=== PATIENT | female | born 1975 | race Caucasian/White ===

== ENCOUNTER 2016-04-26 20:54 | Inpatient (IN) | payer MEDICAID, OTHER ==
[~2016-04-26] VITALS: Ht 172.7 cm; Wt 211.1 kg
[~2016-04-26 20:54] MED LIST: BUPR150XL; FERR324T4 PO; LORTA5 PO; OMEP20CA5 PO; XANA2TAB2 PO; Z.0.NO CURRENT MEDS
[2016-04-26 20:56] VITALS: BP 137/68; PULSE 88; RESP 18; TEMP 98.1; O2SAT 89
[2016-04-26] MEDS ORDERED: GABA600T PO (21:05)
[2016-04-26] MEDS ORDERED: GABA300C3 PO ×2 (21:05)
[2016-04-26 21:22] LABS: MEAN CORPUSCULAR HGB CONC 26.7 % (32.0-36.0)
[2016-04-26 22:04] LABS: BICARBONATE 29.3 MEQ/L (21.0-32.0); POTASSIUM 4.1 MEQ/L (3.5-5.1)
[2016-04-26 22:54] LABS: AUTOMATED NEUTROPHIL # 8.5 TH/MM3 (1.8-7.7); BASOPHIL # 0.2 TH/MM3 (0-0.2); BASOPHIL % 1.5 % (0.0-2.0); EOSINOPHIL # 0.2 TH/MM3 (0-0.4); EOSINOPHIL % 1.3 % (0.0-4.0); HEMATOCRIT 25.6 % (35.0-46.0); LYMPH % 16.7 % (9.0-44.0); LYMPHOCYTE # 1.9 TH/MM3 (1.0-4.8); MEAN CELL VOLUME 62.8 FL (80.0-100.0); MEAN CORPUSCULAR HEMOGLOBIN 16.8 PG (27.0-34.0); MONO % 5.2 % (0.0-8.0); NEUT % 75.3 % (16.0-70.0); PLATELET COUNT 458 TH/MM3 (150-450); RED BLOOD COUNT 4.07 MIL/MM3 (4.00-5.30); RED CELL DISTRIBUTION WIDTH 25.5 % (11.6-17.2); WHITE BLOOD COUNT 11.3 TH/MM3 (4.0-11.0)
[2016-04-26 23:13] LABS: HEMO FLAGS AUTO DIFF
[2016-04-26] MEDS ORDERED: cefTRIAXone INJ 1,000 MG in SODIUM CHLORIDE 0.9% INJ 100 ML IV ONE (23:30)
[2016-04-26] MEDS ORDERED: VANCOMYCIN INJ 1,000 MG in SODIUM CHLOR 0.9% 250 ML INJ 250 ML IV ONE (23:30)
[2016-04-26] MEDS ORDERED: BISACODYL 10 MG SUPP PR PRN (23:45)
[2016-04-26] MEDS ORDERED: MAGNESIUM HYDROXIDE SUSP 30 ML CUP PO PRN (23:45)
[2016-04-26] MEDS ORDERED: SODIUM CHLORIDE 0.9% FLUSH 5 ML FLUSH FLUSH PRN (23:45)
[2016-04-26] MEDS ORDERED: PROCHLORPERAZINE 25 MG SUPP PR PRN (23:45)
[2016-04-26] MEDS ORDERED: TEMAZEPAM 15 MG CAP PO PRN (23:45)
[2016-04-26] MEDS ORDERED: ONDANSETRON HCL 4 MG/2 ML VIAL IVP PRN (23:45)
[2016-04-26] MEDS ORDERED: SENNOSIDES 8.6 MG TAB PO PRN (23:45)
[2016-04-26] MEDS ORDERED: ACETAMINOPHEN 325 MG TAB PO PRN (23:45)
[2016-04-27] VITALS (13 sets, daily range): BP systolic 110–121; BP diastolic 52–59; PULSE 80–109; RESP 17–18; TEMP 96.9–100; O2SAT 95–96
[2016-04-27] MEDS ORDERED: SODIUM CHLOR 0.9% 250 ML INJ 250 ML IV ONE
--- NOTE | 2016-04-27 00:24 | PD ---
HPI Chief Complaint: Laceration/Skin Injury Time Seen by Provider: 21:01 Travel History International Travel<30 days: No Contact w/Intl Traveler<30days: No Traveled to known affect area: No History of Present Illness HPI Patient was seen and examined the presence of staff at all times This is a 40-year-old female who presents via [facility] for evaluation. The patient states that she has basically been bed bound, mostly on her left side for about 4 years due to her weight. She has developed pressure ulcers. She states that they have worsened over the last month but she was too embarrassed to tell her doctor about it. She denies fever, chills, vomiting, diarrhea. She states that sometimes the sores oozes blood. Symptoms are moderate in severity. Onset gradual. Chronic in duration. Aggravated by morbid obesity. Prior treatment includes occasional application of "powder" and "cream." PFSH Past Medical History Arthritis: No Asthma: No Autoimmune Disease: No Blood Disorders: No Anxiety: No Depression: Yes Heart Rhythm Problems: No Cancer: No Cardiovascular Problems: Yes High Cholesterol: No Chemotherapy: No Chest Pain: No Congestive Heart Failure: No COPD: No Cerebrovascular Accident: No Diabetes: No Diminished Hearing: No Endocrine: No GERD: No Glaucoma: No Genitourinary: No Headaches: No Hepatitis: No Hiatal Hernia: No Hypertension: Yes Immune Disorder: No Kidney Stones: No Musculoskeletal: Yes Neurologic: No Psychiatric: Yes Reproductive: No Integumentary: Yes Myocardial Infarction: No Radiation Therapy: No Renal Failure: No Seizures: No Sickle Cell Disease: No Sleep Apnea: No Thyroid Disease: No Ulcer: No : 0 Para: 0 Miscarriage: 0 : 0 Past Surgical History Abdominal Surgery: No AICD: No Arteriovenous Shunt: No Cardiac Surgery: No Ear Surgery: No Endocrine Surgery: No Eye Surgery: No Genitourinary Surgery: No Gynecologic Surgery: No Insulin Pump: No Joint Replacement: No Oral Surgery: No Pacemaker: No Thoracic Surgery: No Social History Alcohol Use: No Tobacco Use: No Substance Use: No Allergies-Medications (Allergen,Severity, Reaction): Coded Allergies: Diflucan (Verified Allergy, Mild, Rash, 04/26/16) Reported Meds & Prescriptions Reported Meds & Active Scripts Active Reported Gabapentin 600 Mg Tab 600 Mg PO TAKE AT 0530 Gabapentin 300 Mg Cap 300 Mg PO TAKE 2130 Gabapentin 300 Mg Cap 300 Mg PO TAKE AT 1330 Prilosec 20 mg (Omeprazole) 20 Mg Capcr 20 Mg PO DAILY Hydrocodone/Acetaminophen 5 mg/325 mg 1 Tab Tab 1 Tab PO Q6HPRN Review of Systems ROS negative x 10: except as stated in HPI Physical Exam Narrative GENERAL: Alert, morbidly obese female resting on the bed in no acute distress. Vital signs reviewed SKIN: Warm and dry. HEAD: Atraumatic. Normocephalic. EYES: Pupils equal and round. No scleral icterus. No injection or drainage. ENT: No nasal bleeding or discharge. Mucous membranes pink and moist. NECK: Trachea midline. No JVD. Supple neck with spontaneous, painless full range of motion. No meningismus CARDIOVASCULAR: Regular rate and rhythm. No murmur appreciated. RESPIRATORY: No accessory muscle use. Clear to auscultation. Breath sounds equal bilaterally. Exam limited by body habitus GASTROINTESTINAL: Abdomen soft, on the left under aspect of the pannus, there are chronic skin changes. There is about a 12 x 5 area of skin breakdown with a central less than half centimeter opening. Exam is limited by body habitus. Patient does not tolerate much movement. MUSCULOSKELETAL: No obvious deformities. No clubbing. No cyanosis. No edema. NEUROLOGICAL: Awake and alert. No obvious cranial nerve deficits. Motor grossly within normal limits. Normal speech. Sensation intact. Data Data Last Documented VS Vital Signs Date Time Temp Pulse Resp B/P Pulse Ox O2 Delivery O2 Flow Rate FiO2 04/26/16 20:56 98.1 88 18 137/68 89 Orders Basic Metabolic Panel (Bmp) (04/26/16 21:21) Complete Blood Count With Diff (04/26/16 21:21) Wound Culture And Gram Stain (04/26/16 21:21) Ceftriaxone Inj (Rocephin Inj) (04/26/16 23:30) Vancomycin Inj (Vancomycin Inj) (04/26/16 23:30) Blood Culture (04/26/16 23:28) Admit Order (Ed Use Only) (04/26/16 23:29) Admit To Inpatient (04/26/16 ) Vital Signs (Adult) Q4H (04/26/16 23:37) Activity Oob With Assistance (04/26/16 23:37) ^ Stores Assistant / Telemetry .CONTINUOUS (04/26/16 23:37) Diet Heart Healthy (04/27/16 Breakfast) Sodium Chlor 0.9% 1000 Ml Inj (Ns 1000 M (04/26/16 23:37) Sodium Chloride 0.9% Flush (Ns Flush) (04/26/16 23:45) Sodium Chloride 0.9% Flush (Ns Flush) (04/27/16 09:00) Acetaminophen (Tylenol) (04/26/16 23:45) Ondansetron Inj (Zofran Inj) (04/26/16 23:45) Prochlorperazine Supp (Compazine Supp) (04/26/16 23:45) Bisacodyl Supp (Dulcolax Supp) (04/26/16 23:45) Magnesium Hydroxide Liq (Milk Of Magnesi (04/26/16 23:45) Sennosides (Senokot) (04/26/16 23:45) Temazepam (Restoril) (04/26/16 23:45) Basic Metabolic Panel (Bmp) (04/27/16 06:00) Complete Blood Count With Diff (04/27/16 06:00) Resp Oxygen Kody C Titrat 1-4 L (04/26/16 ) Pt Request For Service (04/26/16 23:37) Case Management Consult (04/26/16 23:37) Enoxaparin Inj (Lovenox Inj) (04/26/16 23:45) Scd Bilateral/Knee High STANTON.QSHIFT (04/26/16 23:37) Celso Bilateral/Knee High STANTON.QSHIFT (04/26/16 23:37) Inpatient Certification (04/26/16 ) Vancomycin Inj (Vancomycin Inj) (04/26/16 23:45) Ceftriaxone Inj (Rocephin Inj) (04/26/16 23:45) Gabapentin (Neurontin) (04/27/16 09:00) (Nf) Gabapentin (04/26/16 23:45) (Nf) Omeprazole 20 Mg (Prilosec 20 Mg) (04/27/16 09:00) Gabapentin (Neurontin) (04/27/16 09:00) Labs Laboratory Tests Test 04/26/16 04/26/16 21:30 22:30 Sodium Level 140 MEQ/L Potassium Level 4.1 MEQ/L Chloride Level 101 MEQ/L Carbon Dioxide Level 29.3 MEQ/L Anion Gap 10 MEQ/L Blood Urea Nitrogen 9 MG/DL Creatinine 0.81 MG/DL Estimat Glomerular Filtration 78 ML/MIN Rate Random Glucose 103 MG/DL Calcium Level 8.3 MG/DL White Blood Count 11.3 TH/MM3 Red Blood Count 4.07 MIL/MM3 Hemoglobin 6.8 GM/DL Hematocrit 25.6 % Mean Corpuscular Volume 62.8 FL Mean Corpuscular Hemoglobin 16.8 PG Mean Corpuscular Hemoglobin 26.7 % Concent Red Cell Distribution Width 25.5 % Platelet Count 458 TH/MM3 Mean Platelet Volume 8.4 FL Neutrophils (%) (Auto) 75.3 % Lymphocytes (%) (Auto) 16.7 % Monocytes (%) (Auto) 5.2 % Eosinophils (%) (Auto) 1.3 % Basophils (%) (Auto) 1.5 % Neutrophils # (Auto) 8.5 TH/MM3 Lymphocytes # (Auto) 1.9 TH/MM3 Monocytes # (Auto) 0.6 TH/MM3 Eosinophils # (Auto) 0.2 TH/MM3 Basophils # (Auto) 0.2 TH/MM3 CBC Comment AUTO DIFF MDM Medical Decision Making Medical Screen Exam Complete: Yes Emergency Medical Condition: Yes Medical Record Reviewed: Yes Interpretation(s) CBC reviewed. Hemoglobin 6.8 BMP reviewed Differential Diagnosis Decubitus ulcer, chronic wound infection, cellulitis, morbid obesity Narrative Course IV access was established. Labs were performed. Wound culture was performed on abdominal wound. Patient has critical anemia. She denies melena or hematochezia. She states that she does not have menstrual cycles. I spoke with her regarding blood transfusion. She will be admitted for further evaluation and care. Diagnosis Primary Impression: Anemia Qualified Code: D64.9 - Anemia, unspecified type Additional Impression: Cellulitis Qualified Code: L03.311 - Cellulitis of abdominal wall Evelin Banks MD Apr 27, 2016 00:24
[2016-04-27] MEDS: SODIUM CHLOR 0.9% 1000 ML INJ 1,000 ML IV SCH ×3 (00:32→13:32)
[2016-04-27] MEDS: ENOXAPARIN SODIUM 40 MG/0.4 ML SYRINGE SQ SCH ×2 (00:33→23:30)
[2016-04-27 01:36] LABS: KERATOCYTES 1+ (NORMAL); OVALOCYTES 2+ (NORMAL); STOMATOCYTES 2+ (NORMAL); TEARDROP RBCS 1+ (NORMAL)
[2016-04-27 01:37] LABS: SCAN/DIFF AUTO DIFF CONFIRMED
--- NOTE | 2016-04-27 02:12 | HHI.HP ---
HPI Service [facility] Primary Care Physician Non-Staff Admission Diagnosis Abdominal Wall Decubitus Ulcer with Cellulitis, Critical Anemia Diagnoses: Travel History International Travel<30 Days: No Contact w/Intl Traveler <30 Da: No Traveled to Known Affected Are: No History of Present Illness This is a 40-year-old female morbidly obese with BMI of 93.9 who presents via [facility] for evaluation. The patient states that she has basically been bed bound, mostly on her left side for about 4 years due to her weight. She has developed pressure ulcers. She states that they have worsened over the last month but she was too embarrassed to tell her doctor about it. She denies fever, chills, vomiting, diarrhea. She states that sometimes the sores oozes blood. Symptoms are moderate in severity. Onset gradual. Chronic in duration. Aggravated by morbid obesity. Prior treatment includes occasional application of "powder" and "cream." She also complaints of sob. CBC with low HGB, received 1U PRBC. Otherwise no complaints. Review of Systems Constitutional: DENIES: Fever, Chills, Change in appetite Endocrine: DENIES: Heat/cold intolerance Eyes: DENIES: Blurred vision, Eye pain Ears, nose, mouth, throat: DENIES: Tinnitus, Hearing loss, Vertigo, Nasal discharge, Oral lesions, Throat pain, Hoarseness, Ear Pain, Running Nose, Epistaxis, Sinus Pain, Toothache, Odynophagia Respiratory: DENIES: Apneas, Cough, Snoring, Wheezing, Hemoptysis, Sputum production, Shortness of breath Cardiovascular: DENIES: Chest pain, Palpitations, Syncope, Dyspnea on Exertion , PND, Lower Extremity Edema, Orthopnea, Claudication Gastrointestinal: DENIES: Abdominal pain, Black stools, Bloody stools, Constipation, Diarrhea, Nausea, Vomiting, Difficulty Swallowing, Anorexia Genitourinary: DENIES: Urinary frequency, Urinary incontinence Musculoskeletal: COMPLAINS OF: Back pain Integumentary: COMPLAINS OF: Rash (extensive ulcers, rash on her neck as well) Neurologic: COMPLAINS OF: Abnormal gait Psychiatric: COMPLAINS OF: Anxiety, Depression Past Family Social History Past Medical History Morbid obesity BMI of 93.9. HTN Pressure ulcers Past Surgical History None Allergies: Coded Allergies: Diflucan (Verified Allergy, Mild, Rash, 04/26/16) Family History Morbid obesity problems runs in family Social History Denies etoh, tobacco or illicit drug use. Physical Exam Vital Signs Vital Signs Date Time Temp Pulse Resp B/P Pulse Ox O2 Delivery O2 Flow Rate FiO2 04/27/16 02:06 82 18 118/57 95 04/27/16 01:45 88 18 121/57 95 04/27/16 01:33 100.0 85 18 119/57 95 Room Air 04/27/16 01:32 100.0 85 18 119/57 95 Room Air 04/26/16 20:56 98.1 88 18 137/68 89 Physical Exam GENERAL: This is a pleasant female, morbidly obese BMI of 93.9, well-nourished, well-developed patient, in no apparent distress. SKIN: Rash on the neck consistent with funga l rash Extensive cellulitis, pressure ulcers, not able to visualize much because of the patient inability to move, she is bedbound. HEAD: Atraumatic. Normocephalic. No temporal or scalp tenderness. EYES: Pupils equal round and reactive. Extraocular motions intact. No scleral icterus. No injection or drainage. ENT: Nose without bleeding, purulent drainage or septal hematoma. Throat without erythema, tonsillar hypertrophy or exudate. Uvula midline. Airway patent. NECK: Trachea midline. No JVD or lymphadenopathy. Supple, nontender, no meningeal signs. CARDIOVASCULAR: Regular rate and rhythm without murmurs, gallops, or rubs. RESPIRATORY: Clear to auscultation. Breath sounds equal bilaterally. No wheezes , rales, or rhonchi. GASTROINTESTINAL: Abdomen soft morbidly obese, non-tender, nondistended. No hepato-splenomegaly, or palpable masses. No guarding. MUSCULOSKELETAL: Extremities without clubbing, cyanosis, or edema. No joint tenderness, effusion, or edema noted. No calf tenderness. Negative Homans sign bilaterally. NEUROLOGICAL: Awake and alert. Cranial nerves II through XII intact. Motor and sensory grossly within normal limits. Five out of 5 muscle strength in all muscle groups. Normal speech. Laboratory Laboratory Tests Test 04/26/16 04/26/16 04/27/16 21:30 22:30 00:08 Sodium Level 140 Potassium Level 4.1 Chloride Level 101 Carbon Dioxide Level 29.3 Anion Gap 10 Blood Urea Nitrogen 9 Creatinine 0.81 Estimat Glomerular Filtration 78 Rate Random Glucose 103 Calcium Level 8.3 White Blood Count 11.3 Red Blood Count 4.07 Hemoglobin 6.8 Hematocrit 25.6 Mean Corpuscular Volume 62.8 Mean Corpuscular Hemoglobin 16.8 Mean Corpuscular Hemoglobin 26.7 Concent Red Cell Distribution Width 25.5 Platelet Count 458 Mean Platelet Volume 8.4 Neutrophils (%) (Auto) 75.3 Lymphocytes (%) (Auto) 16.7 Monocytes (%) (Auto) 5.2 Eosinophils (%) (Auto) 1.3 Basophils (%) (Auto) 1.5 Neutrophils # (Auto) 8.5 Lymphocytes # (Auto) 1.9 Monocytes # (Auto) 0.6 Eosinophils # (Auto) 0.2 Basophils # (Auto) 0.2 CBC Comment AUTO DIFF Differential Comment AUTO DIFF CONFIRMED Tear Drop Cells 1+ Ovalocytes 2+ Stomatocytes 2+ Keratocytes 1+ Blood Type O POSITIVE Antibody Screen NEGATIVE Crossmatch Leukocyte-Reduced Red Blood Cells Blood Bank Comment Date/Time Procedure Status Source Growth 04/27/16 00:08 Aerobic Blood Culture Received Blood Peripheral Pending 04/27/16 00:08 Anaerobic Blood Culture Received Blood Peripheral Pending 04/26/16 21:30 Gram Stain Received Wound Abdomen Pending 04/26/16 21:30 Wound Culture Received Wound Abdomen Pending Result Diagram: 04/26/16 2230 04/26/16 2130 Assessment and Plan Assessment and Plan Pleasant 40 yo F, morbidly obese BMI 93.9 with Cellulitis Decubitus ulcers Morbid obesity BMI 93.9. counselled. Evaluated for bariatric surgery, says she is not a candidate. Symptomatic anemia. Hemoglobin 6.8. Receiving 1U PRBC. Monitor H/H Wound culture was performed on abdominal wound in the ED. Started on vancomycin and rocephin IV antibiotics Start IVF Restart home meds. DVt px with SCD/Teds Code Status full Discussed Condition With pt, nurse, ED physician Physician Certification 2 Midnight Certification Type: Admission for Inpatient Services Order for Inpatient Services The services are ordered in accordance with Medicare regulations or non- Medicare payer requirements, as applicable. In the case of services not specified as inpatient-only, they are appropriately provided as inpatient services in accordance with the 2-midnight benchmark. Estimated LOS (days): 3 days is the estimated time the patient will need to remain in the hospital, assuming treatment plan goals are met and no additional complications. Post-Hospital Plan: Not yet determined Bettina Bowling MD Apr 27, 2016 02:12
[2016-04-27] MEDS ORDERED: ACETAMINOPHEN/HYDROcodone 325 MG/5 MG TAB PO PRN (02:15)
[2016-04-27] MEDS: GABAPENTIN 300 MG CAP PO SCH ×3 (03:39→22:00)
[2016-04-27 07:16] LABS: AUTOMATED NEUTROPHIL # 8.5 TH/MM3 (1.8-7.7); BASOPHIL # 0.2 TH/MM3 (0-0.2); BASOPHIL % 1.4 % (0.0-2.0); EOSINOPHIL # 0.2 TH/MM3 (0-0.4); EOSINOPHIL % 1.7 % (0.0-4.0); HEMATOCRIT 29.9 % (35.0-46.0); MEAN CELL VOLUME 64.9 FL (80.0-100.0); MEAN CORPUSCULAR HEMOGLOBIN 17.5 PG (27.0-34.0); MONO % 6.1 % (0.0-8.0); NEUT % 73.8 % (16.0-70.0); PLATELET COUNT 482 TH/MM3 (150-450); RED CELL DISTRIBUTION WIDTH 25.4 % (11.6-17.2); WHITE BLOOD COUNT 11.5 TH/MM3 (4.0-11.0)
[2016-04-27 07:29] LABS: HEMO FLAGS AUTO DIFF
[2016-04-27 07:38] LABS: BICARBONATE 31.6 MEQ/L (21.0-32.0); POTASSIUM 3.8 MEQ/L (3.5-5.1)
[2016-04-27] MEDS ORDERED: GABAPENTIN 300 MG CAP PO SCH (09:00)
[2016-04-27] MEDS: PANTOPRAZOLE SOD 20 MG DELAYED RELEASE TAB PO SCH (09:10)
[2016-04-27] MEDS: SODIUM CHLORIDE 0.9% FLUSH 5 ML FLUSH FLUSH SCH ×2 (09:11→21:00)
[2016-04-27 09:24] LABS: CORRECTED NUCLEATED RBC 3 /100 WBC (0-0); NEUTROPHIL # MANUAL DIFF 9.3 TH/MM3 (1.8-7.7); PLATELET ESTIMATE SMEAR HIGH (NORMAL); PLATELET MORPHOLOGY NORMAL (NORMAL); POLYS (SEG NEUTROPHILS) 81 % (16-70); SCAN/DIFF FINAL DIFF MANUAL; WBC DIFF SAMPLE 100
[2016-04-27 09:25] LABS: OVALOCYTES 1+ (NORMAL)
[2016-04-27 09:27] LABS: STOMATOCYTES 1+ (NORMAL)
[2016-04-27] MEDS: VANCOMYCIN INJ 1,000 MG in SODIUM CHLOR 0.9% 250 ML INJ 250 ML IV SCH ×2 (12:06→23:29)
[2016-04-27] MEDS: ACETAMINOPHEN/HYDROcodone 325 MG/5 MG TAB PO PRN ×2 (13:50→22:01)
[2016-04-27] MEDS: cefTRIAXone INJ 1,000 MG in SODIUM CHLORIDE 0.9% INJ 100 ML IV SCH (23:30)
[2016-04-28 01:51] VITALS: BP 112/51; PULSE 96; RESP 18; TEMP 97.8; O2SAT 94
[2016-04-28 04:00] VITALS: BP 118/63; PULSE 118; RESP 18; TEMP 97.5; O2SAT 93
[2016-04-28] MEDS: GABAPENTIN 300 MG CAP PO SCH ×3 (05:12→21:18)
[2016-04-28] MEDS: ACETAMINOPHEN/HYDROcodone 325 MG/5 MG TAB PO PRN ×3 (05:13→18:05)
[2016-04-28] MEDS: SODIUM CHLOR 0.9% 1000 ML INJ 1,000 ML IV SCH ×2 (05:13→12:00)
[2016-04-28] MEDS: SODIUM CHLORIDE 0.9% FLUSH 5 ML FLUSH FLUSH SCH ×2 (08:19→21:00)
[2016-04-28] MEDS: PANTOPRAZOLE SOD 20 MG DELAYED RELEASE TAB PO SCH (08:19)
[2016-04-28 08:20] VITALS: BP 128/60; PULSE 117; RESP 18; TEMP 97.2; O2SAT 97
[2016-04-28 08:47] LABS: MEAN CORPUSCULAR HGB CONC 27.6 % (32.0-36.0)
[2016-04-28] MEDS ORDERED: PNEUMOCOCCAL POLYVALENT INJ 25 MCG/0.5 ML SYR IM ONE (09:00)
[2016-04-28] MEDS ORDERED: INFLUENZA VIRUS VACCINE (QUADRIVALENT) 0.5 ML SYR IM ONE (09:00)
--- NOTE | 2016-04-28 09:20 | HHI.PR ---
Subjective Remarks 40 years old female very pleasant morbidly obese, bedbound for 4 years total care- her boyfriend is her child care group leader yesterday while bathing her - he put his hand under her body to wash her and noted blood and was sent here for further evaluation now with apparently a chronic wound on the abdomen - left side - BF clean it with patient denies any pain BM regular voiding spontaneously- - she would put a towel in between her legs when she needs to urinate occasional constipation take Omeprazole, hydrocodone prn - "fibromyalgia" denies alcohol use, no smoking Objective Vitals Vital Signs Date Time Temp Pulse Resp B/P Pulse Ox O2 Delivery O2 Flow Rate FiO2 04/28/16 08:20 97.2 117 18 128/60 97 04/28/16 04:00 97.5 118 18 118/63 93 04/28/16 01:51 97.8 96 18 112/51 94 04/27/16 22:10 21 04/27/16 20:17 103 04/27/16 20:00 98.1 100 18 115/55 95 04/27/16 16:23 97.1 99 17 121/56 95 04/27/16 14:50 20 04/27/16 13:24 96.9 109 17 114/52 95 I/O 04/27/16 04/27/16 04/27/16 04/28/16 04/28/16 04/28/16 07:00 15:00 23:00 07:00 15:00 23:00 Intake Total 700 ml 497 ml 970 ml 688 ml 120 ml Balance 700 ml 497 ml 970 ml 688 ml 120 ml Intake Oral 240 ml 240 ml 120 ml IV Total 257 ml 730 ml 688 ml Packed Cells 700 ml # Voids 1 Result Diagram: 04/27/16 0643 04/27/1643 Objective Remarks awake and alert, oriented x 3, not in distress morbidly obese anicteric lungs clear radial pulses ++, regular abdomen- flabby, anterior-umbilicus stretched vertically about 3 cm- dry, no erythema left side of the abdomen- superficial area of erythema, excoriations from pressure unable to turn her to inspect the wound back- no open wounds, no sacral erythema motor- moves all extremities spontaenousl - LE limited by weight A/P Assessment and Plan Decubitus wounds - abdomen- growing gram negative continue on Ceftriaxone and Vancomycin Wound care team/nurse consult- Morbid obesity BMI 93.9. counselled. Evaluated for bariatric surgery, says she is not a candidate. Microcytic anemia - likely chronic Hemoglobin 6.8. S/P 1U PRBC. Monitor H/H . check Iron studies denies any hematochezia, LMP stop 2-3 months ago check Iron stores- IV Iron if low start Iron supplements Continue on Gabapentin, PPI, Lortab DVt - Lovenox Darrell Cruz MD Apr 28, 2016 09:20
[2016-04-28 11:10] LABS: ALKALINE PHOSPHATASE 114 U/L (45-117); ALT (GPT) 6 U/L (10-53); AST (GOT) 16 U/L (15-37); FERRITIN 7 NG/ML (8-252); INDIRECT BILIRUBIN 0.5 MG/DL (0.0-0.8); TOTAL BILIRUBIN ADULT 0.7 MG/DL (0.2-1.0); TRANSFERRIN IRON PROFILE 203 MG/DL (200-360)
[2016-04-28 11:24] LABS: AUTOMATED NEUTROPHIL # 6.8 TH/MM3 (1.8-7.7); BASOPHIL % 0.5 % (0.0-2.0); EOSINOPHIL # 0.5 TH/MM3 (0-0.4); EOSINOPHIL % 4.7 % (0.0-4.0); HEMO FLAGS AUTO DIFF; LYMPH % 18.2 % (9.0-44.0); LYMPHOCYTE # 1.7 TH/MM3 (1.0-4.8); MEAN CORPUSCULAR HEMOGLOBIN 18.2 PG (27.0-34.0); MONO % 4.8 % (0.0-8.0); NEUT % 71.8 % (16.0-70.0); PLATELET COUNT 448 TH/MM3 (150-450); RED CELL DISTRIBUTION WIDTH 24.9 % (11.6-17.2); WHITE BLOOD COUNT 9.5 TH/MM3 (4.0-11.0)
[2016-04-28 11:52] VITALS: BP 122/55; PULSE 102; RESP 17; TEMP 96.9; O2SAT 96
[2016-04-28] MEDS: VANCOMYCIN INJ 1,000 MG in SODIUM CHLOR 0.9% 250 ML INJ 250 ML IV SCH (11:59)
[2016-04-28] MEDS: FERROUS SULFATE 325 MG (65 MG ELEMENTAL IRON) TAB PO SCH ×2 (12:00→18:04)
[2016-04-28 12:21] LABS: BANDS 1 % (0-6); BASOPHILS 1 % (0-2); CORRECTED NUCLEATED RBC 1 /100 WBC (0-0); EOSINOPHILS 5 % (0-4); NEUTROPHIL # MANUAL DIFF 7.5 TH/MM3 (1.8-7.7); POLYS (SEG NEUTROPHILS) 78 % (16-70); WBC DIFF SAMPLE 100
[2016-04-28 12:22] LABS: PLATELET ESTIMATE SMEAR NORMAL (NORMAL); PLATELET MORPHOLOGY NORMAL (NORMAL); POLYCHROMASIA 2.6 % (0.0-1.9); SCAN/DIFF FINAL DIFF MANUAL
[2016-04-28 17:23] VITALS: BP 121/58; PULSE 107; RESP 18; TEMP 97; O2SAT 95
[2016-04-28 20:00] VITALS: BP 138/56; PULSE 101; RESP 20; TEMP 98.2; O2SAT 94
[2016-04-29] VITALS (8 sets, daily range): BP systolic 103–128; BP diastolic 44–76; PULSE 93–110; RESP 19–20; TEMP 97.1–98; O2SAT 91–97
[2016-04-29] MEDS: cefTRIAXone INJ 1,000 MG in SODIUM CHLORIDE 0.9% INJ 100 ML IV SCH (00:38)
[2016-04-29] MEDS: VANCOMYCIN INJ 1,000 MG in SODIUM CHLOR 0.9% 250 ML INJ 250 ML IV SCH ×2 (00:38→11:54)
[2016-04-29] MEDS: ENOXAPARIN SODIUM 40 MG/0.4 ML SYRINGE SQ SCH (00:39)
[2016-04-29] MEDS: SODIUM CHLOR 0.9% 1000 ML INJ 1,000 ML IV SCH ×2 (00:39→17:36)
[2016-04-29] MEDS: ACETAMINOPHEN/HYDROcodone 325 MG/5 MG TAB PO PRN ×4 (00:39→17:39)
[2016-04-29] MEDS: GABAPENTIN 300 MG CAP PO SCH ×3 (06:10→20:18)
--- NOTE | 2016-04-29 08:38 | HHI.PR ---
Subjective Remarks very pleasant now having some itchiness neck area Objective Vitals Vital Signs Date Time Temp Pulse Resp B/P Pulse Ox O2 Delivery O2 Flow Rate FiO2 04/29/16 08:00 97.5 110 20 125/70 97 04/29/16 04:00 97.1 105 20 112/44 93 04/29/16 00:00 98.0 96 20 103/54 96 04/28/16 20:00 98.2 101 20 138/56 94 04/28/16 17:23 97.0 107 18 121/58 95 04/28/16 13:26 Nasal Cannula 1.00 04/28/16 11:52 96.9 102 17 122/55 96 I/O 04/28/16 04/28/16 04/28/16 04/29/16 04/29/16 04/29/16 07:00 15:00 23:00 07:00 15:00 23:00 Intake Total 928 ml 880 ml 1036 ml 884 ml Output Total 200 ml Balance 928 ml 680 ml 1036 ml 884 ml Intake Oral 240 ml 880 ml 720 ml 0 ml IV Total 688 ml 316 ml 884 ml Output Urine Total 200 ml # Voids 1 2 1 # Bowel Movements 0 1 Result Diagram: 04/28/16 1016 04/27/16 0643 Objective Remarks awake and alert, oriented x 3, not in distress morbidly obese anictericneck- right neck with some erythematous excoriations, scaling lungs clear radial pulses ++, regular abdomen- flabby, anterior-umbilicus stretched vertically about 3 cm- dry, no erythema left side of the abdomen- superficial area of erythema, excoriations from pressure unable to turn her to inspect the wound back- no open wounds, no sacral erythema motor- moves all extremities spontaenous - LE limited by weight A/P Assessment and Plan Decubitus wounds - abdomen- growing gram negative continue on Ceftriaxone and Vancomycin Wound care team/nurse consult- Morbid obesity BMI 93.9. counselled. Evaluated for bariatric surgery, says she is not a candidate. Microcytic anemia -- severe Iron deficiency ?r/o GIB versus- nutritional B12, folic acid deficiency LMP stop 2-3 months ago ? hematochezia- as per patient when BF cleans her- blood underneath get a GI consult give IV iron x 3start Iron supplements B12, folate daily Continue on Gabapentin, PPI, Lortab No Lovenox with severe anemia Darrell Cruz MD Apr 29, 2016 08:38
[2016-04-29] MEDS: SODIUM CHLORIDE 0.9% FLUSH 5 ML FLUSH FLUSH SCH ×2 (09:00→20:16)
[2016-04-29] MEDS: PANTOPRAZOLE SOD 20 MG DELAYED RELEASE TAB PO SCH (10:14)
[2016-04-29] MEDS: FOLIC ACID 1 MG TAB PO SCH (10:14)
[2016-04-29] MEDS: IRON SUCROSE INJ 100 MG in SODIUM CHLORIDE 0.9% INJ 100 ML IV SCH (10:15)
[2016-04-29] MEDS: FERROUS SULFATE 325 MG (65 MG ELEMENTAL IRON) TAB PO SCH ×2 (11:52→17:35)
--- NOTE | 2016-04-29 16:10 | PD.CONS ---
HPI History of Present Illness This is a 40-year-old female morbidly obese with BMI of 93.9 who presents via [facility] for evaluation of an ulcer. The patient has been basically been bed bound, on her left side for about 4 years due to inability to move due to weight. She has developed pressure ulcers. She reports abd pain that got worse, but normally, due to embarrassment, she holds off on telling any one and waits for a long time before seeking medical attention. She denies fever, chills, vomiting, hematemesis, hematochezia, or diarrhea. She has a care rep that helps her, and he notices sometimes blood on the wipe from the sores. Labs revealed CBC with low HGB 6.8 , received 1U PRBC, and hgb went up to 8.5. Wound nurse consulted, wound cx showed klebsiella pneumoniae PFSH Past Medical History Morbid obesity BMI of 93.9. HTN Pressure ulcers chronic anemia Past Surgical History None Coded Allergies: Diflucan (Verified Allergy, Mild, Rash, 04/26/16) *MDRO Multi-Drug Resistant Organism (Verified Adverse Reaction, Unknown, 04/29/16) ESBL+Klebsiella Pneumoniae (abdomen-04/26/16) Medications Current Medications Medications (Trade) Dose Ordered Sig/Gerda Route Start Time Stop Time Status Last Admin (NS 1000 ml Inj) 1,000 ml @ 42 mls/hr [id number] IV 04/26/16 23:37 04/29/16 00:39 (NS Flush) 2 ml UNSCH PRN FLUSH 04/26/16 23:45 (NS Flush) 2 ml BID FLUSH 04/27/16 09:00 04/28/16 08:19 (Tylenol) 650 mg Q4H PRN PO 04/26/16 23:45 (Zofran Inj) 4 mg Q6H PRN IVP 04/26/16 23:45 (Compazine Supp) 25 mg Q12H PRN [place] 04/26/16 23:45 (Dulcolax Supp) 10 mg DAILY PRN IL 04/26/16 23:45 (Milk Of Magnesia Liq) 30 ml Q12H PRN PO 04/26/16 23:45 04/27/16 03:40 (Senokot) 17.2 mg Q12H PRN PO 04/26/16 23:45 Temazepam 15 mg 15 mg HS PRN PO 04/26/16 23:45 Vancomycin HCl 1000 mg/Sodium Chloride 250 ml @ 250 mls/hr Q12H IV 04/27/16 12:00 04/29/16 11:54 (Rocephin Inj/NS Inj) 100 ml @ 200 mls/hr Q24H IV 04/28/16 00:00 04/29/16 00:38 (Neurontin) 600 mg DAILY@0530 PO 04/27/16 05:30 04/29/16 06:10 (Protonix) 20 mg DAILY PO 04/27/16 09:00 04/29/16 10:14 (Neurontin) 300 mg BID PO 04/27/16 09:00 04/29/16 10:14 ([place] 5-325 Mg) 2 tab Q6H PRN PO 04/27/16 02:15 04/29/16 12:07 Ferrous Sulfate 325 mg 325 mg BID@12,17 PO 04/28/16 12:00 04/29/16 11:52 (Venofer Inj/NS Inj) 105 ml @ 105 mls/hr DAILY IV 04/29/16 10:00 05/01/16 09:59 04/29/16 10:15 (Folate) 1 mg DAILY PO 04/29/16 09:00 04/29/16 10:14 Family History Morbid obesity problems runs in family Cancer runs in family Denies family hx of colon or gastric cancer Social History Denies etoh, tobacco or illicit drug use. Review of Systems Constitutional: COMPLAINS OF: Fatigue, DENIES: Chills Endocrine: DENIES: Polyuria Eyes: DENIES: Double Vision Ears, nose, mouth, throat: DENIES: Hoarseness Respiratory: COMPLAINS OF: Shortness of breath Cardiovascular: DENIES: Syncope Gastrointestinal: COMPLAINS OF: Abdominal pain, DENIES: Black stools, Bloody stools, Constipation, Diarrhea, Nausea, Vomiting, Difficulty Swallowing, Anorexia, Odynophagia, Swelling of Abdomen, Heartburn, Hematemesis Genitourinary: DENIES: Hematuria Musculoskeletal: DENIES: Neck pain Integumentary: DENIES: Jaundice Hematologic/lymphatic: DENIES: Bruising Immunologic/allergic: DENIES: Eczema Neurologic: COMPLAINS OF: Abnormal gait Psychiatric: DENIES: Anxiety GI Exam Vitals I&O Vital Signs Date Time Temp Pulse Resp B/P Pulse Ox O2 Delivery O2 Flow Rate FiO2 04/29/16 12:00 97.7 102 19 128/56 95 04/29/16 09:03 91 Nasal Cannula 2.00 04/29/16 08:00 97.5 110 20 125/70 97 04/29/16 04:00 97.1 105 20 112/44 93 04/29/16 00:00 98.0 96 20 103/54 96 04/28/16 20:00 98.2 101 20 138/56 94 04/28/16 17:23 97.0 107 18 121/58 95 I/O 04/28/16 04/28/16 04/28/16 04/29/16 04/29/16 04/29/16 07:02 15:02 23:02 07:02 15:02 23:02 Intake Total 928 ml 880 ml 1036 ml 884 ml 909 ml Output Total 200 ml Balance 928 ml 680 ml 1036 ml 884 ml 909 ml Intake Oral 240 ml 880 ml 720 ml 0 ml 240 ml IV Total 688 ml 316 ml 884 ml 669 ml Output Urine Total 200 ml # Voids 1 2 1 2 # Bowel Movements 0 1 1 Laboratory Date/Time Procedure Status Source Growth 04/27/16 00:08 Aerobic Blood Culture - Preliminary Resulted Blood Peripheral NO GROWTH IN 2 DAYS 04/27/16 00:08 Anaerobic Blood Culture - Preliminary Resulted Blood Peripheral NO GROWTH IN 2 DAYS 04/26/16 21:30 Gram Stain - Final Complete Wound Abdomen 04/26/16 21:30 Wound Culture - Final Complete Klebsiella Pneumoniae Esbl Pos Physical Examination HEENT: Pupils round and reactive to light; normocephalic; atraumatic; no jaundice. CHEST: Chest is clear to auscultation and percussion. CARDIAC: Regular rate and rhythm with no murmur gallop or rubs. ABDOMEN: Morbid obese, not able to assess due to patient inability to move EXTREMITIES: No clubbing, cyanosis, or edema. SKIN: Normal; no rash; no jaundice. FIELD TECHNICAL SUPPORT CONSULTANT: No focal deficits; alert and oriented times three. Assessment and Plan Plan - Severe microcytic anemia- this is chronic, she was seen by our services back in 2010 for the anemia, no scopes were done, patient not having any rectal bleeding that she is aware off, she has a care rep that helps her with cleaning, he reports the sores are oozing blood sometimes hgb was 6.8, s/p 1 unit of blood, this went up to 8.5 - ? hematochezia vs sores bleed, care rep noted some blood on the wipe,but she ulcers - Decubitus wounds - abdomen- growing gram negative, on Ceftriaxone and Vancomycin. Wound care team/nurse consulted - Morbid obesity- BMI 93.9, has been on left side for over 4 years now Plan: - DUANE - It would be very difficult to have EGD/colonoscopy due to anatomy, and weight , she is very high risk. - Hemoccult stools - monitor hh - Transfuse as needed - cont. Protonix - Supportive care - patient seen and examined by Dr. Escamilla and myself and this note is written on his behalf. Marta Doshi Apr 29, 2016 16:10
[2016-04-29] MEDS: LEVOFLOXACIN 500 MG PREMIX INJ 100 ML IV SCH (18:18)
[2016-04-30] VITALS (8 sets, daily range): BP systolic 106–133; BP diastolic 54–86; PULSE 95–110; RESP 18–20; TEMP 96.1–98.4; O2SAT 93–98
[2016-04-30] MEDS: VANCOMYCIN INJ 1,000 MG in SODIUM CHLOR 0.9% 250 ML INJ 250 ML IV SCH ×3 (00:24→23:09)
[2016-04-30] MEDS: ACETAMINOPHEN/HYDROcodone 325 MG/5 MG TAB PO PRN ×4 (00:24→18:26)
[2016-04-30] MEDS: GABAPENTIN 300 MG CAP PO SCH ×3 (06:05→21:31)
[2016-04-30] MEDS: SODIUM CHLORIDE 0.9% FLUSH 5 ML FLUSH FLUSH SCH ×2 (10:18→21:00)
[2016-04-30] MEDS: FOLIC ACID 1 MG TAB PO SCH (10:18)
[2016-04-30] MEDS: IRON SUCROSE INJ 100 MG in SODIUM CHLORIDE 0.9% INJ 100 ML IV SCH (10:18)
[2016-04-30] MEDS: PANTOPRAZOLE SOD 20 MG DELAYED RELEASE TAB PO SCH (10:19)
[2016-04-30] MEDS: FERROUS SULFATE 325 MG (65 MG ELEMENTAL IRON) TAB PO SCH ×2 (12:07→17:03)
[2016-04-30] MEDS: SODIUM CHLOR 0.9% 1000 ML INJ 1,000 ML IV SCH (12:08)
--- NOTE | 2016-04-30 13:27 | HHI.GIFU ---
Subjective Remarks patient is resting in same position, on the left side, denies nausea, vomiting, hematemesis, or reported hematochezia. She had a bm today, this is loose, it was negative for Hemoccult, hgb stable, according to nurse, there was no ulcers on the abd, it is just irritation of the skin. (Marta Doshi) Objective Vitals I&O Vital Signs Date Time Temp Pulse Resp B/P Pulse Ox O2 Delivery O2 Flow Rate FiO2 04/30/16 12:00 97.9 110 19 128/86 97 04/30/16 10:52 98 Nasal Cannula 2.00 04/30/16 08:00 98.4 96 18 123/78 98 04/30/16 04:00 97.0 106 20 133/58 93 04/30/16 00:00 98.0 98 20 111/69 95 04/29/16 20:02 96 Nasal Cannula 2.00 04/29/16 20:00 97.1 93 20 118/55 96 04/29/16 20:00 93 04/29/16 16:00 97.4 96 20 122/76 96 I/O 04/29/16 04/29/16 04/29/16 04/30/16 04/30/16 04/30/16 07:00 15:00 23:00 07:00 15:00 23:00 Intake Total 884 ml 909 ml 1300 ml 580 ml Balance 884 ml 909 ml 1300 ml 580 ml Intake Oral 0 ml 240 ml 960 ml 240 ml IV Total 884 ml 669 ml 340 ml 340 ml # Voids 1 2 2 1 # Bowel Movements 1 Laboratory Date/Time Procedure Status Source Growth 04/29/16 23:59 Stool Occult Blood (ELAN) - Final Complete Stool Stool HEMOCCULT NEGATIVE 04/27/16 00:08 Aerobic Blood Culture - Preliminary Resulted Blood Peripheral NO GROWTH IN 3 DAYS 04/27/16 00:08 Anaerobic Blood Culture - Preliminary Resulted Blood Peripheral NO GROWTH IN 3 DAYS 04/26/16 21:30 Gram Stain - Final Complete Wound Abdomen 04/26/16 21:30 Wound Culture - Final Complete Klebsiella Pneumoniae Esbl Pos Physical Exam HEENT: Pupils round and reactive to light; normocephalic; atraumatic; no jaundice. Throat is clear. NECK: Neck is supple, no JVD, no lymphadenopathy. CHEST: Chest is clear to auscultation and percussion. CARDIAC: Regular rate and rhythm with no murmur gallop or rubs. ABDOMEN: Morbid obese, not able to assess EXTREMITIES: No clubbing, cyanosis, or edema. SKIN: Normal; no rash; no jaundice. CHIEF JUVENILE PROBATION OFFICER: No focal deficits; alert and oriented times three. (Marta Doshi) Assessment and Plan Plan - Severe microcytic anemia- this is chronic, she was seen by our services back in 2010 for the anemia, no scopes were done, patient not having any rectal bleeding that she is aware off, she has a pharmacist critical care that helps her with cleaning, he reports the sores are oozing blood sometimes hgb was 6.8, s/p 1 unit of blood, this went up to 8.5 - ? hematochezia vs sores bleed, pharmacist critical care noted some blood on the wipe,but she ulcers - Decubitus wounds - abdomen- growing gram negative, on Ceftriaxone and Vancomycin. Wound care team/nurse consulted - Morbid obesity- BMI 93.9, has been on left side for over 4 years now 04/30/16 patient is resting in same position, on the left side, denies nausea, vomiting, hematemesis, or reported hematochezia. She had a bm today, this is loose, it was negative for Hemoccult, hgb stable, according to nurse, there was no ulcers on the abd, it is just irritation of the skin, no indication of GI bleed at this time, Plan: - DUANE - It would be very difficult to have EGD/colonoscopy due to anatomy, and weight , she is very high risk. - Hemoccult negative - monitor hh - Transfuse as needed - cont. Protonix - Supportive care - patient seen and examined by Dr. Escamilla and myself and this note is written on his behalf. (Marta Doshi) Physician Comments Pt was seen and examined and I agree with above. Anemia is likely due to chronic vaginal bleeding that was happening daily for years. No signs of Gi bleed. Pt has clinial signs of kota disease. will check low dose dexamethasone stress test. if positive will consult endocrinology (Kristin Escamilla MD) Marta Doshi Apr 30, 2016 13:27 Kristin Escamilla MD Apr 30, 2016 20:43
--- NOTE | 2016-04-30 15:10 | HHI.PR ---
Subjective Remarks patient feeling much better , no pain complains states recently feeling depressed Objective Vitals Vital Signs Date Time Temp Pulse Resp B/P Pulse Ox O2 Delivery O2 Flow Rate FiO2 04/30/16 12:00 97.9 110 19 128/86 97 04/30/16 10:52 98 Nasal Cannula 2.00 04/30/16 08:00 98.4 96 18 123/78 98 04/30/16 04:00 97.0 106 20 133/58 93 04/30/16 00:00 98.0 98 20 111/69 95 04/29/16 20:02 96 Nasal Cannula 2.00 04/29/16 20:00 97.1 93 20 118/55 96 04/29/16 20:00 93 04/29/16 16:00 97.4 96 20 122/76 96 I/O 04/29/16 04/29/16 04/29/16 04/30/16 04/30/16 04/30/16 07:00 15:00 23:00 07:00 15:00 23:00 Intake Total 884 ml 909 ml 1300 ml 580 ml 673 ml Balance 884 ml 909 ml 1300 ml 580 ml 673 ml Intake Oral 0 ml 240 ml 960 ml 240 ml 240 ml IV Total 884 ml 669 ml 340 ml 340 ml 433 ml # Voids 1 2 2 1 2 # Bowel Movements 1 2 Result Diagram: 04/28/16 1016 04/27/16 0643 Objective Remarks awake and alert, oriented x 3, not in distress morbidly obese anicteric neck- right neck with some erythematous excoriations,, dry lungs clear radial pulses ++, regular abdomen- flabby, anterior-umbilicus stretched vertically about 3 cm- dry, no erythema back- no open wounds, no sacral erythema motor- moves all extremities spontaeneous - LE limited by weight A/P Assessment and Plan Decubitus wound - abdomen- growing Klebsiella continue on Levaquin and Vancomycin for now sensitivity pending Wound care team/nurse ff Morbid obesity BMI 93.9. counselled. Evaluated for bariatric surgery, says she is not a candidate. Severe Iron deficiency R/O GIB , nutrtional componenet seen by GI- difficult to scope?r/o GIB versus- nutritional S/P 2 units RBC transfusion H and H stable. check periodically q 2-3 days on PPI IV Iron x 3 days till 05/01. Iron sulfate 325 mg po bid check repeat CBC, and check INR in am B12, folic acid deficiency LMP stop 2-3 months ago Folic acid 1 mg daily Vit B12 IM x 1 now then q monthly Depression- start Paxil 20 mg po daily Continue on Gabapentin, PPI, Lortab No Lovenox with severe anemia Darrell Cruz MD Apr 30, 2016 15:10
[2016-04-30] MEDS: CYANOCOBALAMIN 1000 MCG/ML VIAL IM SCH (17:03)
[2016-04-30] MEDS: LEVOFLOXACIN 500 MG PREMIX INJ 100 ML IV SCH (17:04)
[2016-04-30 21:15] LABS: MEAN CORPUSCULAR HGB CONC 27.8 % (32.0-36.0)
[2016-04-30] MEDS ORDERED: DEXAMETHASONE SOD PHOS 4 MG/ML VIAL IV ONE (23:00)
[2016-05-01] VITALS (7 sets, daily range): BP systolic 111–130; BP diastolic 56–60; PULSE 96–106; RESP 18–20; TEMP 95.6–98; O2SAT 92–95
[2016-05-01] MEDS: ACETAMINOPHEN/HYDROcodone 325 MG/5 MG TAB PO PRN ×3 (01:50→21:00)
[2016-05-01] MEDS: GABAPENTIN 300 MG CAP PO SCH ×3 (05:26→21:00)
[2016-05-01 05:58] LABS: HEMATOCRIT 30.3 % (35.0-46.0); MEAN CORPUSCULAR HEMOGLOBIN 18.9 PG (27.0-34.0); PLATELET COUNT 399 TH/MM3 (150-450); RED BLOOD COUNT 4.46 MIL/MM3 (4.00-5.30); RED CELL DISTRIBUTION WIDTH 27.1 % (11.6-17.2); WHITE BLOOD COUNT 9.2 TH/MM3 (4.0-11.0)
[2016-05-01 06:05] LABS: REVIEW FLAG FINAL
[2016-05-01 06:08] LABS: PROTHROMBIN TIME - PATIENT 10.6 SEC (9.8-11.4)
[2016-05-01] MEDS: PARoxetine HCL 12.5 MG EXTENDED RELEASE TAB PO SCH (08:54)
[2016-05-01] MEDS: IRON SUCROSE INJ 100 MG in SODIUM CHLORIDE 0.9% INJ 100 ML IV SCH (08:54)
[2016-05-01] MEDS: PANTOPRAZOLE SOD 20 MG DELAYED RELEASE TAB PO SCH (08:54)
[2016-05-01] MEDS: SODIUM CHLORIDE 0.9% FLUSH 5 ML FLUSH FLUSH SCH ×2 (08:54→21:00)
[2016-05-01] MEDS: FOLIC ACID 1 MG TAB PO SCH (08:54)
[2016-05-01] MEDS: VANCOMYCIN INJ 1,000 MG in SODIUM CHLOR 0.9% 250 ML INJ 250 ML IV SCH (11:41)
[2016-05-01] MEDS: FERROUS SULFATE 325 MG (65 MG ELEMENTAL IRON) TAB PO SCH ×2 (11:41→16:59)
[2016-05-01] MEDS: SODIUM CHLOR 0.9% 1000 ML INJ 1,000 ML IV SCH (11:51)
--- NOTE | 2016-05-01 16:47 | HHI.PR ---
Subjective Remarks Patient still tachycardic, no fevers denies cp/sob denies fevers/chills Objective Vitals Vital Signs Date Time Temp Pulse Resp B/P Pulse Ox O2 Delivery O2 Flow Rate FiO2 05/01/16 16:00 95.6 106 19 111/58 95 05/01/16 11:40 95.7 102 18 125/58 95 05/01/16 10:50 94 21 05/01/16 08:00 98.0 104 19 113/56 92 05/01/16 03:51 97.6 98 18 130/60 93 04/30/16 23:51 97.6 96 18 106/54 95 04/30/16 20:36 Nasal Cannula 2.00 04/30/16 19:51 96.1 95 20 112/55 93 I/O 04/30/16 04/30/16 04/30/16 05/01/16 05/01/16 05/01/16 07:00 15:00 23:00 07:00 15:00 23:00 Intake Total 580 ml 673 ml 704 ml 954 ml 503 ml Balance 580 ml 673 ml 704 ml 954 ml 503 ml Intake Oral 240 ml 240 ml 320 ml 480 ml IV Total 340 ml 433 ml 384 ml 474 ml 503 ml # Voids 1 2 1 2 # Bowel Movements 2 0 2 Result Diagram: 05/01/16 0429 04/27/16 0643 Objective Remarks awake and alert, oriented x 3, not in distress morbidly obese anicteric neck- right neck with some erythematous excoriations,, dry lungs clear radial pulses ++, regular abdomen- flabby, anterior-umbilicus stretched vertically about 3 cm- dry, no erythema back- no open wounds, no sacral erythema motor- moves all extremities spontaeneous - LE limited by weight Medications and IVs Current Medications Medications (Trade) Dose Ordered Sig/Gerda Route Start Time Stop Time Status Last Admin (NS 1000 ml Inj) 1,000 ml @ 42 mls/hr [id number] IV 04/26/16 23:37 05/01/16 11:51 (NS Flush) 2 ml UNSCH PRN FLUSH 04/26/16 23:45 (NS Flush) 2 ml BID FLUSH 04/27/16 09:00 05/01/16 08:54 (Tylenol) 650 mg Q4H PRN PO 04/26/16 23:45 (Zofran Inj) 4 mg Q6H PRN IVP 04/26/16 23:45 (Compazine Supp) 25 mg Q12H PRN [place] 04/26/16 23:45 (Dulcolax Supp) 10 mg DAILY PRN HI 04/26/16 23:45 (Milk Of [place] Liq) 30 ml Q12H PRN PO 04/26/16 23:45 04/27/16 03:40 (Senokot) 17.2 mg Q12H PRN PO 04/26/16 23:45 Temazepam 15 mg 15 mg HS PRN PO 04/26/16 23:45 (Vancomycin Inj/ NS 250 ml Inj) 250 ml @ 250 mls/hr Q12H IV 04/27/16 12:00 05/01/16 11:41 (Neurontin) 600 mg DAILY@0530 PO 04/27/16 05:30 05/01/16 05:26 (Protonix) 20 mg DAILY PO 04/27/16 09:00 05/01/16 08:54 (Neurontin) 300 mg BID PO 04/27/16 09:00 05/01/16 08:54 ([place] 5-325 Mg) 2 tab Q6H PRN PO 04/27/16 02:15 05/01/16 11:51 (Ferrous Sulfate) 325 mg BID@12,17 PO 04/28/16 12:00 05/01/16 11:41 Folic Acid 1 mg 1 mg DAILY PO 04/29/16 09:00 05/01/16 08:54 (Levaquin 500 Mg Premix Inj) 100 ml @ 100 mls/hr Q24H IV 04/29/16 18:00 04/30/16 17:04 (Vitamin B12 Inj) 1,000 mcg Q30D IM 04/30/16 16:00 04/30/16 17:03 (Paxil Cr) 12.5 mg DAILY PO 05/01/16 09:00 05/01/16 08:54 Urinary Catheter: No Vascular Central Line Catheter: No A/P Problem List: (1) Infection due to ESBL-producing Klebsiella pneumoniae ICD Code: A49.8 Status: Acute (2) Cellulitis ICD Code: L03.90 Status: Acute (3) Depression ICD Code: F32.9 Status: Acute (4) Folic acid deficiency ICD Code: E53.8 Status: Acute (5) Iron deficiency anemia ICD Code: D50.9 Status: Acute (6) B12 deficiency ICD Code: E53.8 Status: Acute (7) Morbid obesity with BMI of 70 and over, adult ICD Code: E66.01 Status: Acute Assessment and Plan Decubitus wound - abdomen- growing Klebsiella Treated with Levaquin and vancomycin. Sensitivities show bacteria sensitive to Levaquin. Discontinue vancomycin Wound care team/nurse ff Morbid obesity BMI 93.9. counselled. Evaluated for bariatric surgery, says she is not a candidate. Severe Iron deficiency R/O GIB , nutrtional componenet seen by GI- difficult to scope?r/o GIB versus- nutritional S/P 2 units RBC transfusion H and H stable. check periodically q 2-3 days on PPI IV Iron x 3 days till 05/01. Iron sulfate 325 mg po bid B12, folic acid deficiency LMP stop 2-3 months ago Folic acid 1 mg daily Vit B12 IM x 1 now then q monthly Depression- Continue Paxil Paxil 20 mg po daily which was started by Dr. Cruz Continue on Gabapentin, PPI, Lortab No Lovenox with severe anemia Problem Qualifiers (1) Cellulitis: Qualified Code: L03.311 - Cellulitis of abdominal wall Aldair Paulino MD May 01, 2016 16:47
[2016-05-01] MEDS: LEVOFLOXACIN 500 MG PREMIX INJ 100 ML IV SCH (16:59)
[2016-05-01 21:16] LABS: MEAN CORPUSCULAR HGB CONC 27.3 % (32.0-36.0)
[2016-05-02] MEDS: VANCOMYCIN INJ 1,000 MG in SODIUM CHLOR 0.9% 250 ML INJ 250 ML IV SCH ×2 (00:31→10:42)
[2016-05-02 03:51] VITALS: BP 104/50; PULSE 100; RESP 20; TEMP 97.6; O2SAT 93
[2016-05-02] MEDS: ACETAMINOPHEN/HYDROcodone 325 MG/5 MG TAB PO PRN ×3 (04:44→16:36)
[2016-05-02] MEDS: GABAPENTIN 300 MG CAP PO SCH ×3 (04:44→21:37)
[2016-05-02 06:13] LABS: AUTOMATED NEUTROPHIL # 4.9 TH/MM3 (1.8-7.7); BASOPHIL # 0.1 TH/MM3 (0-0.2); BASOPHIL % 1.3 % (0.0-2.0); EOSINOPHIL # 0.4 TH/MM3 (0-0.4); EOSINOPHIL % 5.1 % (0.0-4.0); HEMATOCRIT 31.4 % (35.0-46.0); LYMPH % 22.3 % (9.0-44.0); LYMPHOCYTE # 1.7 TH/MM3 (1.0-4.8); MEAN CELL VOLUME 69.3 FL (80.0-100.0); MEAN CORPUSCULAR HEMOGLOBIN 18.9 PG (27.0-34.0); MONO % 7.7 % (0.0-8.0); NEUT % 63.6 % (16.0-70.0); PLATELET COUNT 371 TH/MM3 (150-450); RED BLOOD COUNT 4.53 MIL/MM3 (4.00-5.30); RED CELL DISTRIBUTION WIDTH 27.2 % (11.6-17.2); WHITE BLOOD COUNT 7.8 TH/MM3 (4.0-11.0)
[2016-05-02 06:19] LABS: HEMO FLAGS AUTO DIFF
[2016-05-02 06:42] LABS: ALKALINE PHOSPHATASE 96 U/L (45-117); ALT (GPT) 6 U/L (10-53); ANION GAP 6 MEQ/L (5-15); AST (GOT) 10 U/L (15-37); BICARBONATE 31.4 MEQ/L (21.0-32.0); BLOOD UREA NITROGEN 7 MG/DL (7-18); CHLORIDE 104 MEQ/L (98-107); GLOMERULAR FILTRATION RATE 79 ML/MIN (>89); POTASSIUM 3.9 MEQ/L (3.5-5.1); SODIUM (NA) 141 MEQ/L (136-145); TOTAL BILIRUBIN ADULT 0.4 MG/DL (0.2-1.0)
[2016-05-02] MEDS: PARoxetine HCL 12.5 MG EXTENDED RELEASE TAB PO SCH (07:57)
[2016-05-02] MEDS: FOLIC ACID 1 MG TAB PO SCH (07:57)
[2016-05-02] MEDS: SODIUM CHLORIDE 0.9% FLUSH 5 ML FLUSH FLUSH SCH ×2 (07:58→21:38)
[2016-05-02] MEDS: PANTOPRAZOLE SOD 20 MG DELAYED RELEASE TAB PO SCH (07:58)
[2016-05-02 08:00] VITALS: BP 112/56; PULSE 104; RESP 18; TEMP 96.6; O2SAT 93
[2016-05-02 08:21] LABS: PLATELET ESTIMATE SMEAR NORMAL (NORMAL); PLATELET MORPHOLOGY NORMAL (NORMAL); SCAN/DIFF AUTO DIFF CONFIRMED; TEARDROP RBCS 1+ (NORMAL)
--- NOTE | 2016-05-02 09:14 | HHI.GIFU ---
Subjective Remarks Resting in bed. No n/v. No obvious GI bleeding. Reports she has been having loose stools since being on diarrhea. No blood noted. Objective Vitals I&O Vital Signs Date Time Temp Pulse Resp B/P Pulse Ox O2 Delivery O2 Flow Rate FiO2 05/02/16 08:00 96.6 104 18 112/56 93 05/02/16 03:51 97.6 100 20 104/50 93 05/01/16 23:51 97.2 100 20 113/58 93 05/01/16 22:12 16 05/01/16 19:51 97.5 96 20 128/56 95 05/01/16 16:00 95.6 106 19 111/58 95 05/01/16 11:40 95.7 102 18 125/58 95 05/01/16 10:50 94 21 I/O 05/01/16 05/01/16 05/01/16 05/02/16 05/02/16 05/02/16 07:00 15:00 23:00 07:00 15:00 23:00 Intake Total 954 ml 503 ml 839 ml 949 ml Balance 954 ml 503 ml 839 ml 949 ml Intake Oral 480 ml 480 ml 480 ml IV Total 474 ml 503 ml 359 ml 469 ml # Voids 2 2 3 # Bowel Movements 2 0 1 Laboratory Laboratory Tests Test 05/02/16 04:34 White Blood Count 7.8 Red Blood Count 4.53 Hemoglobin 8.6 Hematocrit 31.4 Mean Corpuscular Volume 69.3 Mean Corpuscular Hemoglobin 18.9 Mean Corpuscular Hemoglobin 27.3 Concent Red Cell Distribution Width 27.2 Platelet Count 371 Mean Platelet Volume 8.4 Neutrophils (%) (Auto) 63.6 Lymphocytes (%) (Auto) 22.3 Monocytes (%) (Auto) 7.7 Eosinophils (%) (Auto) 5.1 Basophils (%) (Auto) 1.3 Neutrophils # (Auto) 4.9 Lymphocytes # (Auto) 1.7 Monocytes # (Auto) 0.6 Eosinophils # (Auto) 0.4 Basophils # (Auto) 0.1 CBC Comment AUTO DIFF Differential Comment AUTO DIFF CONFIRMED Platelet Estimate NORMAL Platelet Morphology Comment NORMAL Tear Drop Cells 1+ Sodium Level 141 Potassium Level 3.9 Chloride Level 104 Carbon Dioxide Level 31.4 Anion Gap 6 Blood Urea Nitrogen 7 Creatinine 0.80 Estimat Glomerular Filtration 79 Rate Random Glucose 85 Calcium Level 8.6 Phosphorus Level 3.7 Magnesium Level 2.0 Total Bilirubin 0.4 Aspartate Amino Transf 10 (AST/SGOT) Alanine Aminotransferase 6 (ALT/SGPT) Alkaline Phosphatase 96 Total Protein 6.0 Albumin 2.3 Date/Time Procedure Status Source Growth 04/29/16 23:59 Stool Occult Blood (ELAN) - Final Complete Stool Stool HEMOCCULT NEGATIVE Physical Exam HEENT: Normocephalic; atraumatic; no jaundice. CHEST: Resp. even/unlabored, diminished CARDIAC: Regular mildly tachy ABDOMEN: Morbid obese, Nontender. EXTREMITIES: No clubbing, cyanosis, or edema. MARITIME PILOT: No focal deficits; alert and oriented times three. Assessment and Plan Plan ASSESSMENT - Severe microcytic anemia, chronic. Pt has hx of significant vaginal bleeding up until 3-4 months ago. No obvious active bleeding. No GI symptoms. Hemoccult negatie. HH 8.6/31.4 - Diarrhea, since being on abx. Alejandro check for CDiff given abx use. - Decubitus wounds of abdomen- Klebsiella Pneumoniae ESBL, Abx per ID. Wound care team/nurse following - Morbid obesity- BMI 93.9, has been on left side for over 4 years now Plan: - DUANE - PPI - Monitor HH - Monitor for active bleeding - Send stool for CDiff - Supportive care - Endoscopic evaluation only if active bleeding secondary to body habitus/high risk for procedure/anesthesia - Patient seen and examined by Dr. Escamilla and myself and this note is written on his behalf. Barbara Doherty May 02, 2016 09:14
[2016-05-02] MEDS: FERROUS SULFATE 325 MG (65 MG ELEMENTAL IRON) TAB PO SCH ×2 (10:42→15:58)
[2016-05-02 12:00] VITALS: BP 132/59; PULSE 102; RESP 17; TEMP 96; O2SAT 92
[2016-05-02] MEDS ORDERED: ASP: Path resistant to other antimicrobials, culture proven XX PRN (12:00)
[2016-05-02] MEDS ORDERED: MISCELLANEOUS PHARMACY INFORMATION XX PRN (12:00)
[2016-05-02] MEDS ORDERED: MISCELLANEOUS NURSING INFORMATION OTHER ONE (12:00)
--- NOTE | 2016-05-02 12:13 | PD.ID.CON ---
History of Present Illness Service Infectious Disease Consult Requested By Reason for Consult Evaluation and Mment of Panniculitis and abdominal sacral decubitus ulcer infected, ESBL positive culture. Primary Care Physician Non-Staff Diagnoses: History of Present Illness Ms. Alonso is a 40-year-old female with a BMI of 93.9 who presents to the emergency room via E back for evaluation of her cellulitis as well as abdominal wall decubitus in her skin folds. Patient reports that she has been morbidly obese for many years now and mostly lies on her left side of her abdomen. She has a boyfriend/suction drum drier operator who helps clean her mostly on the right side as patient lays on her left side. He uses towels to clean under her on the left side and does use nystatin as well as ointments. Patient reports that she used to see Dr. Bello in the past but has not seen him in 2 years. She recently got assigned with another physician who visits her at home. This is a first time she saw this physician and she was uncomfortable to let them know about her abdominal wall sacral decubitus which appeared infected foul- smelling. She also reports that there was some serosanguineous-appearing discharge from this site. She denies any fever or chills, nausea vomiting or diarrhea. She denies any other abdominal symptoms. She reports that when she started on her right side she gets extremely short of breath. She also reports shortness of breath and had low hemoglobin and GI is evaluating her for this and she received 1 unit of PRBC for the same. Infectious disease is consulted for evaluation and management of panniculitis and abdominal sacral decubitus ulcer which is infected with ESBL. Review of Systems ROS Limitations: Poor Historian Constitutional: DENIES: Diaphoretic episodes, Fatigue, Fever, Weight gain, Weight loss, Chills, Dizziness, Change in appetite, Night Sweats Endocrine: DENIES: Abnorml menstrual pattern, Heat/cold intolerance, Polydipsia , Polyuria, Polyphagia Eyes: DENIES: Blurred vision, Diplopia, Eye inflammation, Eye pain, Vision loss , Photosensitivity, Double Vision Ears, nose, mouth, throat: DENIES: Tinnitus, Hearing loss, Vertigo, Nasal discharge, Oral lesions, Throat pain, Hoarseness, Ear Pain, Running Nose, Epistaxis, Sinus Pain, Toothache, Odynophagia Respiratory: COMPLAINS OF: Snoring, Shortness of breath, DENIES: Apneas, Cough , Wheezing, Hemoptysis, Sputum production Cardiovascular: DENIES: Chest pain, Palpitations, Syncope, Dyspnea on Exertion , PND, Lower Extremity Edema, Orthopnea, Claudication Gastrointestinal: DENIES: Abdominal pain, Black stools, Bloody stools, Constipation, Diarrhea, Nausea, Vomiting, Difficulty Swallowing, Anorexia Genitourinary: DENIES: Abnormal vaginal bleeding, Dysmenorrhea, Dyspareunia, Sexual dysfunction, Urinary frequency, Urinary incontinence, Urgency, Hematuria , Dysuria, Nocturia, Vaginal discharge Musculoskeletal: DENIES: Joint pain, Muscle aches, Stiffness, Joint Swelling, Back pain, Neck pain Integumentary: COMPLAINS OF: Abnormal pigmentation, Rash, DENIES: Pruritus, Nail changes, Breast masses, Breast skin changes, Nipple discharge Hematologic/lymphatic: DENIES: Bruising, Lymphadenopathy Immunologic/allergic: DENIES: Eczema, Urticaria Neurologic: DENIES: Abnormal gait, Headache, Localized weakness, Paresthesias, Seizures, Speech Problems, Tremor, Poor Balance Psychiatric: DENIES: Anxiety, Confusion, Mood changes, Depression, Hallucinations, Agitation, Suicidal Ideation, Homicidal Ideation, Delusions Past Family Social History Allergies: Coded Allergies: Diflucan (Verified Allergy, Mild, Rash, 04/26/16) *MDRO Multi-Drug Resistant Organism (Verified Adverse Reaction, Unknown, 04/29/16) ESBL+Klebsiella Pneumoniae (abdomen-04/26/16) Past Medical History Morbid obesity BMI of 93.9. ? HTN Pressure ulcers Sleep apnea Past Surgical History None. Reported Medications Reported Meds & Active Scripts Active Reported Gabapentin 600 Mg Tab 600 Mg PO TAKE AT 0530 Gabapentin 300 Mg Cap 300 Mg PO TAKE 2130 Gabapentin 300 Mg Cap 300 Mg PO TAKE AT 1330 Prilosec 20 mg (Omeprazole) 20 Mg Capcr 20 Mg PO DAILY Hydrocodone/Acetaminophen 5 mg/325 mg 1 Tab Tab 1 Tab PO Q6HPRN Active Ordered Medications Current Medications Medications (Trade) Dose Ordered Sig/Gerda Route Start Time Stop Time Status Last Admin (NS 1000 ml Inj) 1,000 ml @ 42 mls/hr [id number] IV 04/26/16 23:37 05/01/16 11:51 (NS Flush) 2 ml UNSCH PRN FLUSH 04/26/16 23:45 (NS Flush) 2 ml BID FLUSH 04/27/16 09:00 05/01/16 08:54 (Tylenol) 650 mg Q4H PRN PO 04/26/16 23:45 (Zofran Inj) 4 mg Q6H PRN IVP 04/26/16 23:45 (Compazine Supp) 25 mg Q12H PRN [place] 04/26/16 23:45 (Dulcolax Supp) 10 mg DAILY PRN [place] 04/26/16 23:45 (Milk Of Perlita Liq) 30 ml Q12H PRN PO 04/26/16 23:45 04/27/16 03:40 (Senokot) 17.2 mg Q12H PRN PO 04/26/16 23:45 Temazepam 15 mg 15 mg HS PRN PO 04/26/16 23:45 (Vancomycin Inj/ NS 250 ml Inj) 250 ml @ 250 mls/hr Q12H IV 04/27/16 12:00 05/02/16 10:42 (Neurontin) 600 mg DAILY@0530 PO 04/27/16 05:30 05/02/16 04:44 (Protonix) 20 mg DAILY PO 04/27/16 09:00 05/02/16 07:58 (Neurontin) 300 mg BID PO 04/27/16 09:00 05/02/16 07:58 ([place] 5-325 Mg) 2 tab Q6H PRN PO 04/27/16 02:15 05/02/16 10:43 (Ferrous Sulfate) 325 mg BID@12,17 PO 04/28/16 12:00 05/02/16 10:42 Folic Acid 1 mg 1 mg DAILY PO 04/29/16 09:00 05/02/16 07:57 (Levaquin 500 Mg Premix Inj) 100 ml @ 100 mls/hr Q24H IV 04/29/16 18:00 05/01/16 16:59 (Vitamin B12 Inj) 1,000 mcg Q30D IM 04/30/16 16:00 04/30/16 17:03 (Paxil Cr) 12.5 mg DAILY PO 05/01/16 09:00 05/02/16 07:57 Family History Morbid obesity problems runs in family. Social History Denies etoh, tobacco or illicit drug use. Physical Exam Vital Signs Vital Signs Date Time Temp Pulse Resp B/P Pulse Ox O2 Delivery O2 Flow Rate FiO2 05/02/16 08:00 96.6 104 18 112/56 93 05/02/16 03:51 97.6 100 20 104/50 93 05/01/16 23:51 97.2 100 20 113/58 93 05/01/16 22:12 16 05/01/16 19:51 97.5 96 20 128/56 95 05/01/16 16:00 95.6 106 19 111/58 95 Physical Exam GENERAL: Morbidly obese female with a large neck. Patient, in no apparent distress. SKIN: No generalized rashes. HEAD: Atraumatic. Normocephalic. No temporal or scalp tenderness. EYES: Pupils equal round and reactive. Extraocular motions intact. No scleral icterus. No injection or drainage. ENT: Nose without bleeding, purulent drainage or septal hematoma. Throat without erythema, tonsillar hypertrophy or exudate. Uvula midline. Airway patent. NECK: Trachea midline. Supple, nontender, no meningeal signs. Large neck. CARDIOVASCULAR: Heart sounds distant. No obvious murmur appreciated. RESPIRATORY: Clear to auscultation. Breath sounds equal bilaterally. GASTROINTESTINAL: Abdomen soft, pendulous distended. I had to get the assistance of nurse to help pick her skin fold up so I could examine the under aspect of the panniculitis area. There was an opening patient reports this is her umbilicus. The opening of this was some discharge with surrounding erythema. The abdominal wall skin folds had pitting edema. There was foul smelling emanating from this opening. MUSCULOSKELETAL: Extremities without clubbing, cyanosis, or edema. No joint tenderness, effusion, or edema noted. No calf tenderness. Negative Homans sign bilaterally. NEUROLOGICAL: Awake and alert. Grossly nonfocal Psych: cooperative IV lines sites with no e/o infection. Laboratory Laboratory Tests Test 05/02/16 04:34 White Blood Count 7.8 Red Blood Count 4.53 Hemoglobin 8.6 Hematocrit 31.4 Mean Corpuscular Volume 69.3 Mean Corpuscular Hemoglobin 18.9 Mean Corpuscular Hemoglobin 27.3 Concent Red Cell Distribution Width 27.2 Platelet Count 371 Mean Platelet Volume 8.4 Neutrophils (%) (Auto) 63.6 Lymphocytes (%) (Auto) 22.3 Monocytes (%) (Auto) 7.7 Eosinophils (%) (Auto) 5.1 Basophils (%) (Auto) 1.3 Neutrophils # (Auto) 4.9 Lymphocytes # (Auto) 1.7 Monocytes # (Auto) 0.6 Eosinophils # (Auto) 0.4 Basophils # (Auto) 0.1 CBC Comment AUTO DIFF Differential Comment AUTO DIFF CONFIRMED Platelet Estimate NORMAL Platelet Morphology Comment NORMAL Tear Drop Cells 1+ Sodium Level 141 Potassium Level 3.9 Chloride Level 104 Carbon Dioxide Level 31.4 Anion Gap 6 Blood Urea Nitrogen 7 Creatinine 0.80 Estimat Glomerular Filtration 79 Rate Random Glucose 85 Calcium Level 8.6 Phosphorus Level 3.7 Magnesium Level 2.0 Total Bilirubin 0.4 Aspartate Amino Transf 10 (AST/SGOT) Alanine Aminotransferase 6 (ALT/SGPT) Alkaline Phosphatase 96 Total Protein 6.0 Albumin 2.3 Date/Time Procedure Status Source Growth 04/29/16 23:59 Stool Occult Blood (ELAN) - Final Complete Stool Stool HEMOCCULT NEGATIVE Result Diagram: 05/02/16 0434 05/02/16 0434 Assessment and Plan Assessment and Plan Panniculitis. Infected Abd wall decub ulcer Cellulitis of abdominal wall. Morbid Obesity with BMI 79.1 kg/m2 Possible Sleep apnea. Recs: DC Levaquin DC Vanco IV Start Ertapenem for ESBL E.coli from abdominal wound infection site. Start Diflucan (aware of rash in prior admits) Wypall in between skin folds. Nystatin ointment LA. Follow clinically. Follow cultures Wound care consult appreciate assistance. d/w RN and D.w Patient. Caren Sheridan MD May 02, 2016 12:13
[2016-05-02] MEDS: FLUCONAZOLE 100 MG TAB PO SCH (12:34)
[2016-05-02] MEDS: NYSTATIN 100,000 U/GM OINT 15 GM TUBE TOPICAL SCH ×3 (12:51→21:38)
[2016-05-02] MEDS: ERTAPENEM INJ 1,000 MG in SODIUM CHLORIDE 0.9% INJ 100 ML IV SCH (12:51)
[2016-05-02] MEDS: SODIUM CHLOR 0.9% 1000 ML INJ 1,000 ML IV SCH (15:58)
[2016-05-02 16:00] VITALS: BP 108/56; PULSE 95; RESP 17; TEMP 96.3; O2SAT 92
[2016-05-02 20:00] VITALS: BP 129/59; PULSE 97; RESP 17; TEMP 98.2; O2SAT 96
[2016-05-02 22:23] VITALS: O2SAT 95
[2016-05-02 22:32] LABS: C. DIFF EPI 027 PRESUMPTIVE NEGATIVE (NEGATIVE); C. DIFF TOXIN PCR NEGATIVE (NEGATIVE)
--- NOTE | 2016-05-02 23:41 | HHI.PR ---
Subjective Remarks patient still tachycardic denies cp/sob denies fevers/chills Objective Vitals Vital Signs Date Time Temp Pulse Resp B/P Pulse Ox O2 Delivery O2 Flow Rate FiO2 05/02/16 22:23 95 Nasal Cannula 2.00 05/02/16 20:00 98.2 97 17 129/59 96 05/02/16 17:36 20 05/02/16 17:04 Nasal Cannula 2.00 05/02/16 16:00 96.3 95 17 108/56 92 05/02/16 12:00 96.0 102 17 132/59 92 05/02/16 08:00 96.6 104 18 112/56 93 05/02/16 03:51 97.6 100 20 104/50 93 05/01/16 23:51 97.2 100 20 113/58 93 I/O 05/01/16 05/01/16 05/01/16 05/02/16 05/02/16 05/02/16 07:00 15:00 23:00 07:00 15:00 23:00 Intake Total 954 ml 503 ml 839 ml 949 ml 1494 ml 366 ml Balance 954 ml 503 ml 839 ml 949 ml 1494 ml 366 ml Intake Oral 480 ml 480 ml 480 ml 900 ml IV Total 474 ml 503 ml 359 ml 469 ml 594 ml 366 ml # Voids 2 2 3 1 # Bowel Movements 2 0 1 3 Result Diagram: 05/02/1643305/02/16433 Objective Remarks awake and alert, oriented x 3, not in distress morbidly obese anicteric neck- right neck with some erythematous excoriations,, dry lungs clear radial pulses ++, regular abdomen- flabby, anterior-umbilicus stretched vertically about 3 cm- dry, no erythema back- no open wounds, no sacral erythema motor- moves all extremities spontaeneous - LE limited by weight Medications and IVs Current Medications Medications (Trade) Dose Ordered Sig/Gerda Route Start Time Stop Time Status Last Admin (NS 1000 ml Inj) 1,000 ml @ 42 mls/hr [id number] IV 04/26/16 23:37 05/02/16 15:58 (NS Flush) 2 ml UNSCH PRN FLUSH 04/26/16 23:45 (NS Flush) 2 ml BID FLUSH 04/27/16 09:00 05/02/16 21:38 (Tylenol) 650 mg Q4H PRN PO 04/26/16 23:45 (Zofran Inj) 4 mg Q6H PRN IVP 04/26/16 23:45 (Compazine Supp) 25 mg Q12H PRN [place] 04/26/16 23:45 (Dulcolax Supp) 10 mg DAILY PRN [place] 04/26/16 23:45 (Milk Of Perlita Liq) 30 ml Q12H PRN PO 04/26/16 23:45 04/27/16 03:40 (Senokot) 17.2 mg Q12H PRN PO 04/26/16 23:45 (Restoril) 15 mg HS PRN PO 04/26/16 23:45 (Neurontin) 600 mg DAILY@0530 PO 04/27/16 05:30 05/02/16 04:44 (Protonix) 20 mg DAILY PO 04/27/16 09:00 05/02/16 07:58 (Neurontin) 300 mg BID PO 04/27/16 09:00 05/02/16 21:37 (Davis 5-325 Mg) 2 tab Q6H PRN PO 04/27/16 02:15 05/02/16 16:36 (Ferrous Sulfate) 325 mg BID@12,17 PO 04/28/16 12:00 05/02/16 15:58 (Folate) 1 mg DAILY PO 04/29/16 09:00 05/02/16 07:57 (Vitamin B12 Inj) 1,000 mcg Q30D IM 04/30/16 16:00 04/30/16 17:03 Paroxetine HCl 12.5 mg 12.5 mg DAILY PO 05/01/16 09:00 05/02/16 07:57 (INVanz INJ/NS Inj) 100 ml @ 200 mls/hr Q24H IV 05/02/16 14:00 05/02/16 12:51 (Diflucan) 100 mg DAILY PO 05/02/16 13:00 05/02/16 12:34 (Mycostatin Oint) 1 applic Q12HR TOPICAL 05/02/16 13:00 05/02/16 21:38 A/P Problem List: (1) Infection due to ESBL-producing Klebsiella pneumoniae ICD Code: A49.8 Status: Acute (2) Cellulitis ICD Code: L03.90 Status: Acute (3) Depression ICD Code: F32.9 Status: Acute (4) Folic acid deficiency ICD Code: E53.8 Status: Acute (5) Iron deficiency anemia ICD Code: D50.9 Status: Acute (6) B12 deficiency ICD Code: E53.8 Status: Acute (7) Morbid obesity with BMI of 70 and over, adult ICD Code: E66.01 Status: Acute Assessment and Plan Decubitus wound - abdomen- growing Klebsiella Treated with Levaquin and vancomycin. ESBL KLEbsiella. DC levaquin and started on Ertapenem by ID. Wound care team/nurse ff Morbid obesity BMI 93.9. counselled. Evaluated for bariatric surgery, says she is not a candidate. Severe Iron deficiency R/O GIB , nutrtional componenet seen by GI- difficult to scope?r/o GIB versus- nutritional S/P 2 units RBC transfusion H and H stable. check periodically q 2-3 days on PPI IV Iron x 3 days till 05/01. Iron sulfate 325 mg po bid B12, folic acid deficiency LMP stop 2-3 months ago Folic acid 1 mg daily Vit B12 IM x 1 now then q monthly Depression- Continue Paxil Paxil 20 mg po daily which was started by Dr. Cruz Continue on Gabapentin, PPI, Lortab No Lovenox with severe anemia Problem Qualifiers (1) Cellulitis: Qualified Code: L03.311 - Cellulitis of abdominal wall Aldair Paulino MD May 02, 2016 23:41
[2016-05-03] VITALS (7 sets, daily range): BP systolic 104–124; BP diastolic 52–62; PULSE 69–102; RESP 17–22; TEMP 97–97.8; O2SAT 91–96
[2016-05-03] MEDS: GABAPENTIN 300 MG CAP PO SCH ×3 (05:28→21:38)
[2016-05-03] MEDS: ACETAMINOPHEN/HYDROcodone 325 MG/5 MG TAB PO PRN ×3 (05:28→17:01)
[2016-05-03] MEDS: SODIUM CHLORIDE 0.9% FLUSH 5 ML FLUSH FLUSH SCH ×2 (09:00→21:00)
[2016-05-03] MEDS: PANTOPRAZOLE SOD 20 MG DELAYED RELEASE TAB PO SCH (09:00)
[2016-05-03] MEDS: PARoxetine HCL 12.5 MG EXTENDED RELEASE TAB PO SCH (09:05)
[2016-05-03] MEDS: FOLIC ACID 1 MG TAB PO SCH (09:05)
[2016-05-03] MEDS: FLUCONAZOLE 100 MG TAB PO SCH (09:05)
[2016-05-03] MEDS: NYSTATIN 100,000 U/GM OINT 15 GM TUBE TOPICAL SCH ×2 (09:06→21:38)
--- NOTE | 2016-05-03 10:54 | HHI.GIFU ---
Subjective Remarks Resting in bed. Decreased appetite today, but no n/v. Still with multiple bowel movements. No bleeding. (Barbara Doherty) Objective Vitals I&O Vital Signs Date Time Temp Pulse Resp B/P Pulse Ox O2 Delivery O2 Flow Rate FiO2 05/03/16 09:25 94 Nasal Cannula 2.00 05/03/16 08:00 97.1 102 22 104/52 91 05/03/16 04:00 97.8 89 17 124/62 96 05/02/16 22:23 95 Nasal Cannula 2.00 05/02/16 20:00 98.2 97 17 129/59 96 05/02/16 17:36 20 05/02/16 17:04 Nasal Cannula 2.00 05/02/16 16:00 96.3 95 17 108/56 92 05/02/16 12:00 96.0 102 17 132/59 92 I/O 05/02/16 05/02/16 05/02/16 05/03/16 05/03/16 05/03/16 07:00 15:00 23:00 07:00 15:00 23:00 Intake Total 949 ml 1494 ml 846 ml 960 ml Balance 949 ml 1494 ml 846 ml 960 ml Intake Oral 480 ml 900 ml 480 ml 480 ml IV Total 469 ml 594 ml 366 ml 480 ml # Voids 3 1 3 3 # Bowel Movements 1 3 3 2 Laboratory Laboratory Tests Test 05/02/16 20:00 Stool C. difficile Toxin (PCR) NEGATIVE Stl C. difficile Toxin PRESUMPTIVE Epiderm 027 NEGATIVE Date/Time Procedure Status Source Growth 04/29/16 23:59 Stool Occult Blood (ELAN) - Final Complete Stool Stool HEMOCCULT NEGATIVE Physical Exam HEENT: Normocephalic; atraumatic; no jaundice. CHEST: Resp. even/unlabored, diminished CARDIAC: Regular mildly tachy ABDOMEN: Morbid obese, Nontender. EXTREMITIES: No clubbing, cyanosis, or edema. 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 (Barbara Doherty) Assessment and Plan Plan ASSESSMENT - Severe microcytic anemia, chronic. Pt has hx of significant vaginal bleeding up until 3-4 months ago. No obvious active bleeding. No GI symptoms. Hemoccult negatie. HH 8.6/31.4 yesterday , no active bleeding. - Diarrhea, since being on abx. Cdiff negative. Trial of dicyclomine. 8 bms over last 24 hours. - Decubitus wounds of abdomen- Klebsiella Pneumoniae ESBL, Abx per ID. Wound care team/nurse following - Morbid obesity- BMI 93.9, has been on left side for over 4 years now Plan: - DUANE - PPI - Trial of dicyclomine - Monitor HH - Monitor for active bleeding - Supportive care - Endoscopic evaluation only if active bleeding secondary to body habitus/high risk for procedure/anesthesia - Patient seen and examined by Dr. Escamilla and myself and this note is written on his behalf. (Barbara Doherty) Discharge Planning I saw and examined the patient and I agree with above. r/o [place] disease, defer to primary (Kristin Escamilla MD) Barbara Doherty May 03, 2016 10:54 Kristin Escamilla MD May 03, 2016 20:15
[2016-05-03] MEDS: FERROUS SULFATE 325 MG (65 MG ELEMENTAL IRON) TAB PO SCH ×2 (11:09→15:05)
[2016-05-03] MEDS: ERTAPENEM INJ 1,000 MG in SODIUM CHLORIDE 0.9% INJ 100 ML IV SCH (12:24)
--- NOTE | 2016-05-03 13:14 | HHI.IDPN ---
Subjective Subjective Remarks Ms. Alonso is a 40-year-old female with a BMI of 93.9 who presents to the emergency room via E back for evaluation of her cellulitis as well as abdominal wall decubitus in her skin folds. ID following for ESBL positive panniculitis. Overnight events reviewed. No fever No rash No diarrhea Appears sad and was tearful when we discussed about goals of care. Antibiotics Ertapenem IV Lines Line sites with no e/o infection. Past Medical History Morbid Obesity. Allergies: Coded Allergies: Diflucan (Verified Allergy, Mild, Rash, 04/26/16) *MDRO Multi-Drug Resistant Organism (Verified Adverse Reaction, Unknown, 04/29/16) ESBL+Klebsiella Pneumoniae (abdomen-04/26/16) Objective . Vital Signs Date Time Temp Pulse Resp B/P Pulse Ox O2 Delivery O2 Flow Rate FiO2 05/03/16 09:25 94 Nasal Cannula 2.00 05/03/16 08:00 97.1 102 22 104/52 91 05/03/16 04:00 97.8 89 17 124/62 96 05/02/16 22:23 95 Nasal Cannula 2.00 05/02/16 20:00 98.2 97 17 129/59 96 05/02/16 17:36 20 05/02/16 17:04 Nasal Cannula 2.00 05/02/16 16:00 96.3 95 17 108/56 92 05/02/16 05/02/16 05/03/16 15:00 23:00 07:00 Intake Total 1494 ml 846 ml 960 ml Balance 1494 ml 846 ml 960 ml Intake Oral 900 ml 480 ml 480 ml IV Total 594 ml 366 ml 480 ml # Voids 1 3 3 # Bowel Movements 3 3 2 . Laboratory Tests Test 05/02/16 04:34 White Blood Count 7.8 TH/MM3 Red Blood Count 4.53 MIL/MM3 Hemoglobin 8.6 GM/DL Hematocrit 31.4 % Mean Corpuscular Volume 69.3 FL Mean Corpuscular Hemoglobin 18.9 PG Mean Corpuscular Hemoglobin 27.3 % Concent Red Cell Distribution Width 27.2 % Platelet Count 371 TH/MM3 Mean Platelet Volume 8.4 FL Neutrophils (%) (Auto) 63.6 % Lymphocytes (%) (Auto) 22.3 % Monocytes (%) (Auto) 7.7 % Eosinophils (%) (Auto) 5.1 % Basophils (%) (Auto) 1.3 % Neutrophils # (Auto) 4.9 TH/MM3 Lymphocytes # (Auto) 1.7 TH/MM3 Monocytes # (Auto) 0.6 TH/MM3 Eosinophils # (Auto) 0.4 TH/MM3 Basophils # (Auto) 0.1 TH/MM3 CBC Comment AUTO DIFF Differential Comment AUTO DIFF CONFIRMED Platelet Estimate NORMAL Platelet Morphology Comment NORMAL Tear Drop Cells 1+ Laboratory Tests Test 05/02/16 04:34 Sodium Level 141 MEQ/L Potassium Level 3.9 MEQ/L Chloride Level 104 MEQ/L Carbon Dioxide Level 31.4 MEQ/L Anion Gap 6 MEQ/L Blood Urea Nitrogen 7 MG/DL Creatinine 0.80 MG/DL Estimat Glomerular Filtration 79 ML/MIN Rate Random Glucose 85 MG/DL Calcium Level 8.6 MG/DL Phosphorus Level 3.7 MG/DL Magnesium Level 2.0 MG/DL Total Bilirubin 0.4 MG/DL Aspartate Amino Transf 10 U/L (AST/SGOT) Alanine Aminotransferase 6 U/L (ALT/SGPT) Alkaline Phosphatase 96 U/L Total Protein 6.0 GM/DL Albumin 2.3 GM/DL Physical Exam GENERAL: Morbidly obese female with a large neck. Patient, in no apparent distress. SKIN: No generalized rashes. HEAD: Atraumatic. Normocephalic. No temporal or scalp tenderness. EYES: Pupils equal round and reactive. Extraocular motions intact. No scleral icterus. No injection or drainage. ENT: Nose without bleeding, purulent drainage or septal hematoma. Throat without erythema, tonsillar hypertrophy or exudate. Uvula midline. Airway patent. NECK: Trachea midline. Supple, nontender, no meningeal signs. Large neck. CARDIOVASCULAR: Heart sounds distant. No obvious murmur appreciated. RESPIRATORY: Clear to auscultation. Breath sounds equal bilaterally. GASTROINTESTINAL: Abdomen soft, pendulous distended. I had to get the assistance of nurse to help pick her skin fold up so I could examine the under aspect of the panniculitis area. There was an opening patient reports this is her umbilicus. The opening of this was some discharge with surrounding erythema. The abdominal wall skin folds had pitting edema. There was foul smelling emanating from this opening. MUSCULOSKELETAL: Extremities without clubbing, cyanosis, or edema. No joint tenderness, effusion, or edema noted. No calf tenderness. Negative Homans sign bilaterally. NEUROLOGICAL: Awake and alert. Grossly nonfocal Psych: cooperative IV lines sites with no e/o infection. Assessment & Plan Remarks Panniculitis. Infected Abd wall decub ulcer Cellulitis of abdominal wall. Morbid Obesity with BMI 79.1 kg/m2 Possible Sleep apnea. Recs: Continue IV Ertapenem for ESBL E.coli from abdominal wound infection site. Continue oral Diflucan (aware of rash in prior admits) Wypall in between skin folds. Nystatin ointment LA. Follow clinically. Follow cultures Patient was tearful and sad: she expressed feelings of hopelessness and self neglect. She described how her PCP has not been paid by insurance so no care provided, Her career law clerk and partner is paid to take care of her and she thinks he tries his best. She cannot turn on right side and so he cleans by putting his hands underneath her skin. She expressed desire to be DNR but appears depressed. Consult psych: assess adequacy of depression Mment and decision making capacity. Consult palliative care to address goals of therapy. Will get Pulm consult on Friday to assess for sleep apnea and if elective trach needed. This is if patient wants to be aggressive. At this point I would recommend treating her depression adequately prior to determining code status etc. d/w RN and D.w Patient. Time spent at bedside direct patient care in excess of 20 mins. Additional time discussing case with psych, Palliative care and reviewing chart, critical thinking in excess of additional 40 mins. Total time for patient care in excess of 60 mins most of which was bedside. Caren Sheridan MD May 03, 2016 13:14
[2016-05-03] MEDS: DICYCLOMINE HCL 20 MG TAB PO SCH ×2 (15:05→17:01)
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
[2016-05-03] MEDS: SODIUM CHLOR 0.9% 1000 ML INJ 1,000 ML IV SCH (15:12)
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
--- NOTE | 2016-05-03 16:03 | HHI.PR ---
Subjective Remarks Fells not to good depressed denies fevers/chills' has low appetite Objective Vitals Vital Signs Date Time Temp Pulse Resp B/P Pulse Ox O2 Delivery O2 Flow Rate FiO2 05/03/16 12:09 20 05/03/16 12:00 97.3 93 20 110/55 92 05/03/16 09:25 94 Nasal Cannula 2.00 05/03/16 08:00 97.1 102 22 104/52 91 05/03/16 04:00 97.8 89 17 124/62 96 05/02/16 22:23 95 Nasal Cannula 2.00 05/02/16 20:00 98.2 97 17 129/59 96 05/02/16 17:04 Nasal Cannula 2.00 I/O 05/02/16 05/02/16 05/02/16 05/03/16 05/03/16 05/03/16 07:00 15:00 23:00 07:00 15:00 23:00 Intake Total 949 ml 1494 ml 846 ml 960 ml 423 ml Balance 949 ml 1494 ml 846 ml 960 ml 423 ml Intake Oral 480 ml 900 ml 480 ml 480 ml IV Total 469 ml 594 ml 366 ml 480 ml 423 ml # Voids 3 1 3 3 # Bowel Movements 1 3 3 2 Result Diagram: 05/02/1643305/02/16433 Objective Remarks awake and alert, oriented x 3, not in distress morbidly obese anicteric neck- right neck with some erythematous excoriations,, dry lungs clear radial pulses ++, regular abdomen- flabby, anterior-umbilicus stretched vertically about 3 cm- dry, no erythema back- no open wounds, no sacral erythema motor- moves all extremities spontaeneous - LE limited by weight Medications and IVs Current Medications Medications (Trade) Dose Ordered Sig/Gerda Route Start Time Stop Time Status Last Admin (NS 1000 ml Inj) 1,000 ml @ 42 mls/hr [id number] IV 04/26/16 23:37 05/02/16 15:58 (NS Flush) 2 ml UNSCH PRN FLUSH 04/26/16 23:45 (NS Flush) 2 ml BID FLUSH 04/27/16 09:00 05/02/16 21:38 (Tylenol) 650 mg Q4H PRN PO 04/26/16 23:45 (Zofran Inj) 4 mg Q6H PRN IVP 04/26/16 23:45 (Compazine Supp) 25 mg Q12H PRN [place] 04/26/16 23:45 (Dulcolax Supp) 10 mg DAILY PRN [place] 04/26/16 23:45 (Milk Of Magnjakub Liq) 30 ml Q12H PRN PO 04/26/16 23:45 04/27/16 03:40 (Senokot) 17.2 mg Q12H PRN PO 04/26/16 23:45 (Restoril) 15 mg HS PRN PO 04/26/16 23:45 (Neurontin) 600 mg DAILY@0530 PO 04/27/16 05:30 05/03/16 05:28 (Protonix) 20 mg DAILY PO 04/27/16 09:00 05/03/16 09:00 (Neurontin) 300 mg BID PO 04/27/16 09:00 05/03/16 21:38 ([place] 5-325 Mg) 2 tab Q6H PRN PO 04/27/16 02:15 05/03/16 17:01 (Ferrous Sulfate) 325 mg BID@12,17 PO 04/28/16 12:00 05/03/16 15:05 (Folate) 1 mg DAILY PO 04/29/16 09:00 05/03/16 09:05 (Vitamin B12 Inj) 1,000 mcg Q30D IM 04/30/16 16:00 04/30/16 17:03 Paroxetine HCl 12.5 mg 12.5 mg DAILY PO 05/01/16 09:00 05/03/16 09:05 (INVanz INJ/NS Inj) 100 ml @ 200 mls/hr Q24H IV 05/02/16 14:00 05/03/16 12:24 (Diflucan) 100 mg DAILY PO 05/02/16 13:00 05/03/16 09:05 (Mycostatin Oint) 1 applic Q12HR TOPICAL 05/02/16 13:00 05/03/16 21:38 (Bentyl) 20 mg TID PO 05/03/16 13:00 05/03/16 17:01 A/P Problem List: (1) Infection due to ESBL-producing Klebsiella pneumoniae ICD Code: A49.8 Status: Acute (2) Cellulitis ICD Code: L03.90 Status: Acute (3) Depression ICD Code: F32.9 Status: Acute (4) Folic acid deficiency ICD Code: E53.8 Status: Acute (5) Iron deficiency anemia ICD Code: D50.9 Status: Acute (6) B12 deficiency ICD Code: E53.8 Status: Acute (7) Morbid obesity with BMI of 70 and over, adult ICD Code: E66.01 Status: Acute Assessment and Plan Decubitus wound - abdomen- growing Klebsiella Treated with Levaquin and vancomycin. ESBL KLEbsiella. DC levaquin and started on Ertapenem by ID. Wound care team/nurse ff Morbid obesity BMI 93.9. counselled. Evaluated for bariatric surgery, says she is not a candidate. Severe Iron deficiency R/O GIB , nutrtional componenet seen by GI- difficult to scope?r/o GIB versus- nutritional S/P 2 units RBC transfusion H and H stable. check periodically q 2-3 days on PPI IV Iron x 3 days till 05/01. Iron sulfate 325 mg po bid B12, folic acid deficiency LMP stop 2-3 months ago Folic acid 1 mg daily Vit B12 IM x 1 now then q monthly Depression- Continue Paxil Paxil 20 mg po daily which was started by Dr. Cruz Palliative care consulted - goals remain agressive Continue on Gabapentin, PPI, Lortab No Lovenox with severe anemia Problem Qualifiers (1) Cellulitis: Qualified Code: L03.311 - Cellulitis of abdominal wall Aldair Paulino MD May 03, 2016 16:03
[2016-05-04] VITALS (7 sets, daily range): BP systolic 104–144; BP diastolic 51–63; PULSE 76–104; RESP 16–20; TEMP 96.4–97.8; O2SAT 92–94
[2016-05-04] MEDS: ACETAMINOPHEN/HYDROcodone 325 MG/5 MG TAB PO PRN ×4 (01:05→22:54)
[2016-05-04] MEDS: GABAPENTIN 300 MG CAP PO SCH ×3 (04:59→21:15)
[2016-05-04] MEDS: FOLIC ACID 1 MG TAB PO SCH (08:13)
[2016-05-04] MEDS: PARoxetine HCL 12.5 MG EXTENDED RELEASE TAB PO SCH (08:13)
[2016-05-04] MEDS: DICYCLOMINE HCL 20 MG TAB PO SCH ×3 (08:13→16:52)
[2016-05-04] MEDS: FLUCONAZOLE 100 MG TAB PO SCH (08:13)
[2016-05-04] MEDS: NYSTATIN 100,000 U/GM OINT 15 GM TUBE TOPICAL SCH ×2 (08:14→21:15)
[2016-05-04] MEDS: PANTOPRAZOLE SOD 20 MG DELAYED RELEASE TAB PO SCH (08:16)
[2016-05-04] MEDS: SODIUM CHLORIDE 0.9% FLUSH 5 ML FLUSH FLUSH SCH ×2 (08:17→19:09)
[2016-05-04] MEDS: FERROUS SULFATE 325 MG (65 MG ELEMENTAL IRON) TAB PO SCH ×2 (12:26→16:52)
[2016-05-04] MEDS: ERTAPENEM INJ 1,000 MG in SODIUM CHLORIDE 0.9% INJ 100 ML IV SCH (12:26)
[2016-05-04] MEDS: SODIUM CHLOR 0.9% 1000 ML INJ 1,000 ML IV SCH (12:28)
--- NOTE | 2016-05-04 18:52 | HHI.PR ---
Subjective Remarks fu morbid obesity, uti, depression Patient c/o diarrhea denies cough/sob denies abdominal pain Objective Vitals Vital Signs Date Time Temp Pulse Resp B/P Pulse Ox O2 Delivery O2 Flow Rate FiO2 05/04/16 18:25 21 05/04/16 16:00 97.0 94 18 133/60 93 05/04/16 12:00 96.4 95 17 130/56 94 05/04/16 09:02 92 21 05/04/16 07:56 97.5 104 16 104/51 94 05/04/16 04:00 97.0 76 18 121/60 93 05/04/16 00:00 97.8 82 18 131/62 93 05/03/16 20:00 69 05/03/16 20:00 97.7 97 19 123/56 92 I/O 05/03/16 05/03/16 05/03/16 05/04/16 05/04/16 05/04/16 07:00 15:00 23:00 07:00 15:00 23:00 Intake Total 960 ml 903 ml 819 ml 887 ml 1274 ml Output Total 2 ml Balance 960 ml 901 ml 819 ml 887 ml 1274 ml Intake Oral 480 ml 480 ml 480 ml 480 ml 960 ml IV Total 480 ml 423 ml 339 ml 407 ml 314 ml Output Urine Total 2 ml # Voids 3 1 4 1 # Bowel Movements 2 0 2 0 Result Diagram: 05/02/1643305/02/16433 Objective Remarks awake and alert, oriented x 3, not in distress morbidly obese anicteric neck- right neck with some erythematous excoriations,, dry lungs clear radial pulses ++, regular abdomen- flabby, anterior-umbilicus stretched vertically about 3 cm- dry, no erythema back- no open wounds, no sacral erythema motor- moves all extremities spontaeneous - LE limited by weight Medications and IVs Current Medications Medications (Trade) Dose Ordered Sig/Gerda Route Start Time Stop Time Status Last Admin (NS 1000 ml Inj) 1,000 ml @ 42 mls/hr [id number] IV 04/26/16 23:37 05/04/16 12:28 (NS Flush) 2 ml UNSCH PRN FLUSH 04/26/16 23:45 (NS Flush) 2 ml BID FLUSH 04/27/16 09:00 05/04/16 08:17 (Tylenol) 650 mg Q4H PRN PO 04/26/16 23:45 (Zofran Inj) 4 mg Q6H PRN IVP 04/26/16 23:45 (Compazine Supp) 25 mg Q12H PRN [place] 04/26/16 23:45 (Dulcolax Supp) 10 mg DAILY PRN [place] 04/26/16 23:45 (Milk Of Magnesia Liq) 30 ml Q12H PRN PO 04/26/16 23:45 04/27/16 03:40 (Senokot) 17.2 mg Q12H PRN PO 04/26/16 23:45 (Restoril) 15 mg HS PRN PO 04/26/16 23:45 (Neurontin) 600 mg DAILY@0530 PO 04/27/16 05:30 05/04/16 04:59 (Protonix) 20 mg DAILY PO 04/27/16 09:00 05/04/16 08:16 (Neurontin) 300 mg BID PO 04/27/16 09:00 05/04/16 21:15 ([place] 5-325 Mg) 2 tab Q6H PRN PO 04/27/16 02:15 05/04/16 16:52 (Ferrous Sulfate) 325 mg BID@12,17 PO 04/28/16 12:00 05/04/16 16:52 (Folate) 1 mg DAILY PO 04/29/16 09:00 05/04/16 08:13 (Vitamin B12 Inj) 1,000 mcg Q30D IM 04/30/16 16:00 04/30/16 17:03 Paroxetine HCl 12.5 mg 12.5 mg DAILY PO 05/01/16 09:00 05/04/16 08:13 (INVanz INJ/NS Inj) 100 ml @ 200 mls/hr Q24H IV 05/02/16 14:00 05/04/16 12:26 (Diflucan) 100 mg DAILY PO 05/02/16 13:00 05/04/16 08:13 (Mycostatin Oint) 1 applic Q12HR TOPICAL 05/02/16 13:00 05/04/16 21:15 (Bentyl) 20 mg TID PO 05/03/16 13:00 05/04/16 16:52 A/P Problem List: (1) Infection due to ESBL-producing Klebsiella pneumoniae ICD Code: A49.8 Status: Acute (2) Cellulitis ICD Code: L03.90 Status: Acute (3) Depression ICD Code: F32.9 Status: Acute (4) Folic acid deficiency ICD Code: E53.8 Status: Acute (5) Iron deficiency anemia ICD Code: D50.9 Status: Acute (6) B12 deficiency ICD Code: E53.8 Status: Acute (7) Morbid obesity with BMI of 70 and over, adult ICD Code: E66.01 Status: Chronic Assessment and Plan Decubitus wound - abdomen- growing Klebsiella Treated with Levaquin and vancomycin. ESBL KLEbsiella. DC levaquin and started on Ertapenem by ID. Wound care team/nurse ff Morbid obesity BMI 93.9. counselled. Evaluated for bariatric surgery, says she is not a candidate. Severe Iron deficiency R/O GIB , nutrtional componenet seen by GI- difficult to scope?r/o GIB versus- nutritional S/P 2 units RBC transfusion H and H stable. check periodically q 2-3 days on PPI IV Iron x 3 days till 05/01. Iron sulfate 325 mg po bid B12, folic acid deficiency LMP stop 2-3 months ago Folic acid 1 mg daily Vit B12 IM x 1 now then q monthly Depression- Continue Paxil Paxil 20 mg po daily which was started by Dr. Cruz Palliative care consulted - goals remain agressive Continue on Gabapentin, PPI, Lortab Diarrhea: C diff negative No Lovenox with severe anemia Problem Qualifiers (1) Cellulitis: Qualified Code: L03.311 - Cellulitis of abdominal wall Aldair Paulino MD May 04, 2016 18:52
[2016-05-04 21:20] LABS: MEAN CORPUSCULAR HGB CONC 27.4 % (32.0-36.0)
[2016-05-05] VITALS: BP 142/55; PULSE 86; RESP 20; TEMP 97.5; O2SAT 94
[2016-05-05 04:00] VITALS: BP 148/60; PULSE 106; RESP 20; TEMP 97.4; O2SAT 91
[2016-05-05] MEDS: ACETAMINOPHEN/HYDROcodone 325 MG/5 MG TAB PO PRN ×3 (04:38→21:35)
[2016-05-05] MEDS: GABAPENTIN 300 MG CAP PO SCH ×3 (04:38→21:34)
[2016-05-05 05:49] LABS: AUTOMATED NEUTROPHIL # 3.7 TH/MM3 (1.8-7.7); BASOPHIL # 0.2 TH/MM3 (0-0.2); BASOPHIL % 2.7 % (0.0-2.0); EOSINOPHIL # 0.2 TH/MM3 (0-0.4); EOSINOPHIL % 2.9 % (0.0-4.0); HEMATOCRIT 31.8 % (35.0-46.0); LYMPH % 29.5 % (9.0-44.0); LYMPHOCYTE # 1.8 TH/MM3 (1.0-4.8); MEAN CELL VOLUME 69.1 FL (80.0-100.0); MEAN CORPUSCULAR HEMOGLOBIN 18.9 PG (27.0-34.0); MONO % 6.1 % (0.0-8.0); NEUT % 58.8 % (16.0-70.0); PLATELET COUNT 325 TH/MM3 (150-450); RED BLOOD COUNT 4.61 MIL/MM3 (4.00-5.30); RED CELL DISTRIBUTION WIDTH 29.7 % (11.6-17.2); WHITE BLOOD COUNT 6.2 TH/MM3 (4.0-11.0)
[2016-05-05 05:54] LABS: HEMO FLAGS AUTO DIFF
[2016-05-05 06:25] LABS: ALT (GPT) 18 U/L (10-53); ANION GAP 6 MEQ/L (5-15); AST (GOT) 28 U/L (15-37); BICARBONATE 30.7 MEQ/L (21.0-32.0); BLOOD UREA NITROGEN 8 MG/DL (7-18); CHLORIDE 104 MEQ/L (98-107); GLOMERULAR FILTRATION RATE 84 ML/MIN (>89); MAGNESIUM 1.9 MG/DL (1.5-2.5); POTASSIUM 3.9 MEQ/L (3.5-5.1); SODIUM (NA) 141 MEQ/L (136-145)
[2016-05-05 06:27] LABS: ALKALINE PHOSPHATASE 123 U/L (45-117); TOTAL BILIRUBIN ADULT 0.5 MG/DL (0.2-1.0)
--- NOTE | 2016-05-05 07:00 | HHI.PR ---
Subjective Remarks Patient denies fevers/chills slept well still c/o diarrhea denies cp/sob Objective Vitals Vital Signs Date Time Temp Pulse Resp B/P Pulse Ox O2 Delivery O2 Flow Rate FiO2 05/05/16 04:00 97.4 106 20 148/60 91 05/05/16 00:00 97.5 86 20 142/55 94 05/04/16 20:00 84 05/04/16 20:00 97.0 87 20 144/63 94 05/04/16 18:25 21 05/04/16 16:00 97.0 94 18 133/60 93 05/04/16 12:00 96.4 95 17 130/56 94 05/04/16 09:02 92 21 05/04/16 07:56 97.5 104 16 104/51 94 I/O 05/04/16 05/04/16 05/04/16 05/05/16 05/05/16 05/05/16 07:00 15:00 23:00 07:00 15:00 23:00 Intake Total 887 ml 1274 ml 680 ml 300 ml Balance 887 ml 1274 ml 680 ml 300 ml Intake Oral 480 ml 960 ml 240 ml 0 ml IV Total 407 ml 314 ml 440 ml 300 ml # Voids 4 1 1 1 # Bowel Movements 2 0 1 Result Diagram: 05/05/1651705/05/16517 Objective Remarks awake and alert, oriented x 3, not in distress morbidly obese anicteric neck- right neck with some erythematous excoriations,, dry lungs clear radial pulses ++, regular abdomen- flabby, anterior-umbilicus stretched vertically about 3 cm- dry, no erythema back- no open wounds, no sacral erythema motor- moves all extremities spontaeneous - LE limited by weight Medications and IVs Current Medications Medications (Trade) Dose Ordered Sig/Gerda Route Start Time Stop Time Status Last Admin (NS 1000 ml Inj) 1,000 ml @ 42 mls/hr [id number] IV 04/26/16 23:37 05/04/16 12:28 (NS Flush) 2 ml UNSCH PRN FLUSH 04/26/16 23:45 (NS Flush) 2 ml BID FLUSH 04/27/16 09:00 05/05/16 07:30 (Tylenol) 650 mg Q4H PRN PO 04/26/16 23:45 (Zofran Inj) 4 mg Q6H PRN IVP 04/26/16 23:45 (Compazine Supp) 25 mg Q12H PRN [place] 04/26/16 23:45 (Dulcolax Supp) 10 mg DAILY PRN [place] 04/26/16 23:45 (Milk Of Magnesia Liq) 30 ml Q12H PRN PO 04/26/16 23:45 04/27/16 03:40 (Senokot) 17.2 mg Q12H PRN PO 04/26/16 23:45 (Restoril) 15 mg HS PRN PO 04/26/16 23:45 (Neurontin) 600 mg DAILY@0530 PO 04/27/16 05:30 05/05/16 04:38 (Protonix) 20 mg DAILY PO 04/27/16 09:00 05/05/16 07:23 (Neurontin) 300 mg BID PO 04/27/16 09:00 05/05/16 07:23 ([place] 5-325 Mg) 2 tab Q6H PRN PO 04/27/16 02:15 05/05/16 04:38 (Ferrous Sulfate) 325 mg BID@12,17 PO 04/28/16 12:00 05/04/16 16:52 (Folate) 1 mg DAILY PO 04/29/16 09:00 05/05/16 07:23 (Vitamin B12 Inj) 1,000 mcg Q30D IM 04/30/16 16:00 04/30/16 17:03 Paroxetine HCl 12.5 mg 12.5 mg DAILY PO 05/01/16 09:00 05/05/16 07:22 (INVanz INJ/NS Inj) 100 ml @ 200 mls/hr Q24H IV 05/02/16 14:00 05/04/16 12:26 (Diflucan) 100 mg DAILY PO 05/02/16 13:00 05/05/16 07:23 (Mycostatin Oint) 1 applic Q12HR TOPICAL 05/02/16 13:00 05/05/16 07:26 (Bentyl) 20 mg TID PO 05/03/16 13:00 05/05/16 07:23 A/P Problem List: (1) Infection due to ESBL-producing Klebsiella pneumoniae ICD Code: A49.8 Status: Acute (2) Cellulitis ICD Code: L03.90 Status: Acute (3) Depression ICD Code: F32.9 Status: Acute (4) Folic acid deficiency ICD Code: E53.8 Status: Acute (5) Iron deficiency anemia ICD Code: D50.9 Status: Acute (6) B12 deficiency ICD Code: E53.8 Status: Acute (7) Morbid obesity with BMI of 70 and over, adult ICD Code: E66.01 Status: Chronic Assessment and Plan Decubitus wound - abdomen- growing Klebsiella Treated with Levaquin and vancomycin. ESBL KLEbsiella. DC levaquin and started on Ertapenem by ID. Wound care team/nurse ff Morbid obesity BMI 93.9. counselled. Evaluated for bariatric surgery, says she is not a candidate. 05/05 Pulmonary consult in am to evaluate for ALLIE. As per ID possible bennefit of trach for more mobility. Severe Iron deficiency R/O GIB , nutrtional componenet seen by GI- difficult to scope?r/o GIB versus- nutritional S/P 2 units RBC transfusion H and H stable. check periodically q 2-3 days on PPI IV Iron x 3 days till 05/01. Iron sulfate 325 mg po bid B12, folic acid deficiency LMP stop 2-3 months ago Folic acid 1 mg daily Vit B12 IM x 1 now then q monthly Depression- Continue Paxil Paxil 20 mg po daily which was started by Dr. Cruz Palliative care consulted - goals remain agressive Continue on Gabapentin, PPI, Lortab Diarrhea: C diff negative No Lovenox with severe anemia Problem Qualifiers (1) Cellulitis: Qualified Code: L03.311 - Cellulitis of abdominal wall Aldair Paulino MD May 05, 2016 07:00
[2016-05-05] MEDS: PARoxetine HCL 12.5 MG EXTENDED RELEASE TAB PO SCH (07:22)
[2016-05-05] MEDS: DICYCLOMINE HCL 20 MG TAB PO SCH ×3 (07:23→16:47)
[2016-05-05] MEDS: FLUCONAZOLE 100 MG TAB PO SCH (07:23)
[2016-05-05] MEDS: PANTOPRAZOLE SOD 20 MG DELAYED RELEASE TAB PO SCH (07:23)
[2016-05-05] MEDS: FOLIC ACID 1 MG TAB PO SCH (07:23)
[2016-05-05] MEDS: NYSTATIN 100,000 U/GM OINT 15 GM TUBE TOPICAL SCH ×2 (07:26→21:35)
[2016-05-05] MEDS: SODIUM CHLORIDE 0.9% FLUSH 5 ML FLUSH FLUSH SCH ×2 (07:30→21:00)
[2016-05-05 08:00] VITALS: BP 128/61; PULSE 105; RESP 18; TEMP 97.5; O2SAT 95
[2016-05-05 08:07] LABS: OVALOCYTES 1+ (NORMAL); TEARDROP RBCS 1+ (NORMAL)
[2016-05-05 08:08] LABS: SCAN/DIFF AUTO DIFF CONFIRMED
[2016-05-05 12:00] VITALS: BP 131/58; PULSE 104; RESP 17; TEMP 97.5; O2SAT 93
[2016-05-05] MEDS: FERROUS SULFATE 325 MG (65 MG ELEMENTAL IRON) TAB PO SCH ×2 (12:20→16:47)
[2016-05-05] MEDS: SODIUM CHLOR 0.9% 1000 ML INJ 1,000 ML IV SCH (12:21)
[2016-05-05] MEDS: ERTAPENEM INJ 1,000 MG in SODIUM CHLORIDE 0.9% INJ 100 ML IV SCH (12:21)
[2016-05-05 16:00] VITALS: BP_SYST 105; BP_SYST 126; BP_DIAS 60; BP_DIAS 61; PULSE 105; PULSE 68; RESP 16; RESP 17; TEMP 96.2; TEMP 98; O2SAT 92; O2SAT 96
[2016-05-05 20:00] VITALS: BP 114/54; PULSE 97; RESP 18; TEMP 97.4; O2SAT 94
[2016-05-06] VITALS: BP 146/55; PULSE 98; RESP 18; TEMP 96.7; O2SAT 93
[2016-05-06] MEDS: ACETAMINOPHEN/HYDROcodone 325 MG/5 MG TAB PO PRN ×4 (05:36→23:30)
[2016-05-06] MEDS: GABAPENTIN 300 MG CAP PO SCH ×3 (05:36→20:44)
[2016-05-06] MEDS: PANTOPRAZOLE SOD 20 MG DELAYED RELEASE TAB PO SCH (07:53)
[2016-05-06] MEDS: DICYCLOMINE HCL 20 MG TAB PO SCH ×3 (07:53→17:08)
[2016-05-06] MEDS: FLUCONAZOLE 100 MG TAB PO SCH (07:53)
[2016-05-06] MEDS: FOLIC ACID 1 MG TAB PO SCH (07:53)
[2016-05-06] MEDS: SODIUM CHLORIDE 0.9% FLUSH 5 ML FLUSH FLUSH SCH ×2 (07:53→20:44)
[2016-05-06] MEDS: PARoxetine HCL 12.5 MG EXTENDED RELEASE TAB PO SCH (07:53)
[2016-05-06] MEDS: NYSTATIN 100,000 U/GM OINT 15 GM TUBE TOPICAL SCH ×2 (07:54→20:45)
[2016-05-06 08:00] VITALS: BP 127/60; PULSE 104; RESP 17; TEMP 96.2; O2SAT 93
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
[2016-05-06] MEDS: FERROUS SULFATE 325 MG (65 MG ELEMENTAL IRON) TAB PO SCH ×2 (11:39→17:08)
--- NOTE | 2016-05-06 11:51 | HHI.GIFU ---
Subjective Remarks Resting in bed. States diarrhea is resolving. No n/v. No abdominal pain. States when she wiped herself after urinating, she passed a few small gravel like stones. Objective Vitals I&O Vital Signs Date Time Temp Pulse Resp B/P Pulse Ox O2 Delivery O2 Flow Rate FiO2 05/06/16 08:00 96.2 104 17 127/60 93 05/06/16 00:00 96.7 98 18 146/55 93 05/05/16 22:12 21 05/05/16 20:00 97.4 97 18 114/54 94 05/05/16 16:00 98.0 105 17 126/60 92 05/05/16 12:00 97.5 104 17 131/58 93 I/O 05/05/16 05/05/16 05/05/16 05/06/16 05/06/16 05/06/16 06:59 14:59 22:59 06:59 14:59 22:59 Intake Total 300 ml 1911 ml 671 ml 337 ml Balance 300 ml 1911 ml 671 ml 337 ml Intake Oral 0 ml 960 ml 240 ml 0 ml IV Total 300 ml 951 ml 431 ml 337 ml # Voids 1 2 2 1 # Bowel Movements 1 2 Physical Exam HEENT: Normocephalic; atraumatic; no jaundice. CHEST: Resp. even/unlabored, diminished CARDIAC: Regular mildly tachy ABDOMEN: Morbid obese, Nontender. EXTREMITIES: No clubbing, cyanosis, or edema. ENAMEL SPRAYER: No focal deficits; alert and oriented times three. Assessment and Plan Plan ASSESSMENT - Severe microcytic anemia, chronic. Pt has hx of significant vaginal bleeding up until 3-4 months ago. No obvious active bleeding. No GI symptoms. Hemoccult negative. HH remains stable 8.7 /31.8. No active bleeding. - Diarrhea, since being on abx. Cdiff negative. Trial of dicyclomine. IMPROVING. States resolving. - ? Kidney stones. States she passed several small gravel like stones after urinating. - Decubitus wounds of abdomen- Klebsiella Pneumoniae ESBL, Abx per ID. Wound care team/nurse following - Morbid obesity- BMI 93.9, has been on left side for over 4 years now. R/O Cushings disease, defer to primary Plan: - DUANE - PPI - Dicyclomine - Monitor HH - Monitor for active bleeding - Endoscopic evaluation only if active bleeding secondary to body habitus/high risk for procedure/anesthesia - GI will sign off, please reconsult as needed - Patient seen and examined by Dr. Quesada and myself and this note is written on his behalf. Barbara Doherty May 06, 2016 11:51
[2016-05-06 12:00] VITALS: BP 122/58; PULSE 101; RESP 18; TEMP 96.2; O2SAT 93
[2016-05-06 12:01] VITALS: BP 112/61; PULSE 67; RESP 17; TEMP 97.4; O2SAT 93; O2SAT 97
[2016-05-06] MEDS: ERTAPENEM INJ 1,000 MG in SODIUM CHLORIDE 0.9% INJ 100 ML IV SCH (13:49)
[2016-05-06] MEDS: SODIUM CHLOR 0.9% 1000 ML INJ 1,000 ML IV SCH (13:49)
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
[2016-05-06 15:52] VITALS: BP 130/60; PULSE 98; RESP 17; TEMP 96.6; O2SAT 93
--- NOTE | 2016-05-06 18:05 | HHI.PR ---
Subjective Remarks diarrhea is better thisnk she passed some kidney stones as per rn did not eat much denies cp/sob no fevers/chills Objective Vitals Vital Signs Date Time Temp Pulse Resp B/P Pulse Ox O2 Delivery O2 Flow Rate FiO2 05/06/16 15:52 96.6 98 17 130/60 93 05/06/16 12:45 20 05/06/16 12:01 93 05/06/16 12:00 96.2 101 18 122/58 93 05/06/16 08:00 96.2 104 17 127/60 93 05/06/16 00:00 96.7 98 18 146/55 93 05/05/16 22:12 21 05/05/16 20:00 97.4 97 18 114/54 94 I/O 05/05/16 05/05/16 05/05/16 05/06/16 05/06/16 05/06/16 07:00 15:00 23:00 07:00 15:00 23:00 Intake Total 300 ml 1911 ml 671 ml 337 ml 1513 ml Balance 300 ml 1911 ml 671 ml 337 ml 1513 ml Intake Oral 0 ml 960 ml 240 ml 0 ml 1200 ml IV Total 300 ml 951 ml 431 ml 337 ml 313 ml # Voids 1 2 2 1 2 # Bowel Movements 1 2 0 Result Diagram: 05/05/1651705/05/16517 Objective Remarks awake and alert, oriented x 3, not in distress morbidly obese anicteric neck- right neck with some erythematous excoriations,, dry lungs clear radial pulses ++, regular abdomen- flabby, anterior-umbilicus stretched vertically about 3 cm- dry, no erythema back- no open wounds, no sacral erythema motor- moves all extremities spontaeneous - LE limited by weight Medications and IVs Current Medications Medications (Trade) Dose Ordered Sig/Gerda Route Start Time Stop Time Status Last Admin (NS 1000 ml Inj) 1,000 ml @ 42 mls/hr [id number] IV 04/26/16 23:37 05/07/16 14:06 (NS Flush) 2 ml UNSCH PRN FLUSH 04/26/16 23:45 (NS Flush) 2 ml BID FLUSH 04/27/16 09:00 05/07/16 07:31 (Tylenol) 650 mg Q4H PRN PO 04/26/16 23:45 (Zofran Inj) 4 mg Q6H PRN IVP 04/26/16 23:45 (Compazine Supp) 25 mg Q12H PRN [place] 04/26/16 23:45 (Dulcolax Supp) 10 mg DAILY PRN [place] 04/26/16 23:45 (Milk Of Magnesia Liq) 30 ml Q12H PRN PO 04/26/16 23:45 04/27/16 03:40 (Senokot) 17.2 mg Q12H PRN PO 04/26/16 23:45 (Restoril) 15 mg HS PRN PO 04/26/16 23:45 (Neurontin) 600 mg DAILY@0530 PO 04/27/16 05:30 05/07/16 05:40 (Protonix) 20 mg DAILY PO 04/27/16 09:00 05/07/16 07:31 (Neurontin) 300 mg BID PO 04/27/16 09:00 05/07/16 07:30 (Burdette 5-325 Mg) 2 tab Q6H PRN PO 04/27/16 02:15 05/07/16 11:37 (Ferrous Sulfate) 325 mg BID@12,17 PO 04/28/16 12:00 05/07/16 16:44 (Folate) 1 mg DAILY PO 04/29/16 09:00 05/07/16 07:31 (Vitamin B12 Inj) 1,000 mcg Q30D IM 04/30/16 16:00 04/30/16 17:03 (Paxil Cr) 12.5 mg DAILY PO 05/01/16 09:00 05/07/16 07:31 (Diflucan) 100 mg DAILY PO 05/02/16 13:00 05/06/16 07:53 (Mycostatin Oint) 1 applic Q12HR TOPICAL 05/02/16 13:00 05/07/16 07:33 Dicyclomine HCl 20 mg 20 mg TID PO 05/03/16 13:00 05/07/16 16:44 (INVanz INJ/NS Inj) 100 ml @ 200 mls/hr Q24H IV 05/07/16 14:00 05/07/16 14:06 A/P Problem List: (1) Infection due to ESBL-producing Klebsiella pneumoniae ICD Code: A49.8 Status: Acute (2) Cellulitis ICD Code: L03.90 Status: Acute (3) Depression ICD Code: F32.9 Status: Acute (4) Folic acid deficiency ICD Code: E53.8 Status: Acute (5) Iron deficiency anemia ICD Code: D50.9 Status: Acute (6) B12 deficiency ICD Code: E53.8 Status: Acute (7) Morbid obesity with BMI of 70 and over, adult ICD Code: E66.01 Status: Chronic Assessment and Plan Decubitus wound - abdomen- growing Klebsiella Treated with Levaquin and vancomycin. ESBL KLEbsiella. DC levaquin and started on Ertapenem by ID. Wound care team/nurse ff Morbid obesity BMI 93.9. counselled. Evaluated for bariatric surgery, says she is not a candidate. 05/05 Pulmonary consult in am to evaluate for ALLIE. As per ID possible bennefit of trach for more mobility. Severe Iron deficiency R/O GIB , nutrtional componenet seen by GI- difficult to scope?r/o GIB versus- nutritional S/P 2 units RBC transfusion H and H stable. check periodically q 2-3 days on PPI IV Iron x 3 days till 05/01. Iron sulfate 325 mg po bid B12, folic acid deficiency LMP stop 2-3 months ago Folic acid 1 mg daily Vit B12 IM x 1 now then q monthly Depression- Continue Paxil Paxil 20 mg po daily which was started by Dr. Cruz Palliative care consulted - goals remain agressive Continue on Gabapentin, PPI, Lortab change to regular diet. Diarrhea: C diff negative GI following - slightly better on dicyclomine No Lovenox with severe anemia Problem Qualifiers (1) Cellulitis: Qualified Code: L03.311 - Cellulitis of abdominal wall Aldair Paulino MD May 06, 2016 18:05
[2016-05-06 20:00] VITALS: BP 119/56; PULSE 94; RESP 20; TEMP 96.6; O2SAT 93
[2016-05-07] VITALS: BP 147/58; PULSE 101; RESP 20; TEMP 97.4; O2SAT 93
[2016-05-07] MEDS: ACETAMINOPHEN/HYDROcodone 325 MG/5 MG TAB PO PRN ×3 (05:40→18:01)
[2016-05-07] MEDS: GABAPENTIN 300 MG CAP PO SCH ×3 (05:40→21:19)
[2016-05-07] MEDS: PARoxetine HCL 12.5 MG EXTENDED RELEASE TAB PO SCH (07:31)
[2016-05-07] MEDS: DICYCLOMINE HCL 20 MG TAB PO SCH ×3 (07:31→16:44)
[2016-05-07] MEDS: PANTOPRAZOLE SOD 20 MG DELAYED RELEASE TAB PO SCH (07:31)
[2016-05-07] MEDS: FOLIC ACID 1 MG TAB PO SCH (07:31)
[2016-05-07] MEDS: SODIUM CHLORIDE 0.9% FLUSH 5 ML FLUSH FLUSH SCH ×2 (07:31→21:00)
[2016-05-07] MEDS: FLUCONAZOLE 100 MG TAB PO SCH (07:32)
[2016-05-07] MEDS: NYSTATIN 100,000 U/GM OINT 15 GM TUBE TOPICAL SCH ×2 (07:33→21:19)
[2016-05-07 08:00] VITALS: BP 131/75; PULSE 101; RESP 23; TEMP 97.2; O2SAT 91
[2016-05-07] MEDS: FERROUS SULFATE 325 MG (65 MG ELEMENTAL IRON) TAB PO SCH ×2 (11:37→16:44)
[2016-05-07 12:00] VITALS: BP 130/76; PULSE 99; RESP 24; TEMP 97.6; O2SAT 92
[2016-05-07] MEDS ORDERED: ERTAPENEM INJ 1,000 MG in SODIUM CHLORIDE 0.9% INJ 100 ML IV SCH (14:00)
[2016-05-07] MEDS: SODIUM CHLOR 0.9% 1000 ML INJ 1,000 ML IV SCH (14:06)
--- NOTE | 2016-05-07 14:09 | HHI.HCSW ---
Desktop Support Manager Visit Cognitive Functioning Met with Ms. Alonso. She is awake, alert, able to make needs known and pleasant throughout conversation. She presents with a somewhat flat affect, engages in conversation appropriately, and verbalizes some situational depression. Continues to verbalize frustration with housing situation and being stuck alone in the hospital room. Reviewed code status again. She states she talked about it a little with her boyfriend/HCS last night and she still feels she does not want those things. She fears she will be treated differently if she changes. Viewed DNR is not a do not treat and explained different scenarios. She agains states she feels she wants to be a DNR but wishes to discuss more with her boyfriend. Ms. Alonso is very thankful of diet change and being able to more freely order. Lunch delivered during my visit. . Significant Family/Friend No family/friends at bedside. No contact today. . Medical Components Self-reports some sleep apnea-- states when she is sleeping she will stop breathing and has been told she will destat into the 80s. . Advance Directive Health care surrogate completed previously with palliative care team. Copy in chart. Living will completed 05-06-16. Living will is a typical one stating she would not want to be kept alive artificially if she had a terminal condition, end- stage condition, and/or was in a persistent vegetative state and elects artificially food and hydration be withheld or withdrawn. Health care surrogate is her caregiver/significant other. Primary HCS: Ashish Cano, significant other: [phone] Important contact: Nishi Alonso, sister: [phone] . [place] Service Issues Ms. Alonso reports she has been trying to contact her property field adjuster for updates on her rental home. Apparently waiting for insurance to assess damage. Ms. Alonso verbalizes she feels the dentist/owner is going to ask them to leave property to fix damages, possibly homeless if this happens until other housing can be found. Encouraged her to speak with property field adjuster to address concerns. . Proposed Soc Wrk Intervention Would benefit from outpatient counseling/therapy sessions however has reported she previously had them and "everyone they sent someone out it was someone different so I finally stopped it" due to inconsistency with continuity of care with same therapist/counselor. SW will continue to visit while here in the hospital. . Follow Up Visit Palliative care will continue to follow throughout hospitalization. SW will follow as needed for emotional and social support. Palliative care LOCOMOTIVE CRANE ENGINEER/MD to follow-up regarding CODE STATUS after Ms. Alonso has time to think about it. Claudia Amin STORE OPERATIONS ASSOCIATE, SHAKE TABLE OPERATOR May 07, 2016 14:09
[2016-05-07 16:00] VITALS: BP 131/58; PULSE 100; RESP 22; TEMP 97.6; O2SAT 92
--- NOTE | 2016-05-07 18:09 | HHI.PR ---
Subjective Remarks Patient still has diarrhea states has less number of bowel movements denies fevers/chills ate better has a better mood Objective Vitals Vital Signs Date Time Temp Pulse Resp B/P Pulse Ox O2 Delivery O2 Flow Rate FiO2 05/07/16 16:00 97.6 100 22 131/58 92 05/07/16 12:37 20 05/07/16 12:00 97.6 99 24 130/76 92 05/07/16 08:00 97.2 101 23 131/75 91 05/07/16 00:00 97.4 101 20 147/58 93 05/06/16 20:00 96.6 94 20 119/56 93 I/O 05/06/16 05/06/16 05/06/16 05/07/16 05/07/16 05/07/16 07:00 15:00 23:00 07:00 15:00 23:00 Intake Total 337 ml 1513 ml 846 ml 608 ml 912 ml Balance 337 ml 1513 ml 846 ml 608 ml 912 ml Intake Oral 0 ml 1200 ml 480 ml 240 ml 600 ml IV Total 337 ml 313 ml 366 ml 368 ml 312 ml # Voids 1 2 1 1 3 # Bowel Movements 0 1 2 Result Diagram: 05/05/1651705/05/16517 Objective Remarks awake and alert, oriented x 3, not in distress morbidly obese anicteric neck- right neck with some erythematous excoriations,, dry lungs clear radial pulses ++, regular abdomen- flabby, anterior-umbilicus stretched vertically about 3 cm- dry, no erythema back- no open wounds, no sacral erythema motor- moves all extremities spontaeneous - LE limited by weight Medications and IVs Current Medications Medications (Trade) Dose Ordered Sig/Gerda Route Start Time Stop Time Status Last Admin (NS 1000 ml Inj) 1,000 ml @ 42 mls/hr [id number] IV 04/26/16 23:37 05/07/16 14:06 (NS Flush) 2 ml UNSCH PRN FLUSH 04/26/16 23:45 (NS Flush) 2 ml BID FLUSH 04/27/16 09:00 05/07/16 07:31 (Tylenol) 650 mg Q4H PRN PO 04/26/16 23:45 (Zofran Inj) 4 mg Q6H PRN IVP 04/26/16 23:45 (Compazine Supp) 25 mg Q12H PRN IN 04/26/16 23:45 (Dulcolax Supp) 10 mg DAILY PRN IN 04/26/16 23:45 (Milk Of Magnesia Liq) 30 ml Q12H PRN PO 04/26/16 23:45 04/27/16 03:40 (Senokot) 17.2 mg Q12H PRN PO 04/26/16 23:45 (Restoril) 15 mg HS PRN PO 04/26/16 23:45 (Neurontin) 600 mg DAILY@0530 PO 04/27/16 05:30 05/07/16 05:40 (Protonix) 20 mg DAILY PO 04/27/16 09:00 05/07/16 07:31 (Neurontin) 300 mg BID PO 04/27/16 09:00 05/07/16 07:30 ([place]ambers 5-325 Mg) 2 tab Q6H PRN PO 04/27/16 02:15 05/07/16 18:01 (Ferrous Sulfate) 325 mg BID@12,17 PO 04/28/16 12:00 05/07/16 16:44 (Folate) 1 mg DAILY PO 04/29/16 09:00 05/07/16 07:31 (Vitamin B12 Inj) 1,000 mcg Q30D IM 04/30/16 16:00 04/30/16 17:03 (Paxil Cr) 12.5 mg DAILY PO 05/01/16 09:00 05/07/16 07:31 (Diflucan) 100 mg DAILY PO 05/02/16 13:00 05/06/16 07:53 (Mycostatin Oint) 1 applic Q12HR TOPICAL 05/02/16 13:00 05/07/16 07:33 Dicyclomine HCl 20 mg 20 mg TID PO 05/03/16 13:00 05/07/16 16:44 (INVanz INJ/NS Inj) 100 ml @ 200 mls/hr Q24H IV 05/07/16 14:00 05/07/16 14:06 Urinary Catheter: Yes Assessment to: Continue Hughes insert reason: Prolonged Immobilization A/P Problem List: (1) Infection due to ESBL-producing Klebsiella pneumoniae ICD Code: A49.8 Status: Acute (2) Cellulitis ICD Code: L03.90 Status: Acute (3) Depression ICD Code: F32.9 Status: Acute (4) Folic acid deficiency ICD Code: E53.8 Status: Acute (5) Iron deficiency anemia ICD Code: D50.9 Status: Acute (6) B12 deficiency ICD Code: E53.8 Status: Acute (7) Morbid obesity with BMI of 70 and over, adult ICD Code: E66.01 Status: Chronic Assessment and Plan Decubitus wound - abdomen- growing Klebsiella Treated with Levaquin and vancomycin. ESBL KLEbsiella. DC levaquin and started on Ertapenem by ID. Wound care team/nurse ff Morbid obesity BMI 93.9. counselled. Evaluated for bariatric surgery, says she is not a candidate. 05/05 Pulmonary consult in am to evaluate for ALLIE. As per ID possible bennefit of trach for more mobility. 05/07 Continue antibiotics per ID - On Ertapenem (tentatively 7 more days) and oral Diflucan. Severe Iron deficiency R/O GIB , nutrtional componenet seen by GI- difficult to scope?r/o GIB versus- nutritional S/P 2 units RBC transfusion H and H stable. check periodically q 2-3 days on PPI IV Iron x 3 days till 05/01. Iron sulfate 325 mg po bid B12, folic acid deficiency LMP stop 2-3 months ago Folic acid 1 mg daily Vit B12 IM x 1 now then q monthly Depression- Continue Paxil Paxil 20 mg po daily which was started by Dr. Cruz Palliative care consulted - goals remain agressive Continue on Gabapentin, PPI, Lortab change to regular diet. Diarrhea: C diff negative GI following - slightly better on dicyclomine on regular diet - better acceptance I will add probiotics No Lovenox with severe anemia Discharge Planning Dc pending ID clearance Problem Qualifiers (1) Cellulitis: Qualified Code: L03.311 - Cellulitis of abdominal wall Aldair Paulino MD May 07, 2016 18:09
[2016-05-07 20:00] VITALS: BP 154/58; PULSE 96; RESP 19; TEMP 97.6; O2SAT 95
[2016-05-07 21:15] LABS: MEAN CORPUSCULAR HGB CONC 27.8 % (32.0-36.0)
[2016-05-07 21:35] VITALS: O2SAT 98
[2016-05-08] VITALS: BP 120/58; PULSE 93; RESP 19; TEMP 97.9; O2SAT 95
[2016-05-08 04:37] LABS: MEAN CELL VOLUME 70.2 FL (80.0-100.0); MEAN CORPUSCULAR HEMOGLOBIN 19.6 PG (27.0-34.0); PLATELET COUNT 344 TH/MM3 (150-450); RED BLOOD COUNT 4.83 MIL/MM3 (4.00-5.30); WHITE BLOOD COUNT 6.9 TH/MM3 (4.0-11.0)
[2016-05-08 04:45] LABS: REVIEW FLAG FINAL
[2016-05-08 05:02] LABS: BICARBONATE 34.1 MEQ/L (21.0-32.0); POTASSIUM 3.8 MEQ/L (3.5-5.1)
[2016-05-08] MEDS: GABAPENTIN 300 MG CAP PO SCH ×3 (05:42→20:53)
[2016-05-08] MEDS: ACETAMINOPHEN/HYDROcodone 325 MG/5 MG TAB PO PRN ×2 (05:45→16:52)
[2016-05-08] MEDS: DICYCLOMINE HCL 20 MG TAB PO SCH ×3 (07:51→16:46)
[2016-05-08] MEDS: PARoxetine HCL 12.5 MG EXTENDED RELEASE TAB PO SCH (07:52)
[2016-05-08] MEDS: FOLIC ACID 1 MG TAB PO SCH (07:52)
[2016-05-08] MEDS: PANTOPRAZOLE SOD 20 MG DELAYED RELEASE TAB PO SCH (07:52)
[2016-05-08] MEDS: FLUCONAZOLE 100 MG TAB PO SCH (07:52)
[2016-05-08] MEDS: LACTOBACILLUS ACIDOPHILUS 1 GM PACKET PO SCH ×3 (07:53→18:00)
[2016-05-08 08:00] VITALS: BP 128/73; PULSE 84; RESP 19; TEMP 98.3; O2SAT 95
[2016-05-08] MEDS: NYSTATIN 100,000 U/GM OINT 15 GM TUBE TOPICAL SCH ×2 (08:52→20:52)
[2016-05-08] MEDS: SODIUM CHLORIDE 0.9% FLUSH 5 ML FLUSH FLUSH SCH ×2 (09:00→20:53)
--- NOTE | 2016-05-08 09:03 | HHI.PR ---
Subjective Remarks states diarrhea improved no pain complaints very interactive and smiling but states that she feels alone watching movies in her computer Objective Vitals Vital Signs Date Time Temp Pulse Resp B/P Pulse Ox O2 Delivery O2 Flow Rate FiO2 05/08/16 08:00 98.3 84 19 128/73 95 05/08/16 00:00 97.9 93 19 120/58 95 05/07/16 21:35 98 21 05/07/16 20:00 97.6 96 19 154/58 95 05/07/16 16:00 97.6 100 22 131/58 92 05/07/16 12:37 20 05/07/16 12:00 97.6 99 24 130/76 92 I/O 05/07/16 05/07/16 05/07/16 05/08/16 05/08/16 05/08/16 07:00 15:00 23:00 07:00 15:00 23:00 Intake Total 608 ml 912 ml 696 ml 696 ml Output Total 2 ml Balance 608 ml 912 ml 694 ml 696 ml Intake Oral 240 ml 600 ml 360 ml 360 ml IV Total 368 ml 312 ml 336 ml 336 ml Output Urine Total 2 ml # Voids 1 3 4 # Bowel Movements 1 2 0 0 Result Diagram: 05/08/1633905/08/16339 Objective Remarks awake and alert, oriented x 3, not in distress morbidly obese anicteric neck- right neck with some erythematous excoriations,, dry lungs clear regular rhythm abdomen- flabby, anterior-umbilicus stretched vertically about 3 cm- dry, no erythema back- no open wounds, no sacral erythema perianal area- mild erythema motor- moves all extremities spontaneous - LE limited by weight A/P Problem List: (1) Infection due to ESBL-producing Klebsiella pneumoniae ICD Code: A49.8 Status: Acute (2) Cellulitis ICD Code: L03.90 Status: Acute (3) Depression ICD Code: F32.9 Status: Acute (4) Folic acid deficiency ICD Code: E53.8 Status: Acute (5) Iron deficiency anemia ICD Code: D50.9 Status: Acute (6) B12 deficiency ICD Code: E53.8 Status: Acute (7) Morbid obesity with BMI of 70 and over, adult ICD Code: E66.01 Status: Chronic Assessment and Plan Panniculitis - ESBL + Infected abdominal decubitus ulcer Cellulitis ID ff.-on Ertapenem- oral Diflucan Morbid obesity BMI 93.9. counselled. Evaluated for bariatric surgery, says she is not a candidate. Severe Iron deficiency R/O GIB , nutritional component seen by GI- difficult to scope?r/o GIB versus- nutritional S/P 2 units RBC transfusion H and H stable. check periodically on PPI/Bentyl S/P IV Iron x 3 days 05/01. Iron sulfate 325 mg po bid Nutrition service consulted B12, folic acid deficiency LMP stop 2-3 months ago Folic acid 1 mg daily Vit B12 IMq monthly Diarrhea- improved on Lactinex Depression- on Paxil 12.5 mg daily Psychiatry recommendation appreciated Palliative care ff along with us Continue on Gabapentin, PPI, Lortab No Lovenox with severe anemia Problem Qualifiers (1) Cellulitis: Qualified Code: L03.311 - Cellulitis of abdominal wall Darrell Cruz MD May 08, 2016 09:03
--- NOTE | 2016-05-08 10:27 | HHI.PR ---
Addendum to Inpatient Note Addendum Reason: Additional Documentation Additional Information Stop date for ertapenem entered. DC pending social issues being addressed. Will sign off please call back if any change in clinical condition or questions. Caren Sheridan MD May 08, 2016 10:27
[2016-05-08] MEDS: FERROUS SULFATE 325 MG (65 MG ELEMENTAL IRON) TAB PO SCH ×2 (11:51→16:46)
[2016-05-08 12:00] VITALS: BP 121/56; PULSE 104; RESP 18; TEMP 98.6; O2SAT 95
[2016-05-08 12:55] VITALS: O2SAT 95
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
[2016-05-08] MEDS: SODIUM CHLOR 0.9% 1000 ML INJ 1,000 ML IV SCH (14:17)
[2016-05-08 16:00] VITALS: BP 119/68; PULSE 93; RESP 19; TEMP 97.7; O2SAT 95
[2016-05-08 20:00] VITALS: BP 120/60; PULSE 87; RESP 18; TEMP 98.6; O2SAT 95
[2016-05-09] VITALS: BP 117/56; PULSE 98; RESP 18; TEMP 98.6; O2SAT 96
[2016-05-09] MEDS: ACETAMINOPHEN/HYDROcodone 325 MG/5 MG TAB PO PRN ×3 (05:37→20:24)
[2016-05-09] MEDS: GABAPENTIN 300 MG CAP PO SCH ×3 (05:37→20:24)
[2016-05-09 07:53] VITALS: O2SAT 95
[2016-05-09 08:00] VITALS: BP 123/68; PULSE 94; RESP 18; TEMP 98.4; O2SAT 96
[2016-05-09 08:30] VITALS: BP_SYST 115; BP_DIAS 62; BP_DIAS 63; PULSE 102; RESP 18; TEMP 98.3
[2016-05-09] MEDS: DICYCLOMINE HCL 20 MG TAB PO SCH ×3 (08:55→16:26)
[2016-05-09] MEDS: FLUCONAZOLE 100 MG TAB PO SCH (08:59)
[2016-05-09] MEDS: FOLIC ACID 1 MG TAB PO SCH (09:00)
[2016-05-09] MEDS: PARoxetine HCL 12.5 MG EXTENDED RELEASE TAB PO SCH (09:00)
[2016-05-09] MEDS: LACTOBACILLUS ACIDOPHILUS 1 GM PACKET PO SCH ×3 (09:00→16:27)
[2016-05-09] MEDS: PANTOPRAZOLE SOD 20 MG DELAYED RELEASE TAB PO SCH (09:00)
[2016-05-09] MEDS: SODIUM CHLORIDE 0.9% FLUSH 5 ML FLUSH FLUSH SCH ×2 (09:00→20:24)
[2016-05-09] MEDS: NYSTATIN 100,000 U/GM OINT 15 GM TUBE TOPICAL SCH ×2 (09:12→20:25)
--- NOTE | 2016-05-09 10:40 | HHI.PR ---
Subjective Remarks no complaints denies any pain Objective Vitals Vital Signs Date Time Temp Pulse Resp B/P Pulse Ox O2 Delivery O2 Flow Rate FiO2 05/09/16 08:30 98.3 102 18 115/62 05/09/16 08:00 98.4 94 18 123/68 96 05/09/16 07:53 95 21 05/09/16 00:00 98.6 98 18 117/56 96 05/08/16 20:00 98.6 87 18 120/60 95 05/08/16 18:14 21 05/08/16 16:00 97.7 93 19 119/68 95 05/08/16 12:55 95 05/08/16 12:00 98.6 104 18 121/56 95 I/O 05/08/16 05/08/16 05/08/16 05/09/16 05/09/16 05/09/16 07:00 15:00 23:00 07:00 15:00 23:00 Intake Total 696 ml 852 ml 696 ml 696 ml Balance 696 ml 852 ml 696 ml 696 ml Intake Oral 360 ml 180 ml 360 ml 360 ml IV Total 336 ml 672 ml 336 ml 336 ml # Voids 4 2 2 2 # Bowel Movements 0 0 0 1 Result Diagram: 05/08/1633905/08/16 034 Objective Remarks awake and alert, oriented x 3, not in distress morbidly obese anicteric neck- right neck with some erythematous excoriations- healing- improved lungs clear regular rhythm abdomen- flabby, anterior-umbilicus stretched vertically about 3 cm- dry, no erythema back- no open wounds, no sacral erythema motor- moves all extremities spontaneous - LE limited by weight A/P Problem List: (1) Infection due to ESBL-producing Klebsiella pneumoniae ICD Code: A49.8 Status: Acute (2) Cellulitis ICD Code: L03.90 Status: Acute (3) Depression ICD Code: F32.9 Status: Acute (4) Folic acid deficiency ICD Code: E53.8 Status: Acute (5) Iron deficiency anemia ICD Code: D50.9 Status: Acute (6) B12 deficiency ICD Code: E53.8 Status: Acute (7) Morbid obesity with BMI of 70 and over, adult ICD Code: E66.01 Status: Chronic Assessment and Plan Panniculitis - ESBL + Infected abdominal decubitus ulcer Cellulitis ID [email or web address] Ertapenem- completed course 05/08 po Diflucan Morbid obesity BMI 93.9. counselled. Evaluated for bariatric surgery, says she is not a candidate. Severe Iron deficiency R/O GIB , nutritional component seen by GI- difficult to scope?r/o GIB versus- nutritional S/P 2 units RBC transfusion H and H stable. check periodically on PPI/Bentyl S/P IV Iron x 3 days 05/01. Iron sulfate 325 mg po bid B12, folic acid deficiency LMP stop 2-3 months ago Folic acid 1 mg daily Vit B12 IMq monthly Diarrhea- improved on Lactinex Depression- on Paxil 12.5 mg daily- increase to 25 mg po daily 05/09 Psychiatry recommendation appreciated Palliative care ff along with us Continue on Gabapentin, PPI, Lortab No Lovenox with severe anemia awaiting rehab- CM working along with us Problem Qualifiers (1) Cellulitis: Qualified Code: L03.311 - Cellulitis of abdominal wall Darrell Cruz MD May 09, 2016 10:40
[2016-05-09] MEDS: FERROUS SULFATE 325 MG (65 MG ELEMENTAL IRON) TAB PO SCH ×2 (11:37→16:27)
[2016-05-09 13:00] VITALS: BP 115/65; PULSE 98; RESP 20; TEMP 98.6
[2016-05-09] MEDS: SODIUM CHLOR 0.9% 1000 ML INJ 1,000 ML IV SCH (16:27)
[2016-05-09 20:00] VITALS: BP 116/55; PULSE 96; RESP 20; TEMP 96.6; O2SAT 93
[2016-05-10] VITALS: BP 108/51; PULSE 89; RESP 20; TEMP 96.9; O2SAT 96
[2016-05-10] MEDS: ACETAMINOPHEN/HYDROcodone 325 MG/5 MG TAB PO PRN ×3 (04:41→18:11)
[2016-05-10] MEDS: GABAPENTIN 300 MG CAP PO SCH ×3 (04:41→20:51)
[2016-05-10 08:00] VITALS: BP 115/53; PULSE 104; RESP 18; TEMP 97.6
[2016-05-10] MEDS: LACTOBACILLUS ACIDOPHILUS 1 GM PACKET PO SCH ×3 (08:10→18:00)
[2016-05-10] MEDS: SODIUM CHLORIDE 0.9% FLUSH 5 ML FLUSH FLUSH SCH ×2 (08:10→20:50)
[2016-05-10] MEDS: PARoxetine 25 MG CONTROLLED RELEASE TAB PO SCH (08:28)
[2016-05-10] MEDS: PANTOPRAZOLE SOD 20 MG DELAYED RELEASE TAB PO SCH (08:28)
[2016-05-10] MEDS: FLUCONAZOLE 100 MG TAB PO SCH (08:29)
[2016-05-10] MEDS: DICYCLOMINE HCL 20 MG TAB PO SCH ×3 (08:30→18:11)
[2016-05-10] MEDS: FOLIC ACID 1 MG TAB PO SCH (08:30)
[2016-05-10] MEDS: NYSTATIN 100,000 U/GM OINT 15 GM TUBE TOPICAL SCH ×2 (08:36→20:50)
[2016-05-10 08:40] VITALS: O2SAT 93
--- NOTE | 2016-05-10 09:13 | HHI.PR ---
Subjective Remarks no complains good po BM formed very interactive, smiling Objective Vitals Vital Signs Date Time Temp Pulse Resp B/P Pulse Ox O2 Delivery O2 Flow Rate FiO2 05/10/16 08:40 93 05/10/16 08:00 97.6 104 18 115/53 05/10/16 00:00 96.9 89 20 108/51 96 05/09/16 20:00 96.6 96 20 116/55 93 05/09/16 14:22 20 05/09/16 13:00 98.6 98 20 115/65 I/O 05/09/16 05/09/16 05/09/16 05/10/16 05/10/16 05/10/16 07:00 15:00 23:00 07:00 15:00 23:00 Intake Total 696 ml 1451 ml 673 ml 830 ml 120 ml Balance 696 ml 1451 ml 673 ml 830 ml 120 ml Intake Oral 360 ml 120 ml 360 ml 480 ml 120 ml IV Total 336 ml 1331 ml 313 ml 350 ml # Voids 2 2 5 5 # Bowel Movements 1 1 1 0 Result Diagram: 05/08/1633905/08/16339 Objective Remarks awake and alert, oriented x 3, not in distress morbidly obese anicteric neck- right neck with some erythematous excoriations- healing- improved lungs clear regular rhythm abdomen- flabby, anterior-umbilicus stretched vertically about 3 cm- dry, no erythema back- no open wounds, no sacral erythema motor- moves all extremities spontaneous - LE limited by weight A/P Problem List: (1) Infection due to ESBL-producing Klebsiella pneumoniae ICD Code: A49.8 Status: Acute (2) Cellulitis ICD Code: L03.90 Status: Acute (3) Depression ICD Code: F32.9 Status: Acute (4) Folic acid deficiency ICD Code: E53.8 Status: Acute (5) Iron deficiency anemia ICD Code: D50.9 Status: Acute (6) B12 deficiency ICD Code: E53.8 Status: Acute (7) Morbid obesity with BMI of 70 and over, adult ICD Code: E66.01 Status: Chronic Assessment and Plan Panniculitis - ESBL + Infected abdominal decubitus ulcer Cellulitis ID [id number] Ertapenem- completed course 05/08 po Diflucan Morbid obesity BMI 93.9. counselled. Evaluated for bariatric surgery, says she is not a candidate. Severe Iron deficiency R/O GIB , nutritional component seen by GI- difficult to scope?r/o GIB versus- nutritional S/P 2 units RBC transfusion H and H stable. check periodically on PPI/Bentyl S/P IV Iron x 3 days 05/01. Iron sulfate 325 mg po bid B12, folic acid deficiency LMP stop 2-3 months ago Folic acid 1 mg daily Vit B12 IMq monthly Diarrhea- improved on Lactinex Depression- on Paxil 12.5 mg daily- increase to 25 mg po daily 05/09 Psychiatry recommendation appreciated Palliative care ff along with us Continue on Gabapentin, PPI, Lortab No Lovenox with severe anemia Problem Qualifiers (1) Cellulitis: Qualified Code: L03.311 - Cellulitis of abdominal wall Darrell Cruz MD May 10, 2016 09:13
[2016-05-10] MEDS: FERROUS SULFATE 325 MG (65 MG ELEMENTAL IRON) TAB PO SCH ×2 (12:12→18:11)
[2016-05-10 13:24] VITALS: BP 117/55; PULSE 100; RESP 20; TEMP 97.6
[2016-05-10 16:17] VITALS: BP 117/55; PULSE 96; RESP 17; TEMP 98; O2SAT 95
[2016-05-10 20:00] VITALS: BP 116/55; PULSE 93; RESP 20; TEMP 97.6; O2SAT 92
[2016-05-11] VITALS: BP 113/53; PULSE 96; RESP 18; TEMP 97.2; O2SAT 93
[2016-05-11] MEDS: ACETAMINOPHEN/HYDROcodone 325 MG/5 MG TAB PO PRN ×3 (02:57→15:46)
[2016-05-11] MEDS: GABAPENTIN 300 MG CAP PO SCH ×3 (05:57→20:27)
[2016-05-11 07:46] VITALS: BP 115/53; PULSE 104; RESP 19; TEMP 97.8; O2SAT 95
[2016-05-11] MEDS: SODIUM CHLORIDE 0.9% FLUSH 5 ML FLUSH FLUSH SCH ×2 (07:53→20:28)
[2016-05-11] MEDS: FLUCONAZOLE 100 MG TAB PO SCH (07:54)
[2016-05-11] MEDS: PANTOPRAZOLE SOD 20 MG DELAYED RELEASE TAB PO SCH (07:54)
[2016-05-11] MEDS: FOLIC ACID 1 MG TAB PO SCH (07:54)
[2016-05-11] MEDS: LACTOBACILLUS ACIDOPHILUS 1 GM PACKET PO SCH ×3 (07:54→17:25)
[2016-05-11] MEDS: PARoxetine 25 MG CONTROLLED RELEASE TAB PO SCH (07:54)
[2016-05-11] MEDS: DICYCLOMINE HCL 20 MG TAB PO SCH ×3 (07:55→17:25)
[2016-05-11] MEDS: NYSTATIN 100,000 U/GM OINT 15 GM TUBE TOPICAL SCH ×2 (07:55→20:28)
--- NOTE | 2016-05-11 11:15 | HHI.PR ---
Subjective Remarks no pain or urinary complains patient spontaenously passed couple of stones yesterday- specimen at bedside she states she has history of passing stone- never analyzed- "just popped out" Objective Vitals Vital Signs Date Time Temp Pulse Resp B/P Pulse Ox O2 Delivery O2 Flow Rate FiO2 05/11/16 09:54 17 05/11/16 07:46 97.8 104 19 115/53 95 05/11/16 00:00 97.2 96 18 113/53 93 05/10/16 20:00 97.6 93 20 116/55 92 05/10/16 16:17 98.0 96 17 117/55 95 05/10/16 13:24 97.6 100 20 117/55 I/O 05/10/16 05/10/16 05/10/16 05/11/16 05/11/16 05/11/16 07:00 15:00 23:00 07:00 15:00 23:00 Intake Total 830 ml 2655 ml 480 ml 460 ml 120 ml Output Total 1000 ml Balance 830 ml 1655 ml 480 ml 460 ml 120 ml Intake Oral 480 ml 2040 ml 480 ml 460 ml 120 ml IV Total 350 ml 615 ml 0 ml 0 ml Output Urine Total 1000 ml # Voids 5 2 3 4 # Bowel Movements 0 0 0 0 Result Diagram: 05/08/1633905/08/16339 Objective Remarks awake and alert, oriented x 3, not in distress morbidly obese anicteric lungs clear regular rhythm abdomen- flabby, back- no open wounds, no sacral erythema motor- moves all extremities spontaneous - LE limited by weight A/P Problem List: (1) Infection due to ESBL-producing Klebsiella pneumoniae ICD Code: A49.8 Status: Acute (2) Cellulitis ICD Code: L03.90 Status: Acute (3) Depression ICD Code: F32.9 Status: Acute (4) Folic acid deficiency ICD Code: E53.8 Status: Acute (5) Iron deficiency anemia ICD Code: D50.9 Status: Acute (6) B12 deficiency ICD Code: E53.8 Status: Acute (7) Morbid obesity with BMI of 70 and over, adult ICD Code: E66.01 Status: Chronic Assessment and Plan Panniculitis - ESBL + Infected abdominal decubitus ulcer Cellulitis S/P Ertapenem- course 05/08 po Diflucan Morbid obesity BMI 93.9. counselled. Evaluated for bariatric surgery, says she is not a candidate. Severe Iron deficiency R/O GIB , nutritional component seen by GI- difficult to scope?r/o GIB versus- nutritional S/P 2 units RBC transfusion H and H stable. check periodically on PPI/Bentyl S/P IV Iron x 3 days 05/01. Iron sulfate 325 mg po bid B12, folic acid deficiency LMP stop 2-3 months ago Folic acid 1 mg daily Vit B12 IMq monthly Diarrhea- improved on Lactinex Depression- on Paxil 12.5 mg daily- increase to 25 mg po daily 05/09 Psychiatry recommendation appreciated Urolithiasis- stone sent for analysis 05/11 Palliative care ff along with us Continue on Gabapentin, PPI, Lortab No Lovenox with severe anemia awaiting rehab- CM working along with us Problem Qualifiers (1) Cellulitis: Qualified Code: L03.311 - Cellulitis of abdominal wall Darrell Cruz MD May 11, 2016 11:15 Darrell Cruz MD May 11, 2016 11:15
[2016-05-11 11:50] VITALS: BP 111/55; PULSE 104; RESP 19; TEMP 98.1; O2SAT 94
[2016-05-11] MEDS: FERROUS SULFATE 325 MG (65 MG ELEMENTAL IRON) TAB PO SCH ×2 (11:58→15:45)
[2016-05-11 17:06] VITALS: BP 112/53; PULSE 100; RESP 19; TEMP 97.2; O2SAT 90
[2016-05-11 20:00] VITALS: BP 111/49; PULSE 90; RESP 18; TEMP 96; O2SAT 97
[2016-05-12] VITALS: BP 123/58; PULSE 105; RESP 19; TEMP 95.8; O2SAT 93
[2016-05-12] MEDS: ACETAMINOPHEN/HYDROcodone 325 MG/5 MG TAB PO PRN ×4 (00:14→18:30)
[2016-05-12] MEDS: GABAPENTIN 300 MG CAP PO SCH ×3 (05:13→19:21)
--- NOTE | 2016-05-12 07:53 | HHI.PR ---
Subjective Remarks no pain or urinary complaints Objective Vitals Vital Signs Date Time Temp Pulse Resp B/P Pulse Ox O2 Delivery O2 Flow Rate FiO2 05/12/16 00:00 95.8 105 19 123/58 93 05/11/16 20:00 96.0 90 18 111/49 97 05/11/16 17:06 97.2 100 19 112/53 90 05/11/16 16:46 17 05/11/16 11:50 98.1 104 19 111/55 94 I/O 05/11/16 05/11/16 05/11/16 05/12/16 05/12/16 05/12/16 07:00 15:00 23:00 07:00 15:00 23:00 Intake Total 460 ml 1080 ml 600 ml 240 ml Output Total 500 ml Balance 460 ml 580 ml 600 ml 240 ml Intake Oral 460 ml 1080 ml 600 ml 240 ml IV Total 0 ml 0 ml 0 ml 0 ml Output Urine Total 500 ml # Voids 4 2 4 # Bowel Movements 0 0 1 Result Diagram: 05/08/1633905/08/16339 Objective Remarks awake and alert, not in distress anicteric neck folds area dry, no erythema lungs clear regular rhythm abdomen-abdominal folds area mild erythema, flabby, + pitting edema dependent portion of the abdomen umbilicus examined- edges no erythema, some serous foul odor emanating back- no open wounds, no sacral erythema motor- moves all extremities spontaneous - LE limited by weight A/P Problem List: (1) Infection due to ESBL-producing Klebsiella pneumoniae ICD Code: A49.8 Status: Acute (2) Cellulitis ICD Code: L03.90 Status: Acute (3) Depression ICD Code: F32.9 Status: Acute (4) Folic acid deficiency ICD Code: E53.8 Status: Acute (5) Iron deficiency anemia ICD Code: D50.9 Status: Acute (6) B12 deficiency ICD Code: E53.8 Status: Acute (7) Morbid obesity with BMI of 70 and over, adult ICD Code: E66.01 Status: Chronic Assessment and Plan Panniculitis - ESBL + Infected abdominal decubitus ulcer Cellulitis Umbilicus with foul discharge S/P Ertapenem- course 05/08 po Diflucan reconsult wound care team in am and ask for recommendation Morbid obesity BMI 93.9. counselled. Evaluated for bariatric surgery, says she is not a candidate. Severe Iron deficiency R/O GIB , nutritional component seen by GI- difficult to scope?r/o GIB versus- nutritional S/P 2 units RBC transfusion H and H stable. check periodically on PPI/Bentyl S/P IV Iron x 3 days 05/01. Iron sulfate 325 mg po bid B12, folic acid deficiency LMP stop 2-3 months ago Folic acid 1 mg daily Vit B12 IMq monthly Diarrhea- improved on Lactinex Depression- on Paxil 12.5 mg daily- increase to 25 mg po daily 05/09 Psychiatry recommendation appreciated Urolithiasis- stone sent for analysis 05/11 per staff nurse sent -will confirm on Friday Palliative care ff along with us Continue on Gabapentin, PPI, Lortab No Lovenox with severe anemia awaiting rehab- CM working along with us Problem Qualifiers (1) Cellulitis: Qualified Code: L03.311 - Cellulitis of abdominal wall Darrell Cruz MD May 12, 2016 07:53
[2016-05-12] MEDS: FOLIC ACID 1 MG TAB PO SCH (07:55)
[2016-05-12] MEDS: PANTOPRAZOLE SOD 20 MG DELAYED RELEASE TAB PO SCH (07:55)
[2016-05-12] MEDS: DICYCLOMINE HCL 20 MG TAB PO SCH ×3 (07:55→17:14)
[2016-05-12] MEDS: FLUCONAZOLE 100 MG TAB PO SCH (07:55)
[2016-05-12] MEDS: SODIUM CHLORIDE 0.9% FLUSH 5 ML FLUSH FLUSH SCH ×2 (07:56→19:24)
[2016-05-12] MEDS: PARoxetine 25 MG CONTROLLED RELEASE TAB PO SCH (07:56)
[2016-05-12] MEDS: LACTOBACILLUS ACIDOPHILUS 1 GM PACKET PO SCH ×3 (07:56→17:14)
[2016-05-12] MEDS: NYSTATIN 100,000 U/GM OINT 15 GM TUBE TOPICAL SCH ×2 (07:57→19:21)
[2016-05-12 08:00] VITALS: BP 115/55; PULSE 82; RESP 18; TEMP 97.6; O2SAT 94
[2016-05-12 12:00] VITALS: BP 117/55; PULSE 91; RESP 17; TEMP 97; O2SAT 95
[2016-05-12] MEDS: FERROUS SULFATE 325 MG (65 MG ELEMENTAL IRON) TAB PO SCH ×2 (12:08→17:14)
[2016-05-12 16:00] VITALS: BP 107/52; PULSE 94; RESP 18; TEMP 97.2; O2SAT 93
[2016-05-12 20:00] VITALS: BP 112/52; PULSE 89; RESP 18; TEMP 96.1; O2SAT 93
[2016-05-13] VITALS: BP 110/55; PULSE 82; RESP 18; TEMP 95.8; O2SAT 93
[2016-05-13] MEDS: ACETAMINOPHEN/HYDROcodone 325 MG/5 MG TAB PO PRN ×3 (05:12→18:11)
[2016-05-13] MEDS: GABAPENTIN 300 MG CAP PO SCH ×3 (05:12→20:49)
[2016-05-13 07:46] VITALS: BP 109/50; PULSE 96; RESP 18; TEMP 97.2; O2SAT 91
[2016-05-13] MEDS: LACTOBACILLUS ACIDOPHILUS 1 GM PACKET PO SCH ×3 (09:00→18:00)
[2016-05-13] MEDS: FLUCONAZOLE 100 MG TAB PO SCH (09:25)
[2016-05-13] MEDS: PANTOPRAZOLE SOD 20 MG DELAYED RELEASE TAB PO SCH (09:25)
[2016-05-13] MEDS: FOLIC ACID 1 MG TAB PO SCH (09:25)
[2016-05-13] MEDS: PARoxetine 25 MG CONTROLLED RELEASE TAB PO SCH (09:25)
[2016-05-13] MEDS: DICYCLOMINE HCL 20 MG TAB PO SCH ×3 (09:25→18:10)
[2016-05-13] MEDS: SODIUM CHLORIDE 0.9% FLUSH 5 ML FLUSH FLUSH SCH ×2 (09:26→20:50)
[2016-05-13] MEDS: NYSTATIN 100,000 U/GM OINT 15 GM TUBE TOPICAL SCH ×2 (09:26→20:52)
[2016-05-13 11:45] VITALS: BP 108/53; PULSE 102; RESP 19; TEMP 97.9; O2SAT 91
[2016-05-13] MEDS: FERROUS SULFATE 325 MG (65 MG ELEMENTAL IRON) TAB PO SCH ×2 (12:19→18:10)
--- NOTE | 2016-05-13 14:07 | HHI.PR ---
Subjective Remarks discuss with her about turning to other side to air out left side and decreased dependent edema patient pleasantly refused , state she rocks herself on the bed to relieve some pressure frequently I told her that we can at least try to air out the dependent portion at least every 6 hours Idon't want to flip to other side" Objective Vitals Vital Signs Date Time Temp Pulse Resp B/P Pulse Ox O2 Delivery O2 Flow Rate FiO2 05/13/16 11:45 97.9 102 19 108/53 91 05/13/16 07:46 97.2 96 18 109/50 91 05/13/16 00:00 95.8 82 18 110/55 93 05/12/16 20:00 96.1 89 18 112/52 93 05/12/16 16:00 97.2 94 18 107/52 93 I/O 05/12/16 05/12/16 05/12/16 05/13/16 05/13/16 05/13/16 07:00 15:00 23:00 07:00 15:00 23:00 Intake Total 240 ml 720 ml 480 ml 240 ml 770 ml Output Total 450 ml Balance 240 ml 720 ml 480 ml 240 ml 320 ml Intake Oral 240 ml 720 ml 480 ml 240 ml 770 ml IV Total 0 ml 0 ml 0 ml 0 ml Output Urine Total 450 ml # Voids 4 3 1 3 # Bowel Movements 1 1 1 2 0 Objective Remarks awake and alert, not in distress anicteric neck folds area dry, no erythema lungs clear regular rhythm abdomen-abdominal folds area mild erythema, flabby, + pitting edema dependent portion of the abdomen back- no open wounds, no sacral erythema motor- moves all extremities spontaneous - LE limited by weight A/P Problem List: (1) Infection due to ESBL-producing Klebsiella pneumoniae ICD Code: A49.8 Status: Acute (2) Cellulitis ICD Code: L03.90 Status: Acute (3) Depression ICD Code: F32.9 Status: Acute (4) Folic acid deficiency ICD Code: E53.8 Status: Acute (5) Iron deficiency anemia ICD Code: D50.9 Status: Acute (6) B12 deficiency ICD Code: E53.8 Status: Acute (7) Morbid obesity with BMI of 70 and over, adult ICD Code: E66.01 Status: Chronic Assessment and Plan Panniculitis - ESBL + Infected abdominal decubitus ulcer Cellulitis Umbilicus with foul discharge S/P Ertapenem- course 05/08 po Diflucan reconsult wound care team in am and ask for recommendation Morbid obesity BMI 93.9. counselled. Evaluated for bariatric surgery, says she is not a candidate. Severe Iron deficiency R/O GIB , nutritional component seen by GI- difficult to scope?r/o GIB versus- nutritional S/P 2 units RBC transfusion H and H stable. check periodically on PPI/Bentyl S/P IV Iron x 3 days 05/01. Iron sulfate 325 mg po bid B12, folic acid deficiency LMP stop 2-3 months ago Folic acid 1 mg daily Vit B12 IMq monthly Diarrhea- improved on Lactinex Depression- on Paxil 12.5 mg daily- increase to 25 mg po daily 05/09 Psychiatry recommendation appreciated Urolithiasis- stone sent for analysis 05/11 per staff nurse sent -will confirm on Friday Palliative care ff along with us Continue on Gabapentin, PPI, Lortab No Lovenox with severe anemia awaiting rehab- CM working along with us- for rehab placement Problem Qualifiers (1) Cellulitis: Qualified Code: L03.311 - Cellulitis of abdominal wall Darrell Cruz MD May 13, 2016 14:07
[2016-05-13 17:07] VITALS: BP 92/46; PULSE 101; RESP 19; TEMP 96.9; O2SAT 91
[2016-05-13 20:00] VITALS: BP 105/51; PULSE 84; RESP 19; TEMP 97.5; O2SAT 93
[2016-05-14] VITALS: BP 114/56; PULSE 95; RESP 20; TEMP 96.8; O2SAT 93
[2016-05-14] MEDS: ACETAMINOPHEN/HYDROcodone 325 MG/5 MG TAB PO PRN ×4 (00:47→19:04)
[2016-05-14] MEDS: GABAPENTIN 300 MG CAP PO SCH ×3 (05:48→20:35)
[2016-05-14 07:30] VITALS: BP 113/54; PULSE 95; RESP 19; TEMP 96.9; O2SAT 92
--- NOTE | 2016-05-14 07:45 | HHI.PR ---
Subjective Remarks discussed with her again turning to other side- we will get navin lift, staff to help us patient refused states her boyfriend put his arms under there and checks has not passed any stones again, no urinary complains told her to call me when BF comes Objective Vitals Vital Signs Date Time Temp Pulse Resp B/P Pulse Ox O2 Delivery O2 Flow Rate FiO2 05/14/16 07:30 96.9 95 19 113/54 92 05/14/16 01:50 16 05/14/16 00:00 96.8 95 20 114/56 93 05/13/16 20:00 97.5 84 19 105/51 93 05/13/16 17:07 96.9 101 19 92/46 91 05/13/16 11:45 97.9 102 19 108/53 91 05/13/16 07:46 97.2 96 18 109/50 91 I/O 05/13/16 05/13/16 05/13/16 05/14/16 05/14/16 05/14/16 07:00 15:00 23:00 07:00 15:00 23:00 Intake Total 240 ml 770 ml 120 ml 0 ml 600 ml Output Total 450 ml Balance 240 ml 320 ml 120 ml 0 ml 600 ml Intake Oral 240 ml 770 ml 120 ml 600 ml IV Total 0 ml 0 ml 0 ml Output Urine Total 450 ml # Voids 3 1 3 # Bowel Movements 2 0 0 0 Objective Remarks awake and alert, not in distress anicteric neck folds area dry, no erythema lungs clear regular rhythm abdomen-abdominal folds area mild erythema, flabby, + pitting edema dependent portion of the abdomen umbilicus with foul drainage motor- moves all extremities spontaneous - LE limited by weight A/P Problem List: (1) Infection due to ESBL-producing Klebsiella pneumoniae ICD Code: A49.8 Status: Acute (2) Cellulitis ICD Code: L03.90 Status: Acute (3) Depression ICD Code: F32.9 Status: Acute (4) Folic acid deficiency ICD Code: E53.8 Status: Acute (5) Iron deficiency anemia ICD Code: D50.9 Status: Acute (6) B12 deficiency ICD Code: E53.8 Status: Acute (7) Morbid obesity with BMI of 70 and over, adult ICD Code: E66.01 Status: Chronic Assessment and Plan Panniculitis - ESBL + Infected abdominal decubitus ulcer Cellulitis Umbilicus with foul discharge S/P Ertapenem- course 05/08 po Diflucan reconsult wound care team in am and ask for recommendation Morbid obesity BMI 93.9. counselled. Evaluated for bariatric surgery, says she is not a candidate. Severe Iron deficiency R/O GIB , nutritional component seen by GI- difficult to scope?r/o GIB versus- nutritional S/P 2 units RBC transfusion H and H stable. check periodically on PPI/Bentyl S/P IV Iron x 3 days 05/01. Iron sulfate 325 mg po bid B12, folic acid deficiency LMP stop 2-3 months ago Folic acid 1 mg daily Vit B12 IMq monthly Diarrhea- improved on Lactinex Depression- in better spirits on Paxil 12.5 mg daily- increase to 25 mg po daily 05/09 Psychiatry recommendation appreciated Urolithiasis- stone sent for analysis 05/11 per staff nurse sent -results pending Palliative care ff along with us Continue on Gabapentin, PPI, Lortab No Lovenox with severe anemia awaiting rehab- CM working along with us- for rehab placement Problem Qualifiers (1) Cellulitis: Qualified Code: L03.311 - Cellulitis of abdominal wall Darrell Cruz MD May 14, 2016 07:45
[2016-05-14] MEDS: PANTOPRAZOLE SOD 20 MG DELAYED RELEASE TAB PO SCH (08:09)
[2016-05-14] MEDS: DICYCLOMINE HCL 20 MG TAB PO SCH ×3 (08:09→17:10)
[2016-05-14] MEDS: FOLIC ACID 1 MG TAB PO SCH (08:09)
[2016-05-14] MEDS: FLUCONAZOLE 100 MG TAB PO SCH (08:09)
[2016-05-14] MEDS: PARoxetine 25 MG CONTROLLED RELEASE TAB PO SCH (08:09)
[2016-05-14] MEDS: SODIUM CHLORIDE 0.9% FLUSH 5 ML FLUSH FLUSH SCH ×2 (08:09→20:36)
[2016-05-14] MEDS: NYSTATIN 100,000 U/GM OINT 15 GM TUBE TOPICAL SCH ×2 (08:10→20:37)
[2016-05-14] MEDS: LACTOBACILLUS ACIDOPHILUS 1 GM PACKET PO SCH ×3 (08:10→17:10)
[2016-05-14 11:06] VITALS: BP 136/59; PULSE 101; RESP 19; TEMP 97.6; O2SAT 92
[2016-05-14] MEDS: FERROUS SULFATE 325 MG (65 MG ELEMENTAL IRON) TAB PO SCH ×2 (11:40→17:10)
[2016-05-14 16:04] VITALS: BP 113/64; PULSE 94; RESP 18; TEMP 96.9; O2SAT 91
[2016-05-14 20:00] VITALS: BP 116/56; PULSE 101; RESP 20; TEMP 96.6; O2SAT 93
[2016-05-15] VITALS: BP 124/54; PULSE 98; RESP 18; TEMP 96.5; O2SAT 93
[2016-05-15] MEDS: ACETAMINOPHEN/HYDROcodone 325 MG/5 MG TAB PO PRN ×3 (04:06→18:12)
[2016-05-15] MEDS: GABAPENTIN 300 MG CAP PO SCH ×3 (06:35→20:54)
[2016-05-15 07:56] VITALS: BP 99/50; PULSE 90; RESP 18; TEMP 97.3; O2SAT 95
[2016-05-15] MEDS: LACTOBACILLUS ACIDOPHILUS 1 GM PACKET PO SCH ×3 (09:00→18:00)
[2016-05-15] MEDS: PANTOPRAZOLE SOD 20 MG DELAYED RELEASE TAB PO SCH (09:07)
[2016-05-15] MEDS: DICYCLOMINE HCL 20 MG TAB PO SCH ×3 (09:07→18:12)
[2016-05-15] MEDS: PARoxetine 25 MG CONTROLLED RELEASE TAB PO SCH (09:07)
[2016-05-15] MEDS: FLUCONAZOLE 100 MG TAB PO SCH (09:07)
[2016-05-15] MEDS: FOLIC ACID 1 MG TAB PO SCH (09:07)
[2016-05-15] MEDS: SODIUM CHLORIDE 0.9% FLUSH 5 ML FLUSH FLUSH SCH ×2 (09:08→20:54)
[2016-05-15] MEDS: NYSTATIN 100,000 U/GM OINT 15 GM TUBE TOPICAL SCH ×2 (09:09→20:54)
--- NOTE | 2016-05-15 11:09 | HHI.PR ---
Subjective Remarks no complains good BM - formed Objective Vitals Vital Signs Date Time Temp Pulse Resp B/P Pulse Ox O2 Delivery O2 Flow Rate FiO2 05/15/16 07:56 97.3 90 18 99/50 95 05/15/16 00:00 96.5 98 18 124/54 93 05/14/16 20:33 18 05/14/16 20:00 96.6 101 20 116/56 93 05/14/16 16:04 96.9 94 18 113/64 91 I/O 05/14/16 05/14/16 05/14/16 05/15/16 05/15/16 05/15/16 06:59 14:59 22:59 06:59 14:59 22:59 Intake Total 0 ml 1560 ml 0 ml 980 ml 120 ml Output Total 500 ml Balance 0 ml 1060 ml 0 ml 980 ml 120 ml Intake Oral 1560 ml 980 ml 120 ml IV Total 0 ml 0 ml 0 ml Output Urine Total 500 ml # Voids 3 7 # Bowel Movements 0 1 Objective Remarks awake and alert, not in distress anicteric neck folds area dry, no erythema lungs clear regular rhythm abdomen-abdominal folds area mild erythema, flabby, + pitting edema dependent portion of the abdomen umbilicus stretched with some fould discharge motor- moves all extremities spontaneous - LE limited by weight A/P Problem List: (1) Infection due to ESBL-producing Klebsiella pneumoniae ICD Code: A49.8 Status: Acute (2) Cellulitis ICD Code: L03.90 Status: Acute (3) Depression ICD Code: F32.9 Status: Acute (4) Folic acid deficiency ICD Code: E53.8 Status: Acute (5) Iron deficiency anemia ICD Code: D50.9 Status: Acute (6) B12 deficiency ICD Code: E53.8 Status: Acute (7) Morbid obesity with BMI of 70 and over, adult ICD Code: E66.01 Status: Chronic Assessment and Plan Panniculitis - ESBL + Infected abdominal decubitus ulcer Cellulitis Umbilicus with foul discharge S/P Ertapenem- course 05/08 po Diflucan wound care team consult Morbid obesity BMI 93.9. counselled. Evaluated for bariatric surgery, says she is not a candidate. Severe Iron deficiency R/O GIB , nutritional component seen by GI- difficult to scope?r/o GIB versus- nutritional S/P 2 units RBC transfusion H and H stable. check periodically on PPI/Bentyl S/P IV Iron x 3 days 05/01. Iron sulfate 325 mg po bid B12, folic acid deficiency LMP stop 2-3 months ago Folic acid 1 mg daily Vit B12 IMq monthly Diarrhea- improved on Lactinex Depression- in better spirits on Paxil 12.5 mg daily- increase to 25 mg po daily 05/09 Psychiatry recommendation appreciated Urolithiasis- stone sent for analysis 05/11 per staff nurse sent -results pending Umbilical wound wound care team consult Palliative care ff along with us Continue on Gabapentin, PPI, Lortab No Lovenox with severe anemia awaiting rehab- CM working along with us- for rehab placement Problem Qualifiers (1) Cellulitis: Qualified Code: L03.311 - Cellulitis of abdominal wall Darrell Cruz MD May 15, 2016 11:09
[2016-05-15 11:23] VITALS: BP 104/51; PULSE 96; RESP 19; TEMP 98.1; O2SAT 95
[2016-05-15] MEDS: FERROUS SULFATE 325 MG (65 MG ELEMENTAL IRON) TAB PO SCH ×2 (11:24→18:12)
--- NOTE | 2016-05-15 14:12 | HHI.HCPN ---
Met with Ms. Alonso for palliative care follow-up support. She is awake, pleasant, and able to make her needs known. Lunch tray at bedside, about 50% gone. She reports her appetite is a little less today relating to mood. Self- reports some depression. Verbalizes understanding she was recently placed on a new medication for depressive symptoms and it could take around 2 weeks to take effect. She expressed she would like to try something else if she doesn't start to see improvement with her moods. Ms. Alonso tells me she was previously on Trazadone 300mg every 12hrs but it made her sleep all day and all night. States it does help with her mood but she does not like sleeping all the time. Depression appears to be somewhat situational as she is worried about being transferred to [facility] in [place] or somewhere in [place]. Desires to get home but understands it is not safe yet. No updates on home being fixed at this time. Offered active listening and normalized feelings. Discussed [facility] DNR order (yellow form) to discharge with her when she is medically able and a safe discharge plan is in place. She confirms desire to complete form. Yellow original placed on chart to DC with her. Copy placed in chart and copy faxed to HIM to be scanned into EMR. Palliative care will continue to follow throughout hospitalization. SW will follow as needed for emotional and social support. Claudia Amin, COLLECTIONS AND ARCHIVES DIRECTOR May 15, 2016 14:12
[2016-05-15 16:50] VITALS: BP 116/55; PULSE 80; RESP 20; TEMP 96.9; O2SAT 95
[2016-05-15 20:00] VITALS: BP 117/55; PULSE 103; RESP 18; TEMP 97.3; O2SAT 92
[2016-05-16] VITALS: BP 124/59; PULSE 111; RESP 20; TEMP 97.3; O2SAT 94
[2016-05-16] MEDS: GABAPENTIN 300 MG CAP PO SCH ×3 (05:17→21:41)
[2016-05-16 08:00] VITALS: BP 104/50; PULSE 104; RESP 17; TEMP 97.6; O2SAT 93
--- NOTE | 2016-05-16 08:12 | HHI.PR ---
Subjective Remarks appreciate wound care team seeing patient Objective Vitals Vital Signs Date Time Temp Pulse Resp B/P Pulse Ox O2 Delivery O2 Flow Rate FiO2 05/16/16 00:00 97.3 111 20 124/59 94 05/15/16 20:00 97.3 103 18 117/55 92 05/15/16 16:50 96.9 80 20 116/55 95 05/15/16 12:25 16 05/15/16 11:23 98.1 96 19 104/51 95 I/O 05/15/16 05/15/16 05/15/16 05/16/16 05/16/16 05/16/16 06:59 14:59 22:59 06:59 14:59 22:59 Intake Total 980 ml 1200 ml 720 ml 480 ml Output Total 500 ml Balance 980 ml 700 ml 720 ml 480 ml Intake Oral 980 ml 1200 ml 720 ml 480 ml IV Total 0 ml 0 ml 0 ml Output Urine Total 500 ml # Voids 7 4 4 # Bowel Movements 1 2 1 0 Objective Remarks awake and alert, not in distress anicteric neck folds area dry, no erythema lungs clear regular rhythm abdomen-abdominal folds area mild erythema, flabby, + pitting edema dependent portion of the abdomen umbilicus with foul drainage motor- moves all extremities spontaneous - LE limited by weight A/P Problem List: (1) Infection due to ESBL-producing Klebsiella pneumoniae ICD Code: A49.8 Status: Acute (2) Cellulitis ICD Code: L03.90 Status: Acute (3) Depression ICD Code: F32.9 Status: Acute (4) Folic acid deficiency ICD Code: E53.8 Status: Acute (5) Iron deficiency anemia ICD Code: D50.9 Status: Acute (6) B12 deficiency ICD Code: E53.8 Status: Acute (7) Morbid obesity with BMI of 70 and over, adult ICD Code: E66.01 Status: Chronic Assessment and Plan Panniculitis - ESBL + Infected abdominal decubitus ulcer Cellulitis Umbilicus with foul discharge S/P Ertapenem- course 05/08 po Diflucan wound care team appreciated. Morbid obesity BMI 93.9. counselled. Evaluated for bariatric surgery, says she is not a candidate. Severe Iron deficiency R/O GIB , nutritional component seen by GI- difficult to scope?r/o GIB versus- nutritional S/P 2 units RBC transfusion H and H stable. check periodically on PPI/Bentyl S/P IV Iron x 3 days 05/01. 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
[2016-05-16] MEDS: FLUCONAZOLE 100 MG TAB PO SCH (08:39)
[2016-05-16] MEDS: FOLIC ACID 1 MG TAB PO SCH (08:39)
[2016-05-16] MEDS: PANTOPRAZOLE SOD 20 MG DELAYED RELEASE TAB PO SCH (08:39)
[2016-05-16] MEDS: PARoxetine 25 MG CONTROLLED RELEASE TAB PO SCH (08:39)
[2016-05-16] MEDS: DICYCLOMINE HCL 20 MG TAB PO SCH ×3 (08:40→17:09)
[2016-05-16] MEDS: LACTOBACILLUS ACIDOPHILUS 1 GM PACKET PO SCH ×3 (08:41→17:09)
[2016-05-16] MEDS: SODIUM CHLORIDE 0.9% FLUSH 5 ML FLUSH FLUSH SCH ×2 (08:42→21:42)
[2016-05-16] MEDS: NYSTATIN 100,000 U/GM OINT 15 GM TUBE TOPICAL SCH ×2 (08:42→21:42)
[2016-05-16] MEDS: ACETAMINOPHEN/HYDROcodone 325 MG/5 MG TAB PO PRN ×3 (08:46→21:42)
[2016-05-16 12:00] VITALS: BP 117/58; PULSE 94; RESP 17; TEMP 98.3; O2SAT 95
[2016-05-16] MEDS: FERROUS SULFATE 325 MG (65 MG ELEMENTAL IRON) TAB PO SCH ×2 (12:04→17:09)
[2016-05-16 16:00] VITALS: BP 100/49; PULSE 92; RESP 18; TEMP 97.7; O2SAT 93
[2016-05-16 20:00] VITALS: BP 110/49; PULSE 100; RESP 19; TEMP 96.4; O2SAT 92
[2016-05-16 23:55] VITALS: BP 104/50; PULSE 92; RESP 18; TEMP 95.8; O2SAT 93
[2016-05-17] MEDS: ACETAMINOPHEN/HYDROcodone 325 MG/5 MG TAB PO PRN ×3 (05:19→18:37)
[2016-05-17] MEDS: GABAPENTIN 300 MG CAP PO SCH ×3 (05:37→21:11)
[2016-05-17 08:00] VITALS: BP 122/55; PULSE 99; RESP 17; TEMP 97.5; O2SAT 92
[2016-05-17] MEDS: LACTOBACILLUS ACIDOPHILUS 1 GM PACKET PO SCH ×3 (08:01→16:55)
[2016-05-17] MEDS: FOLIC ACID 1 MG TAB PO SCH (08:02)
[2016-05-17] MEDS: PANTOPRAZOLE SOD 20 MG DELAYED RELEASE TAB PO SCH (08:02)
[2016-05-17] MEDS: NYSTATIN 100,000 U/GM OINT 15 GM TUBE TOPICAL SCH ×2 (08:02→21:11)
[2016-05-17] MEDS: FLUCONAZOLE 100 MG TAB PO SCH (08:02)
[2016-05-17] MEDS: PARoxetine 25 MG CONTROLLED RELEASE TAB PO SCH (08:02)
[2016-05-17] MEDS: SODIUM CHLORIDE 0.9% FLUSH 5 ML FLUSH FLUSH SCH ×2 (08:02→21:10)
[2016-05-17] MEDS: DICYCLOMINE HCL 20 MG TAB PO SCH ×3 (08:02→16:55)
[2016-05-17] MEDS: FERROUS SULFATE 325 MG (65 MG ELEMENTAL IRON) TAB PO SCH ×2 (11:49→16:55)
[2016-05-17 12:00] VITALS: BP 115/57; PULSE 103; RESP 18; TEMP 97.3; O2SAT 93
--- NOTE | 2016-05-17 12:39 | HHI.PR ---
Subjective Remarks comfortable, no complains Objective Vitals Vital Signs Date Time Temp Pulse Resp B/P Pulse Ox O2 Delivery O2 Flow Rate FiO2 05/17/16 12:00 97.3 103 18 115/57 93 05/17/16 08:00 97.5 99 17 122/55 92 05/16/16 23:55 95.8 92 18 104/50 93 05/16/16 20:00 96.4 100 19 110/49 92 05/16/16 16:19 20 05/16/16 16:00 97.7 92 18 100/49 93 I/O 05/16/16 05/16/16 05/16/16 05/17/16 05/17/16 05/17/16 06:59 14:59 22:59 06:59 14:59 22:59 Intake Total 480 ml 1200 ml 240 ml 240 ml Balance 480 ml 1200 ml 240 ml 240 ml Intake Oral 480 ml 1200 ml 240 ml 240 ml IV Total 0 ml 0 ml 0 ml 0 ml # Voids 4 3 1 1 # Bowel Movements 0 1 1 Objective Remarks awake and alert, not in distress anicteric neck folds area dry, no erythema lungs clear regular rhythm abdomen-abdominal folds area mild erythema, flabby, + pitting edema dependent portion of the abdomen umbilicus with foul drainage motor- moves all extremities spontaneous - LE limited by weight A/P Problem List: (1) Infection due to ESBL-producing Klebsiella pneumoniae ICD Code: A49.8 Status: Acute (2) Cellulitis ICD Code: L03.90 Status: Acute (3) Depression ICD Code: F32.9 Status: Acute (4) Folic acid deficiency ICD Code: E53.8 Status: Acute (5) Iron deficiency anemia ICD Code: D50.9 Status: Acute (6) B12 deficiency ICD Code: E53.8 Status: Acute (7) Morbid obesity with BMI of 70 and over, adult ICD Code: E66.01 Status: Chronic Assessment and Plan Panniculitis - ESBL + Infected abdominal decubitus ulcer Cellulitis Umbilicus with foul discharge- improving gradually S/P Ertapenem- course 05/08 po Diflucan wound care team appreciated. Morbid obesity BMI 93.9. counselled. Evaluated for bariatric surgery, says she is not a candidate. Severe Iron deficiency R/O GIB , nutritional component seen by GI- difficult to scope?r/o GIB versus- nutritional S/P 2 units RBC transfusion H and H stable. check periodically on PPI/Bentyl S/P IV Iron x 3 days 05/01. 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
[2016-05-17 16:00] VITALS: BP 107/53; PULSE 105; RESP 16; TEMP 97.8; O2SAT 91
[2016-05-17 20:00] VITALS: BP 125/56; PULSE 106; RESP 21; TEMP 98; O2SAT 92
[2016-05-17 23:54] VITALS: BP 124/57; PULSE 107; RESP 20; TEMP 96.7; O2SAT 92
[2016-05-18] MEDS: ACETAMINOPHEN/HYDROcodone 325 MG/5 MG TAB PO PRN ×4 (01:32→22:41)
[2016-05-18] MEDS: GABAPENTIN 300 MG CAP PO SCH ×3 (06:24→20:44)
[2016-05-18 08:00] VITALS: BP 129/60; PULSE 94; RESP 17; TEMP 97.9; O2SAT 93
[2016-05-18] MEDS: LACTOBACILLUS ACIDOPHILUS 1 GM PACKET PO SCH ×3 (09:00→16:48)
[2016-05-18] MEDS: SODIUM CHLORIDE 0.9% FLUSH 5 ML FLUSH FLUSH SCH ×2 (09:37→20:45)
[2016-05-18] MEDS: PANTOPRAZOLE SOD 20 MG DELAYED RELEASE TAB PO SCH (09:37)
[2016-05-18] MEDS: PARoxetine 25 MG CONTROLLED RELEASE TAB PO SCH (09:38)
[2016-05-18] MEDS: FOLIC ACID 1 MG TAB PO SCH (09:38)
[2016-05-18] MEDS: FLUCONAZOLE 100 MG TAB PO SCH (09:38)
[2016-05-18] MEDS: DICYCLOMINE HCL 20 MG TAB PO SCH ×3 (09:39→16:47)
[2016-05-18] MEDS: NYSTATIN 100,000 U/GM OINT 15 GM TUBE TOPICAL SCH ×2 (09:41→20:46)
[2016-05-18 12:00] VITALS: BP 110/52; PULSE 93; RESP 17; TEMP 98.4; O2SAT 95
[2016-05-18] MEDS: FERROUS SULFATE 325 MG (65 MG ELEMENTAL IRON) TAB PO SCH ×2 (12:23→16:47)
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
[2016-05-18 15:41] VITALS: BP 115/56; PULSE 100; RESP 18; TEMP 97.7; O2SAT 93
[2016-05-18 20:00] VITALS: BP 139/62; PULSE 95; RESP 20; TEMP 98.1; O2SAT 93
[2016-05-19] VITALS: BP 138/62; PULSE 107; RESP 20; TEMP 96.5; O2SAT 93
[2016-05-19] MEDS: ACETAMINOPHEN/HYDROcodone 325 MG/5 MG TAB PO PRN ×4 (04:42→22:48)
[2016-05-19] MEDS: GABAPENTIN 300 MG CAP PO SCH ×3 (04:42→20:28)
[2016-05-19] MEDS: SODIUM CHLORIDE 0.9% FLUSH 5 ML FLUSH FLUSH SCH ×2 (07:58→20:29)
[2016-05-19] MEDS: DICYCLOMINE HCL 20 MG TAB PO SCH ×3 (07:58→16:50)
[2016-05-19] MEDS: FOLIC ACID 1 MG TAB PO SCH (07:58)
[2016-05-19] MEDS: PARoxetine 25 MG CONTROLLED RELEASE TAB PO SCH (07:58)
[2016-05-19] MEDS: PANTOPRAZOLE SOD 20 MG DELAYED RELEASE TAB PO SCH (07:58)
[2016-05-19] MEDS: FLUCONAZOLE 100 MG TAB PO SCH (07:58)
[2016-05-19] MEDS: LACTOBACILLUS ACIDOPHILUS 1 GM PACKET PO SCH ×3 (07:59→16:50)
[2016-05-19] MEDS: POTASSIUM BICARBONATE 25 MEQ EFFERVESCENT TAB PO SCH (07:59)
[2016-05-19 08:00] VITALS: BP 108/49; PULSE 103; RESP 18; TEMP 97.6; O2SAT 91
[2016-05-19] MEDS: NYSTATIN 100,000 U/GM OINT 15 GM TUBE TOPICAL SCH ×2 (08:01→20:28)
[2016-05-19] MEDS ORDERED: PRIL20CA9 PO (08:20)
[2016-05-19] MEDS ORDERED: HYDR-3533 PO (08:20)
[2016-05-19] MEDS ORDERED: GABA300C5 PO ×2 (08:20)
[2016-05-19] MEDS ORDERED: GABA600T PO (08:20)
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
[2016-05-19] MEDS: FERROUS SULFATE 325 MG (65 MG ELEMENTAL IRON) TAB PO SCH ×2 (10:49→16:50)
[2016-05-19 12:00] VITALS: BP 133/53; PULSE 93; RESP 18; TEMP 96; O2SAT 93
[2016-05-19 16:00] VITALS: BP 112/51; PULSE 98; RESP 17; TEMP 97.9; O2SAT 94
[2016-05-19 20:00] VITALS: BP 133/61; PULSE 97; RESP 20; TEMP 96.6; O2SAT 93
[2016-05-19 21:01] LABS: MEAN CORPUSCULAR HGB CONC 28.6 % (32.0-36.0)
[2016-05-20] VITALS: BP 125/59; PULSE 95; RESP 20; TEMP 96.9; O2SAT 93
[2016-05-20] MEDS: GABAPENTIN 300 MG CAP PO SCH ×3 (04:33→20:26)
[2016-05-20] MEDS: ACETAMINOPHEN/HYDROcodone 325 MG/5 MG TAB PO PRN ×3 (04:34→18:42)
[2016-05-20 06:50] LABS: BICARBONATE 32.8 MEQ/L (21.0-32.0); POTASSIUM 4.1 MEQ/L (3.5-5.1)
[2016-05-20 08:00] VITALS: BP 111/53; PULSE 79; RESP 19; TEMP 96.1; O2SAT 98
[2016-05-20] MEDS: POTASSIUM BICARBONATE 25 MEQ EFFERVESCENT TAB PO SCH (10:48)
[2016-05-20] MEDS: PANTOPRAZOLE SOD 20 MG DELAYED RELEASE TAB PO SCH (10:52)
[2016-05-20] MEDS: PARoxetine 25 MG CONTROLLED RELEASE TAB PO SCH (10:52)
[2016-05-20] MEDS: FOLIC ACID 1 MG TAB PO SCH (10:53)
[2016-05-20] MEDS: LACTOBACILLUS ACIDOPHILUS 1 GM PACKET PO SCH ×3 (10:53→18:41)
[2016-05-20] MEDS: DICYCLOMINE HCL 20 MG TAB PO SCH ×3 (10:53→18:41)
[2016-05-20] MEDS: FERROUS SULFATE 325 MG (65 MG ELEMENTAL IRON) TAB PO SCH ×2 (10:53→18:42)
[2016-05-20] MEDS: FLUCONAZOLE 100 MG TAB PO SCH (10:53)
[2016-05-20] MEDS: SODIUM CHLORIDE 0.9% FLUSH 5 ML FLUSH FLUSH SCH ×2 (10:57→20:27)
[2016-05-20 11:59] VITALS: BP 112/58; PULSE 76; RESP 18; TEMP 96.8; O2SAT 98
[2016-05-20 12:39] LABS: HEMATOCRIT 38.4 % (35.0-46.0); PLATELET COUNT 378 TH/MM3 (150-450); RED BLOOD COUNT 4.98 MIL/MM3 (4.00-5.30); RED CELL DISTRIBUTION WIDTH 29.5 % (11.6-17.2); WHITE BLOOD COUNT 6.6 TH/MM3 (4.0-11.0)
[2016-05-20 12:45] LABS: REVIEW FLAG FINAL
[2016-05-20 13:38] VITALS: O2SAT 98
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
[2016-05-20 16:00] VITALS: BP 114/56; PULSE 78; RESP 18; TEMP 97.6; O2SAT 97
[2016-05-20 20:00] VITALS: BP 123/64; PULSE 90; RESP 20; TEMP 96.1; O2SAT 93
[2016-05-20] MEDS: NYSTATIN 100,000 U/GM OINT 15 GM TUBE TOPICAL SCH ×2 (20:29→20:30)
[2016-05-21] VITALS: BP 124/56; PULSE 97; RESP 20; TEMP 97.5; O2SAT 92
[2016-05-21] MEDS: GABAPENTIN 300 MG CAP PO SCH ×3 (05:57→20:36)
[2016-05-21 08:00] VITALS: BP 123/71; PULSE 106; RESP 17; TEMP 97.2; O2SAT 95
[2016-05-21] MEDS: LACTOBACILLUS ACIDOPHILUS 1 GM PACKET PO SCH ×3 (09:00→17:14)
[2016-05-21] MEDS: FLUCONAZOLE 100 MG TAB PO SCH (09:44)
[2016-05-21] MEDS: SODIUM CHLORIDE 0.9% FLUSH 5 ML FLUSH FLUSH SCH ×2 (09:45→20:36)
[2016-05-21] MEDS: DICYCLOMINE HCL 20 MG TAB PO SCH ×3 (09:45→17:13)
[2016-05-21] MEDS: PANTOPRAZOLE SOD 20 MG DELAYED RELEASE TAB PO SCH (09:45)
[2016-05-21] MEDS: FOLIC ACID 1 MG TAB PO SCH (09:45)
[2016-05-21] MEDS: POTASSIUM BICARBONATE 25 MEQ EFFERVESCENT TAB PO SCH (09:46)
[2016-05-21] MEDS: ACETAMINOPHEN/HYDROcodone 325 MG/5 MG TAB PO PRN ×2 (09:46→17:14)
[2016-05-21] MEDS: NYSTATIN 100,000 U/GM OINT 15 GM TUBE TOPICAL SCH ×2 (09:46→20:36)
[2016-05-21] MEDS: PARoxetine 25 MG CONTROLLED RELEASE TAB PO SCH (09:51)
[2016-05-21] MEDS: FERROUS SULFATE 325 MG (65 MG ELEMENTAL IRON) TAB PO SCH ×2 (11:53→17:13)
[2016-05-21 12:00] VITALS: BP 118/42; PULSE 96; RESP 18; TEMP 97.2; O2SAT 95
[2016-05-21 16:00] VITALS: BP 92/47; PULSE 99; RESP 18; TEMP 97; O2SAT 94
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
[2016-05-21 20:00] VITALS: BP 101/55; PULSE 104; RESP 21; TEMP 96.3; O2SAT 92
[2016-05-22] VITALS: BP 120/55; PULSE 101; RESP 20; TEMP 96; O2SAT 92
[2016-05-22] MEDS: GABAPENTIN 300 MG CAP PO SCH ×3 (03:57→19:55)
[2016-05-22] MEDS: ACETAMINOPHEN/HYDROcodone 325 MG/5 MG TAB PO PRN ×3 (03:58→17:42)
[2016-05-22] MEDS: SODIUM CHLORIDE 0.9% FLUSH 5 ML FLUSH FLUSH SCH ×2 (07:42→19:56)
[2016-05-22] MEDS: FOLIC ACID 1 MG TAB PO SCH (07:42)
[2016-05-22] MEDS: PARoxetine 25 MG CONTROLLED RELEASE TAB PO SCH (07:42)
[2016-05-22] MEDS: DICYCLOMINE HCL 20 MG TAB PO SCH ×3 (07:42→17:42)
[2016-05-22] MEDS: LACTOBACILLUS ACIDOPHILUS 1 GM PACKET PO SCH ×3 (07:43→17:42)
[2016-05-22] MEDS: FLUCONAZOLE 100 MG TAB PO SCH (07:43)
[2016-05-22] MEDS: POTASSIUM BICARBONATE 25 MEQ EFFERVESCENT TAB PO SCH (07:43)
[2016-05-22] MEDS: PANTOPRAZOLE SOD 20 MG DELAYED RELEASE TAB PO SCH (07:43)
[2016-05-22] MEDS: NYSTATIN 100,000 U/GM OINT 15 GM TUBE TOPICAL SCH ×2 (07:46→19:57)
[2016-05-22 08:00] VITALS: BP 112/58; PULSE 101; RESP 16; TEMP 96.4; O2SAT 93
[2016-05-22] MEDS: FERROUS SULFATE 325 MG (65 MG ELEMENTAL IRON) TAB PO SCH ×2 (10:15→17:42)
[2016-05-22 12:00] VITALS: BP 126/58; PULSE 97; RESP 16; TEMP 96.5; O2SAT 93
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
[2016-05-22 16:00] VITALS: BP 117/57; PULSE 99; RESP 16; TEMP 96.4; O2SAT 93
[2016-05-22 20:00] VITALS: BP 113/54; PULSE 84; RESP 20; TEMP 96.1; O2SAT 92
[2016-05-23] VITALS: BP 134/64; PULSE 106; RESP 21; TEMP 96.3; O2SAT 92
[2016-05-23] MEDS: GABAPENTIN 300 MG CAP PO SCH ×3 (05:37→19:46)
[2016-05-23] MEDS: ACETAMINOPHEN/HYDROcodone 325 MG/5 MG TAB PO PRN ×3 (05:38→18:06)
[2016-05-23 08:00] VITALS: BP 117/54; PULSE 96; RESP 18; TEMP 96.3; O2SAT 91
[2016-05-23] MEDS: POTASSIUM BICARBONATE 25 MEQ EFFERVESCENT TAB PO SCH (08:19)
[2016-05-23] MEDS: PANTOPRAZOLE SOD 20 MG DELAYED RELEASE TAB PO SCH (08:19)
[2016-05-23] MEDS: FOLIC ACID 1 MG TAB PO SCH (08:20)
[2016-05-23] MEDS: PARoxetine 25 MG CONTROLLED RELEASE TAB PO SCH (08:20)
[2016-05-23] MEDS: DICYCLOMINE HCL 20 MG TAB PO SCH ×3 (08:20→16:55)
[2016-05-23] MEDS: FLUCONAZOLE 100 MG TAB PO SCH (08:20)
[2016-05-23] MEDS: LACTOBACILLUS ACIDOPHILUS 1 GM PACKET PO SCH ×3 (08:21→16:55)
[2016-05-23] MEDS: SODIUM CHLORIDE 0.9% FLUSH 5 ML FLUSH FLUSH SCH ×2 (08:21→19:48)
[2016-05-23] MEDS: NYSTATIN 100,000 U/GM OINT 15 GM TUBE TOPICAL SCH ×2 (08:21→19:45)
[2016-05-23 11:22] VITALS: BP 117/59; PULSE 95; RESP 18; TEMP 99.1; O2SAT 95
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
[2016-05-23] MEDS: FERROUS SULFATE 325 MG (65 MG ELEMENTAL IRON) TAB PO SCH ×2 (11:56→16:55)
[2016-05-23 16:00] VITALS: BP 134/56; PULSE 97; RESP 17; TEMP 97.9; O2SAT 94
[2016-05-23 19:51] VITALS: BP 123/60; PULSE 90; RESP 20; TEMP 97.5; O2SAT 93
[2016-05-23 23:51] VITALS: BP 114/57; PULSE 97; RESP 20; TEMP 97.7; O2SAT 93
[2016-05-24] MEDS: ACETAMINOPHEN/HYDROcodone 325 MG/5 MG TAB PO PRN ×3 (04:54→18:28)
[2016-05-24] MEDS: GABAPENTIN 300 MG CAP PO SCH ×3 (04:54→19:53)
[2016-05-24 08:00] VITALS: BP 125/59; PULSE 98; RESP 16; TEMP 95.1; O2SAT 97
[2016-05-24] MEDS: SODIUM CHLORIDE 0.9% FLUSH 5 ML FLUSH FLUSH SCH ×2 (09:00→19:53)
[2016-05-24] MEDS: PANTOPRAZOLE SOD 20 MG DELAYED RELEASE TAB PO SCH (10:03)
[2016-05-24] MEDS: LACTOBACILLUS ACIDOPHILUS 1 GM PACKET PO SCH ×3 (10:03→18:27)
[2016-05-24] MEDS: FLUCONAZOLE 100 MG TAB PO SCH (10:03)
[2016-05-24] MEDS: FOLIC ACID 1 MG TAB PO SCH (10:03)
[2016-05-24] MEDS: POTASSIUM BICARBONATE 25 MEQ EFFERVESCENT TAB PO SCH (10:03)
[2016-05-24] MEDS: PARoxetine 25 MG CONTROLLED RELEASE TAB PO SCH (10:04)
[2016-05-24] MEDS: DICYCLOMINE HCL 20 MG TAB PO SCH ×3 (10:04→18:27)
[2016-05-24 12:00] VITALS: BP 116/58; PULSE 98; RESP 17; TEMP 96.5; O2SAT 93
[2016-05-24] MEDS: FERROUS SULFATE 325 MG (65 MG ELEMENTAL IRON) TAB PO SCH ×2 (12:11→18:27)
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
[2016-05-24 15:52] VITALS: BP 121/57; PULSE 99; RESP 17; TEMP 96.3; O2SAT 93
[2016-05-24 19:51] VITALS: BP 102/49; PULSE 91; RESP 20; TEMP 97.8; O2SAT 93
[2016-05-24] MEDS: NYSTATIN 100,000 U/GM OINT 15 GM TUBE TOPICAL SCH (19:52)
[2016-05-24 23:51] VITALS: BP 131/60; PULSE 99; RESP 20; TEMP 97.8; O2SAT 94
[2016-05-25] MEDS: GABAPENTIN 300 MG CAP PO SCH ×3 (05:04→19:52)
[2016-05-25] MEDS: ACETAMINOPHEN/HYDROcodone 325 MG/5 MG TAB PO PRN ×3 (05:04→17:56)
[2016-05-25 07:48] VITALS: BP 106/52; PULSE 108; RESP 17; TEMP 97.4; O2SAT 91
[2016-05-25] MEDS: LACTOBACILLUS ACIDOPHILUS 1 GM PACKET PO SCH ×3 (08:54→16:52)
[2016-05-25] MEDS: PARoxetine 25 MG CONTROLLED RELEASE TAB PO SCH (08:54)
[2016-05-25] MEDS: POTASSIUM BICARBONATE 25 MEQ EFFERVESCENT TAB PO SCH (08:54)
[2016-05-25] MEDS: NYSTATIN 100,000 U/GM OINT 15 GM TUBE TOPICAL SCH ×2 (08:54→19:52)
[2016-05-25] MEDS: PANTOPRAZOLE SOD 20 MG DELAYED RELEASE TAB PO SCH (08:54)
[2016-05-25] MEDS: FLUCONAZOLE 100 MG TAB PO SCH (08:54)
[2016-05-25] MEDS: SODIUM CHLORIDE 0.9% FLUSH 5 ML FLUSH FLUSH SCH ×2 (08:55→19:52)
[2016-05-25] MEDS: FOLIC ACID 1 MG TAB PO SCH (08:55)
[2016-05-25] MEDS: DICYCLOMINE HCL 20 MG TAB PO SCH ×3 (08:55→16:52)
[2016-05-25 11:24] VITALS: BP 108/55; PULSE 105; RESP 19; TEMP 97.2; O2SAT 95
[2016-05-25] MEDS: FERROUS SULFATE 325 MG (65 MG ELEMENTAL IRON) TAB PO SCH ×2 (11:47→16:52)
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
[2016-05-25 15:45] VITALS: BP 125/58; PULSE 95; RESP 19; TEMP 97.8; O2SAT 92
[2016-05-25 20:00] VITALS: BP 102/56; PULSE 95; RESP 18; TEMP 98.6; O2SAT 94
[2016-05-25 23:30] VITALS: BP 112/54; PULSE 99; RESP 18; TEMP 97.6; O2SAT 95
[2016-05-26] MEDS: ACETAMINOPHEN/HYDROcodone 325 MG/5 MG TAB PO PRN ×3 (05:18→17:29)
[2016-05-26] MEDS: GABAPENTIN 300 MG CAP PO SCH ×3 (05:18→19:17)
[2016-05-26] MEDS: POTASSIUM BICARBONATE 25 MEQ EFFERVESCENT TAB PO SCH (07:52)
[2016-05-26] MEDS: LACTOBACILLUS ACIDOPHILUS 1 GM PACKET PO SCH ×3 (07:57→17:29)
[2016-05-26] MEDS: PARoxetine 25 MG CONTROLLED RELEASE TAB PO SCH (07:57)
[2016-05-26] MEDS: FLUCONAZOLE 100 MG TAB PO SCH (07:57)
[2016-05-26] MEDS: FOLIC ACID 1 MG TAB PO SCH (07:57)
[2016-05-26] MEDS: PANTOPRAZOLE SOD 20 MG DELAYED RELEASE TAB PO SCH (07:57)
[2016-05-26] MEDS: DICYCLOMINE HCL 20 MG TAB PO SCH ×3 (07:57→17:29)
[2016-05-26] MEDS: NYSTATIN 100,000 U/GM OINT 15 GM TUBE TOPICAL SCH ×2 (07:58→19:18)
[2016-05-26] MEDS: SODIUM CHLORIDE 0.9% FLUSH 5 ML FLUSH FLUSH SCH ×2 (07:59→19:17)
[2016-05-26 08:05] VITALS: BP 112/56; PULSE 109; RESP 19; TEMP 97.8; O2SAT 91
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
[2016-05-26 11:26] VITALS: BP 118/59; PULSE 103; RESP 17; TEMP 98.1; O2SAT 91
[2016-05-26] MEDS: FERROUS SULFATE 325 MG (65 MG ELEMENTAL IRON) TAB PO SCH ×2 (11:34→17:29)
[2016-05-26 15:44] VITALS: BP 111/55; PULSE 95; RESP 18; TEMP 97.4; O2SAT 92
[2016-05-26 20:00] VITALS: BP 126/58; PULSE 93; RESP 18; TEMP 98.6; O2SAT 95
[2016-05-26 23:50] VITALS: BP 119/57; PULSE 102; RESP 18; TEMP 98.6; O2SAT 95
[2016-05-27] MEDS: ACETAMINOPHEN/HYDROcodone 325 MG/5 MG TAB PO PRN ×3 (05:02→17:24)
[2016-05-27] MEDS: GABAPENTIN 300 MG CAP PO SCH ×3 (05:02→21:07)
[2016-05-27 07:41] LABS: TRANSFERRIN IRON PROFILE 145 MG/DL (200-360)
[2016-05-27 07:51] VITALS: BP 124/60; PULSE 97; RESP 20; TEMP 98; O2SAT 93
[2016-05-27] MEDS: FLUCONAZOLE 100 MG TAB PO SCH (08:34)
[2016-05-27] MEDS: DICYCLOMINE HCL 20 MG TAB PO SCH ×3 (08:34→17:23)
[2016-05-27] MEDS: FOLIC ACID 1 MG TAB PO SCH (08:34)
[2016-05-27] MEDS: PARoxetine 25 MG CONTROLLED RELEASE TAB PO SCH (08:34)
[2016-05-27] MEDS: PANTOPRAZOLE SOD 20 MG DELAYED RELEASE TAB PO SCH (08:34)
[2016-05-27] MEDS: LACTOBACILLUS ACIDOPHILUS 1 GM PACKET PO SCH ×3 (08:35→17:24)
[2016-05-27] MEDS: SODIUM CHLORIDE 0.9% FLUSH 5 ML FLUSH FLUSH SCH ×2 (08:40→21:07)
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
[2016-05-27 11:47] VITALS: BP 127/62; PULSE 106; RESP 19; TEMP 96.9; O2SAT 93
[2016-05-27] MEDS: FERROUS SULFATE 325 MG (65 MG ELEMENTAL IRON) TAB PO SCH ×2 (12:00→17:23)
[2016-05-27 15:53] VITALS: BP 134/63; PULSE 96; RESP 19; TEMP 96.9; O2SAT 93
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
[2016-05-27] MEDS: NAPROXEN 250 MG TAB PO PRN (17:23)
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
[2016-05-27 19:51] VITALS: BP 130/66; PULSE 94; RESP 20; TEMP 97; O2SAT 93
[2016-05-27] MEDS: NYSTATIN 100,000 U/GM OINT 15 GM TUBE TOPICAL SCH ×2 (21:00→21:07)
[2016-05-27 23:51] VITALS: BP 139/63; PULSE 106; RESP 20; TEMP 96.9; O2SAT 93
[2016-05-28] MEDS: GABAPENTIN 300 MG CAP PO SCH ×3 (05:42→20:44)
[2016-05-28] MEDS: NAPROXEN 250 MG TAB PO PRN ×3 (05:42→17:31)
[2016-05-28] MEDS: ACETAMINOPHEN/HYDROcodone 325 MG/5 MG TAB PO PRN ×3 (05:42→17:31)
[2016-05-28 08:00] VITALS: BP 122/78; PULSE 106; RESP 18; TEMP 96.4; O2SAT 93
[2016-05-28] MEDS: PANTOPRAZOLE SOD 20 MG DELAYED RELEASE TAB PO SCH (08:26)
[2016-05-28] MEDS: DICYCLOMINE HCL 20 MG TAB PO SCH ×3 (08:26→17:31)
[2016-05-28] MEDS: PARoxetine 25 MG CONTROLLED RELEASE TAB PO SCH (08:27)
[2016-05-28] MEDS: FOLIC ACID 1 MG TAB PO SCH (08:27)
[2016-05-28] MEDS: FLUCONAZOLE 100 MG TAB PO SCH (08:27)
[2016-05-28] MEDS: NYSTATIN 100,000 U/GM OINT 15 GM TUBE TOPICAL SCH ×2 (08:28→20:44)
[2016-05-28] MEDS: LACTOBACILLUS ACIDOPHILUS 1 GM PACKET PO SCH ×3 (08:28→17:32)
[2016-05-28] MEDS: SODIUM CHLORIDE 0.9% FLUSH 5 ML FLUSH FLUSH SCH ×2 (08:29→20:43)
[2016-05-28] MEDS: FERROUS SULFATE 325 MG (65 MG ELEMENTAL IRON) TAB PO SCH ×2 (11:36→17:31)
[2016-05-28 12:00] VITALS: BP 114/62; PULSE 95; RESP 18; TEMP 96; O2SAT 92
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
[2016-05-28 16:00] VITALS: BP 105/53; PULSE 96; RESP 18; TEMP 96.7; O2SAT 94
[2016-05-28 20:00] VITALS: BP 125/64; PULSE 91; RESP 20; TEMP 96.7; O2SAT 95
[2016-05-29] VITALS: BP 128/74; PULSE 88; RESP 20; TEMP 97.2; O2SAT 97
[2016-05-29] MEDS: NAPROXEN 250 MG TAB PO PRN ×3 (05:18→17:22)
[2016-05-29] MEDS: ACETAMINOPHEN/HYDROcodone 325 MG/5 MG TAB PO PRN ×3 (05:18→17:23)
[2016-05-29] MEDS: GABAPENTIN 300 MG CAP PO SCH ×3 (05:18→20:13)
[2016-05-29] MEDS: PANTOPRAZOLE SOD 20 MG DELAYED RELEASE TAB PO SCH (07:44)
[2016-05-29] MEDS: DICYCLOMINE HCL 20 MG TAB PO SCH ×3 (07:44→17:22)
[2016-05-29] MEDS: FLUCONAZOLE 100 MG TAB PO SCH (07:44)
[2016-05-29] MEDS: FOLIC ACID 1 MG TAB PO SCH (07:44)
[2016-05-29] MEDS: PARoxetine 25 MG CONTROLLED RELEASE TAB PO SCH (07:45)
[2016-05-29] MEDS: SODIUM CHLORIDE 0.9% FLUSH 5 ML FLUSH FLUSH SCH ×2 (07:45→20:13)
[2016-05-29] MEDS: NYSTATIN 100,000 U/GM OINT 15 GM TUBE TOPICAL SCH ×2 (07:46→17:23)
[2016-05-29] MEDS: LACTOBACILLUS ACIDOPHILUS 1 GM PACKET PO SCH ×3 (07:47→17:23)
[2016-05-29 08:00] VITALS: BP 125/57; PULSE 96; RESP 20; TEMP 96.9; O2SAT 93
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
[2016-05-29] MEDS: FERROUS SULFATE 325 MG (65 MG ELEMENTAL IRON) TAB PO SCH ×2 (11:32→17:22)
[2016-05-29 12:00] VITALS: BP 120/58; PULSE 90; RESP 18; TEMP 97; O2SAT 93
[2016-05-29 16:00] VITALS: BP 122/60; PULSE 89; RESP 20; TEMP 97.2; O2SAT 93
[2016-05-29 20:00] VITALS: BP 120/56; PULSE 89; RESP 18; TEMP 97.6; O2SAT 94
[2016-05-29 23:35] VITALS: BP 128/86; PULSE 89; RESP 18; TEMP 97.6; O2SAT 96
[2016-05-30] MEDS: ACETAMINOPHEN/HYDROcodone 325 MG/5 MG TAB PO PRN ×4 (04:53→20:26)
[2016-05-30] MEDS: GABAPENTIN 300 MG CAP PO SCH ×3 (04:53→20:19)
[2016-05-30 05:49] LABS: HEMATOCRIT 44.1 % (35.0-46.0); MEAN CELL VOLUME 80.8 FL (80.0-100.0); MEAN CORPUSCULAR HEMOGLOBIN 24.6 PG (27.0-34.0); MEAN CORPUSCULAR HGB CONC 30.4 % (32.0-36.0); PLATELET COUNT 341 TH/MM3 (150-450); RED BLOOD COUNT 5.46 MIL/MM3 (4.00-5.30); RED CELL DISTRIBUTION WIDTH 27.3 % (11.6-17.2); WHITE BLOOD COUNT 6.1 TH/MM3 (4.0-11.0)
[2016-05-30 06:00] LABS: REVIEW FLAG FINAL
[2016-05-30 06:21] LABS: BICARBONATE 30.1 MEQ/L (21.0-32.0); POTASSIUM 4.2 MEQ/L (3.5-5.1)
[2016-05-30 08:00] VITALS: BP 131/62; PULSE 100; RESP 18; TEMP 97.4; O2SAT 93
[2016-05-30] MEDS: PARoxetine 25 MG CONTROLLED RELEASE TAB PO SCH (09:08)
[2016-05-30] MEDS: FOLIC ACID 1 MG TAB PO SCH (09:08)
[2016-05-30] MEDS: PANTOPRAZOLE SOD 20 MG DELAYED RELEASE TAB PO SCH (09:08)
[2016-05-30] MEDS: FLUCONAZOLE 100 MG TAB PO SCH (09:08)
[2016-05-30] MEDS: DICYCLOMINE HCL 20 MG TAB PO SCH ×3 (09:08→16:33)
[2016-05-30] MEDS: LACTOBACILLUS ACIDOPHILUS 1 GM PACKET PO SCH ×3 (09:08→16:33)
[2016-05-30] MEDS: SODIUM CHLORIDE 0.9% FLUSH 5 ML FLUSH FLUSH SCH ×2 (09:09→20:20)
[2016-05-30] MEDS: NYSTATIN 100,000 U/GM OINT 15 GM TUBE TOPICAL SCH ×2 (09:10→20:27)
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
[2016-05-30] MEDS: FERROUS SULFATE 325 MG (65 MG ELEMENTAL IRON) TAB PO SCH ×2 (11:37→16:33)
[2016-05-30 12:00] VITALS: BP 126/60; PULSE 92; RESP 17; TEMP 97.6; O2SAT 93
[2016-05-30] MEDS: ENOXAPARIN SODIUM 40 MG/0.4 ML SYRINGE SQ SCH (13:59)
[2016-05-30 16:00] VITALS: BP 130/68; PULSE 96; RESP 17; TEMP 97.4; O2SAT 92
[2016-05-30] MEDS: CYANOCOBALAMIN 1000 MCG/ML VIAL IM SCH (16:33)
[2016-05-30 20:00] VITALS: BP 131/62; PULSE 89; RESP 18; TEMP 95.7; O2SAT 94
[2016-05-31] VITALS: BP 127/62; PULSE 81; RESP 18; TEMP 96.8; O2SAT 94
[2016-05-31] MEDS: GABAPENTIN 300 MG CAP PO SCH ×3 (06:01→20:13)
[2016-05-31] MEDS: ACETAMINOPHEN/HYDROcodone 325 MG/5 MG TAB PO PRN ×4 (06:03→21:35)
[2016-05-31] MEDS: PARoxetine 25 MG CONTROLLED RELEASE TAB PO SCH (07:58)
[2016-05-31] MEDS: DICYCLOMINE HCL 20 MG TAB PO SCH ×3 (07:58→16:59)
[2016-05-31] MEDS: SODIUM CHLORIDE 0.9% FLUSH 5 ML FLUSH FLUSH SCH ×2 (07:58→20:13)
[2016-05-31] MEDS: FLUCONAZOLE 100 MG TAB PO SCH (07:58)
[2016-05-31] MEDS: FOLIC ACID 1 MG TAB PO SCH (07:58)
[2016-05-31] MEDS: NYSTATIN 100,000 U/GM OINT 15 GM TUBE TOPICAL SCH ×2 (07:59→20:14)
[2016-05-31 08:00] VITALS: BP 121/53; PULSE 105; RESP 18; TEMP 96.9; O2SAT 94
[2016-05-31] MEDS: LACTOBACILLUS ACIDOPHILUS 1 GM PACKET PO SCH ×3 (08:00→16:59)
[2016-05-31] MEDS: PANTOPRAZOLE SOD 20 MG DELAYED RELEASE TAB PO SCH (08:01)
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
[2016-05-31] MEDS: ENOXAPARIN SODIUM 40 MG/0.4 ML SYRINGE SQ SCH (11:40)
[2016-05-31] MEDS: FERROUS SULFATE 325 MG (65 MG ELEMENTAL IRON) TAB PO SCH ×2 (11:41→16:59)
[2016-05-31 12:00] VITALS: BP 139/62; PULSE 100; RESP 18; TEMP 96.3; O2SAT 94
[2016-05-31 16:00] VITALS: BP 130/61; PULSE 94; RESP 20; TEMP 95.7; O2SAT 94
[2016-05-31 20:00] VITALS: BP 114/62; PULSE 91; RESP 18; TEMP 97.4; O2SAT 93
[2016-06-01] VITALS: BP 130/60; PULSE 94; RESP 18; TEMP 97.1; O2SAT 93
[2016-06-01 04:50] LABS: HEMATOCRIT 44.4 % (35.0-46.0)
[2016-06-01] MEDS: GABAPENTIN 300 MG CAP PO SCH ×3 (05:51→21:10)
[2016-06-01] MEDS: ACETAMINOPHEN/HYDROcodone 325 MG/5 MG TAB PO PRN ×4 (05:51→21:12)
[2016-06-01 07:00] VITALS: BP 123/63; PULSE 92; RESP 18; TEMP 97.2; O2SAT 92
[2016-06-01] MEDS: FOLIC ACID 1 MG TAB PO SCH (08:19)
[2016-06-01] MEDS: PANTOPRAZOLE SOD 20 MG DELAYED RELEASE TAB PO SCH (08:19)
[2016-06-01] MEDS: DICYCLOMINE HCL 20 MG TAB PO SCH ×3 (08:20→16:34)
[2016-06-01] MEDS: PARoxetine 25 MG CONTROLLED RELEASE TAB PO SCH (08:20)
[2016-06-01] MEDS: FLUCONAZOLE 100 MG TAB PO SCH (08:20)
[2016-06-01] MEDS: LACTOBACILLUS ACIDOPHILUS 1 GM PACKET PO SCH ×3 (08:20→16:35)
[2016-06-01] MEDS: NYSTATIN 100,000 U/GM OINT 15 GM TUBE TOPICAL SCH ×2 (08:20→21:10)
[2016-06-01] MEDS: SODIUM CHLORIDE 0.9% FLUSH 5 ML FLUSH FLUSH SCH ×2 (08:21→21:09)
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
[2016-06-01] MEDS: FERROUS SULFATE 325 MG (65 MG ELEMENTAL IRON) TAB PO SCH ×2 (10:45→16:34)
[2016-06-01 12:00] VITALS: BP 114/58; PULSE 85; RESP 17; TEMP 96.2; O2SAT 92
[2016-06-01] MEDS: ENOXAPARIN SODIUM 40 MG/0.4 ML SYRINGE SQ SCH (12:47)
[2016-06-01 16:00] VITALS: BP 116/55; PULSE 96; RESP 18; TEMP 97; O2SAT 92
[2016-06-01 20:16] VITALS: BP 125/57; PULSE 69; RESP 18; TEMP 96.1; O2SAT 96
[2016-06-01 23:47] VITALS: BP 121/61; PULSE 92; RESP 20; TEMP 97.3; O2SAT 94
[2016-06-02] MEDS: GABAPENTIN 300 MG CAP PO SCH ×3 (05:02→19:30)
[2016-06-02] MEDS: FOLIC ACID 1 MG TAB PO SCH (07:47)
[2016-06-02] MEDS: SODIUM CHLORIDE 0.9% FLUSH 5 ML FLUSH FLUSH SCH ×2 (07:47→19:29)
[2016-06-02] MEDS: FLUCONAZOLE 100 MG TAB PO SCH (07:47)
[2016-06-02] MEDS: PANTOPRAZOLE SOD 20 MG DELAYED RELEASE TAB PO SCH (07:47)
[2016-06-02] MEDS: PARoxetine 25 MG CONTROLLED RELEASE TAB PO SCH (07:47)
[2016-06-02] MEDS: LACTOBACILLUS ACIDOPHILUS 1 GM PACKET PO SCH ×3 (07:48→16:08)
[2016-06-02] MEDS: DICYCLOMINE HCL 20 MG TAB PO SCH ×3 (07:48→16:07)
[2016-06-02] MEDS: ACETAMINOPHEN/HYDROcodone 325 MG/5 MG TAB PO PRN ×4 (07:48→21:01)
[2016-06-02 08:00] VITALS: BP 110/55; PULSE 102; RESP 17; TEMP 96.7; O2SAT 90
[2016-06-02] MEDS: NYSTATIN 100,000 U/GM OINT 15 GM TUBE TOPICAL SCH ×2 (08:55→19:31)
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
[2016-06-02] MEDS: ENOXAPARIN SODIUM 40 MG/0.4 ML SYRINGE SQ SCH (11:38)
[2016-06-02] MEDS: FERROUS SULFATE 325 MG (65 MG ELEMENTAL IRON) TAB PO SCH ×2 (11:38→16:07)
[2016-06-02 12:00] VITALS: BP 126/59; PULSE 94; RESP 17; TEMP 96.1; O2SAT 91
[2016-06-02 16:00] VITALS: BP 119/60; PULSE 93; RESP 17; TEMP 98.3; O2SAT 93
[2016-06-02 20:21] VITALS: BP 127/60; PULSE 72; RESP 20; TEMP 96.2; O2SAT 94
[2016-06-03 00:07] VITALS: BP 126/59; PULSE 94; RESP 18; TEMP 96; O2SAT 92
[2016-06-03] MEDS: ACETAMINOPHEN/HYDROcodone 325 MG/5 MG TAB PO PRN ×4 (05:08→22:04)
[2016-06-03] MEDS: GABAPENTIN 300 MG CAP PO SCH ×3 (05:08→19:34)
[2016-06-03 07:30] VITALS: BP 117/55; PULSE 98; RESP 17; TEMP 97.4; O2SAT 91
[2016-06-03] MEDS: SODIUM CHLORIDE 0.9% FLUSH 5 ML FLUSH FLUSH SCH ×2 (07:46→19:34)
[2016-06-03] MEDS: FLUCONAZOLE 100 MG TAB PO SCH (07:46)
[2016-06-03] MEDS: FOLIC ACID 1 MG TAB PO SCH (07:46)
[2016-06-03] MEDS: DICYCLOMINE HCL 20 MG TAB PO SCH ×3 (07:46→17:09)
[2016-06-03] MEDS: PARoxetine 25 MG CONTROLLED RELEASE TAB PO SCH (07:46)
[2016-06-03] MEDS: PANTOPRAZOLE SOD 20 MG DELAYED RELEASE TAB PO SCH (07:46)
[2016-06-03] MEDS: LACTOBACILLUS ACIDOPHILUS 1 GM PACKET PO SCH ×3 (07:46→17:09)
[2016-06-03] MEDS: NYSTATIN 100,000 U/GM OINT 15 GM TUBE TOPICAL SCH ×2 (07:47→19:34)
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
[2016-06-03 11:29] VITALS: BP 133/58; PULSE 95; RESP 17; TEMP 97.5; O2SAT 91
[2016-06-03] MEDS: FERROUS SULFATE 325 MG (65 MG ELEMENTAL IRON) TAB PO SCH ×2 (11:35→17:09)
[2016-06-03] MEDS: ENOXAPARIN SODIUM 40 MG/0.4 ML SYRINGE SQ SCH (11:35)
--- NOTE | 2016-06-03 15:04 | HHI.HCPN ---
Met with Ms. Alonso for follow-up supportive visit. Ms. Alonso is currently lying in bed, awake, alert, and able to make needs known. She presents with more brightened affect than previous visits. She states she remains hopeful things are going to work out with a new home in the coming weeks, stating the current renter is going to be leaving by [place]. Reports realtor continues to look for other options for her as well. Ms. Alonso verbalizes her mood has been better and she feels well controlled on her current medications. She does report some slight depression last week but feels she overcame it well. Allowed time for some life review, offered emotional support and active listening. She denies any pain or discomfort at this time. She tells me she has continued to work with PT and feels things are going well. Plan to continue working with PT to expand her abilities. Provided palliative care and SW contact information again per her request. Palliative care will continue to follow throughout hospitalization. SW will follow as needed for emotional and social support. No family/friend contact today. Claudia Amin, [employer] Jun 03, 2016 15:04
[2016-06-03 16:40] VITALS: BP 111/53; PULSE 89; RESP 19; TEMP 97.4; O2SAT 92
[2016-06-03 20:00] VITALS: BP 136/61; PULSE 88; RESP 16; TEMP 97.6; O2SAT 94
[2016-06-04] VITALS: BP 117/57; PULSE 90; RESP 18; TEMP 97.6; O2SAT 94
[2016-06-04] MEDS: GABAPENTIN 300 MG CAP PO SCH ×3 (06:01→20:00)
[2016-06-04] MEDS: ACETAMINOPHEN/HYDROcodone 325 MG/5 MG TAB PO PRN ×3 (06:01→20:00)
[2016-06-04 08:16] VITALS: BP 111/61; PULSE 96; RESP 19; TEMP 97; O2SAT 92
[2016-06-04] MEDS: LACTOBACILLUS ACIDOPHILUS 1 GM PACKET PO SCH ×3 (09:03→16:16)
[2016-06-04] MEDS: DICYCLOMINE HCL 20 MG TAB PO SCH ×3 (09:03→16:15)
[2016-06-04] MEDS: PANTOPRAZOLE SOD 20 MG DELAYED RELEASE TAB PO SCH (09:03)
[2016-06-04] MEDS: FOLIC ACID 1 MG TAB PO SCH (09:03)
[2016-06-04] MEDS: SODIUM CHLORIDE 0.9% FLUSH 5 ML FLUSH FLUSH SCH ×2 (09:03→20:00)
[2016-06-04] MEDS: FLUCONAZOLE 100 MG TAB PO SCH (09:03)
[2016-06-04] MEDS: PARoxetine 25 MG CONTROLLED RELEASE TAB PO SCH (09:03)
[2016-06-04] MEDS: NYSTATIN 100,000 U/GM OINT 15 GM TUBE TOPICAL SCH ×2 (09:04→20:00)
[2016-06-04] MEDS: ENOXAPARIN SODIUM 40 MG/0.4 ML SYRINGE SQ SCH (11:48)
[2016-06-04] MEDS: FERROUS SULFATE 325 MG (65 MG ELEMENTAL IRON) TAB PO SCH ×2 (11:49→16:15)
[2016-06-04 12:50] VITALS: BP 130/58; PULSE 70; RESP 19; TEMP 97.2; O2SAT 92
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
[2016-06-04 15:48] VITALS: BP 125/58; PULSE 94; RESP 19; TEMP 96.9; O2SAT 92
[2016-06-04 20:00] VITALS: BP 125/62; PULSE 87; RESP 18; TEMP 97; O2SAT 94
[2016-06-05] VITALS: BP 129/58; PULSE 88; RESP 20; TEMP 97.4; O2SAT 95
[2016-06-05] MEDS: GABAPENTIN 300 MG CAP PO SCH ×3 (06:02→21:52)
[2016-06-05] MEDS: ACETAMINOPHEN/HYDROcodone 325 MG/5 MG TAB PO PRN ×4 (06:03→21:53)
[2016-06-05 08:00] VITALS: BP 126/58; PULSE 100; RESP 18; TEMP 96.4; O2SAT 93
[2016-06-05] MEDS: LACTOBACILLUS ACIDOPHILUS 1 GM PACKET PO SCH ×3 (09:00→17:51)
[2016-06-05] MEDS: FOLIC ACID 1 MG TAB PO SCH (10:11)
[2016-06-05] MEDS: PANTOPRAZOLE SOD 20 MG DELAYED RELEASE TAB PO SCH (10:11)
[2016-06-05] MEDS: DICYCLOMINE HCL 20 MG TAB PO SCH ×3 (10:11→17:50)
[2016-06-05] MEDS: FLUCONAZOLE 100 MG TAB PO SCH (10:12)
[2016-06-05] MEDS: PARoxetine 25 MG CONTROLLED RELEASE TAB PO SCH (10:12)
[2016-06-05] MEDS: SODIUM CHLORIDE 0.9% FLUSH 5 ML FLUSH FLUSH SCH ×2 (10:13→21:53)
[2016-06-05] MEDS: NYSTATIN 100,000 U/GM OINT 15 GM TUBE TOPICAL SCH ×2 (10:13→21:53)
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
[2016-06-05 11:00] VITALS: BP 121/68; PULSE 91; RESP 17; TEMP 97; O2SAT 92
[2016-06-05] MEDS: FERROUS SULFATE 325 MG (65 MG ELEMENTAL IRON) TAB PO SCH ×2 (12:28→17:50)
[2016-06-05] MEDS: ENOXAPARIN SODIUM 40 MG/0.4 ML SYRINGE SQ SCH (12:28)
[2016-06-05 16:00] VITALS: BP 134/63; PULSE 98; RESP 18; TEMP 97.1; O2SAT 91
[2016-06-05 20:00] VITALS: BP 148/72; PULSE 86; RESP 20; TEMP 96.5; O2SAT 93
[2016-06-06] VITALS: BP 146/66; PULSE 87; RESP 20; TEMP 98.2; O2SAT 93
[2016-06-06] MEDS: ACETAMINOPHEN/HYDROcodone 325 MG/5 MG TAB PO PRN ×4 (05:38→21:30)
[2016-06-06] MEDS: GABAPENTIN 300 MG CAP PO SCH ×3 (05:38→21:29)
[2016-06-06 07:29] VITALS: BP 119/57; PULSE 97; RESP 18; TEMP 96.9; O2SAT 91
[2016-06-06] MEDS: PANTOPRAZOLE SOD 20 MG DELAYED RELEASE TAB PO SCH (08:47)
[2016-06-06] MEDS: PARoxetine 25 MG CONTROLLED RELEASE TAB PO SCH (08:47)
[2016-06-06] MEDS: LACTOBACILLUS ACIDOPHILUS 1 GM PACKET PO SCH ×3 (08:47→17:13)
[2016-06-06] MEDS: SODIUM CHLORIDE 0.9% FLUSH 5 ML FLUSH FLUSH SCH ×2 (08:47→21:29)
[2016-06-06] MEDS: FOLIC ACID 1 MG TAB PO SCH (08:47)
[2016-06-06] MEDS: FLUCONAZOLE 100 MG TAB PO SCH (08:47)
[2016-06-06] MEDS: DICYCLOMINE HCL 20 MG TAB PO SCH ×3 (08:47→17:11)
[2016-06-06] MEDS: NYSTATIN 100,000 U/GM OINT 15 GM TUBE TOPICAL SCH ×2 (08:48→21:00)
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
[2016-06-06 11:19] VITALS: BP 134/67; PULSE 91; RESP 18; TEMP 96.9; O2SAT 95
[2016-06-06] MEDS: FERROUS SULFATE 325 MG (65 MG ELEMENTAL IRON) TAB PO SCH ×2 (12:24→17:11)
[2016-06-06] MEDS: ENOXAPARIN SODIUM 40 MG/0.4 ML SYRINGE SQ SCH (12:25)
[2016-06-06 15:12] VITALS: BP 127/58; PULSE 98; RESP 17; TEMP 96.9; O2SAT 91
[2016-06-06 20:00] VITALS: BP 133/61; PULSE 89; RESP 18; TEMP 96.3; O2SAT 92
[2016-06-06 23:35] VITALS: BP 135/64; PULSE 94; RESP 18; TEMP 97.5; O2SAT 92
[2016-06-07] MEDS: ACETAMINOPHEN/HYDROcodone 325 MG/5 MG TAB PO PRN ×6 (02:05→21:54)
[2016-06-07 03:55] LABS: AUTOMATED NEUTROPHIL # 3.5 TH/MM3 (1.8-7.7); BASOPHIL # 0.2 TH/MM3 (0-0.2); BASOPHIL % 2.6 % (0.0-2.0); EOSINOPHIL # 0.2 TH/MM3 (0-0.4); HEMATOCRIT 43.9 % (35.0-46.0); HEMO FLAGS DIFF FINAL; LYMPH % 26.7 % (9.0-44.0); LYMPHOCYTE # 1.7 TH/MM3 (1.0-4.8); MEAN CELL VOLUME 82.2 FL (80.0-100.0); MEAN CORPUSCULAR HEMOGLOBIN 25.6 PG (27.0-34.0); MEAN CORPUSCULAR HGB CONC 31.2 % (32.0-36.0); MONO % 10.9 % (0.0-8.0); NEUT % 55.8 % (16.0-70.0); PLATELET COUNT 332 TH/MM3 (150-450); RED BLOOD COUNT 5.34 MIL/MM3 (4.00-5.30); RED CELL DISTRIBUTION WIDTH 24.8 % (11.6-17.2); WHITE BLOOD COUNT 6.3 TH/MM3 (4.0-11.0)
[2016-06-07 04:13] LABS: BICARBONATE 31.5 MEQ/L (21.0-32.0); MAGNESIUM 1.8 MG/DL (1.5-2.5)
[2016-06-07] MEDS: GABAPENTIN 300 MG CAP PO SCH ×3 (05:30→19:41)
[2016-06-07 08:00] VITALS: BP 120/56; PULSE 92; RESP 16; TEMP 97.6; O2SAT 97
[2016-06-07] MEDS: LACTOBACILLUS ACIDOPHILUS 1 GM PACKET PO SCH ×3 (09:00→17:51)
[2016-06-07] MEDS: PARoxetine 25 MG CONTROLLED RELEASE TAB PO SCH (09:49)
[2016-06-07] MEDS: FOLIC ACID 1 MG TAB PO SCH (09:49)
[2016-06-07] MEDS: DICYCLOMINE HCL 20 MG TAB PO SCH ×3 (09:49→17:55)
[2016-06-07] MEDS: PANTOPRAZOLE SOD 20 MG DELAYED RELEASE TAB PO SCH (09:49)
[2016-06-07] MEDS: FLUCONAZOLE 100 MG TAB PO SCH (09:49)
[2016-06-07] MEDS: SODIUM CHLORIDE 0.9% FLUSH 5 ML FLUSH FLUSH SCH ×2 (09:50→19:40)
[2016-06-07] MEDS: NYSTATIN 100,000 U/GM OINT 15 GM TUBE TOPICAL SCH ×2 (09:52→19:41)
[2016-06-07 12:00] VITALS: BP_SYST 117; BP_SYST 120; BP_DIAS 56; BP_DIAS 66; PULSE 92; PULSE 94; RESP 16; RESP 17; TEMP 96; TEMP 97.6; O2SAT 92; O2SAT 97
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
[2016-06-07 14:02] LABS: FREE T3 2.8 PG/ML (2.18-3.98); FREE T4 1.3 NG/DL (0.76-1.46)
[2016-06-07] MEDS: FERROUS SULFATE 325 MG (65 MG ELEMENTAL IRON) TAB PO SCH ×2 (14:03→17:56)
[2016-06-07] MEDS: ENOXAPARIN SODIUM 40 MG/0.4 ML SYRINGE SQ SCH (14:06)
[2016-06-07 16:00] VITALS: BP 126/78; PULSE 80; RESP 18; TEMP 97.2; O2SAT 92
[2016-06-07 20:00] VITALS: BP 135/63; PULSE 84; RESP 20; TEMP 97.6; O2SAT 93
[2016-06-08] VITALS: BP 128/66; PULSE 82; RESP 20; TEMP 97; O2SAT 94
[2016-06-08] MEDS: GABAPENTIN 300 MG CAP PO SCH ×3 (04:49→21:01)
[2016-06-08] MEDS: ACETAMINOPHEN/HYDROcodone 325 MG/5 MG TAB PO PRN ×5 (04:49→21:01)
[2016-06-08 07:52] VITALS: BP 137/71; PULSE 100; RESP 18; TEMP 96.9; O2SAT 93
[2016-06-08] MEDS: PANTOPRAZOLE SOD 20 MG DELAYED RELEASE TAB PO SCH (08:13)
[2016-06-08] MEDS: DICYCLOMINE HCL 20 MG TAB PO SCH ×3 (08:13→16:44)
[2016-06-08] MEDS: FOLIC ACID 1 MG TAB PO SCH (08:13)
[2016-06-08] MEDS: LACTOBACILLUS ACIDOPHILUS 1 GM PACKET PO SCH ×3 (08:13→16:44)
[2016-06-08] MEDS: PARoxetine 25 MG CONTROLLED RELEASE TAB PO SCH (08:13)
[2016-06-08] MEDS: SODIUM CHLORIDE 0.9% FLUSH 5 ML FLUSH FLUSH SCH ×2 (08:13→21:00)
[2016-06-08] MEDS: FLUCONAZOLE 100 MG TAB PO SCH (08:13)
[2016-06-08] MEDS: NYSTATIN 100,000 U/GM OINT 15 GM TUBE TOPICAL SCH ×2 (08:14→21:02)
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
[2016-06-08] MEDS: FERROUS SULFATE 325 MG (65 MG ELEMENTAL IRON) TAB PO SCH ×2 (11:48→16:44)
[2016-06-08] MEDS: ENOXAPARIN SODIUM 40 MG/0.4 ML SYRINGE SQ SCH (11:48)
[2016-06-08 11:59] VITALS: BP 130/70; PULSE 98; RESP 17; TEMP 96.8; O2SAT 93
[2016-06-08 15:44] VITALS: BP 132/60; PULSE 90; RESP 18; TEMP 97; O2SAT 92
[2016-06-08 20:00] VITALS: BP 124/59; PULSE 97; RESP 19; TEMP 96.4; O2SAT 93
[2016-06-08 23:54] VITALS: BP 123/59; PULSE 90; RESP 18; TEMP 95.9; O2SAT 93
[2016-06-09] MEDS: GABAPENTIN 300 MG CAP PO SCH ×3 (04:44→21:45)
[2016-06-09] MEDS: ACETAMINOPHEN/HYDROcodone 325 MG/5 MG TAB PO PRN ×4 (04:45→21:47)
[2016-06-09] MEDS: LACTOBACILLUS ACIDOPHILUS 1 GM PACKET PO SCH ×3 (07:45→16:33)
[2016-06-09] MEDS: FLUCONAZOLE 100 MG TAB PO SCH (07:46)
[2016-06-09] MEDS: FOLIC ACID 1 MG TAB PO SCH (07:46)
[2016-06-09] MEDS: PANTOPRAZOLE SOD 20 MG DELAYED RELEASE TAB PO SCH (07:46)
[2016-06-09] MEDS: DICYCLOMINE HCL 20 MG TAB PO SCH ×3 (07:46→16:33)
[2016-06-09] MEDS: PARoxetine 25 MG CONTROLLED RELEASE TAB PO SCH (07:46)
[2016-06-09] MEDS: SODIUM CHLORIDE 0.9% FLUSH 5 ML FLUSH FLUSH SCH ×2 (07:47→21:00)
[2016-06-09] MEDS: NYSTATIN 100,000 U/GM OINT 15 GM TUBE TOPICAL SCH ×2 (07:47→21:00)
[2016-06-09 07:55] VITALS: BP 147/67; PULSE 97; RESP 16; TEMP 97.2; O2SAT 93
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
[2016-06-09] MEDS: FERROUS SULFATE 325 MG (65 MG ELEMENTAL IRON) TAB PO SCH ×2 (11:17→16:33)
[2016-06-09] MEDS: ENOXAPARIN SODIUM 40 MG/0.4 ML SYRINGE SQ SCH (11:17)
[2016-06-09 12:00] VITALS: BP 132/61; PULSE 92; RESP 16; TEMP 98.1; O2SAT 93
[2016-06-09 16:00] VITALS: BP 143/64; PULSE 92; RESP 16; TEMP 98.1; O2SAT 98
[2016-06-09 20:00] VITALS: BP 131/56; PULSE 97; RESP 17; TEMP 95.8; O2SAT 93
[2016-06-09 23:56] VITALS: BP 135/68; PULSE 88; RESP 18; TEMP 97.1; O2SAT 93
[2016-06-10] MEDS: GABAPENTIN 300 MG CAP PO SCH ×3 (05:57→21:11)
[2016-06-10] MEDS: ACETAMINOPHEN/HYDROcodone 325 MG/5 MG TAB PO PRN ×3 (05:57→17:53)
[2016-06-10 08:00] VITALS: BP 130/65; PULSE 105; RESP 20; TEMP 97.1; O2SAT 92
[2016-06-10] MEDS: LACTOBACILLUS ACIDOPHILUS 1 GM PACKET PO SCH ×4 (08:15→17:51)
[2016-06-10] MEDS: SODIUM CHLORIDE 0.9% FLUSH 5 ML FLUSH FLUSH SCH ×2 (08:17→21:00)
[2016-06-10] MEDS: PARoxetine 25 MG CONTROLLED RELEASE TAB PO SCH (08:18)
[2016-06-10] MEDS: FLUCONAZOLE 100 MG TAB PO SCH (08:18)
[2016-06-10] MEDS: PANTOPRAZOLE SOD 20 MG DELAYED RELEASE TAB PO SCH (08:19)
[2016-06-10] MEDS: FOLIC ACID 1 MG TAB PO SCH (08:19)
[2016-06-10] MEDS: DICYCLOMINE HCL 20 MG TAB PO SCH ×3 (08:19→17:51)
[2016-06-10] MEDS: NYSTATIN 100,000 U/GM OINT 15 GM TUBE TOPICAL SCH ×2 (08:20→21:11)
[2016-06-10 12:00] VITALS: BP 124/71; PULSE 100; RESP 20; TEMP 97; O2SAT 93
[2016-06-10] MEDS: FERROUS SULFATE 325 MG (65 MG ELEMENTAL IRON) TAB PO SCH ×2 (12:15→17:51)
[2016-06-10] MEDS: ENOXAPARIN SODIUM 40 MG/0.4 ML SYRINGE SQ SCH (12:16)
[2016-06-10 16:00] VITALS: BP 121/66; PULSE 102; RESP 22; TEMP 97.4; O2SAT 94
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
[2016-06-10 20:00] VITALS: BP 117/56; PULSE 86; RESP 18; TEMP 96.8; O2SAT 94
[2016-06-11] VITALS: BP 127/58; PULSE 99; RESP 20; TEMP 97.9; O2SAT 95
[2016-06-11] MEDS: ACETAMINOPHEN/HYDROcodone 325 MG/5 MG TAB PO PRN ×4 (03:18→18:38)
[2016-06-11] MEDS: GABAPENTIN 300 MG CAP PO SCH ×3 (04:58→20:44)
[2016-06-11 07:45] VITALS: BP 114/53; PULSE 86; RESP 19; TEMP 96.9; O2SAT 91
[2016-06-11] MEDS: PANTOPRAZOLE SOD 20 MG DELAYED RELEASE TAB PO SCH (08:16)
[2016-06-11] MEDS: SODIUM CHLORIDE 0.9% FLUSH 5 ML FLUSH FLUSH SCH ×2 (08:16→20:45)
[2016-06-11] MEDS: PARoxetine 25 MG CONTROLLED RELEASE TAB PO SCH (08:16)
[2016-06-11] MEDS: FLUCONAZOLE 100 MG TAB PO SCH (08:16)
[2016-06-11] MEDS: DICYCLOMINE HCL 20 MG TAB PO SCH ×3 (08:16→18:38)
[2016-06-11] MEDS: FOLIC ACID 1 MG TAB PO SCH (08:16)
[2016-06-11] MEDS: LACTOBACILLUS ACIDOPHILUS 1 GM PACKET PO SCH ×3 (08:17→18:00)
[2016-06-11] MEDS: NYSTATIN 100,000 U/GM OINT 15 GM TUBE TOPICAL SCH ×2 (08:18→20:44)
[2016-06-11 11:52] VITALS: BP 138/62; PULSE 99; RESP 19; TEMP 97; O2SAT 91
[2016-06-11] MEDS: FERROUS SULFATE 325 MG (65 MG ELEMENTAL IRON) TAB PO SCH ×2 (12:45→18:38)
[2016-06-11] MEDS: ENOXAPARIN SODIUM 40 MG/0.4 ML SYRINGE SQ SCH (12:45)
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
[2016-06-11 16:08] VITALS: BP 115/56; PULSE 96; RESP 17; TEMP 96.9; O2SAT 91
[2016-06-11 20:00] VITALS: BP 113/58; PULSE 88; RESP 18; TEMP 96.3; O2SAT 93
[2016-06-12] VITALS: BP 120/62; PULSE 96; RESP 20; TEMP 97.5; O2SAT 92
[2016-06-12] MEDS: ACETAMINOPHEN/HYDROcodone 325 MG/5 MG TAB PO PRN ×5 (00:29→20:47)
[2016-06-12] MEDS: GABAPENTIN 300 MG CAP PO SCH ×3 (06:21→20:46)
[2016-06-12 07:17] VITALS: BP 133/58; PULSE 96; RESP 18; TEMP 96.9; O2SAT 92
[2016-06-12] MEDS: LACTOBACILLUS ACIDOPHILUS 1 GM PACKET PO SCH ×3 (09:00→17:11)
[2016-06-12] MEDS: SODIUM CHLORIDE 0.9% FLUSH 5 ML FLUSH FLUSH SCH ×2 (09:00→20:47)
[2016-06-12] MEDS: PARoxetine 25 MG CONTROLLED RELEASE TAB PO SCH (09:20)
[2016-06-12] MEDS: PANTOPRAZOLE SOD 20 MG DELAYED RELEASE TAB PO SCH (09:20)
[2016-06-12] MEDS: FOLIC ACID 1 MG TAB PO SCH (09:20)
[2016-06-12] MEDS: FLUCONAZOLE 100 MG TAB PO SCH (09:20)
[2016-06-12] MEDS: NYSTATIN 100,000 U/GM OINT 15 GM TUBE TOPICAL SCH ×2 (09:20→20:47)
[2016-06-12] MEDS: DICYCLOMINE HCL 20 MG TAB PO SCH ×3 (09:20→17:10)
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
[2016-06-12 11:15] VITALS: BP 135/60; PULSE 96; RESP 18; TEMP 97.4; O2SAT 92
[2016-06-12] MEDS: FERROUS SULFATE 325 MG (65 MG ELEMENTAL IRON) TAB PO SCH ×2 (12:31→17:10)
[2016-06-12] MEDS: ENOXAPARIN SODIUM 40 MG/0.4 ML SYRINGE SQ SCH (12:31)
[2016-06-12 15:41] VITALS: BP 131/67; PULSE 92; RESP 17; TEMP 97.5; O2SAT 92
[2016-06-12 20:00] VITALS: BP 129/61; PULSE 85; RESP 17; TEMP 96.1; O2SAT 92
[2016-06-13] MEDS: ACETAMINOPHEN/HYDROcodone 325 MG/5 MG TAB PO PRN ×5 (02:42→20:19)
[2016-06-13] MEDS: GABAPENTIN 300 MG CAP PO SCH ×3 (04:41→20:18)
[2016-06-13] MEDS: PARoxetine 25 MG CONTROLLED RELEASE TAB PO SCH (07:55)
[2016-06-13] MEDS: PANTOPRAZOLE SOD 20 MG DELAYED RELEASE TAB PO SCH (07:55)
[2016-06-13] MEDS: FLUCONAZOLE 100 MG TAB PO SCH (07:55)
[2016-06-13] MEDS: NYSTATIN 100,000 U/GM OINT 15 GM TUBE TOPICAL SCH ×2 (07:56→20:19)
[2016-06-13] MEDS: LACTOBACILLUS ACIDOPHILUS 1 GM PACKET PO SCH ×3 (07:56→16:02)
[2016-06-13] MEDS: FOLIC ACID 1 MG TAB PO SCH (07:56)
[2016-06-13] MEDS: SODIUM CHLORIDE 0.9% FLUSH 5 ML FLUSH FLUSH SCH ×2 (07:56→20:19)
[2016-06-13] MEDS: DICYCLOMINE HCL 20 MG TAB PO SCH ×3 (07:56→16:02)
[2016-06-13 08:00] VITALS: BP 118/57; PULSE 94; RESP 17; TEMP 97; O2SAT 94
[2016-06-13] MEDS: ENOXAPARIN SODIUM 40 MG/0.4 ML SYRINGE SQ SCH (11:34)
[2016-06-13] MEDS: FERROUS SULFATE 325 MG (65 MG ELEMENTAL IRON) TAB PO SCH ×2 (11:34→16:02)
[2016-06-13 12:00] VITALS: BP 131/60; PULSE 94; RESP 17; TEMP 97.3; O2SAT 93
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
[2016-06-13 16:00] VITALS: BP 136/63; PULSE 81; RESP 17; TEMP 97.4; O2SAT 91
[2016-06-13 20:00] VITALS: BP 132/69; PULSE 79; RESP 17; TEMP 97.9; O2SAT 94
[2016-06-14] VITALS: BP 128/68; PULSE 76; RESP 17; TEMP 97.4; O2SAT 95
[2016-06-14] MEDS: ACETAMINOPHEN/HYDROcodone 325 MG/5 MG TAB PO PRN ×6 (00:08→20:48)
[2016-06-14] MEDS: GABAPENTIN 300 MG CAP PO SCH ×3 (05:17→20:48)
[2016-06-14 08:00] VITALS: BP 125/61; PULSE 96; RESP 18; TEMP 97.2; O2SAT 92
[2016-06-14] MEDS: LACTOBACILLUS ACIDOPHILUS 1 GM PACKET PO SCH ×3 (09:00→16:05)
[2016-06-14] MEDS: NYSTATIN 100,000 U/GM OINT 15 GM TUBE TOPICAL SCH ×2 (09:00→20:49)
[2016-06-14] MEDS: SODIUM CHLORIDE 0.9% FLUSH 5 ML FLUSH FLUSH SCH ×2 (09:00→20:48)
[2016-06-14] MEDS: FOLIC ACID 1 MG TAB PO SCH (09:05)
[2016-06-14] MEDS: DICYCLOMINE HCL 20 MG TAB PO SCH ×3 (09:05→16:05)
[2016-06-14] MEDS: FLUCONAZOLE 100 MG TAB PO SCH (09:05)
[2016-06-14] MEDS: PARoxetine 25 MG CONTROLLED RELEASE TAB PO SCH (09:05)
[2016-06-14] MEDS: PANTOPRAZOLE SOD 20 MG DELAYED RELEASE TAB PO SCH (09:05)
[2016-06-14] MEDS: FERROUS SULFATE 325 MG (65 MG ELEMENTAL IRON) TAB PO SCH ×2 (11:16→16:05)
[2016-06-14] MEDS: ENOXAPARIN SODIUM 40 MG/0.4 ML SYRINGE SQ SCH (11:16)
[2016-06-14 12:00] VITALS: BP 127/62; PULSE 91; RESP 18; TEMP 96.7; O2SAT 93
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
[2016-06-14 16:00] VITALS: BP 124/57; PULSE 88; RESP 17; TEMP 96.1; O2SAT 93
[2016-06-14 20:00] VITALS: BP 99/59; PULSE 83; RESP 18; TEMP 96; O2SAT 93
[2016-06-15] VITALS: BP 159/70; PULSE 85; RESP 18; TEMP 95.3; O2SAT 93
[2016-06-15] MEDS: ACETAMINOPHEN/HYDROcodone 325 MG/5 MG TAB PO PRN ×4 (05:18→21:46)
[2016-06-15] MEDS: GABAPENTIN 300 MG CAP PO SCH ×3 (05:18→21:45)
[2016-06-15 07:51] VITALS: BP 124/66; PULSE 93; RESP 18; TEMP 96.4; O2SAT 90
[2016-06-15] MEDS: NYSTATIN 100,000 U/GM OINT 15 GM TUBE TOPICAL SCH ×2 (09:00→21:45)
[2016-06-15] MEDS: LACTOBACILLUS ACIDOPHILUS 1 GM PACKET PO SCH ×3 (09:00→17:48)
[2016-06-15] MEDS: PANTOPRAZOLE SOD 20 MG DELAYED RELEASE TAB PO SCH (09:36)
[2016-06-15] MEDS: FOLIC ACID 1 MG TAB PO SCH (09:36)
[2016-06-15] MEDS: DICYCLOMINE HCL 20 MG TAB PO SCH ×3 (09:36→17:48)
[2016-06-15] MEDS: PARoxetine 25 MG CONTROLLED RELEASE TAB PO SCH (09:36)
[2016-06-15] MEDS: FLUCONAZOLE 100 MG TAB PO SCH (09:36)
[2016-06-15] MEDS: SODIUM CHLORIDE 0.9% FLUSH 5 ML FLUSH FLUSH SCH ×2 (09:37→21:00)
[2016-06-15 12:00] VITALS: BP 119/59; PULSE 93; RESP 18; TEMP 97.5; O2SAT 90
[2016-06-15] MEDS: FERROUS SULFATE 325 MG (65 MG ELEMENTAL IRON) TAB PO SCH ×2 (13:09→17:48)
[2016-06-15] MEDS: ENOXAPARIN SODIUM 40 MG/0.4 ML SYRINGE SQ SCH (13:09)
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
[2016-06-15 16:00] VITALS: BP 119/59; PULSE 87; RESP 18; TEMP 96.6; O2SAT 89
[2016-06-15 20:00] VITALS: BP 132/60; PULSE 88; RESP 20; TEMP 96.2; O2SAT 93
[2016-06-16] VITALS: BP 126/68; PULSE 78; RESP 18; TEMP 97.6; O2SAT 95
[2016-06-16] MEDS: GABAPENTIN 300 MG CAP PO SCH ×3 (05:18→22:09)
[2016-06-16 08:00] VITALS: BP 156/58; PULSE 110; RESP 20; TEMP 96.6; O2SAT 94
[2016-06-16] MEDS: NYSTATIN 100,000 U/GM OINT 15 GM TUBE TOPICAL SCH ×2 (09:00→21:00)
[2016-06-16] MEDS: LACTOBACILLUS ACIDOPHILUS 1 GM PACKET PO SCH ×3 (09:00→18:00)
[2016-06-16] MEDS: SODIUM CHLORIDE 0.9% FLUSH 5 ML FLUSH FLUSH SCH ×2 (09:00→21:00)
[2016-06-16] MEDS: FOLIC ACID 1 MG TAB PO SCH (09:12)
[2016-06-16] MEDS: PARoxetine 25 MG CONTROLLED RELEASE TAB PO SCH (09:12)
[2016-06-16] MEDS: PANTOPRAZOLE SOD 20 MG DELAYED RELEASE TAB PO SCH (09:12)
[2016-06-16] MEDS: DICYCLOMINE HCL 20 MG TAB PO SCH ×3 (09:12→18:20)
[2016-06-16] MEDS: FLUCONAZOLE 100 MG TAB PO SCH (09:12)
[2016-06-16] MEDS: ACETAMINOPHEN/HYDROcodone 325 MG/5 MG TAB PO PRN ×4 (09:13→22:16)
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
[2016-06-16 12:00] VITALS: BP 136/62; PULSE 100; RESP 19; TEMP 97; O2SAT 94
[2016-06-16] MEDS: FERROUS SULFATE 325 MG (65 MG ELEMENTAL IRON) TAB PO SCH ×2 (13:43→18:20)
[2016-06-16] MEDS: ENOXAPARIN SODIUM 40 MG/0.4 ML SYRINGE SQ SCH (13:43)
[2016-06-16 16:00] VITALS: BP 120/55; PULSE 82; RESP 19; TEMP 98.3; O2SAT 91
[2016-06-16 20:00] VITALS: BP 118/60; PULSE 82; RESP 20; TEMP 98; O2SAT 96
[2016-06-17] VITALS: BP 121/62; PULSE 80; RESP 20; TEMP 97.6; O2SAT 95
[2016-06-17] MEDS: ACETAMINOPHEN/HYDROcodone 325 MG/5 MG TAB PO PRN ×5 (03:34→21:15)
[2016-06-17] MEDS: GABAPENTIN 300 MG CAP PO SCH ×3 (04:53→20:34)
[2016-06-17 08:00] VITALS: BP 133/63; PULSE 86; RESP 18; TEMP 96.5; O2SAT 93
[2016-06-17] MEDS: DICYCLOMINE HCL 20 MG TAB PO SCH ×3 (08:47→16:53)
[2016-06-17] MEDS: FLUCONAZOLE 100 MG TAB PO SCH (08:47)
[2016-06-17] MEDS: FOLIC ACID 1 MG TAB PO SCH (08:47)
[2016-06-17] MEDS: LACTOBACILLUS ACIDOPHILUS 1 GM PACKET PO SCH ×3 (08:47→16:52)
[2016-06-17] MEDS: PANTOPRAZOLE SOD 20 MG DELAYED RELEASE TAB PO SCH (08:47)
[2016-06-17] MEDS: PARoxetine 25 MG CONTROLLED RELEASE TAB PO SCH (08:47)
[2016-06-17] MEDS: NYSTATIN 100,000 U/GM OINT 15 GM TUBE TOPICAL SCH ×2 (08:48→20:35)
[2016-06-17] MEDS: SODIUM CHLORIDE 0.9% FLUSH 5 ML FLUSH FLUSH SCH ×2 (08:50→20:35)
[2016-06-17] MEDS: FERROUS SULFATE 325 MG (65 MG ELEMENTAL IRON) TAB PO SCH ×2 (11:54→16:53)
[2016-06-17] MEDS: ENOXAPARIN SODIUM 40 MG/0.4 ML SYRINGE SQ SCH (11:55)
[2016-06-17 12:01] VITALS: BP 130/68; PULSE 88; RESP 19; TEMP 97; O2SAT 93
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
[2016-06-17 16:00] VITALS: BP 128/66; PULSE 86; RESP 18; TEMP 97.2; O2SAT 94
[2016-06-17 20:00] VITALS: BP 123/58; PULSE 82; RESP 19; TEMP 96.2; O2SAT 95
[2016-06-18] VITALS: BP 126/61; PULSE 89; RESP 18; TEMP 95.9; O2SAT 95
[2016-06-18] MEDS: GABAPENTIN 300 MG CAP PO SCH ×3 (04:56→20:13)
[2016-06-18] MEDS: ACETAMINOPHEN/HYDROcodone 325 MG/5 MG TAB PO PRN ×4 (04:57→20:13)
[2016-06-18 08:00] VITALS: BP 130/74; PULSE 76; RESP 19; TEMP 96.8; O2SAT 94
[2016-06-18] MEDS: FLUCONAZOLE 100 MG TAB PO SCH (08:15)
[2016-06-18] MEDS: DICYCLOMINE HCL 20 MG TAB PO SCH ×3 (08:15→16:26)
[2016-06-18] MEDS: LACTOBACILLUS ACIDOPHILUS 1 GM PACKET PO SCH ×3 (08:15→16:29)
[2016-06-18] MEDS: NYSTATIN 100,000 U/GM OINT 15 GM TUBE TOPICAL SCH ×2 (08:16→20:14)
[2016-06-18] MEDS: FOLIC ACID 1 MG TAB PO SCH (08:16)
[2016-06-18] MEDS: PANTOPRAZOLE SOD 20 MG DELAYED RELEASE TAB PO SCH (08:16)
[2016-06-18] MEDS: PARoxetine 25 MG CONTROLLED RELEASE TAB PO SCH (08:16)
[2016-06-18] MEDS: SODIUM CHLORIDE 0.9% FLUSH 5 ML FLUSH FLUSH SCH ×2 (08:16→20:07)
[2016-06-18 12:00] VITALS: BP 131/72; PULSE 74; RESP 19; TEMP 97; O2SAT 95
[2016-06-18] MEDS: FERROUS SULFATE 325 MG (65 MG ELEMENTAL IRON) TAB PO SCH ×2 (12:00→16:26)
[2016-06-18] MEDS: ENOXAPARIN SODIUM 40 MG/0.4 ML SYRINGE SQ SCH (12:11)
[2016-06-18 16:00] VITALS: BP 128/74; PULSE 76; RESP 18; TEMP 97.2; O2SAT 94
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
[2016-06-18 20:00] VITALS: BP 132/62; PULSE 85; RESP 17; TEMP 96.2; O2SAT 94
[2016-06-19] VITALS: BP 126/65; PULSE 80; RESP 17; TEMP 97.8; O2SAT 94
[2016-06-19] MEDS: GABAPENTIN 300 MG CAP PO SCH ×3 (06:20→19:57)
[2016-06-19] MEDS: ACETAMINOPHEN/HYDROcodone 325 MG/5 MG TAB PO PRN ×4 (06:21→19:57)
[2016-06-19 08:00] VITALS: BP 133/74; PULSE 103; RESP 18; TEMP 96.2; O2SAT 92
[2016-06-19] MEDS: SODIUM CHLORIDE 0.9% FLUSH 5 ML FLUSH FLUSH SCH ×2 (08:11→19:58)
[2016-06-19] MEDS: PANTOPRAZOLE SOD 20 MG DELAYED RELEASE TAB PO SCH (08:12)
[2016-06-19] MEDS: FLUCONAZOLE 100 MG TAB PO SCH (08:12)
[2016-06-19] MEDS: FOLIC ACID 1 MG TAB PO SCH (08:12)
[2016-06-19] MEDS: DICYCLOMINE HCL 20 MG TAB PO SCH ×3 (08:12→16:11)
[2016-06-19] MEDS: PARoxetine 25 MG CONTROLLED RELEASE TAB PO SCH (08:12)
[2016-06-19] MEDS: NYSTATIN 100,000 U/GM OINT 15 GM TUBE TOPICAL SCH ×2 (08:13→19:59)
[2016-06-19] MEDS: LACTOBACILLUS ACIDOPHILUS 1 GM PACKET PO SCH ×3 (08:13→16:11)
[2016-06-19] MEDS: FERROUS SULFATE 325 MG (65 MG ELEMENTAL IRON) TAB PO SCH ×2 (11:11→16:11)
[2016-06-19] MEDS: ENOXAPARIN SODIUM 40 MG/0.4 ML SYRINGE SQ SCH (11:12)
[2016-06-19 12:00] VITALS: BP 132/62; PULSE 94; RESP 17; TEMP 96.6; O2SAT 92
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
--- NOTE | 2016-06-19 15:44 | HHI.HCSW ---
Educational Speech Language Clinician Visit Cognitive Functioning Met with Ms. Alonso for supportive palliative care follow-up. She is resting in bed, alert, and appropriate in conversation. Able to make her needs known. Primarily focused on dietary issues, meal trays, etc. Inquired about obtaining patient advocate for ongoing concerns. 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 Made nurse and community liaison officer aware of patient advocate request. No other concerns or questions. . Significant Family/Friend No family/friends at bedside. No contact today. . Medical Components Previously self-reports some sleep apnea-- states when she is sleeping she will stop breathing and has been told she will destat into the 80s. . Advance Directive Community DNR completed 05-15-16 and in EMR. Yellow copy on chart to discharge with her. Health care surrogate completed previously with palliative care team. Copy in chart. Living will completed 05-06-16. Living will is a typical one stating she would not want to be kept alive artificially if she had a terminal condition, end- stage condition, and/or was in a persistent vegetative state and elects artificially food and hydration be withheld or withdrawn. Health care surrogate is her caregiver/significant other. Primary HCS: Ashish Cano, significant other: [phone] Important contact: Nishi Alonso, sister: [phone] . [place] Service Issues Ms. Alonso reports they have obtained alternate housing but will not be able to move in until July 08. . Follow Up Visit Palliative care will continue to follow throughout hospitalization. SW will follow as needed for emotional and social support. Claudia Amin EXTRA HAND, COMPOUNDER HELPER Jun 19, 2016 15:08
[2016-06-19 16:00] VITALS: BP 119/57; PULSE 87; RESP 18; TEMP 97.2; O2SAT 93
[2016-06-19 20:37] VITALS: BP 116/58; PULSE 85; RESP 20; TEMP 98.5; O2SAT 98
[2016-06-20 00:13] VITALS: BP 118/55; PULSE 98; RESP 20; TEMP 96.7; O2SAT 92
[2016-06-20] MEDS: ACETAMINOPHEN/HYDROcodone 325 MG/5 MG TAB PO PRN ×5 (03:57→20:14)
[2016-06-20] MEDS: GABAPENTIN 300 MG CAP PO SCH ×3 (05:06→20:11)
[2016-06-20] MEDS: PARoxetine 25 MG CONTROLLED RELEASE TAB PO SCH (07:44)
[2016-06-20] MEDS: FLUCONAZOLE 100 MG TAB PO SCH (07:44)
[2016-06-20] MEDS: LACTOBACILLUS ACIDOPHILUS 1 GM PACKET PO SCH ×3 (07:44→16:17)
[2016-06-20] MEDS: PANTOPRAZOLE SOD 20 MG DELAYED RELEASE TAB PO SCH (07:44)
[2016-06-20] MEDS: DICYCLOMINE HCL 20 MG TAB PO SCH ×3 (07:44→16:17)
[2016-06-20] MEDS: SODIUM CHLORIDE 0.9% FLUSH 5 ML FLUSH FLUSH SCH ×2 (07:45→20:17)
[2016-06-20] MEDS: FOLIC ACID 1 MG TAB PO SCH (07:45)
[2016-06-20] MEDS: NYSTATIN 100,000 U/GM OINT 15 GM TUBE TOPICAL SCH ×2 (07:46→20:13)
[2016-06-20 08:00] VITALS: BP 127/60; PULSE 86; RESP 17; TEMP 97.6; O2SAT 93
[2016-06-20 12:00] VITALS: BP 116/57; PULSE 85; RESP 16; TEMP 97.5; O2SAT 94
[2016-06-20] MEDS: FERROUS SULFATE 325 MG (65 MG ELEMENTAL IRON) TAB PO SCH ×2 (12:00→16:17)
[2016-06-20] MEDS: ENOXAPARIN SODIUM 40 MG/0.4 ML SYRINGE SQ SCH (12:07)
[2016-06-20 16:00] VITALS: BP 136/63; PULSE 96; RESP 17; TEMP 97.4; O2SAT 92
[2016-06-20 20:32] VITALS: BP 126/57; PULSE 85; RESP 20; TEMP 97.2; O2SAT 92
[2016-06-21 00:13] VITALS: BP 125/56; PULSE 83; RESP 20; TEMP 97; O2SAT 92
[2016-06-21] MEDS: ACETAMINOPHEN/HYDROcodone 325 MG/5 MG TAB PO PRN ×5 (02:26→18:51)
[2016-06-21] MEDS: GABAPENTIN 300 MG CAP PO SCH ×3 (05:46→19:58)
[2016-06-21 08:00] VITALS: BP 108/55; PULSE 88; RESP 17; TEMP 96.6; O2SAT 93
[2016-06-21] MEDS: DICYCLOMINE HCL 20 MG TAB PO SCH ×3 (09:59→18:52)
[2016-06-21] MEDS: FOLIC ACID 1 MG TAB PO SCH (09:59)
[2016-06-21] MEDS: LACTOBACILLUS ACIDOPHILUS 1 GM PACKET PO SCH ×3 (09:59→18:51)
[2016-06-21] MEDS: PANTOPRAZOLE SOD 20 MG DELAYED RELEASE TAB PO SCH (09:59)
[2016-06-21] MEDS: FLUCONAZOLE 100 MG TAB PO SCH (09:59)
[2016-06-21] MEDS: PARoxetine 25 MG CONTROLLED RELEASE TAB PO SCH (09:59)
[2016-06-21] MEDS: SODIUM CHLORIDE 0.9% FLUSH 5 ML FLUSH FLUSH SCH ×2 (10:00→19:58)
[2016-06-21] MEDS: NYSTATIN 100,000 U/GM OINT 15 GM TUBE TOPICAL SCH ×2 (10:00→19:58)
[2016-06-21 12:00] VITALS: BP 119/58; PULSE 85; RESP 17; TEMP 97.2; O2SAT 92
[2016-06-21] MEDS: FERROUS SULFATE 325 MG (65 MG ELEMENTAL IRON) TAB PO SCH ×2 (12:00→17:00)
[2016-06-21] MEDS: ENOXAPARIN SODIUM 40 MG/0.4 ML SYRINGE SQ SCH (14:01)
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
[2016-06-21 16:00] VITALS: BP 116/56; PULSE 90; RESP 18; TEMP 97; O2SAT 92
[2016-06-21 20:00] VITALS: BP 129/56; PULSE 80; RESP 20; TEMP 95.6; O2SAT 94
[2016-06-22] VITALS: BP 150/71; PULSE 92; RESP 20; TEMP 97.7; O2SAT 93
[2016-06-22] MEDS: ACETAMINOPHEN/HYDROcodone 325 MG/5 MG TAB PO PRN ×4 (00:05→17:02)
[2016-06-22 05:12] LABS: AUTOMATED NEUTROPHIL # 3.6 TH/MM3 (1.8-7.7); BASOPHIL # 0.1 TH/MM3 (0-0.2); BASOPHIL % 1.3 % (0.0-2.0); EOSINOPHIL # 0.4 TH/MM3 (0-0.4); EOSINOPHIL % 5.7 % (0.0-4.0); HEMATOCRIT 49.6 % (35.0-46.0); HEMO FLAGS DIFF FINAL; LYMPH % 24.7 % (9.0-44.0); LYMPHOCYTE # 1.5 TH/MM3 (1.0-4.8); MEAN CELL VOLUME 86.9 FL (80.0-100.0); MEAN CORPUSCULAR HEMOGLOBIN 27.1 PG (27.0-34.0); MEAN CORPUSCULAR HGB CONC 31.2 % (32.0-36.0); NEUT % 58.3 % (16.0-70.0); PLATELET COUNT 284 TH/MM3 (150-450); RED BLOOD COUNT 5.71 MIL/MM3 (4.00-5.30); WHITE BLOOD COUNT 6.2 TH/MM3 (4.0-11.0)
[2016-06-22 05:15] LABS: BICARBONATE 31.3 MEQ/L (21.0-32.0); POTASSIUM 4.2 MEQ/L (3.5-5.1)
[2016-06-22 05:16] LABS: INDIRECT BILIRUBIN 0.2 MG/DL (0.0-0.8); TOTAL BILIRUBIN ADULT 0.3 MG/DL (0.2-1.0)
[2016-06-22] MEDS: GABAPENTIN 300 MG CAP PO SCH ×3 (05:18→19:21)
[2016-06-22 07:52] VITALS: BP 122/56; PULSE 98; RESP 17; TEMP 97.1; O2SAT 91
[2016-06-22] MEDS: FOLIC ACID 1 MG TAB PO SCH (08:58)
[2016-06-22] MEDS: NYSTATIN 100,000 U/GM OINT 15 GM TUBE TOPICAL SCH ×2 (08:58→19:21)
[2016-06-22] MEDS: PARoxetine 25 MG CONTROLLED RELEASE TAB PO SCH (08:58)
[2016-06-22] MEDS: PANTOPRAZOLE SOD 20 MG DELAYED RELEASE TAB PO SCH (08:58)
[2016-06-22] MEDS: DICYCLOMINE HCL 20 MG TAB PO SCH ×3 (08:58→17:03)
[2016-06-22] MEDS: SODIUM CHLORIDE 0.9% FLUSH 5 ML FLUSH FLUSH SCH ×2 (08:59→19:21)
[2016-06-22] MEDS: LACTOBACILLUS ACIDOPHILUS 1 GM PACKET PO SCH ×3 (09:00→17:03)
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
[2016-06-22 11:40] VITALS: BP 118/56; PULSE 84; RESP 19; TEMP 97.6; O2SAT 91
[2016-06-22] MEDS: ENOXAPARIN SODIUM 40 MG/0.4 ML SYRINGE SQ SCH (12:00)
[2016-06-22] MEDS: FERROUS SULFATE 325 MG (65 MG ELEMENTAL IRON) TAB PO SCH ×2 (12:00→17:03)
[2016-06-22 16:00] VITALS: BP 124/62; PULSE 88; RESP 19; TEMP 96.9; O2SAT 93
[2016-06-22 20:00] VITALS: BP 119/56; PULSE 89; RESP 20; TEMP 97.6; O2SAT 94
[2016-06-22 23:59] VITALS: BP 116/60; PULSE 87; RESP 18; TEMP 98.6; O2SAT 95
[2016-06-23] MEDS: GABAPENTIN 300 MG CAP PO SCH ×3 (05:14→20:24)
[2016-06-23] MEDS: ACETAMINOPHEN/HYDROcodone 325 MG/5 MG TAB PO PRN ×5 (05:16→22:13)
[2016-06-23 08:00] VITALS: BP 132/60; PULSE 104; RESP 18; TEMP 97.8; O2SAT 91
[2016-06-23] MEDS: LACTOBACILLUS ACIDOPHILUS 1 GM PACKET PO SCH ×3 (08:11→17:03)
[2016-06-23] MEDS: PANTOPRAZOLE SOD 20 MG DELAYED RELEASE TAB PO SCH (08:12)
[2016-06-23] MEDS: DICYCLOMINE HCL 20 MG TAB PO SCH ×3 (08:12→17:05)
[2016-06-23] MEDS: FOLIC ACID 1 MG TAB PO SCH (08:12)
[2016-06-23] MEDS: PARoxetine 25 MG CONTROLLED RELEASE TAB PO SCH (08:12)
[2016-06-23] MEDS: SODIUM CHLORIDE 0.9% FLUSH 5 ML FLUSH FLUSH SCH ×2 (08:14→20:26)
[2016-06-23] MEDS: NYSTATIN 100,000 U/GM OINT 15 GM TUBE TOPICAL SCH ×2 (08:15→20:24)
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
[2016-06-23 12:00] VITALS: BP 111/53; PULSE 85; RESP 19; TEMP 96.9; O2SAT 91
[2016-06-23] MEDS: FERROUS SULFATE 325 MG (65 MG ELEMENTAL IRON) TAB PO SCH ×2 (12:09→17:04)
[2016-06-23] MEDS: ENOXAPARIN SODIUM 40 MG/0.4 ML SYRINGE SQ SCH (12:55)
[2016-06-23 16:38] VITALS: BP 108/58; PULSE 106; RESP 18; TEMP 97; O2SAT 91
[2016-06-23 20:00] VITALS: BP 125/57; PULSE 94; RESP 18; TEMP 97; O2SAT 95
[2016-06-23 23:43] VITALS: BP 114/56; PULSE 88; RESP 18; TEMP 98.6; O2SAT 94
[2016-06-24] MEDS: GABAPENTIN 300 MG CAP PO SCH ×3 (05:10→20:21)
[2016-06-24] MEDS: ACETAMINOPHEN/HYDROcodone 325 MG/5 MG TAB PO PRN ×4 (05:10→21:47)
[2016-06-24 08:00] VITALS: BP 107/59; PULSE 99; RESP 17; TEMP 96.2; O2SAT 93
[2016-06-24] MEDS: FOLIC ACID 1 MG TAB PO SCH (08:12)
[2016-06-24] MEDS: PANTOPRAZOLE SOD 20 MG DELAYED RELEASE TAB PO SCH (08:12)
[2016-06-24] MEDS: PARoxetine 25 MG CONTROLLED RELEASE TAB PO SCH (08:12)
[2016-06-24] MEDS: LACTOBACILLUS ACIDOPHILUS 1 GM PACKET PO SCH ×3 (08:12→17:40)
[2016-06-24] MEDS: DICYCLOMINE HCL 20 MG TAB PO SCH ×3 (08:12→17:40)
[2016-06-24] MEDS: SODIUM CHLORIDE 0.9% FLUSH 5 ML FLUSH FLUSH SCH ×2 (08:13→20:22)
[2016-06-24] MEDS: NYSTATIN 100,000 U/GM OINT 15 GM TUBE TOPICAL SCH ×2 (08:13→20:21)
[2016-06-24 11:55] VITALS: BP 118/58; PULSE 99; RESP 16; TEMP 97.3; O2SAT 93
[2016-06-24] MEDS: ENOXAPARIN SODIUM 40 MG/0.4 ML SYRINGE SQ SCH (12:24)
[2016-06-24] MEDS: FERROUS SULFATE 325 MG (65 MG ELEMENTAL IRON) TAB PO SCH ×2 (12:25→17:40)
[2016-06-24 16:00] VITALS: BP 110/53; PULSE 87; RESP 17; TEMP 96.5; O2SAT 93
--- NOTE | 2016-06-24 19:18 | HHI.PR ---
Subjective Remarks Follow up for placement issue 06/24/16-patient seen and examined; no acute event overnight. Afebrile Objective Vitals Vital Signs Date Time Temp Pulse Resp B/P Pulse Ox O2 Delivery O2 Flow Rate FiO2 06/24/16 16:00 96.5 87 17 110/53 93 06/24/16 11:55 97.3 99 16 118/58 93 06/24/16 08:00 96.2 99 17 107/59 93 06/23/16 23:43 98.6 88 18 114/56 94 06/23/16 20:00 97.0 94 18 125/57 95 I/O 06/23/16 06/23/16 06/23/16 06/24/16 06/24/16 06/24/16 07:00 15:00 23:00 07:00 15:00 23:00 Intake Total 360 ml 1080 ml 360 ml 24 ml 720 ml Output Total 700 ml Balance 360 ml 380 ml 360 ml 24 ml 720 ml Intake Oral 360 ml 1080 ml 360 ml 24 ml 720 ml IV Total 0 ml 0 ml 0 ml 0 ml Output Urine Total 700 ml # Voids 2 3 2 2 # Bowel Movements 0 2 2 1 1 Result Diagram: 06/22/1631606/22/16316 Objective Remarks GENERAL: NAD SKIN: Warm and dry. HEAD: Normocephalic. EYES: No scleral icterus. No injection or drainage. NECK: Supple, trachea midline. No JVD or lymphadenopathy. CARDIOVASCULAR: Regular rate and rhythm without murmurs, gallops, or rubs. RESPIRATORY: Breath sounds equal bilaterally. No accessory muscle use. GASTROINTESTINAL: obese; Abdomen soft, non-tender, nondistended. MUSCULOSKELETAL: No cyanosis, or edema. BACK: Nontender without obvious deformity. No CVA tenderness. A/P Problem List: (1) Infection due to ESBL-producing Klebsiella pneumoniae ICD Code: A49.8 Status: Resolved (2) Cellulitis ICD Code: L03.90 Status: Resolved (3) Depression ICD Code: F32.9 Status: Chronic (4) Folic acid deficiency ICD Code: E53.8 Status: Acute (5) Iron deficiency anemia ICD Code: D50.9 Status: Acute (6) B12 deficiency ICD Code: E53.8 Status: Acute (7) Morbid obesity with BMI of 70 and over, adult ICD Code: E66.01 Status: Chronic Assessment and Plan 40yrs old female 06/24/16-Stable and no change Pannicular abscess/Cellulitis-resolved. Abdominal cultures were positive for Klebsiella pneumonia ESBL. Patient was given antibiotics which she has since completed. Continue wound care, Diflucan stopped 06/21/16. Morbid obesity. counselled. Will Follow up outpatient with Bariatric surgeon. PT , however patient is nonambulatory [id number]. Symptomatic anemia- resolved continue prophylactic Lovenox, hgb stable. Patient is bedbound with high risks for DVT. Hemoglobin stable. Chronic pain [place] 10/650mg PO Q4H as needed Lower extremity cramping: BMP stable. CK and thyroid function tests normal. No further cramping, resolved. Problem Qualifiers (1) Cellulitis: Qualified Code: L03.311 - Cellulitis of abdominal wall Arthur Purdy MD Jun 24, 2016 19:18
[2016-06-24 20:00] VITALS: BP 97/61; PULSE 84; RESP 20; TEMP 97.8; O2SAT 93
[2016-06-25] VITALS: BP 104/63; PULSE 86; RESP 20; TEMP 98; O2SAT 94
[2016-06-25] MEDS: ACETAMINOPHEN/HYDROcodone 325 MG/5 MG TAB PO PRN ×4 (05:37→21:46)
[2016-06-25] MEDS: GABAPENTIN 300 MG CAP PO SCH ×3 (05:37→21:46)
[2016-06-25 08:00] VITALS: BP 134/61; PULSE 84; RESP 17; TEMP 97.2; O2SAT 93
[2016-06-25] MEDS: FOLIC ACID 1 MG TAB PO SCH (08:08)
[2016-06-25] MEDS: PARoxetine 25 MG CONTROLLED RELEASE TAB PO SCH (08:08)
[2016-06-25] MEDS: DICYCLOMINE HCL 20 MG TAB PO SCH ×3 (08:08→17:23)
[2016-06-25] MEDS: LACTOBACILLUS ACIDOPHILUS 1 GM PACKET PO SCH ×3 (08:08→17:23)
[2016-06-25] MEDS: PANTOPRAZOLE SOD 20 MG DELAYED RELEASE TAB PO SCH (08:08)
[2016-06-25] MEDS: SODIUM CHLORIDE 0.9% FLUSH 5 ML FLUSH FLUSH SCH ×2 (08:09→21:00)
[2016-06-25] MEDS: NYSTATIN 100,000 U/GM OINT 15 GM TUBE TOPICAL SCH ×2 (08:09→21:00)
--- NOTE | 2016-06-25 11:19 | HHI.PR ---
Subjective Remarks Follow up for placement issue 06/24/16-patient seen and examined; no acute event overnight. Afebrile 06/25/16-patient seen and examined; reports for episode of diarrhea last night however none this morning. There was no emesis associated with Objective Vitals Vital Signs Date Time Temp Pulse Resp B/P Pulse Ox O2 Delivery O2 Flow Rate FiO2 06/25/16 08:00 97.2 84 17 134/61 93 06/25/16 06:37 16 06/25/16 00:00 98.0 86 20 104/63 94 06/24/16 20:00 97.8 84 20 97/61 93 06/24/16 16:00 96.5 87 17 110/53 93 06/24/16 11:55 97.3 99 16 118/58 93 I/O 06/24/16 06/24/16 06/24/16 06/25/16 06/25/16 06/25/16 06:59 14:59 22:59 06:59 14:59 22:59 Intake Total 24 ml 720 ml 640 ml 480 ml Balance 24 ml 720 ml 640 ml 480 ml Intake Oral 24 ml 720 ml 640 ml 480 ml IV Total 0 ml 0 ml # Voids 2 2 3 3 # Bowel Movements 1 1 1 1 Result Diagram: 06/22/1631606/22/16316 Objective Remarks GENERAL: NAD SKIN: Warm and dry. HEAD: Normocephalic. EYES: No scleral icterus. No injection or drainage. NECK: Supple, trachea midline. No JVD or lymphadenopathy. CARDIOVASCULAR: Regular rate and rhythm without murmurs, gallops, or rubs. RESPIRATORY: Breath sounds equal bilaterally. No accessory muscle use. GASTROINTESTINAL: obese; Abdomen soft, non-tender, nondistended. MUSCULOSKELETAL: No cyanosis, or edema. BACK: Nontender without obvious deformity. No CVA tenderness. A/P Problem List: (1) Infection due to ESBL-producing Klebsiella pneumoniae ICD Code: A49.8 Status: Resolved (2) Cellulitis ICD Code: L03.90 Status: Resolved (3) Depression ICD Code: F32.9 Status: Chronic (4) Folic acid deficiency ICD Code: E53.8 Status: Acute (5) Iron deficiency anemia ICD Code: D50.9 Status: Acute (6) B12 deficiency ICD Code: E53.8 Status: Acute (7) Morbid obesity with BMI of 70 and over, adult ICD Code: E66.01 Status: Chronic Assessment and Plan 40yrs old female 06/24/16-Stable and no change Pannicular abscess/Cellulitis-resolved. Abdominal cultures were positive for Klebsiella pneumonia ESBL. Patient was given antibiotics which she has since completed. Continue wound care, Diflucan stopped 06/21/16. Morbid obesity. counselled. Will Follow up outpatient with Bariatric surgeon. PT , however patient is nonambulatory [id number]. Symptomatic anemia- resolved continue prophylactic Lovenox, hgb stable. Patient is bedbound with high risks for DVT. Hemoglobin stable. Chronic pain [place] 10/650mg PO Q4H as needed Lower extremity cramping: BMP stable. CK and thyroid function tests normal. No further cramping, resolved. Diarrhea: Conservative treatment with antidiarrheal motility agents and consider C. difficile PCR Problem Qualifiers (1) Cellulitis: Qualified Code: L03.311 - Cellulitis of abdominal wall Arthur Purdy MD Jun 25, 2016 11:19
[2016-06-25 11:54] VITALS: BP 128/68; PULSE 93; RESP 16; TEMP 97.6; O2SAT 92
[2016-06-25] MEDS: FERROUS SULFATE 325 MG (65 MG ELEMENTAL IRON) TAB PO SCH ×2 (12:21→17:23)
[2016-06-25] MEDS: ENOXAPARIN SODIUM 40 MG/0.4 ML SYRINGE SQ SCH (12:22)
[2016-06-25 16:00] VITALS: BP 129/67; PULSE 101; RESP 16; TEMP 96.4; O2SAT 93
[2016-06-25 20:00] VITALS: BP 127/63; PULSE 84; RESP 20; TEMP 97.1; O2SAT 93
[2016-06-26] VITALS: BP 123/61; PULSE 82; RESP 20; TEMP 97.6; O2SAT 93
[2016-06-26] MEDS: GABAPENTIN 300 MG CAP PO SCH ×3 (05:13→21:10)
[2016-06-26] MEDS: ACETAMINOPHEN/HYDROcodone 325 MG/5 MG TAB PO PRN ×4 (05:15→21:13)
[2016-06-26] MEDS: SODIUM CHLORIDE 0.9% FLUSH 5 ML FLUSH FLUSH SCH ×2 (07:28→21:00)
[2016-06-26 08:00] VITALS: BP 119/59; PULSE 95; RESP 17; TEMP 96.2; O2SAT 92
[2016-06-26] MEDS: DICYCLOMINE HCL 20 MG TAB PO SCH ×3 (08:12→16:37)
[2016-06-26] MEDS: FOLIC ACID 1 MG TAB PO SCH (08:12)
[2016-06-26] MEDS: PANTOPRAZOLE SOD 20 MG DELAYED RELEASE TAB PO SCH (08:12)
[2016-06-26] MEDS: LACTOBACILLUS ACIDOPHILUS 1 GM PACKET PO SCH ×3 (08:12→16:37)
[2016-06-26] MEDS: PARoxetine 25 MG CONTROLLED RELEASE TAB PO SCH (08:12)
[2016-06-26] MEDS: NYSTATIN 100,000 U/GM OINT 15 GM TUBE TOPICAL SCH ×2 (08:13→21:00)
[2016-06-26 12:00] VITALS: BP 105/55; PULSE 93; RESP 18; TEMP 96; O2SAT 92
[2016-06-26] MEDS: FERROUS SULFATE 325 MG (65 MG ELEMENTAL IRON) TAB PO SCH ×2 (12:00→16:37)
[2016-06-26] MEDS: ENOXAPARIN SODIUM 40 MG/0.4 ML SYRINGE SQ SCH (12:11)
--- NOTE | 2016-06-26 12:11 | HHI.PR ---
Subjective Remarks Follow up for placement issue 06/24/16-patient seen and examined; no acute event overnight. Afebrile 06/25/16-patient seen and examined; reports for episode of diarrhea last night however none this morning. There was no emesis associated with 06/26/16-patient seen and examined; now reports resolution of diarrheal episode. Stable no complaints Objective Vitals Vital Signs Date Time Temp Pulse Resp B/P Pulse Ox O2 Delivery O2 Flow Rate FiO2 06/26/16 08:00 96.2 95 17 119/59 92 06/26/16 06:16 16 06/26/16 00:00 97.6 82 20 123/61 93 06/25/16 20:00 97.1 84 20 127/63 93 06/25/16 16:00 96.4 101 16 129/67 93 I/O 06/25/16 06/25/16 06/25/16 06/26/16 06/26/16 06/26/16 06:59 14:59 22:59 06:59 14:59 22:59 Intake Total 480 ml 360 ml 480 ml 480 ml Balance 480 ml 360 ml 480 ml 480 ml Intake Oral 480 ml 360 ml 480 ml 480 ml IV Total 0 ml # Voids 3 2 2 3 # Bowel Movements 1 0 0 0 Result Diagram: 06/22/1631606/22/16316 Objective Remarks GENERAL: NAD SKIN: Warm and dry. HEAD: Normocephalic. EYES: No scleral icterus. No injection or drainage. NECK: Supple, trachea midline. No JVD or lymphadenopathy. CARDIOVASCULAR: Regular rate and rhythm without murmurs, gallops, or rubs. RESPIRATORY: Breath sounds equal bilaterally. No accessory muscle use. GASTROINTESTINAL: obese; Abdomen soft, non-tender, nondistended. MUSCULOSKELETAL: No cyanosis, or edema. BACK: Nontender without obvious deformity. No CVA tenderness. A/P Problem List: (1) Infection due to ESBL-producing Klebsiella pneumoniae ICD Code: A49.8 Status: Resolved (2) Cellulitis ICD Code: L03.90 Status: Resolved (3) Depression ICD Code: F32.9 Status: Chronic (4) Folic acid deficiency ICD Code: E53.8 Status: Acute (5) Iron deficiency anemia ICD Code: D50.9 Status: Acute (6) B12 deficiency ICD Code: E53.8 Status: Acute (7) Morbid obesity with BMI of 70 and over, adult ICD Code: E66.01 Status: Chronic Assessment and Plan 40yrs old female 06/26/16-Stable and no change Pannicular abscess/Cellulitis-resolved. Abdominal cultures were positive for Klebsiella pneumonia ESBL. Patient was given antibiotics which she has since completed. Continue wound care, Diflucan stopped 06/21/16. Morbid obesity. counselled. Will Follow up outpatient with Bariatric surgeon. PT , however patient is nonambulatory [id number]. Symptomatic anemia- resolved continue prophylactic Lovenox, hgb stable. Patient is bedbound with high risks for DVT. Hemoglobin stable. Chronic pain [place] 10/650mg PO Q4H as needed Lower extremity cramping: BMP stable. CK and thyroid function tests normal. No further cramping, resolved. Diarrhea:Resolved with Conservative treatment with antidiarrheal motility agents Problem Qualifiers (1) Cellulitis: Qualified Code: L03.311 - Cellulitis of abdominal wall Arthur Purdy MD Jun 26, 2016 12:11
[2016-06-26 16:00] VITALS: BP 127/91; PULSE 66; RESP 17; TEMP 96.6; O2SAT 93
[2016-06-26 20:00] VITALS: BP 125/58; PULSE 86; RESP 20; TEMP 96.9; O2SAT 93
[2016-06-27] VITALS: BP 127/59; PULSE 83; RESP 20; TEMP 96.6; O2SAT 95
[2016-06-27] MEDS: ACETAMINOPHEN/HYDROcodone 325 MG/5 MG TAB PO PRN ×3 (02:10→18:38)
[2016-06-27] MEDS: GABAPENTIN 300 MG CAP PO SCH ×3 (05:32→20:41)
[2016-06-27 08:00] VITALS: BP 130/58; PULSE 92; RESP 18; TEMP 96.9; O2SAT 92
[2016-06-27] MEDS: SODIUM CHLORIDE 0.9% FLUSH 5 ML FLUSH FLUSH SCH ×2 (08:57→20:40)
[2016-06-27] MEDS: PARoxetine 25 MG CONTROLLED RELEASE TAB PO SCH (08:59)
[2016-06-27] MEDS: FOLIC ACID 1 MG TAB PO SCH (08:59)
[2016-06-27] MEDS: DICYCLOMINE HCL 20 MG TAB PO SCH ×3 (08:59→16:17)
[2016-06-27] MEDS: PANTOPRAZOLE SOD 20 MG DELAYED RELEASE TAB PO SCH (08:59)
[2016-06-27] MEDS: LACTOBACILLUS ACIDOPHILUS 1 GM PACKET PO SCH ×3 (09:00→16:18)
[2016-06-27] MEDS: NYSTATIN 100,000 U/GM OINT 15 GM TUBE TOPICAL SCH ×2 (09:00→20:42)
[2016-06-27] MEDS: FERROUS SULFATE 325 MG (65 MG ELEMENTAL IRON) TAB PO SCH ×2 (11:13→16:17)
[2016-06-27] MEDS: ENOXAPARIN SODIUM 40 MG/0.4 ML SYRINGE SQ SCH (11:15)
[2016-06-27 11:20] VITALS: BP 132/58; PULSE 77; RESP 19; TEMP 96.9; O2SAT 92
--- NOTE | 2016-06-27 13:08 | HHI.PR ---
Subjective Remarks Follow up for placement issue 06/24/16-patient seen and examined; no acute event overnight. Afebrile 06/25/16-patient seen and examined; reports for episode of diarrhea last night however none this morning. There was no emesis associated with 06/26/16-patient seen and examined; now reports resolution of diarrheal episode. Stable no complaints 06/27/16-patient seen and examined; no complaint and stable Objective Vitals Vital Signs Date Time Temp Pulse Resp B/P Pulse Ox O2 Delivery O2 Flow Rate FiO2 06/27/16 11:20 96.9 77 19 132/58 92 06/27/16 08:00 96.9 92 18 130/58 92 06/27/16 03:51 16 06/27/16 00:00 96.6 83 20 127/59 95 06/26/16 20:00 96.9 86 20 125/58 93 06/26/16 16:00 96.6 66 17 127/91 93 I/O 06/26/16 06/26/16 06/26/16 06/27/16 06/27/16 06/27/16 07:00 15:00 23:00 07:00 15:00 23:00 Intake Total 480 ml 360 ml 480 ml 480 ml 120 ml Balance 480 ml 360 ml 480 ml 480 ml 120 ml Intake Oral 480 ml 360 ml 480 ml 480 ml 120 ml IV Total 0 ml 0 ml # Voids 3 2 3 4 # Bowel Movements 0 0 1 1 Objective Remarks GENERAL: NAD SKIN: Warm and dry. HEAD: Normocephalic. EYES: No scleral icterus. No injection or drainage. NECK: Supple, trachea midline. No JVD or lymphadenopathy. CARDIOVASCULAR: Regular rate and rhythm without murmurs, gallops, or rubs. RESPIRATORY: Breath sounds equal bilaterally. No accessory muscle use. GASTROINTESTINAL: obese; Abdomen soft, non-tender, nondistended. MUSCULOSKELETAL: No cyanosis, or edema. BACK: Nontender without obvious deformity. No CVA tenderness. A/P Problem List: (1) Infection due to ESBL-producing Klebsiella pneumoniae ICD Code: A49.8 Status: Resolved (2) Cellulitis ICD Code: L03.90 Status: Resolved (3) Depression ICD Code: F32.9 Status: Chronic (4) Folic acid deficiency ICD Code: E53.8 Status: Acute (5) Iron deficiency anemia ICD Code: D50.9 Status: Acute (6) B12 deficiency ICD Code: E53.8 Status: Acute (7) Morbid obesity with BMI of 70 and over, adult ICD Code: E66.01 Status: Chronic Assessment and Plan 40yrs old female 06/27/16-Stable and no change Pannicular abscess/Cellulitis-resolved. Abdominal cultures were positive for Klebsiella pneumonia ESBL. Patient was given antibiotics which she has since completed. Continue wound care, Diflucan stopped 06/21/16. Morbid obesity. counselled. Will Follow up outpatient with Bariatric surgeon. PT , however patient is nonambulatory [id number]. Symptomatic anemia- resolved continue prophylactic Lovenox, hgb stable. Patient is bedbound with high risks for DVT. Hemoglobin stable. Chronic pain [place] 10/650mg PO Q4H as needed Lower extremity cramping: BMP stable. CK and thyroid function tests normal. No further cramping, resolved. Diarrhea:Resolved with Conservative treatment with antidiarrheal motility agents Problem Qualifiers (1) Cellulitis: Qualified Code: L03.311 - Cellulitis of abdominal wall Arthur Purdy MD Jun 27, 2016 13:08
[2016-06-27 16:00] VITALS: BP 133/60; PULSE 102; RESP 19; TEMP 96.9; O2SAT 92
[2016-06-27 20:00] VITALS: BP 125/59; PULSE 83; RESP 21; TEMP 96.4; O2SAT 93
[2016-06-27 23:22] VITALS: BP 115/56; PULSE 96; RESP 21; TEMP 97.3; O2SAT 96
[2016-06-28] MEDS: GABAPENTIN 300 MG CAP PO SCH ×3 (04:56→20:21)
[2016-06-28] MEDS: ACETAMINOPHEN/HYDROcodone 325 MG/5 MG TAB PO PRN ×4 (04:56→20:22)
[2016-06-28 08:00] VITALS: BP 118/56; PULSE 86; RESP 19; TEMP 96.9; O2SAT 92
[2016-06-28] MEDS: FOLIC ACID 1 MG TAB PO SCH (08:20)
[2016-06-28] MEDS: PANTOPRAZOLE SOD 20 MG DELAYED RELEASE TAB PO SCH (08:20)
[2016-06-28] MEDS: LACTOBACILLUS ACIDOPHILUS 1 GM PACKET PO SCH ×3 (08:21→16:25)
[2016-06-28] MEDS: DICYCLOMINE HCL 20 MG TAB PO SCH ×3 (08:21→16:25)
[2016-06-28] MEDS: PARoxetine 25 MG CONTROLLED RELEASE TAB PO SCH (08:21)
[2016-06-28] MEDS: NYSTATIN 100,000 U/GM OINT 15 GM TUBE TOPICAL SCH ×2 (08:22→20:21)
[2016-06-28] MEDS: SODIUM CHLORIDE 0.9% FLUSH 5 ML FLUSH FLUSH SCH ×2 (08:22→20:21)
--- NOTE | 2016-06-28 11:06 | HHI.PR ---
Subjective Remarks Follow up for placement issue 06/24/16-patient seen and examined; no acute event overnight. Afebrile 06/25/16-patient seen and examined; reports for episode of diarrhea last night however none this morning. There was no emesis associated with 06/26/16-patient seen and examined; now reports resolution of diarrheal episode. Stable no complaints 06/27/16-patient seen and examined; no complaint and stable 06/28/16-patient seen and examined; she was sleeping, denies any acute event overnight. Stable. Objective Vitals Vital Signs Date Time Temp Pulse Resp B/P Pulse Ox O2 Delivery O2 Flow Rate FiO2 06/28/16 08:00 96.9 86 19 118/56 92 06/27/16 23:22 97.3 96 21 115/56 96 06/27/16 20:00 96.4 83 21 125/59 93 06/27/16 16:00 96.9 102 19 133/60 92 06/27/16 11:20 96.9 77 19 132/58 92 I/O 06/27/16 06/27/16 06/27/16 06/28/16 06/28/16 06/28/16 06:59 14:59 22:59 06:59 14:59 22:59 Intake Total 480 ml 600 ml 240 ml 360 ml 120 ml Output Total 600 ml Balance 480 ml 0 ml 240 ml 360 ml 120 ml Intake Oral 480 ml 600 ml 240 ml 360 ml 120 ml IV Total 0 ml 0 ml 0 ml Packed Cells 0 ml Output Urine Total 600 ml # Voids 4 2 2 # Bowel Movements 1 0 0 0 Objective Remarks GENERAL: NAD SKIN: Warm and dry. HEAD: Normocephalic. EYES: No scleral icterus. No injection or drainage. NECK: Supple, trachea midline. No JVD or lymphadenopathy. CARDIOVASCULAR: Regular rate and rhythm without murmurs, gallops, or rubs. RESPIRATORY: Breath sounds equal bilaterally. No accessory muscle use. GASTROINTESTINAL: obese; Abdomen soft, non-tender, nondistended. MUSCULOSKELETAL: No cyanosis, or edema. BACK: Nontender without obvious deformity. No CVA tenderness. A/P Problem List: (1) Infection due to ESBL-producing Klebsiella pneumoniae ICD Code: A49.8 Status: Resolved (2) Cellulitis ICD Code: L03.90 Status: Resolved (3) Depression ICD Code: F32.9 Status: Chronic (4) Folic acid deficiency ICD Code: E53.8 Status: Acute (5) Iron deficiency anemia ICD Code: D50.9 Status: Acute (6) B12 deficiency ICD Code: E53.8 Status: Acute (7) Morbid obesity with BMI of 70 and over, adult ICD Code: E66.01 Status: Chronic Assessment and Plan 40yrs old female 06/28/16-Stable and no change Pannicular abscess/Cellulitis-resolved. Abdominal cultures were positive for Klebsiella pneumonia ESBL. Patient was given antibiotics which she has since completed. Continue wound care, Diflucan stopped 06/21/16. Morbid obesity. counselled. Will Follow up outpatient with Bariatric surgeon. PT , however patient is nonambulatory [id number]. Symptomatic anemia- resolved continue prophylactic Lovenox, hgb stable. Patient is bedbound with high risks for DVT. Hemoglobin stable. Chronic pain [place] 10/650mg PO Q4H as needed Lower extremity cramping: BMP stable. CK and thyroid function tests normal. No further cramping, resolved. Diarrhea:Resolved with Conservative treatment with antidiarrheal motility agents Problem Qualifiers (1) Cellulitis: Qualified Code: L03.311 - Cellulitis of abdominal wall Arthur Purdy MD Jun 28, 2016 11:06
[2016-06-28 11:42] VITALS: BP 115/55; PULSE 91; RESP 18; TEMP 96.9; O2SAT 92
[2016-06-28] MEDS: FERROUS SULFATE 325 MG (65 MG ELEMENTAL IRON) TAB PO SCH ×2 (13:03→16:25)
[2016-06-28] MEDS: ENOXAPARIN SODIUM 40 MG/0.4 ML SYRINGE SQ SCH (13:04)
[2016-06-28 15:50] VITALS: BP 139/63; PULSE 95; RESP 18; TEMP 96.9; O2SAT 92
[2016-06-28 20:00] VITALS: BP 132/71; PULSE 83; RESP 20; TEMP 96.7; O2SAT 93
[2016-06-29] VITALS: BP 130/62; PULSE 85; RESP 20; TEMP 95.8; O2SAT 93
[2016-06-29] MEDS: ACETAMINOPHEN/HYDROcodone 325 MG/5 MG TAB PO PRN ×5 (00:08→21:29)
[2016-06-29] MEDS: GABAPENTIN 300 MG CAP PO SCH ×3 (06:27→21:28)
[2016-06-29] MEDS: SODIUM CHLORIDE 0.9% FLUSH 5 ML FLUSH FLUSH SCH ×2 (06:56→21:00)
[2016-06-29] MEDS: PANTOPRAZOLE SOD 20 MG DELAYED RELEASE TAB PO SCH (07:30)
[2016-06-29] MEDS: FOLIC ACID 1 MG TAB PO SCH (07:31)
[2016-06-29] MEDS: DICYCLOMINE HCL 20 MG TAB PO SCH ×3 (07:31→17:31)
[2016-06-29] MEDS: LACTOBACILLUS ACIDOPHILUS 1 GM PACKET PO SCH ×3 (07:31→17:31)
[2016-06-29] MEDS: PARoxetine 25 MG CONTROLLED RELEASE TAB PO SCH (07:31)
[2016-06-29] MEDS: NYSTATIN 100,000 U/GM OINT 15 GM TUBE TOPICAL SCH ×2 (07:32→21:29)
[2016-06-29 08:00] VITALS: BP 130/60; PULSE 88; RESP 17; TEMP 98.4; O2SAT 95
--- NOTE | 2016-06-29 11:23 | HHI.PR ---
Subjective Remarks Follow up for placement issue 06/24/16-patient seen and examined; no acute event overnight. Afebrile 06/25/16-patient seen and examined; reports for episode of diarrhea last night however none this morning. There was no emesis associated with 06/26/16-patient seen and examined; now reports resolution of diarrheal episode. Stable no complaints 06/27/16-patient seen and examined; no complaint and stable 06/28/16-patient seen and examined; she was sleeping, denies any acute event overnight. Stable. 06/29/16-no change, stable. Objective Vitals Vital Signs Date Time Temp Pulse Resp B/P Pulse Ox O2 Delivery O2 Flow Rate FiO2 06/29/16 08:00 98.4 88 17 130/60 95 06/29/16 00:00 95.8 85 20 130/62 93 06/28/16 21:30 18 06/28/16 20:00 96.7 83 20 132/71 93 06/28/16 15:50 96.9 95 18 139/63 92 06/28/16 11:42 96.9 91 18 115/55 92 I/O 06/28/16 06/28/16 06/28/16 06/29/16 06/29/16 06/29/16 06:59 14:59 22:59 06:59 14:59 22:59 Intake Total 360 ml 1080 ml 480 ml 480 ml Output Total 550 ml Balance 360 ml 530 ml 480 ml 480 ml Intake Oral 360 ml 1080 ml 480 ml 480 ml IV Total 0 ml 0 ml 0 ml Output Urine Total 550 ml # Voids 2 2 2 # Bowel Movements 0 0 1 1 Objective Remarks GENERAL: NAD SKIN: Warm and dry. HEAD: Normocephalic. EYES: No scleral icterus. No injection or drainage. NECK: Supple, trachea midline. No JVD or lymphadenopathy. CARDIOVASCULAR: Regular rate and rhythm without murmurs, gallops, or rubs. RESPIRATORY: Breath sounds equal bilaterally. No accessory muscle use. GASTROINTESTINAL: obese; Abdomen soft, non-tender, nondistended. MUSCULOSKELETAL: No cyanosis, or edema. BACK: Nontender without obvious deformity. No CVA tenderness. A/P Problem List: (1) Infection due to ESBL-producing Klebsiella pneumoniae ICD Code: A49.8 Status: Resolved (2) Cellulitis ICD Code: L03.90 Status: Resolved (3) Depression ICD Code: F32.9 Status: Chronic (4) Folic acid deficiency ICD Code: E53.8 Status: Acute (5) Iron deficiency anemia ICD Code: D50.9 Status: Acute (6) B12 deficiency ICD Code: E53.8 Status: Acute (7) Morbid obesity with BMI of 70 and over, adult ICD Code: E66.01 Status: Chronic Assessment and Plan 40yrs old female 06/29/16-Stable and no change Pannicular abscess/Cellulitis-resolved. Abdominal cultures were positive for Klebsiella pneumonia ESBL. Patient was given antibiotics which she has since completed. Continue wound care, Diflucan stopped 06/21/16. Morbid obesity. counselled. Will Follow up outpatient with Bariatric surgeon. PT , however patient is nonambulatory [id number]. Symptomatic anemia- resolved continue prophylactic Lovenox, hgb stable. Patient is bedbound with high risks for DVT. Hemoglobin stable. Chronic pain [place] 10/650mg PO Q4H as needed Lower extremity cramping: BMP stable. CK and thyroid function tests normal. No further cramping, resolved. Diarrhea:Resolved with Conservative treatment with antidiarrheal motility agents Problem Qualifiers (1) Cellulitis: Qualified Code: L03.311 - Cellulitis of abdominal wall Arthur Purdy MD Jun 29, 2016 11:23
[2016-06-29 12:00] VITALS: BP 128/69; PULSE 83; RESP 17; TEMP 98.1; O2SAT 95
[2016-06-29] MEDS: FERROUS SULFATE 325 MG (65 MG ELEMENTAL IRON) TAB PO SCH ×2 (12:00→17:00)
[2016-06-29] MEDS: ENOXAPARIN SODIUM 40 MG/0.4 ML SYRINGE SQ SCH (12:36)
[2016-06-29] MEDS: CYANOCOBALAMIN 1000 MCG/ML VIAL IM SCH (17:32)
[2016-06-29 20:00] VITALS: BP 125/66; PULSE 85; RESP 20; TEMP 96.4; O2SAT 93
[2016-06-30] VITALS: BP 143/65; PULSE 86; RESP 20; TEMP 97.1; O2SAT 93
[2016-06-30] MEDS: GABAPENTIN 300 MG CAP PO SCH ×3 (05:55→21:26)
[2016-06-30] MEDS: ACETAMINOPHEN/HYDROcodone 325 MG/5 MG TAB PO PRN ×4 (05:55→21:25)
[2016-06-30] MEDS: SODIUM CHLORIDE 0.9% FLUSH 5 ML FLUSH FLUSH SCH ×2 (06:55→21:00)
[2016-06-30] MEDS: PARoxetine 25 MG CONTROLLED RELEASE TAB PO SCH (07:41)
[2016-06-30] MEDS: PANTOPRAZOLE SOD 20 MG DELAYED RELEASE TAB PO SCH (07:41)
[2016-06-30] MEDS: LACTOBACILLUS ACIDOPHILUS 1 GM PACKET PO SCH ×3 (07:42→17:31)
[2016-06-30] MEDS: DICYCLOMINE HCL 20 MG TAB PO SCH ×3 (07:42→17:29)
[2016-06-30] MEDS: FOLIC ACID 1 MG TAB PO SCH (07:42)
[2016-06-30] MEDS: NYSTATIN 100,000 U/GM OINT 15 GM TUBE TOPICAL SCH ×2 (07:43→21:00)
[2016-06-30 08:00] VITALS: BP 129/83; PULSE 86; RESP 19; TEMP 97.4; O2SAT 94
[2016-06-30 09:00] VITALS: O2SAT 95
--- NOTE | 2016-06-30 11:43 | HHI.PR ---
Subjective Remarks Follow up for placement issue 06/24/16-patient seen and examined; no acute event overnight. Afebrile 06/25/16-patient seen and examined; reports for episode of diarrhea last night however none this morning. There was no emesis associated with 06/26/16-patient seen and examined; now reports resolution of diarrheal episode. Stable no complaints 06/27/16-patient seen and examined; no complaint and stable 06/28/16-patient seen and examined; she was sleeping, denies any acute event overnight. Stable. 06/29/16-no change, stable. 06/30/16-patient seen and examined; no complaint. No change Objective Vitals Vital Signs Date Time Temp Pulse Resp B/P Pulse Ox O2 Delivery O2 Flow Rate FiO2 06/30/16 08:00 97.4 86 19 129/83 94 06/30/16 00:00 97.1 86 20 143/65 93 06/29/16 20:00 96.4 85 20 125/66 93 06/29/16 12:00 98.1 83 17 128/69 95 I/O 06/29/16 06/29/16 06/29/16 06/30/16 06/30/16 06/30/16 07:00 15:00 23:00 07:00 15:00 23:00 Intake Total 480 ml 480 ml 720 ml 240 ml Balance 480 ml 480 ml 720 ml 240 ml Intake Oral 480 ml 480 ml 720 ml 240 ml IV Total 0 ml 0 ml 0 ml # Voids 2 2 2 1 # Bowel Movements 1 0 1 Objective Remarks GENERAL: NAD SKIN: Warm and dry. HEAD: Normocephalic. EYES: No scleral icterus. No injection or drainage. NECK: Supple, trachea midline. No JVD or lymphadenopathy. CARDIOVASCULAR: Regular rate and rhythm without murmurs, gallops, or rubs. RESPIRATORY: Breath sounds equal bilaterally. No accessory muscle use. GASTROINTESTINAL: obese; Abdomen soft, non-tender, nondistended. MUSCULOSKELETAL: No cyanosis, or edema. BACK: Nontender without obvious deformity. No CVA tenderness. A/P Problem List: (1) Infection due to ESBL-producing Klebsiella pneumoniae ICD Code: A49.8 Status: Resolved (2) Cellulitis ICD Code: L03.90 Status: Resolved (3) Depression ICD Code: F32.9 Status: Chronic (4) Folic acid deficiency ICD Code: E53.8 Status: Acute (5) Iron deficiency anemia ICD Code: D50.9 Status: Acute (6) B12 deficiency ICD Code: E53.8 Status: Acute (7) Morbid obesity with BMI of 70 and over, adult ICD Code: E66.01 Status: Chronic Assessment and Plan 40yrs old female 06/29/16-Stable and no change Pannicular abscess/Cellulitis-resolved. Abdominal cultures were positive for Klebsiella pneumonia ESBL. Patient was given antibiotics which she has since completed. Continue wound care, Diflucan stopped 06/21/16. Morbid obesity. counselled. Will Follow up outpatient with Bariatric surgeon. PT , however patient is nonambulatory [id number]. Symptomatic anemia- resolved continue prophylactic Lovenox, hgb stable. Patient is bedbound with high risks for DVT. Hemoglobin stable. Chronic pain [place] 10/650mg PO Q4H as needed Lower extremity cramping: BMP stable. CK and thyroid function tests normal. No further cramping, resolved. Diarrhea:Resolved with Conservative treatment with antidiarrheal motility agents Problem Qualifiers (1) Cellulitis: Qualified Code: L03.311 - Cellulitis of abdominal wall Arthur Purdy MD Jun 30, 2016 11:43
[2016-06-30 12:00] VITALS: BP 123/75; PULSE 83; RESP 18; TEMP 98.3; O2SAT 95
[2016-06-30] MEDS: FERROUS SULFATE 325 MG (65 MG ELEMENTAL IRON) TAB PO SCH ×2 (12:49→17:29)
[2016-06-30] MEDS: ENOXAPARIN SODIUM 40 MG/0.4 ML SYRINGE SQ SCH (12:51)
[2016-06-30 20:00] VITALS: BP 144/60; PULSE 84; RESP 20; TEMP 95.9; O2SAT 93
[2016-07-01] VITALS: BP 126/61; PULSE 84; RESP 20; TEMP 97.2; O2SAT 93
[2016-07-01] MEDS: GABAPENTIN 300 MG CAP PO SCH ×3 (05:18→20:46)
[2016-07-01 08:00] VITALS: BP 139/62; PULSE 101; RESP 19; TEMP 98; O2SAT 92
[2016-07-01] MEDS: LACTOBACILLUS ACIDOPHILUS 1 GM PACKET PO SCH ×3 (08:48→16:43)
[2016-07-01] MEDS: PARoxetine 25 MG CONTROLLED RELEASE TAB PO SCH (08:49)
[2016-07-01] MEDS: DICYCLOMINE HCL 20 MG TAB PO SCH ×3 (09:00→16:42)
[2016-07-01] MEDS: PANTOPRAZOLE SOD 20 MG DELAYED RELEASE TAB PO SCH (09:00)
[2016-07-01] MEDS: FOLIC ACID 1 MG TAB PO SCH (09:00)
[2016-07-01] MEDS: NYSTATIN 100,000 U/GM OINT 15 GM TUBE TOPICAL SCH ×2 (09:00→20:47)
[2016-07-01] MEDS: SODIUM CHLORIDE 0.9% FLUSH 5 ML FLUSH FLUSH SCH ×2 (09:00→20:47)
[2016-07-01] MEDS: ACETAMINOPHEN/HYDROcodone 325 MG/5 MG TAB PO PRN ×4 (09:01→20:47)
[2016-07-01] MEDS ORDERED: [UNRECOGNIZED DRUG - SUPPLY] ×2 (10:51→13:26)
--- NOTE | 2016-07-01 10:54 | HHI.PR ---
Subjective Remarks Follow up for placement issue 06/24/16-patient seen and examined; no acute event overnight. Afebrile 06/25/16-patient seen and examined; reports for episode of diarrhea last night however none this morning. There was no emesis associated with 06/26/16-patient seen and examined; now reports resolution of diarrheal episode. Stable no complaints 06/27/16-patient seen and examined; no complaint and stable 06/28/16-patient seen and examined; she was sleeping, denies any acute event overnight. Stable. 06/29/16-no change, stable. 06/30/16-patient seen and examined; no complaint. No change 07/01/16-patient seen and examined. Stable and afebrile. Objective Vitals Vital Signs Date Time Temp Pulse Resp B/P Pulse Ox O2 Delivery O2 Flow Rate FiO2 07/01/16 08:00 98.0 101 19 139/62 92 07/01/16 00:00 97.2 84 20 126/61 93 06/30/16 22:35 18 06/30/16 20:00 95.9 84 20 144/60 93 06/30/16 12:00 98.3 83 18 123/75 95 I/O 06/30/16 06/30/16 06/30/16 07/01/16 07/01/16 07/01/16 07:00 15:00 23:00 07:00 15:00 23:00 Intake Total 240 ml 240 ml 240 ml 240 ml Balance 240 ml 240 ml 240 ml 240 ml Intake Oral 240 ml 240 ml 240 ml 240 ml IV Total 0 ml 0 ml 0 ml # Voids 1 2 1 2 # Bowel Movements 1 1 Objective Remarks GENERAL: NAD SKIN: Warm and dry. HEAD: Normocephalic. EYES: No scleral icterus. No injection or drainage. NECK: Supple, trachea midline. No JVD or lymphadenopathy. CARDIOVASCULAR: Regular rate and rhythm without murmurs, gallops, or rubs. RESPIRATORY: Breath sounds equal bilaterally. No accessory muscle use. GASTROINTESTINAL: obese; Abdomen soft, non-tender, nondistended. MUSCULOSKELETAL: No cyanosis, or edema. BACK: Nontender without obvious deformity. No CVA tenderness. A/P Problem List: (1) Infection due to ESBL-producing Klebsiella pneumoniae ICD Code: A49.8 Status: Resolved (2) Cellulitis ICD Code: L03.90 Status: Resolved (3) Depression ICD Code: F32.9 Status: Chronic (4) Folic acid deficiency ICD Code: E53.8 Status: Acute (5) Iron deficiency anemia ICD Code: D50.9 Status: Acute (6) B12 deficiency ICD Code: E53.8 Status: Acute (7) Morbid obesity with BMI of 70 and over, adult ICD Code: E66.01 Status: Chronic Assessment and Plan 40yrs old female 07/01/16-Stable and no change Pannicular abscess/Cellulitis-resolved. Abdominal cultures were positive for Klebsiella pneumonia ESBL. Patient was given antibiotics which she has since completed. Continue wound care, Diflucan stopped 06/21/16. Morbid obesity. counselled. Will Follow up outpatient with Bariatric surgeon. PT , however patient is nonambulatory [id number]. Symptomatic anemia- resolved continue prophylactic Lovenox, hgb stable. Patient is bedbound with high risks for DVT. Hemoglobin stable. Chronic pain [place] 10/650mg PO Q4H as needed Lower extremity cramping: BMP stable. CK and thyroid function tests normal. No further cramping, resolved. Diarrhea:Resolved with Conservative treatment with antidiarrheal motility agents Change Vital check to Q shift Problem Qualifiers (1) Cellulitis: Qualified Code: L03.311 - Cellulitis of abdominal wall Arthur Purdy MD Jul 01, 2016 10:54
[2016-07-01 12:00] VITALS: BP 139/62; PULSE 101; RESP 19; TEMP 98; O2SAT 92
[2016-07-01] MEDS: FERROUS SULFATE 325 MG (65 MG ELEMENTAL IRON) TAB PO SCH ×2 (13:00→16:42)
[2016-07-01] MEDS: ENOXAPARIN SODIUM 40 MG/0.4 ML SYRINGE SQ SCH (13:02)
[2016-07-01 20:00] VITALS: BP 121/58; PULSE 69; RESP 20; TEMP 98; O2SAT 94
[2016-07-02] MEDS: ACETAMINOPHEN/HYDROcodone 325 MG/5 MG TAB PO PRN ×5 (01:24→20:51)
[2016-07-02] MEDS: GABAPENTIN 300 MG CAP PO SCH ×3 (06:00→20:51)
[2016-07-02] MEDS: PANTOPRAZOLE SOD 20 MG DELAYED RELEASE TAB PO SCH (07:36)
[2016-07-02] MEDS: DICYCLOMINE HCL 20 MG TAB PO SCH ×3 (07:36→16:56)
[2016-07-02] MEDS: LACTOBACILLUS ACIDOPHILUS 1 GM PACKET PO SCH ×3 (07:36→16:57)
[2016-07-02] MEDS: FOLIC ACID 1 MG TAB PO SCH (07:36)
[2016-07-02] MEDS: PARoxetine 25 MG CONTROLLED RELEASE TAB PO SCH (07:36)
[2016-07-02] MEDS: SODIUM CHLORIDE 0.9% FLUSH 5 ML FLUSH FLUSH SCH ×3 (07:38→21:00)
[2016-07-02] MEDS: NYSTATIN 100,000 U/GM OINT 15 GM TUBE TOPICAL SCH ×2 (07:38→21:04)
[2016-07-02 07:50] VITALS: BP 127/64; PULSE 86; RESP 19; TEMP 96.9; O2SAT 94
--- NOTE | 2016-07-02 10:51 | HHI.PR ---
Subjective Remarks Follow up for placement issue 06/24/16-patient seen and examined; no acute event overnight. Afebrile 06/25/16-patient seen and examined; reports for episode of diarrhea last night however none this morning. There was no emesis associated with 06/26/16-patient seen and examined; now reports resolution of diarrheal episode. Stable no complaints 06/27/16-patient seen and examined; no complaint and stable 06/28/16-patient seen and examined; she was sleeping, denies any acute event overnight. Stable. 06/29/16-no change, stable. 06/30/16-patient seen and examined; no complaint. No change 07/01/16-patient seen and examined. Stable and afebrile. 07/02/16-patient seen and examined and states she is going through some blues right now requesting that her antianxiety medication be increased. However he stated to patient at 40+1 week she hasn't shown any sign of depression or complaint of any depressive mood Objective Vitals Vital Signs Date Time Temp Pulse Resp B/P Pulse Ox O2 Delivery O2 Flow Rate FiO2 07/02/16 07:50 96.9 86 19 127/64 94 07/01/16 20:00 98.0 69 20 121/58 94 07/01/16 12:00 98.0 101 19 139/62 92 I/O 07/01/16 07/01/16 07/01/16 07/02/16 07/02/16 07/02/16 06:59 14:59 22:59 06:59 14:59 22:59 Intake Total 240 ml 560 ml 480 ml 320 ml Balance 240 ml 560 ml 480 ml 320 ml Intake Oral 240 ml 560 ml 480 ml 320 ml IV Total 0 ml 0 ml 0 ml # Voids 2 3 3 3 # Bowel Movements 1 0 0 Objective Remarks GENERAL: NAD SKIN: Warm and dry. HEAD: Normocephalic. EYES: No scleral icterus. No injection or drainage. NECK: Supple, trachea midline. No JVD or lymphadenopathy. CARDIOVASCULAR: Regular rate and rhythm without murmurs, gallops, or rubs. RESPIRATORY: Breath sounds equal bilaterally. No accessory muscle use. GASTROINTESTINAL: obese; Abdomen soft, non-tender, nondistended. MUSCULOSKELETAL: No cyanosis, or edema. BACK: Nontender without obvious deformity. No CVA tenderness. A/P Problem List: (1) Infection due to ESBL-producing Klebsiella pneumoniae ICD Code: A49.8 Status: Resolved (2) Cellulitis ICD Code: L03.90 Status: Resolved (3) Depression ICD Code: F32.9 Status: Chronic (4) Folic acid deficiency ICD Code: E53.8 Status: Acute (5) Iron deficiency anemia ICD Code: D50.9 Status: Acute (6) B12 deficiency ICD Code: E53.8 Status: Acute (7) Morbid obesity with BMI of 70 and over, adult ICD Code: E66.01 Status: Chronic Assessment and Plan 40yrs old female 07/02/16-Stable and no change Pannicular abscess/Cellulitis-resolved. Abdominal cultures were positive for Klebsiella pneumonia ESBL. Patient was given antibiotics which she has since completed. Continue wound care, Diflucan stopped 06/21/16. Morbid obesity. counselled. Will Follow up outpatient with Bariatric surgeon. PT , however patient is nonambulatory [id number]. Symptomatic anemia- resolved continue prophylactic Lovenox, hgb stable. Patient is bedbound with high risks for DVT. Hemoglobin stable. Chronic pain [place] 10/650mg PO Q4H as needed Lower extremity cramping: BMP stable. CK and thyroid function tests normal. No further cramping, resolved. Diarrhea:Resolved with Conservative treatment with antidiarrheal motility agents Problem Qualifiers (1) Cellulitis: Qualified Code: L03.311 - Cellulitis of abdominal wall Arthur Purdy MD Jul 02, 2016 10:51
[2016-07-02] MEDS: FERROUS SULFATE 325 MG (65 MG ELEMENTAL IRON) TAB PO SCH ×2 (11:51→16:56)
[2016-07-02] MEDS: ENOXAPARIN SODIUM 40 MG/0.4 ML SYRINGE SQ SCH (13:27)
[2016-07-02 20:00] VITALS: BP 133/60; PULSE 85; RESP 20; TEMP 96; O2SAT 95
[2016-07-02 23:59] VITALS: BP 139/75; PULSE 85; RESP 20; TEMP 98.5; O2SAT 94
[2016-07-03] MEDS: ACETAMINOPHEN/HYDROcodone 325 MG/5 MG TAB PO PRN ×4 (05:01→21:25)
[2016-07-03] MEDS: GABAPENTIN 300 MG CAP PO SCH ×3 (05:01→21:25)
[2016-07-03 08:00] VITALS: BP 135/77; PULSE 90; RESP 16; TEMP 98.8; O2SAT 92
[2016-07-03] MEDS: SODIUM CHLORIDE 0.9% FLUSH 5 ML FLUSH FLUSH SCH ×2 (09:00→21:00)
[2016-07-03] MEDS: LACTOBACILLUS ACIDOPHILUS 1 GM PACKET PO SCH ×3 (09:00→17:11)
[2016-07-03] MEDS: NYSTATIN 100,000 U/GM OINT 15 GM TUBE TOPICAL SCH ×2 (09:00→21:25)
[2016-07-03] MEDS: DICYCLOMINE HCL 20 MG TAB PO SCH ×3 (09:55→18:20)
[2016-07-03] MEDS: PANTOPRAZOLE SOD 20 MG DELAYED RELEASE TAB PO SCH (09:55)
[2016-07-03] MEDS: PARoxetine 25 MG CONTROLLED RELEASE TAB PO SCH (09:55)
[2016-07-03] MEDS: FOLIC ACID 1 MG TAB PO SCH (09:55)
[2016-07-03 12:00] VITALS: BP 126/60; PULSE 82; RESP 16; TEMP 96.6; O2SAT 92
[2016-07-03] MEDS: FERROUS SULFATE 325 MG (65 MG ELEMENTAL IRON) TAB PO SCH ×3 (13:07→18:20)
[2016-07-03] MEDS: ENOXAPARIN SODIUM 40 MG/0.4 ML SYRINGE SQ SCH (13:08)
[2016-07-03 16:00] VITALS: BP 131/62; PULSE 99; RESP 16; TEMP 95.7; O2SAT 91
[2016-07-03 20:00] VITALS: BP 123/58; PULSE 89; RESP 21; TEMP 96.3; O2SAT 94
--- NOTE | 2016-07-03 23:55 | HHI.PR ---
Subjective Remarks patient seen today around noon. Patient lying in bed. Reports that pain is under control. Denies any nausea or vomiting. Objective Vital Signs Date Time Temp Pulse Resp B/P Pulse Ox O2 Delivery O2 Flow Rate FiO2 07/03/16 20:00 96.3 89 21 123/58 94 07/03/16 16:00 95.7 99 16 131/62 91 07/03/16 12:00 96.6 82 16 126/60 92 07/03/16 08:00 98.8 90 16 135/77 92 07/02/16 23:59 98.5 85 20 139/75 94 I/O 07/02/16 07/02/16 07/02/16 07/03/16 07/03/16 07/03/16 06:59 14:59 22:59 06:59 14:59 22:59 Intake Total 320 ml 520 ml 240 ml 240 ml 240 ml Balance 320 ml 520 ml 240 ml 240 ml 240 ml Intake Oral 320 ml 520 ml 240 ml 240 ml 240 ml IV Total 0 ml 0 ml # Voids 3 4 1 2 3 1 # Bowel Movements 0 1 2 1 0 Objective Remarks GENERAL: morbidly obese female. Lying in bed. Alert oriented x3. SKIN: Warm and dry. HEAD: Normocephalic. EYES: No scleral icterus. No injection or drainage. NECK: Supple, trachea midline. No JVD, although difficult assessment owing to body habitus. CARDIOVASCULAR: Regular rate and rhythm without murmurs, gallops, or rubs. RESPIRATORY: Breath sounds equal bilaterally. No accessory muscle use. distant breath sounds owing to body habitus. GASTROINTESTINAL: Abdomen soft, non-tender, nondistended. MUSCULOSKELETAL: No cyanosis, or edema. BACK: Nontender without obvious deformity. No CVA tenderness. A/P Assessment and Plan 07/03/16- patient seen and examined. Stable. No change. Open window blinds during the day. //Pannicular abscess/Cellulitis-resolved. Abdominal cultures were positive for Klebsiella pneumonia ESBL. Patient was given antibiotics which she has since completed. Continue wound care, Diflucan stopped 06/21/16. //Morbid obesity. counselled. Will Follow up outpatient with Bariatric surgeon. PT, however patient is nonambulatory [id number]. //Symptomatic anemia- resolved continue prophylactic Lovenox, hgb stable. Patient is bedbound with high risks for DVT. Hemoglobin stable. //Chronic pain [place] 10/650mg PO Q4H as needed //Lower extremity cramping: BMP stable. CK and thyroid function tests normal. No further cramping, resolved. //Depression. Continue paroxetine. No SI. Open window blinds during the day. //Diarrhea:Resolved with Conservative treatment with antidiarrheal motility agents //Prophylaxis. Continue Lovenox. Demarcus Ramos MD Jul 03, 2016 23:55
[2016-07-04] MEDS: GABAPENTIN 300 MG CAP PO SCH ×3 (04:28→20:07)
[2016-07-04] MEDS: ACETAMINOPHEN/HYDROcodone 325 MG/5 MG TAB PO PRN ×4 (04:28→20:07)
[2016-07-04 08:00] VITALS: BP 121/57; PULSE 86; RESP 16; TEMP 97.9; O2SAT 93
[2016-07-04] MEDS: SODIUM CHLORIDE 0.9% FLUSH 5 ML FLUSH FLUSH SCH ×2 (09:00→20:08)
[2016-07-04] MEDS: PARoxetine 25 MG CONTROLLED RELEASE TAB PO SCH (09:18)
[2016-07-04] MEDS: DICYCLOMINE HCL 20 MG TAB PO SCH ×3 (09:18→18:13)
[2016-07-04] MEDS: FOLIC ACID 1 MG TAB PO SCH (09:18)
[2016-07-04] MEDS: LACTOBACILLUS ACIDOPHILUS 1 GM PACKET PO SCH ×3 (09:18→18:13)
[2016-07-04] MEDS: PANTOPRAZOLE SOD 20 MG DELAYED RELEASE TAB PO SCH (09:19)
[2016-07-04] MEDS: NYSTATIN 100,000 U/GM OINT 15 GM TUBE TOPICAL SCH ×2 (09:19→20:08)
--- NOTE | 2016-07-04 11:51 | HHI.PR ---
Subjective Remarks Patient seen this morning around 11 AM. Says she is feeling all right. Denies any nausea or vomiting. Blinds are open today. She says it feels a little better with window blinds open. Objective Vital Signs Date Time Temp Pulse Resp B/P Pulse Ox O2 Delivery O2 Flow Rate FiO2 07/04/16 10:19 19 07/04/16 08:00 97.9 86 16 121/57 93 07/03/16 20:00 96.3 89 21 123/58 94 07/03/16 16:00 95.7 99 16 131/62 91 07/03/16 12:00 96.6 82 16 126/60 92 I/O 07/03/16 07/03/16 07/03/16 07/04/16 07/04/16 07/04/16 06:59 14:59 22:59 06:59 14:59 22:59 Intake Total 240 ml 240 ml 360 ml Balance 240 ml 240 ml 360 ml Intake Oral 240 ml 240 ml 360 ml IV Total 0 ml 0 ml # Voids 2 3 1 2 # Bowel Movements 2 1 0 0 Objective Remarks GENERAL: morbidly obese female. Lying in bed. Alert oriented x3. Exam unchanged. SKIN: Warm and dry. HEAD: Normocephalic. EYES: No scleral icterus. No injection or drainage. NECK: Supple, trachea midline. No JVD, although difficult assessment owing to body habitus. CARDIOVASCULAR: Regular rate and rhythm without murmurs, gallops, or rubs. RESPIRATORY: Breath sounds equal bilaterally. No accessory muscle use. distant breath sounds owing to body habitus. GASTROINTESTINAL: Abdomen soft, non-tender, nondistended. MUSCULOSKELETAL: No cyanosis, or edema. BACK: Nontender without obvious deformity. No CVA tenderness. A/P Assessment and Plan 07/05/16- patient seen and examined. Stable. No change. Window blinds are open. Mood slightly improved. //Pannicular abscess/Cellulitis-resolved. Abdominal cultures were positive for Klebsiella pneumonia ESBL. Patient was given antibiotics which she has since completed. Continue wound care, Diflucan stopped 06/21/16. //Morbid obesity. counselled. Will Follow up outpatient with Bariatric surgeon. PT, however patient is nonambulatory [id number]. //Symptomatic anemia- resolved continue prophylactic Lovenox, hgb stable. Patient is bedbound with high risks for DVT. Hemoglobin stable. //Chronic pain [place] 10/650mg PO Q4H as needed //Lower extremity cramping: BMP stable. CK and thyroid function tests normal. No further cramping, resolved. //Depression. Continue paroxetine. No SI. Mood slightly improved with keeping window blinds open during the day. Continue to monitor. //Diarrhea:Resolved with Conservative treatment with antidiarrheal motility agents //Prophylaxis. Continue Lovenox. Discharge Planning Continues with physical therapy. Hopefully we will be able to go home when arrangements are made. Appreciate case management assistance. Demarcus Ramos MD Jul 04, 2016 11:51
[2016-07-04 12:00] VITALS: BP 125/60; PULSE 81; RESP 17; TEMP 96.3; O2SAT 94
[2016-07-04] MEDS: ENOXAPARIN SODIUM 40 MG/0.4 ML SYRINGE SQ SCH (12:39)
[2016-07-04 16:00] VITALS: BP 119/55; PULSE 97; RESP 17; TEMP 96.3; O2SAT 92
[2016-07-04] MEDS: FERROUS SULFATE 325 MG (65 MG ELEMENTAL IRON) TAB PO SCH (18:13)
[2016-07-04 20:00] VITALS: BP 133/65; PULSE 92; RESP 20; TEMP 97.8; O2SAT 93
[2016-07-05] VITALS: BP 121/59; PULSE 85; RESP 18; TEMP 97.7; O2SAT 92
[2016-07-05 05:04] LABS: AUTOMATED NEUTROPHIL # 3.5 TH/MM3 (1.8-7.7); BASOPHIL # 0.1 TH/MM3 (0-0.2); BASOPHIL % 1.3 % (0.0-2.0); EOSINOPHIL # 0.4 TH/MM3 (0-0.4); EOSINOPHIL % 5.1 % (0.0-4.0); HEMATOCRIT 52.2 % (35.0-46.0); HEMO FLAGS DIFF FINAL; LYMPH % 32.7 % (9.0-44.0); LYMPHOCYTE # 2.2 TH/MM3 (1.0-4.8); MEAN CELL VOLUME 87.5 FL (80.0-100.0); MEAN CORPUSCULAR HEMOGLOBIN 27.9 PG (27.0-34.0); MEAN CORPUSCULAR HGB CONC 31.9 % (32.0-36.0); MONO % 9.7 % (0.0-8.0); NEUT % 51.2 % (16.0-70.0); PLATELET COUNT 244 TH/MM3 (150-450); RED BLOOD COUNT 5.96 MIL/MM3 (4.00-5.30); RED CELL DISTRIBUTION WIDTH 17.4 % (11.6-17.2); WHITE BLOOD COUNT 6.8 TH/MM3 (4.0-11.0)
[2016-07-05 05:37] LABS: POTASSIUM 4.1 MEQ/L (3.5-5.1)
[2016-07-05] MEDS: GABAPENTIN 300 MG CAP PO SCH ×3 (06:00→19:11)
[2016-07-05] MEDS: ACETAMINOPHEN/HYDROcodone 325 MG/5 MG TAB PO PRN ×5 (06:03→22:12)
[2016-07-05 08:00] VITALS: BP 131/61; PULSE 86; RESP 17; TEMP 96.2; O2SAT 92
[2016-07-05] MEDS: LACTOBACILLUS ACIDOPHILUS 1 GM PACKET PO SCH ×3 (09:00→18:00)
[2016-07-05] MEDS: NYSTATIN 100,000 U/GM OINT 15 GM TUBE TOPICAL SCH ×2 (09:00→19:11)
[2016-07-05] MEDS: SODIUM CHLORIDE 0.9% FLUSH 5 ML FLUSH FLUSH SCH ×2 (09:00→19:11)
[2016-07-05] MEDS: PANTOPRAZOLE SOD 20 MG DELAYED RELEASE TAB PO SCH (10:12)
[2016-07-05] MEDS: DICYCLOMINE HCL 20 MG TAB PO SCH ×3 (10:12→18:18)
[2016-07-05] MEDS: PARoxetine 25 MG CONTROLLED RELEASE TAB PO SCH (10:12)
[2016-07-05] MEDS: FOLIC ACID 1 MG TAB PO SCH (10:12)
[2016-07-05 12:00] VITALS: BP 120/56; PULSE 78; RESP 17; TEMP 97.4; O2SAT 92
[2016-07-05] MEDS: ENOXAPARIN SODIUM 40 MG/0.4 ML SYRINGE SQ SCH (13:16)
[2016-07-05] MEDS: FERROUS SULFATE 325 MG (65 MG ELEMENTAL IRON) TAB PO SCH ×2 (13:16→18:18)
[2016-07-05 16:00] VITALS: BP 113/54; PULSE 78; RESP 16; TEMP 96.9; O2SAT 93
[2016-07-05 20:00] VITALS: BP 120/58; PULSE 80; RESP 20; TEMP 97.6; O2SAT 95
[2016-07-06] VITALS: BP 118/60; PULSE 82; RESP 20; TEMP 97; O2SAT 96
[2016-07-06] MEDS: GABAPENTIN 300 MG CAP PO SCH ×3 (05:30→21:22)
[2016-07-06] MEDS: ACETAMINOPHEN/HYDROcodone 325 MG/5 MG TAB PO PRN ×5 (05:30→23:21)
[2016-07-06] MEDS: FOLIC ACID 1 MG TAB PO SCH (07:57)
[2016-07-06] MEDS: DICYCLOMINE HCL 20 MG TAB PO SCH ×3 (07:57→16:46)
[2016-07-06] MEDS: LACTOBACILLUS ACIDOPHILUS 1 GM PACKET PO SCH ×3 (07:58→16:47)
[2016-07-06] MEDS: PARoxetine 25 MG CONTROLLED RELEASE TAB PO SCH (07:58)
[2016-07-06] MEDS: NYSTATIN 100,000 U/GM OINT 15 GM TUBE TOPICAL SCH ×2 (07:58→21:22)
[2016-07-06] MEDS: PANTOPRAZOLE SOD 20 MG DELAYED RELEASE TAB PO SCH (07:58)
[2016-07-06] MEDS: SODIUM CHLORIDE 0.9% FLUSH 5 ML FLUSH FLUSH SCH ×2 (07:58→21:00)
[2016-07-06 08:00] VITALS: BP 126/63; PULSE 89; RESP 16; TEMP 95.4; O2SAT 93
--- NOTE | 2016-07-06 09:12 | HHI.PR ---
Subjective Remarks date of service 07/05/16.Patient seen in the afternoon around 1 PM. Says she is feeling well. Denies any chest pain or shortness of breath. significant other at bedside, still working on placed ago. Objective Vital Signs Date Time Temp Pulse Resp B/P Pulse Ox O2 Delivery O2 Flow Rate FiO2 07/06/16 08:00 95.4 89 16 126/63 93 07/06/16 00:00 97.0 82 20 118/60 96 07/05/16 20:00 97.6 80 20 120/58 95 07/05/16 16:00 96.9 78 16 113/54 93 07/05/16 12:00 97.4 78 17 120/56 92 I/O 07/05/16 07/05/16 07/05/16 07/06/16 07/06/16 07/06/16 07:00 15:00 23:00 07:00 15:00 23:00 Intake Total 360 ml 500 ml 480 ml 480 ml Balance 360 ml 500 ml 480 ml 480 ml Intake Oral 360 ml 500 ml 480 ml 480 ml # Voids 3 2 3 3 # Bowel Movements 0 0 0 0 Result Diagram: 07/05/1632607/05/16326 Objective Remarks GENERAL: morbidly obese female. Lying in bed. Alert oriented x3. Exam again unchanged. SKIN: Warm and dry. HEAD: Normocephalic. EYES: No scleral icterus. No injection or drainage. NECK: Supple, trachea midline. No JVD, although difficult assessment owing to body habitus. CARDIOVASCULAR: Regular rate and rhythm without murmurs, gallops, or rubs. RESPIRATORY: Breath sounds equal bilaterally. No accessory muscle use. distant breath sounds owing to body habitus. GASTROINTESTINAL: Abdomen soft, non-tender, nondistended. MUSCULOSKELETAL: No cyanosis, or edema. BACK: Nontender without obvious deformity. No CVA tenderness. A/P Assessment and Plan 07/05/16- patient seen and examined. Stable. patient doing well. Waiting on safe discharge. //Pannicular abscess/Cellulitis-resolved. Abdominal cultures were positive for Klebsiella pneumonia ESBL. Patient was given antibiotics which she has since completed. Continue wound care, Diflucan stopped 06/21/16. //Morbid obesity. counselled. Will Follow up outpatient with Bariatric surgeon. PT, however patient is nonambulatory [id number]. //Symptomatic anemia- resolved continue prophylactic Lovenox, hgb stable. Patient is bedbound with high risks for DVT. Hemoglobin stable. //Chronic pain [place] 10/650mg PO Q4H as needed //Lower extremity cramping: BMP stable. CK and thyroid function tests normal. No further cramping, resolved. //Depression. Continue paroxetine. No SI. Mood slightly improved with keeping window blinds open during the day. Continue to monitor. //Diarrhea:Resolved with Conservative treatment with antidiarrheal motility agents //Prophylaxis. Continue Lovenox. Discharge Planning Continues with physical therapy. Hopefully we will be able to go home when arrangements are made. Appreciate case management assistance. Demarcus Ramos MD Jul 06, 2016 09:12
[2016-07-06] MEDS: FERROUS SULFATE 325 MG (65 MG ELEMENTAL IRON) TAB PO SCH ×2 (11:56→16:47)
[2016-07-06] MEDS: ENOXAPARIN SODIUM 40 MG/0.4 ML SYRINGE SQ SCH (11:56)
[2016-07-06 12:00] VITALS: BP 110/54; PULSE 97; RESP 14; TEMP 97.1; O2SAT 91
[2016-07-06 16:00] VITALS: BP 123/58; PULSE 89; RESP 16; TEMP 96.7; O2SAT 95
--- NOTE | 2016-07-06 18:44 | HHI.PR ---
Subjective Remarks patient seen this afternoon around 1 PM. Patient says she is feeling well. Denies any pain. No nausea, vomiting, chest pain, shortness of breath. Objective Vital Signs Date Time Temp Pulse Resp B/P Pulse Ox O2 Delivery O2 Flow Rate FiO2 07/06/16 16:00 96.7 89 16 123/58 95 07/06/16 15:55 17 07/06/16 12:00 97.1 97 14 110/54 91 07/06/16 08:00 95.4 89 16 126/63 93 07/06/16 00:00 97.0 82 20 118/60 96 07/05/16 20:00 97.6 80 20 120/58 95 I/O 07/05/16 07/05/16 07/05/16 07/06/16 07/06/16 07/06/16 07:00 15:00 23:00 07:00 15:00 23:00 Intake Total 360 ml 500 ml 480 ml 480 ml 480 ml Balance 360 ml 500 ml 480 ml 480 ml 480 ml Intake Oral 360 ml 500 ml 480 ml 480 ml 480 ml IV Total 0 ml # Voids 3 2 3 3 3 # Bowel Movements 0 0 0 0 0 Result Diagram: 07/05/1632607/05/16326 Objective Remarks GENERAL: morbidly obese female. Lying in bed. Alert oriented x3. no change on exam from yesterday. SKIN: Warm and dry. HEAD: Normocephalic. EYES: No scleral icterus. No injection or drainage. NECK: Supple, trachea midline. No JVD, although difficult assessment owing to body habitus. CARDIOVASCULAR: Regular rate and rhythm without murmurs, gallops, or rubs. RESPIRATORY: Breath sounds equal bilaterally. No accessory muscle use. distant breath sounds owing to body habitus. GASTROINTESTINAL: Abdomen soft, non-tender, nondistended. MUSCULOSKELETAL: No cyanosis, or edema. BACK: Nontender without obvious deformity. No CVA tenderness. A/P Assessment and Plan 07/06/16- patient seen and examined. Stable. patient doing well. Waiting on safe discharge.appreciate case management assistance //Pannicular abscess/Cellulitis-resolved. Abdominal cultures were positive for Klebsiella pneumonia ESBL. Patient was given antibiotics which she has since completed. Continue wound care, Diflucan stopped 06/21/16. //Morbid obesity. counselled. Will Follow up outpatient with Bariatric surgeon. PT, however patient is nonambulatory [id number]. //Symptomatic anemia- resolved continue prophylactic Lovenox, hgb stable. Patient is bedbound with high risks for DVT. Hemoglobin stable. //Chronic pain [employer] [place] 10/650mg PO Q4H as needed //Lower extremity cramping: BMP stable. CK and thyroid function tests normal. No further cramping, resolved. //Depression. Continue paroxetine. No SI. Mood slightly improved with keeping window blinds open during the day. Continue to monitor. //Diarrhea:Resolved with Conservative treatment with antidiarrheal motility agents //Prophylaxis. Continue Lovenox. Discharge Planning Continues with physical therapy. Hopefully we will be able to go home when arrangements are made. Appreciate case management assistance. Demarcus Ramos MD Jul 06, 2016 18:44
[2016-07-06 20:00] VITALS: BP 123/58; PULSE 81; RESP 20; TEMP 96; O2SAT 94
[2016-07-07] VITALS: BP 128/61; PULSE 84; RESP 20; TEMP 96.3; O2SAT 94
[2016-07-07] MEDS: ACETAMINOPHEN/HYDROcodone 325 MG/5 MG TAB PO PRN ×4 (05:17→21:44)
[2016-07-07] MEDS: GABAPENTIN 300 MG CAP PO SCH ×3 (05:17→21:43)
[2016-07-07 08:00] VITALS: BP 126/61; PULSE 83; RESP 16; TEMP 96.4; O2SAT 95
[2016-07-07] MEDS: SODIUM CHLORIDE 0.9% FLUSH 5 ML FLUSH FLUSH SCH ×2 (08:12→21:00)
[2016-07-07] MEDS: PANTOPRAZOLE SOD 20 MG DELAYED RELEASE TAB PO SCH (08:12)
[2016-07-07] MEDS: FOLIC ACID 1 MG TAB PO SCH (08:12)
[2016-07-07] MEDS: PARoxetine 25 MG CONTROLLED RELEASE TAB PO SCH (08:12)
[2016-07-07] MEDS: DICYCLOMINE HCL 20 MG TAB PO SCH ×3 (08:12→16:22)
[2016-07-07] MEDS: LACTOBACILLUS ACIDOPHILUS 1 GM PACKET PO SCH ×3 (08:13→16:22)
[2016-07-07] MEDS: NYSTATIN 100,000 U/GM OINT 15 GM TUBE TOPICAL SCH ×2 (08:13→21:44)
[2016-07-07 12:00] VITALS: BP 119/58; PULSE 85; RESP 16; TEMP 95.7; O2SAT 96
[2016-07-07] MEDS: FERROUS SULFATE 325 MG (65 MG ELEMENTAL IRON) TAB PO SCH ×2 (12:14→16:22)
[2016-07-07] MEDS: ENOXAPARIN SODIUM 40 MG/0.4 ML SYRINGE SQ SCH (12:14)
[2016-07-07 16:00] VITALS: BP 103/67; PULSE 85; RESP 16; TEMP 95.4; O2SAT 95
[2016-07-07 20:00] VITALS: BP 132/59; PULSE 88; RESP 20; TEMP 96.7; O2SAT 93
--- NOTE | 2016-07-07 23:13 | HHI.PR ---
Subjective Remarks patient seen today around noon. Says she's feeling all right. Denies any chest pain, shortness of breath. Objective Vital Signs Date Time Temp Pulse Resp B/P Pulse Ox O2 Delivery O2 Flow Rate FiO2 07/07/16 20:00 96.7 88 20 132/59 93 07/07/16 17:22 16 07/07/16 16:00 95.4 85 16 103/67 95 07/07/16 12:00 95.7 85 16 119/58 96 07/07/16 08:00 96.4 83 16 126/61 95 07/07/16 00:00 96.3 84 20 128/61 94 I/O 07/06/16 07/06/16 07/06/16 07/07/16 07/07/16 07/07/16 07:00 15:00 23:00 07:00 15:00 23:00 Intake Total 480 ml 480 ml 480 ml 480 ml 500 ml 320 ml Balance 480 ml 480 ml 480 ml 480 ml 500 ml 320 ml Intake Oral 480 ml 480 ml 480 ml 480 ml 500 ml 320 ml IV Total 0 ml 0 ml 0 ml # Voids 3 3 2 3 2 2 # Bowel Movements 0 0 1 0 0 0 Result Diagram: 07/05/1632607/05/16326 Objective Remarks GENERAL: morbidly obese female. Lying in bed. Alert oriented x3. no change on exam. SKIN: Warm and dry. HEAD: Normocephalic. EYES: No scleral icterus. No injection or drainage. NECK: Supple, trachea midline. No JVD, although difficult assessment owing to body habitus. CARDIOVASCULAR: Regular rate and rhythm without murmurs, gallops, or rubs. RESPIRATORY: Breath sounds equal bilaterally. No accessory muscle use. distant breath sounds owing to body habitus. GASTROINTESTINAL: Abdomen soft, non-tender, nondistended. MUSCULOSKELETAL: No cyanosis, or edema. BACK: Nontender without obvious deformity. No CVA tenderness. A/P Assessment and Plan 07/06/16- patient seen and examined. Stable. patient doing well. Waiting on safe discharge.appreciate case management assistance 07/07/16. Patient again seen and examined. Continue stable. Waiting on safe to discharge. //Pannicular abscess/Cellulitis-resolved. Abdominal cultures were positive for Klebsiella pneumonia ESBL. Patient was given antibiotics which she has since completed. Continue wound care, Diflucan stopped 06/21/16. //Morbid obesity. counselled. Will Follow up outpatient with Bariatric surgeon. PT, however patient is nonambulatory [id number]. //Symptomatic anemia- resolved continue prophylactic Lovenox, hgb stable. Patient is bedbound with high risks for DVT. Hemoglobin stable. //Chronic pain [place] 10/650mg PO Q4H as needed //Lower extremity cramping: BMP stable. CK and thyroid function tests normal. No further cramping, resolved. //Depression. Continue paroxetine. No SI. Mood slightly improved with keeping window blinds open during the day. Continue to monitor. //Diarrhea:Resolved with Conservative treatment with antidiarrheal motility agents //Prophylaxis. Continue Lovenox. Discharge Planning Continues with physical therapy. Hopefully we will be able to go home when arrangements are made. Appreciate case management assistance. Demarcus Ramos MD Jul 07, 2016 23:13
[2016-07-08] VITALS: BP 129/60; PULSE 92; RESP 20; TEMP 96.8; O2SAT 93
[2016-07-08] MEDS: GABAPENTIN 300 MG CAP PO SCH ×3 (05:33→20:38)
[2016-07-08] MEDS: ACETAMINOPHEN/HYDROcodone 325 MG/5 MG TAB PO PRN ×5 (05:34→23:32)
[2016-07-08 08:00] VITALS: BP 130/60; PULSE 82; RESP 19; TEMP 96.7; O2SAT 93
[2016-07-08] MEDS: NYSTATIN 100,000 U/GM OINT 15 GM TUBE TOPICAL SCH ×2 (09:00→20:39)
[2016-07-08] MEDS: SODIUM CHLORIDE 0.9% FLUSH 5 ML FLUSH FLUSH SCH ×2 (09:00→20:39)
[2016-07-08] MEDS ORDERED: [UNRECOGNIZED DRUG - SUPPLY] (09:37)
[2016-07-08] MEDS: DICYCLOMINE HCL 20 MG TAB PO SCH ×3 (10:58→17:24)
[2016-07-08] MEDS: PARoxetine 25 MG CONTROLLED RELEASE TAB PO SCH (10:58)
[2016-07-08] MEDS: FOLIC ACID 1 MG TAB PO SCH (10:58)
[2016-07-08] MEDS: PANTOPRAZOLE SOD 20 MG DELAYED RELEASE TAB PO SCH (10:58)
[2016-07-08] MEDS: LACTOBACILLUS ACIDOPHILUS 1 GM PACKET PO SCH ×3 (10:59→17:24)
[2016-07-08] MEDS: FERROUS SULFATE 325 MG (65 MG ELEMENTAL IRON) TAB PO SCH ×2 (11:04→17:24)
[2016-07-08 12:00] VITALS: BP 128/58; PULSE 91; RESP 19; TEMP 96.3; O2SAT 91
[2016-07-08] MEDS: ENOXAPARIN SODIUM 40 MG/0.4 ML SYRINGE SQ SCH (15:04)
[2016-07-08 16:00] VITALS: BP 134/61; PULSE 94; RESP 18; TEMP 96.1; O2SAT 92
[2016-07-08 20:00] VITALS: BP 127/57; PULSE 95; RESP 18; TEMP 96.6; O2SAT 95
--- NOTE | 2016-07-08 22:13 | HHI.PR ---
Subjective Remarks patient seen today around 11:30 AM. Says she's feeling fine. Denies any chest pain shortness of breath. She does state that she started her period a couple days ago. Most recent period was about a year ago. She denies any pain or discomfort. She says that it is a small amount of bleeding. Objective Vital Signs Date Time Temp Pulse Resp B/P Pulse Ox O2 Delivery O2 Flow Rate FiO2 07/08/16 20:10 16 07/08/16 20:00 96.6 95 18 127/57 95 07/08/16 16:00 96.1 94 18 134/61 92 07/08/16 12:00 96.3 91 19 128/58 91 07/08/16 08:00 96.7 82 19 130/60 93 07/08/16 00:00 96.8 92 20 129/60 93 I/O 07/07/16 07/07/16 07/07/16 07/08/16 07/08/16 07/08/16 07:00 15:00 23:00 07:00 15:00 23:00 Intake Total 480 ml 500 ml 320 ml 320 ml 840 ml Balance 480 ml 500 ml 320 ml 320 ml 840 ml Intake Oral 480 ml 500 ml 320 ml 320 ml 840 ml IV Total 0 ml 0 ml 0 ml # Voids 3 2 2 3 2 # Bowel Movements 0 0 0 0 1 Result Diagram: 07/05/1632607/05/16326 Objective Remarks GENERAL: morbidly obese female. Lying in bed. Alert oriented x3. again, no change on exam. SKIN: Warm and dry. HEAD: Normocephalic. EYES: No scleral icterus. No injection or drainage. NECK: Supple, trachea midline. No JVD, although difficult assessment owing to body habitus. CARDIOVASCULAR: Regular rate and rhythm without murmurs, gallops, or rubs. RESPIRATORY: Breath sounds equal bilaterally. No accessory muscle use. distant breath sounds owing to body habitus. GASTROINTESTINAL: Abdomen soft, non-tender, nondistended. MUSCULOSKELETAL: No cyanosis, or edema. BACK: Nontender without obvious deformity. No CVA tenderness. A/P Assessment and Plan 07/06/16- patient seen and examined. Stable. patient doing well. Waiting on safe discharge.appreciate case management assistance 07/07/16. Patient again seen and examined. Continue stable. Waiting on safe to discharge. 07/08/16. Patient continues stable. She says shehas started her menses. Minimal bleeding. has had issues with heavy bleeding in the past. will Let us know if this worsens. //Pannicular abscess/Cellulitis-resolved. Abdominal cultures were positive for Klebsiella pneumonia ESBL. Patient was given antibiotics which she has since completed. Continue wound care, Diflucan stopped 06/21/16. //Morbid obesity. counselled. Will Follow up outpatient with Bariatric surgeon. PT, however patient is nonambulatory [id number]. //Symptomatic anemia- resolved continue prophylactic Lovenox, hgb stable. Patient is bedbound with high risks for DVT. Hemoglobin stable. //Chronic pain [place] 10/650mg PO Q4H as needed //Lower extremity cramping: BMP stable. CK and thyroid function tests normal. No further cramping, resolved. //Depression. Continue paroxetine. No SI. Mood slightly improved with keeping window blinds open during the day. Continue to monitor. //Diarrhea:Resolved with Conservative treatment with antidiarrheal motility agents //Prophylaxis. Continue Lovenox. Discharge Planning Continues with physical therapy. Hopefully we will be able to go home when arrangements are made. Appreciate case management assistance. Demarcus Ramos MD Jul 08, 2016 22:13
[2016-07-09] VITALS: BP 125/60; PULSE 81; RESP 18; TEMP 96.6; O2SAT 94
[2016-07-09] MEDS: ACETAMINOPHEN/HYDROcodone 325 MG/5 MG TAB PO PRN ×4 (05:41→18:31)
[2016-07-09] MEDS: GABAPENTIN 300 MG CAP PO SCH ×3 (05:42→21:52)
[2016-07-09] MEDS: SODIUM CHLORIDE 0.9% FLUSH 5 ML FLUSH FLUSH SCH ×2 (07:38→21:00)
[2016-07-09 08:00] VITALS: BP 126/55; PULSE 83; RESP 19; TEMP 98; O2SAT 92
[2016-07-09] MEDS: LACTOBACILLUS ACIDOPHILUS 1 GM PACKET PO SCH ×3 (09:00→18:00)
[2016-07-09] MEDS: NYSTATIN 100,000 U/GM OINT 15 GM TUBE TOPICAL SCH ×2 (09:00→21:53)
[2016-07-09] MEDS: FOLIC ACID 1 MG TAB PO SCH (09:42)
[2016-07-09] MEDS: PARoxetine 25 MG CONTROLLED RELEASE TAB PO SCH (09:42)
[2016-07-09] MEDS: PANTOPRAZOLE SOD 20 MG DELAYED RELEASE TAB PO SCH (09:42)
[2016-07-09] MEDS: DICYCLOMINE HCL 20 MG TAB PO SCH ×3 (09:43→18:30)
[2016-07-09 11:00] VITALS: BP 114/54; PULSE 80; RESP 19; TEMP 97.7; O2SAT 92
[2016-07-09] MEDS: FERROUS SULFATE 325 MG (65 MG ELEMENTAL IRON) TAB PO SCH ×2 (14:29→18:30)
[2016-07-09] MEDS: ENOXAPARIN SODIUM 40 MG/0.4 ML SYRINGE SQ SCH (14:29)
[2016-07-09 16:00] VITALS: BP 123/56; PULSE 88; RESP 19; TEMP 98.4; O2SAT 92
[2016-07-09 20:00] VITALS: BP 122/59; PULSE 70; RESP 18; TEMP 96.3; O2SAT 93
--- NOTE | 2016-07-09 23:14 | HHI.PR ---
Subjective Remarks patient seen today around noon. Says she is feeling all right. No complaints. Denies any chest pain or shortness of breath. Objective Vital Signs Date Time Temp Pulse Resp B/P Pulse Ox O2 Delivery O2 Flow Rate FiO2 07/09/16 22:45 16 07/09/16 20:00 96.3 70 18 122/59 93 07/09/16 16:00 98.4 88 19 123/56 92 07/09/16 11:00 97.7 80 19 114/54 92 07/09/16 08:00 98.0 83 19 126/55 92 07/09/16 00:00 96.6 81 18 125/60 94 I/O 07/08/16 07/08/16 07/08/16 07/09/16 07/09/16 07/09/16 07:00 15:00 23:00 07:00 15:00 23:00 Intake Total 320 ml 840 ml 620 ml 360 ml 1200 ml Output Total 600 ml Balance 320 ml 840 ml 620 ml 360 ml 600 ml Intake Oral 320 ml 840 ml 620 ml 360 ml 1200 ml IV Total 0 ml 0 ml Output Urine Total 600 ml # Voids 3 2 4 3 # Bowel Movements 0 1 0 1 0 Result Diagram: 07/05/1632607/05/16326 Objective Remarks GENERAL: morbidly obese female. Lying in bed. Alert oriented x3.no change on exam. SKIN: Warm and dry. HEAD: Normocephalic. EYES: No scleral icterus. No injection or drainage. NECK: Supple, trachea midline. No JVD, although difficult assessment owing to body habitus. CARDIOVASCULAR: Regular rate and rhythm without murmurs, gallops, or rubs. RESPIRATORY: Breath sounds equal bilaterally. No accessory muscle use. distant breath sounds owing to body habitus. GASTROINTESTINAL: Abdomen soft, non-tender, nondistended. MUSCULOSKELETAL: No cyanosis, or edema. BACK: Nontender without obvious deformity. No CVA tenderness. A/P Assessment and Plan 07/06/16- patient seen and examined. Stable. patient doing well. Waiting on safe discharge.appreciate case management assistance 07/07/16. Patient again seen and examined. Continue stable. Waiting on safe to discharge. 07/08/16. Patient continues stable. She says shehas started her menses. Minimal bleeding. has had issues with heavy bleeding in the past. will Let us know if this worsens. 07/09/16. Patient continues to be stable. No complaints. Expect safe discharge in July. //Pannicular abscess/Cellulitis-resolved. Abdominal cultures were positive for Klebsiella pneumonia ESBL. Patient was given antibiotics which she has since completed. Continue wound care, Diflucan stopped 06/21/16. //Morbid obesity. counselled. Will Follow up outpatient with Bariatric surgeon. PT, however patient is nonambulatory [id number]. //Symptomatic anemia- resolved continue prophylactic Lovenox, hgb stable. Patient is bedbound with high risks for DVT. Hemoglobin stable. //Chronic pain [place] 10/650mg PO Q4H as needed //Lower extremity cramping: BMP stable. CK and thyroid function tests normal. No further cramping, resolved. //Depression. Continue paroxetine. No SI. Mood slightly improved with keeping window blinds open during the day. Continue to monitor. //Diarrhea:Resolved with Conservative treatment with antidiarrheal motility agents //Prophylaxis. Continue Lovenox. Discharge Planning Continues with physical therapy. Hopefully we will be able to go home when arrangements are made. Appreciate case management assistance. Demarcus Ramos MD Jul 09, 2016 23:14
[2016-07-10] VITALS: BP 115/57; PULSE 86; RESP 18; TEMP 97.1; O2SAT 92
[2016-07-10] MEDS: ACETAMINOPHEN/HYDROcodone 325 MG/5 MG TAB PO PRN ×5 (00:10→22:47)
[2016-07-10] MEDS: GABAPENTIN 300 MG CAP PO SCH ×3 (05:32→20:36)
[2016-07-10 08:00] VITALS: BP 132/64; PULSE 100; RESP 20; TEMP 98.1; O2SAT 94
[2016-07-10] MEDS: NYSTATIN 100,000 U/GM OINT 15 GM TUBE TOPICAL SCH ×2 (09:00→20:36)
[2016-07-10] MEDS: LACTOBACILLUS ACIDOPHILUS 1 GM PACKET PO SCH ×3 (09:00→17:27)
[2016-07-10] MEDS: SODIUM CHLORIDE 0.9% FLUSH 5 ML FLUSH FLUSH SCH ×2 (09:00→20:35)
[2016-07-10] MEDS: DICYCLOMINE HCL 20 MG TAB PO SCH ×3 (09:47→17:52)
[2016-07-10] MEDS: FOLIC ACID 1 MG TAB PO SCH (09:47)
[2016-07-10] MEDS: PANTOPRAZOLE SOD 20 MG DELAYED RELEASE TAB PO SCH (09:47)
[2016-07-10] MEDS: PARoxetine 25 MG CONTROLLED RELEASE TAB PO SCH (09:47)
[2016-07-10] MEDS: FERROUS SULFATE 325 MG (65 MG ELEMENTAL IRON) TAB PO SCH ×2 (11:24→17:52)
[2016-07-10] MEDS: ENOXAPARIN SODIUM 40 MG/0.4 ML SYRINGE SQ SCH (11:24)
[2016-07-10 12:00] VITALS: BP 128/58; PULSE 98; RESP 20; TEMP 98.2; O2SAT 95
--- NOTE | 2016-07-10 12:31 | HHI.PR ---
Subjective Remarks Patient seen this morning around 11:30 AM. Says she is feeling well. Denies any nausea vomiting, chest pain, shortness of breath. She continues to have mild menstrual cramping, small amount of menstrual leading. Will let us know if this worsens or changes. Objective Vital Signs Date Time Temp Pulse Resp B/P Pulse Ox O2 Delivery O2 Flow Rate FiO2 07/10/16 08:00 98.1 100 20 132/64 94 07/10/16 06:32 16 07/10/16 00:00 97.1 86 18 115/57 92 07/09/16 20:00 96.3 70 18 122/59 93 07/09/16 16:00 98.4 88 19 123/56 92 I/O 07/09/16 07/09/16 07/09/16 07/10/16 07/10/16 07/10/16 06:59 14:59 22:59 06:59 14:59 22:59 Intake Total 980 ml 1200 ml 0 ml 1100 ml Output Total 600 ml Balance 980 ml 600 ml 0 ml 1100 ml Intake Oral 980 ml 1200 ml 1100 ml IV Total 0 ml Output Urine Total 600 ml # Voids 7 7 # Bowel Movements 1 0 0 Objective Remarks GENERAL: morbidly obese female. Lying in bed. Alert oriented x3.then, no change on exam. SKIN: Warm and dry. HEAD: Normocephalic. EYES: No scleral icterus. No injection or drainage. NECK: Supple, trachea midline. No JVD, although difficult assessment owing to body habitus. CARDIOVASCULAR: Regular rate and rhythm without murmurs, gallops, or rubs. RESPIRATORY: Breath sounds equal bilaterally. No accessory muscle use. distant breath sounds owing to body habitus. GASTROINTESTINAL: Abdomen soft, non-tender, nondistended. MUSCULOSKELETAL: No cyanosis, or edema. BACK: Nontender without obvious deformity. No CVA tenderness. A/P Assessment and Plan 07/06/16- patient seen and examined. Stable. patient doing well. Waiting on safe discharge.appreciate case management assistance 07/07/16. Patient again seen and examined. Continue stable. Waiting on safe to discharge. 07/08/16. Patient continues stable. She says shehas started her menses. Minimal bleeding. has had issues with heavy bleeding in the past. will Let us know if this worsens. 07/09/16. Patient continues to be stable. No complaints. Expect safe discharge in July. 07/10/16. Patient continues stable. Continues on period With slight bleeding. Will let us know if any changes. //Pannicular abscess/Cellulitis-resolved. Abdominal cultures were positive for Klebsiella pneumonia ESBL. Patient was given antibiotics which she has since completed. Continue wound care, Diflucan stopped 06/21/16. //Morbid obesity. counselled. Will Follow up outpatient with Bariatric surgeon. PT, however patient is nonambulatory [id number]. //Symptomatic anemia- resolved continue prophylactic Lovenox, hgb stable. Patient is bedbound with high risks for DVT. Hemoglobin stable. //Chronic pain [place] 10/650mg PO Q4H as needed //Lower extremity cramping: BMP stable. CK and thyroid function tests normal. No further cramping, resolved. //Depression. Continue paroxetine. No SI. Mood slightly improved with keeping window blinds open during the day. Continue to monitor. //Diarrhea:Resolved with Conservative treatment with antidiarrheal motility agents //Prophylaxis. Continue Lovenox. Discharge Planning Continues with physical therapy. Hopefully we will be able to go home when arrangements are made. Appreciate case management assistance. Demarcus Ramos MD Jul 10, 2016 12:31
[2016-07-10 20:00] VITALS: BP 129/74; PULSE 78; RESP 20; TEMP 95.4; O2SAT 93
[2016-07-11] MEDS: GABAPENTIN 300 MG CAP PO SCH ×3 (05:31→19:23)
[2016-07-11] MEDS: ACETAMINOPHEN/HYDROcodone 325 MG/5 MG TAB PO PRN ×4 (05:31→18:10)
[2016-07-11 08:00] VITALS: BP 122/64; PULSE 89; RESP 20; TEMP 98.4; O2SAT 92
[2016-07-11] MEDS: NYSTATIN 100,000 U/GM OINT 15 GM TUBE TOPICAL SCH ×2 (09:00→19:24)
[2016-07-11] MEDS: SODIUM CHLORIDE 0.9% FLUSH 5 ML FLUSH FLUSH SCH ×2 (09:00→19:23)
[2016-07-11] MEDS: PARoxetine 25 MG CONTROLLED RELEASE TAB PO SCH (09:28)
[2016-07-11] MEDS: PANTOPRAZOLE SOD 20 MG DELAYED RELEASE TAB PO SCH (09:28)
[2016-07-11] MEDS: DICYCLOMINE HCL 20 MG TAB PO SCH ×3 (09:28→17:45)
[2016-07-11] MEDS: FOLIC ACID 1 MG TAB PO SCH (09:28)
[2016-07-11] MEDS: LACTOBACILLUS ACIDOPHILUS 1 GM PACKET PO SCH ×3 (09:29→17:45)
[2016-07-11] MEDS: FERROUS SULFATE 325 MG (65 MG ELEMENTAL IRON) TAB PO SCH ×2 (14:04→17:45)
[2016-07-11] MEDS: ENOXAPARIN SODIUM 40 MG/0.4 ML SYRINGE SQ SCH (14:04)
[2016-07-11] MEDS: LACTOBACILLUS ACIDOPHILUS TAB PO SCH (19:22)
[2016-07-11 20:00] VITALS: BP 133/65; PULSE 81; RESP 20; TEMP 95.8; O2SAT 95
--- NOTE | 2016-07-11 23:37 | HHI.PR ---
Subjective Remarks Patient seen this morning around 11am says she is feeling well. Denies any chest pain shortness of breath. She requests that Lactinex packet be made tablet Objective Vital Signs Date Time Temp Pulse Resp B/P Pulse Ox O2 Delivery O2 Flow Rate FiO2 07/11/16 20:00 95.8 81 20 133/65 95 07/11/16 08:00 98.4 89 20 122/64 92 I/O 07/10/16 07/10/16 07/10/16 07/11/16 07/11/16 07/11/16 07:00 15:00 23:00 07:00 15:00 23:00 Intake Total 620 ml 1200 ml 480 ml 240 ml 1200 ml 320 ml Balance 620 ml 1200 ml 480 ml 240 ml 1200 ml 320 ml Intake Oral 620 ml 1200 ml 480 ml 240 ml 1200 ml 320 ml IV Total 0 ml # Voids 4 6 2 2 4 2 # Bowel Movements 0 0 2 0 0 Objective Remarks GENERAL: morbidly obese female. Lying in bed. Alert oriented x3.again, no change on exam. SKIN: Warm and dry. HEAD: Normocephalic. EYES: No scleral icterus. No injection or drainage. NECK: Supple, trachea midline. No JVD, although difficult assessment owing to body habitus. CARDIOVASCULAR: Regular rate and rhythm without murmurs, gallops, or rubs. RESPIRATORY: Breath sounds equal bilaterally. No accessory muscle use. distant breath sounds owing to body habitus. GASTROINTESTINAL: Abdomen soft, non-tender, nondistended. MUSCULOSKELETAL: No cyanosis, or edema. BACK: Nontender without obvious deformity. No CVA tenderness. A/P Assessment and Plan 07/06/16- patient seen and examined. Stable. patient doing well. Waiting on safe discharge.appreciate case management assistance 07/07/16. Patient again seen and examined. Continue stable. Waiting on safe to discharge. 07/08/16. Patient continues stable. She says shehas started her menses. Minimal bleeding. has had issues with heavy bleeding in the past. will Let us know if this worsens. 07/09/16. Patient continues to be stable. No complaints. Expect safe discharge in July. 07/10/16. Patient continues stable. Continues on period With slight bleeding. Will let us know if any changes. 07/11. Patient seen and examined. Change Lactinex tablets. Check vitamin D as per dietary recommendations. //Pannicular abscess/Cellulitis-resolved. Abdominal cultures were positive for Klebsiella pneumonia ESBL. Patient was given antibiotics which she has since completed. Continue wound care, Diflucan stopped 06/21/16. //Morbid obesity. counselled. Will Follow up outpatient with Bariatric surgeon. PT, however patient is nonambulatory [id number]. //Symptomatic anemia- resolved continue prophylactic Lovenox, hgb stable. Patient is bedbound with high risks for DVT. Hemoglobin stable. //Chronic pain [place] 10/650mg PO Q4H as needed //Lower extremity cramping: BMP stable. CK and thyroid function tests normal. No further cramping, resolved. //Depression. Continue paroxetine. No SI. Mood slightly improved with keeping window blinds open during the day. Continue to monitor. //Diarrhea:Resolved with Conservative treatment with antidiarrheal motility agents //Prophylaxis. Continue Lovenox. Discharge Planning Continues with physical therapy. Hopefully we will be able to go home when arrangements are made. Appreciate case management assistance. Demarcus Ramos MD Jul 11, 2016 23:37
[2016-07-12] MEDS: GABAPENTIN 300 MG CAP PO SCH ×3 (05:31→20:12)
[2016-07-12] MEDS: ACETAMINOPHEN/HYDROcodone 325 MG/5 MG TAB PO PRN ×5 (05:34→22:31)
[2016-07-12 07:58] VITALS: BP 116/71; PULSE 97; RESP 17; TEMP 96.1; O2SAT 89
[2016-07-12] MEDS: SODIUM CHLORIDE 0.9% FLUSH 5 ML FLUSH FLUSH SCH ×2 (09:00→20:12)
[2016-07-12] MEDS: NYSTATIN 100,000 U/GM OINT 15 GM TUBE TOPICAL SCH ×2 (09:00→20:13)
[2016-07-12 09:30] VITALS: O2SAT 93
[2016-07-12] MEDS: FOLIC ACID 1 MG TAB PO SCH (09:31)
[2016-07-12] MEDS: LACTOBACILLUS ACIDOPHILUS TAB PO SCH ×2 (09:31→20:11)
[2016-07-12] MEDS: DICYCLOMINE HCL 20 MG TAB PO SCH ×3 (09:31→18:09)
[2016-07-12] MEDS: PANTOPRAZOLE SOD 20 MG DELAYED RELEASE TAB PO SCH (09:31)
[2016-07-12] MEDS: PARoxetine 25 MG CONTROLLED RELEASE TAB PO SCH (09:31)
[2016-07-12] MEDS: FERROUS SULFATE 325 MG (65 MG ELEMENTAL IRON) TAB PO SCH ×2 (14:09→18:09)
[2016-07-12] MEDS: ENOXAPARIN SODIUM 40 MG/0.4 ML SYRINGE SQ SCH (14:09)
--- NOTE | 2016-07-12 19:34 | HHI.PR ---
Subjective Remarks patient seen today around noon. Says she is feeling well. Denies any chest pain or shortness of breath. Denies any pain. Discussed with patient that her vitamin D level is very low. She agrees to start on vitamin D replacement, as well as multivitamin Objective Vital Signs Date Time Temp Pulse Resp B/P Pulse Ox O2 Delivery O2 Flow Rate FiO2 07/12/16 09:30 93 07/12/16 07:58 96.1 97 17 116/71 89 07/11/16 20:00 95.8 81 20 133/65 95 I/O 07/11/16 07/11/16 07/11/16 07/12/16 07/12/16 07/12/16 07:00 15:00 23:00 07:00 15:00 23:00 Intake Total 240 ml 1200 ml 320 ml 240 ml 430 ml Balance 240 ml 1200 ml 320 ml 240 ml 430 ml Intake Oral 240 ml 1200 ml 320 ml 240 ml 430 ml IV Total 0 ml 0 ml # Voids 2 4 2 2 4 # Bowel Movements 2 0 0 0 1 Objective Remarks GENERAL: morbidly obese female. Lying in bed.watching television. Alert oriented x3.again. SKIN: Warm and dry. HEAD: Normocephalic. EYES: No scleral icterus. No injection or drainage. NECK: Supple, trachea midline. No JVD, although difficult assessment owing to body habitus. CARDIOVASCULAR: Regular rate and rhythm without murmurs, gallops, or rubs. RESPIRATORY: Breath sounds equal bilaterally. No accessory muscle use. distant breath sounds owing to body habitus. GASTROINTESTINAL: Abdomen soft, non-tender, nondistended. MUSCULOSKELETAL: No cyanosis, or edema. BACK: Nontender without obvious deformity. No CVA tenderness. A/P Assessment and Plan 07/06/16- patient seen and examined. Stable. patient doing well. Waiting on safe discharge.appreciate case management assistance 07/07/16. Patient again seen and examined. Continue stable. Waiting on safe to discharge. 07/08/16. Patient continues stable. She says shehas started her menses. Minimal bleeding. has had issues with heavy bleeding in the past. will Let us know if this worsens. 07/09/16. Patient continues to be stable. No complaints. Expect safe discharge in July. 07/10/16. Patient continues stable. Continues on period With slight bleeding. Will let us know if any changes. 07/11. Patient seen and examined. Change Lactinex tablets. Check vitamin D as per dietary recommendations. 07/12. Patient seen and examined. Start vitamin D replacement for hypovitaminosis D. //Pannicular abscess/Cellulitis-resolved. Abdominal cultures were positive for Klebsiella pneumonia ESBL. Patient was given antibiotics which she has since completed. Continue wound care, Diflucan stopped 06/21/16. //Morbid obesity. counselled. Will Follow up outpatient with Bariatric surgeon. PT, however patient is nonambulatory [id number]. //Symptomatic anemia- resolved continue prophylactic Lovenox, hgb stable. Patient is bedbound with high risks for DVT. Hemoglobin stable. //Chronic pain [place] 10/650mg PO Q4H as needed //hypovitaminosis D. Appears to be severe. Start on replacement. Will need repeat vitamin D level in several months. we will also start patient on a vitamin //Lower extremity cramping: BMP stable. CK and thyroid function tests normal. No further cramping, resolved. //Depression. Continue paroxetine. No SI. Mood slightly improved with keeping window blinds open during the day. Continue to monitor. //Diarrhea:Resolved with Conservative treatment with antidiarrheal motility agents //Prophylaxis. Continue Lovenox. Discharge Planning Continues with physical therapy. Hopefully we will be able to go home when arrangements are made. Appreciate case management assistance. Demarcus Ramos MD Jul 12, 2016 19:34
[2016-07-12 20:00] VITALS: BP 114/55; PULSE 74; RESP 20; TEMP 96.6; O2SAT 96
[2016-07-12] MEDS: CHOLECALCIFEROL (VIT D3) 5000 UNIT CAP PO SCH (20:12)
[2016-07-13] MEDS: ACETAMINOPHEN/HYDROcodone 325 MG/5 MG TAB PO PRN ×4 (05:50→21:05)
[2016-07-13] MEDS: GABAPENTIN 300 MG CAP PO SCH ×3 (05:50→20:19)
[2016-07-13 08:00] VITALS: BP 143/63; PULSE 82; RESP 16; TEMP 96.2; O2SAT 93
[2016-07-13] MEDS: FOLIC ACID 1 MG TAB PO SCH (08:27)
[2016-07-13] MEDS: MULTIVITAMIN TAB PO SCH (08:27)
[2016-07-13] MEDS: PARoxetine 25 MG CONTROLLED RELEASE TAB PO SCH (08:27)
[2016-07-13] MEDS: CHOLECALCIFEROL (VIT D3) 5000 UNIT CAP PO SCH (08:28)
[2016-07-13] MEDS: SODIUM CHLORIDE 0.9% FLUSH 5 ML FLUSH FLUSH SCH (08:28)
[2016-07-13] MEDS: LACTOBACILLUS ACIDOPHILUS TAB PO SCH ×2 (08:28→20:20)
[2016-07-13] MEDS: PANTOPRAZOLE SOD 20 MG DELAYED RELEASE TAB PO SCH (08:28)
[2016-07-13] MEDS: DICYCLOMINE HCL 20 MG TAB PO SCH ×3 (08:28→17:12)
[2016-07-13] MEDS: NYSTATIN 100,000 U/GM OINT 15 GM TUBE TOPICAL SCH (08:29)
--- NOTE | 2016-07-13 09:39 | HHI.PR ---
Subjective Remarks No new issues. Neck fungal rash has resolved. Objective Vitals Vital Signs Date Time Temp Pulse Resp B/P Pulse Ox O2 Delivery O2 Flow Rate FiO2 07/13/16 08:00 96.2 82 16 143/63 93 07/12/16 23:31 16 07/12/16 20:00 96.6 74 20 114/55 96 I/O 07/12/16 07/12/16 07/12/16 07/13/16 07/13/16 07/13/16 07:00 15:00 23:00 07:00 15:00 23:00 Intake Total 240 ml 430 ml 480 ml 480 ml Balance 240 ml 430 ml 480 ml 480 ml Intake Oral 240 ml 430 ml 480 ml 480 ml IV Total 0 ml 0 ml # Voids 2 4 2 3 # Bowel Movements 0 1 0 0 Objective Remarks GENERAL: Morbidly obese in no apparent distress. CARDIOVASCULAR: Normal rate and regular rhythm without murmurs, gallops, or rubs. RESPIRATORY: Difficult exam due to morbid obesity. Lung sounds diminished bilaterally. No wheezing appreciated. GASTROINTESTINAL: Abdomen morbidly obese, pannus with erythema, warmth. Anterior abdomen has pitting edema. Unchanged NEURO: Awake and alert. Normal speech PSYCH: Appropriate mood and affect. A/P Problem List: (1) Infection due to ESBL-producing Klebsiella pneumoniae ICD Code: A49.8 Status: Resolved (2) Cellulitis ICD Code: L03.90 Status: Resolved (3) Depression ICD Code: F32.9 Status: Chronic (4) Folic acid deficiency ICD Code: E53.8 Status: Acute (5) Iron deficiency anemia ICD Code: D50.9 Status: Acute (6) B12 deficiency ICD Code: E53.8 Status: Acute (7) Morbid obesity with BMI of 70 and over, adult ICD Code: E66.01 Status: Chronic Assessment and Plan 40 years old morbidly obese female admitted with panniculitis. Patient has been treated, awaiting rehab placement. Pannicular abscess/Cellulitis-resolved. Abdominal cultures were positive for Klebsiella pneumonia ESBL. Patient was given antibiotics which she has since completed. Continue wound care, Diflucan stopped 06/21/16. Morbid obesity. counselled. Will Follow up outpatient with Bariatric surgeon. PT , however patient is nonambulatory [id number]. DC Nystatin Symptomatic anemia- resolved continue prophylactic Lovenox, hgb stable. Patient is bedbound with high risks for DVT. Hemoglobin stable. Chronic pain [place] 10/650mg PO Q4H as needed hypovitaminosis D. Appears to be severe. Start on replacement. Will need repeat vitamin D level in several months. we will also start patient on a vitamin Depression. Continue paroxetine. No SI. Mood slightly improved with keeping window blinds open during the day. Continue to monitor. Prophylaxis. Continue Lovenox. Discharge Planning Rehabilitation placement per case management Problem Qualifiers (1) Cellulitis: Qualified Code: L03.311 - Cellulitis of abdominal wall Carlo Ambriz MD Jul 13, 2016 09:39
[2016-07-13] MEDS: FERROUS SULFATE 325 MG (65 MG ELEMENTAL IRON) TAB PO SCH ×2 (12:11→17:12)
[2016-07-13] MEDS: ENOXAPARIN SODIUM 40 MG/0.4 ML SYRINGE SQ SCH (12:12)
[2016-07-13 20:00] VITALS: BP 128/61; PULSE 82; RESP 20; TEMP 97.2; O2SAT 93
[2016-07-14] MEDS: GABAPENTIN 300 MG CAP PO SCH ×3 (05:19→19:44)
[2016-07-14 08:00] VITALS: BP 125/60; PULSE 103; RESP 16; TEMP 97; O2SAT 93
[2016-07-14] MEDS: MULTIVITAMIN TAB PO SCH (08:16)
[2016-07-14] MEDS: LACTOBACILLUS ACIDOPHILUS TAB PO SCH ×2 (08:16→19:45)
[2016-07-14] MEDS: CHOLECALCIFEROL (VIT D3) 5000 UNIT CAP PO SCH (08:16)
[2016-07-14] MEDS: PARoxetine 25 MG CONTROLLED RELEASE TAB PO SCH (08:16)
[2016-07-14] MEDS: PANTOPRAZOLE SOD 20 MG DELAYED RELEASE TAB PO SCH (08:16)
[2016-07-14] MEDS: FOLIC ACID 1 MG TAB PO SCH (08:17)
[2016-07-14] MEDS: DICYCLOMINE HCL 20 MG TAB PO SCH ×3 (08:17→17:14)
[2016-07-14] MEDS: ACETAMINOPHEN/HYDROcodone 325 MG/5 MG TAB PO PRN ×3 (08:22→17:14)
--- NOTE | 2016-07-14 10:54 | HHI.PR ---
Subjective Remarks Patient seen and evaluated in follow-up for discharge planning. No new events Objective Vitals Vital Signs Date Time Temp Pulse Resp B/P Pulse Ox O2 Delivery O2 Flow Rate FiO2 07/14/16 09:22 18 07/14/16 08:00 97.0 103 16 125/60 93 07/13/16 20:00 97.2 82 20 128/61 93 I/O 07/13/16 07/13/16 07/13/16 07/14/16 07/14/16 07/14/16 06:59 14:59 22:59 06:59 14:59 22:59 Intake Total 480 ml 960 ml 480 ml 120 ml Balance 480 ml 960 ml 480 ml 120 ml Intake Oral 480 ml 960 ml 480 ml 120 ml IV Total 0 ml 0 ml # Voids 3 3 2 1 # Bowel Movements 0 0 Objective Remarks GENERAL: This is a well-nourished, well-developed patient, in no apparent distress. Morbidly obese CARDIOVASCULAR: Regular rate and rhythm without murmurs, gallops, or rubs. RESPIRATORY: Clear to auscultation. Breath sounds equal bilaterally. No wheezes , rales, or rhonchi. GASTROINTESTINAL: Abdomen soft, non-tender, nondistended. Normal active bowel sounds MUSCULOSKELETAL: Extremities without clubbing, cyanosis, or edema. NEURO: Alert & Oriented x4 to person, place, time, situation. Moves all ext x4 but is not ambulatory at baseline A/P Assessment and Plan Hospital day 78 for this 40 years old morbidly obese female admitted with panniculitis. Patient has been treated, awaiting safe discharge 1. Morbid obesity. counselled. Will Follow up outpatient with Bariatric surgeon. PT, however patient is nonambulatory [id number]. 2. Symptomatic anemia- resolved 3. Chronic pain [place] 10/650mg PO Q4H as needed 4. Hypovitaminosis D. continue vitamin D Depression. 5. Depression. Continue paroxetine. No SI. Mood slightly improved with keeping window blinds open during the day. Continue to monitor. Prophylaxis. Continue Lovenox. Discharge Planning Case management aware of barriers to discharge Eva Dominguez MD Jul 14, 2016 10:54
[2016-07-14] MEDS: FERROUS SULFATE 325 MG (65 MG ELEMENTAL IRON) TAB PO SCH ×2 (11:49→16:59)
[2016-07-14] MEDS: ENOXAPARIN SODIUM 40 MG/0.4 ML SYRINGE SQ SCH (13:23)
[2016-07-14 20:00] VITALS: BP 109/66; PULSE 85; RESP 20; TEMP 96; O2SAT 92
[2016-07-15] VITALS: BP 134/59; PULSE 90; RESP 19; TEMP 96; O2SAT 92
[2016-07-15] MEDS: ACETAMINOPHEN/HYDROcodone 325 MG/5 MG TAB PO PRN ×5 (05:45→23:42)
[2016-07-15] MEDS: GABAPENTIN 300 MG CAP PO SCH ×3 (05:46→20:57)
[2016-07-15] MEDS: FOLIC ACID 1 MG TAB PO SCH (07:57)
[2016-07-15] MEDS: MULTIVITAMIN TAB PO SCH (07:57)
[2016-07-15] MEDS: DICYCLOMINE HCL 20 MG TAB PO SCH ×3 (07:57→17:47)
[2016-07-15] MEDS: PARoxetine 25 MG CONTROLLED RELEASE TAB PO SCH (07:58)
[2016-07-15] MEDS: CHOLECALCIFEROL (VIT D3) 5000 UNIT CAP PO SCH (07:58)
[2016-07-15] MEDS: PANTOPRAZOLE SOD 20 MG DELAYED RELEASE TAB PO SCH (07:58)
[2016-07-15] MEDS: LACTOBACILLUS ACIDOPHILUS TAB PO SCH ×2 (07:58→20:57)
[2016-07-15 08:00] VITALS: BP 113/78; PULSE 77; RESP 17; TEMP 97.8; O2SAT 93
--- NOTE | 2016-07-15 10:44 | HHI.PR ---
Subjective Remarks Follow up visit panniculitis, morbid obesity, DC planning. Pt. seen today. States she is doing well. Sleepy because she was awakened by new staff overnight. Otherwise, denies pain, discomfort, SOB/ Dyspnea, fevers, chills, n/ v/d. As per staff no acute issues overnight. Objective Vitals Vital Signs Date Time Temp Pulse Resp B/P Pulse Ox O2 Delivery O2 Flow Rate FiO2 07/15/16 08:00 97.8 77 17 113/78 93 07/15/16 06:45 18 07/15/16 00:00 96.0 90 19 134/59 92 07/14/16 20:00 96.0 85 20 109/66 92 I/O 07/14/16 07/14/16 07/14/16 07/15/16 07/15/16 07/15/16 07:00 15:00 23:00 07:00 15:00 23:00 Intake Total 120 ml 722 ml 240 ml Balance 120 ml 722 ml 240 ml Intake Oral 120 ml 720 ml 240 ml IV Total 0 ml 2 ml # Voids 1 4 1 # Bowel Movements 1 0 Objective Remarks GENERAL: Morbidly obese in no apparent distress. CARDIOVASCULAR: Normal rate and regular rhythm without murmurs, gallops, or rubs. RESPIRATORY: Difficult exam due to morbid obesity. Lung sounds diminished bilaterally. No wheezing appreciated. GASTROINTESTINAL: Abdomen morbidly obese, pannus with erythema, warmth. Anterior abdomen has pitting edema. Unchanged NEURO: Awake and alert. Normal speech. PSYCH: Appropriate mood and affect. A/P Problem List: (1) Infection due to ESBL-producing Klebsiella pneumoniae ICD Code: A49.8 Status: Resolved (2) Cellulitis ICD Code: L03.90 Status: Resolved (3) Depression ICD Code: F32.9 Status: Chronic (4) Folic acid deficiency ICD Code: E53.8 Status: Acute (5) Iron deficiency anemia ICD Code: D50.9 Status: Acute (6) B12 deficiency ICD Code: E53.8 Status: Acute (7) Morbid obesity with BMI of 70 and over, adult ICD Code: E66.01 Status: Chronic Assessment and Plan 40 years old morbidly obese female admitted with panniculitis. Patient has been treated, awaiting rehab placement. Pannicular abscess/Cellulitis-resolved. Abdominal cultures were positive for Klebsiella pneumonia ESBL. Patient was given antibiotics which she has since completed. Continue wound care, Diflucan stopped 06/21/16. Morbid obesity. counselled. Will Follow up outpatient with Bariatric surgeon. PT , however patient is nonambulatory [id number]. DC Nystatin Symptomatic anemia- resolved continue prophylactic Lovenox, hgb stable. Patient is bedbound with high risks for DVT. Hemoglobin stable. Chronic pain [place] 10/650mg PO Q4H as needed hypovitaminosis D. Appears to be severe. Replacement with VitD 5,000units daily. Will need repeat vitamin D level in several months. we will also start patient on a multivitamin Depression. Continue paroxetine. No SI. Mood slightly improved with keeping window blinds open during the day. Continue to monitor. States she had family and boyfriend over for [place] and received presents from mother. DVT Prophylaxis. Continue Lovenox. Discharge Planning Plan to DC to SNF, case management aware. Barriers with DC. Attending Statement The exam, history, and the medical decision-making described in the above note were completed with my assistance as the dictating practitioner. I attest that I had a [id number] encounter with the patient on the same day, and personally performed all of the history, exam, or medical decision making. I reviewed and agree with the plan.. Patient doing well. No events Problem Qualifiers (1) Cellulitis: Qualified Code: L03.311 - Cellulitis of abdominal wall Jonny Newby Jul 15, 2016 10:44 Eva Dominguez MD Jul 15, 2016 10:48
[2016-07-15] MEDS: FERROUS SULFATE 325 MG (65 MG ELEMENTAL IRON) TAB PO SCH ×2 (12:07→17:47)
[2016-07-15] MEDS: ENOXAPARIN SODIUM 40 MG/0.4 ML SYRINGE SQ SCH (13:13)
[2016-07-15 19:58] VITALS: BP 123/57; PULSE 80; RESP 18; TEMP 96; O2SAT 94
[2016-07-15 23:38] VITALS: BP 119/53; PULSE 90; RESP 18; TEMP 97.3; O2SAT 92
[2016-07-16] MEDS: ACETAMINOPHEN/HYDROcodone 325 MG/5 MG TAB PO PRN ×4 (05:04→20:13)
[2016-07-16] MEDS: GABAPENTIN 300 MG CAP PO SCH ×3 (05:05→20:12)
[2016-07-16 08:00] VITALS: BP 116/56; PULSE 81; RESP 17; TEMP 96.9; O2SAT 95
[2016-07-16] MEDS: CHOLECALCIFEROL (VIT D3) 5000 UNIT CAP PO SCH (08:43)
[2016-07-16] MEDS: PARoxetine 25 MG CONTROLLED RELEASE TAB PO SCH (08:43)
[2016-07-16] MEDS: MULTIVITAMIN TAB PO SCH (08:43)
[2016-07-16] MEDS: DICYCLOMINE HCL 20 MG TAB PO SCH ×3 (08:43→16:55)
[2016-07-16] MEDS: FOLIC ACID 1 MG TAB PO SCH (08:43)
[2016-07-16] MEDS: PANTOPRAZOLE SOD 20 MG DELAYED RELEASE TAB PO SCH (08:43)
[2016-07-16] MEDS: LACTOBACILLUS ACIDOPHILUS TAB PO SCH ×2 (08:45→20:12)
--- NOTE | 2016-07-16 09:58 | HHI.PR ---
Subjective Remarks Patient seen and evaluated and followed for medical management of morbid obesity. Discharge planning. No new events Objective Vitals Vital Signs Date Time Temp Pulse Resp B/P Pulse Ox O2 Delivery O2 Flow Rate FiO2 07/16/16 08:00 96.9 81 17 116/56 95 07/15/16 23:38 97.3 90 18 119/53 92 07/15/16 19:58 96.0 80 18 123/57 94 07/15/16 14:50 18 I/O 07/15/16 07/15/16 07/15/16 07/16/16 07/16/16 07/16/16 07:00 15:00 23:00 07:00 15:00 23:00 Intake Total 240 ml 480 ml 360 ml Balance 240 ml 480 ml 360 ml Intake Oral 240 ml 480 ml 360 ml IV Total 0 ml 0 ml # Voids 2 2 2 # Bowel Movements 1 Objective Remarks GENERAL: This is a well-nourished, well-developed patient, in no apparent distress. Morbidly obese CARDIOVASCULAR: Regular rate and rhythm without murmurs, gallops, or rubs. RESPIRATORY: Clear to auscultation. Breath sounds equal bilaterally. No wheezes , rales, or rhonchi. GASTROINTESTINAL: Abdomen soft, non-tender, nondistended. Normal active bowel sounds MUSCULOSKELETAL: Extremities without clubbing, cyanosis, or edema. NEURO: Alert & Oriented x4 to person, place, time, situation. Moves all ext x4 but is not ambulatory at baseline A/P Assessment and Plan Hospital day 79 for this 40 years old morbidly obese female admitted with panniculitis. Patient has been treated, awaiting safe discharge 1. Morbid obesity. counselled. Will Follow up outpatient with Bariatric surgeon. PT, however patient is nonambulatory [id number]. 2. Panniculitis, resolved after ABX 3. Chronic pain [place] 10/650mg PO Q4H as needed 4. Hypovitaminosis D, low folic acid, iron deficiency continue vitamin D, folic acid, iron, labs pending 5. Depression. Continue paroxetine. No SI. Mood slightly improved with keeping window blinds open during the day. Continue to monitor. PT [id number] for maintenance of current level of function Prophylaxis. Continue Lovenox. Probiotic Discharge Planning Case management aware of barriers to discharge Eva Dominguez MD Jul 16, 2016 09:58
[2016-07-16] MEDS: ENOXAPARIN SODIUM 40 MG/0.4 ML SYRINGE SQ SCH (11:58)
[2016-07-16] MEDS: FERROUS SULFATE 325 MG (65 MG ELEMENTAL IRON) TAB PO SCH ×2 (11:58→16:55)
[2016-07-16 20:31] VITALS: BP 109/56; PULSE 81; RESP 20; TEMP 97.5; O2SAT 98
[2016-07-16 23:44] VITALS: BP 114/56; PULSE 94; RESP 18; TEMP 96.4; O2SAT 94
[2016-07-17] MEDS: GABAPENTIN 300 MG CAP PO SCH ×3 (05:01→22:01)
[2016-07-17] MEDS: ACETAMINOPHEN/HYDROcodone 325 MG/5 MG TAB PO PRN ×5 (05:01→22:01)
[2016-07-17 06:25] LABS: AUTOMATED NEUTROPHIL # 3.1 TH/MM3 (1.8-7.7); BASOPHIL # 0.1 TH/MM3 (0-0.2); BASOPHIL % 1.7 % (0.0-2.0); EOSINOPHIL # 0.3 TH/MM3 (0-0.4); EOSINOPHIL % 4.6 % (0.0-4.0); HEMATOCRIT 54.1 % (35.0-46.0); HEMO FLAGS DIFF FINAL; LYMPH % 27.9 % (9.0-44.0); LYMPHOCYTE # 1.6 TH/MM3 (1.0-4.8); MEAN CELL VOLUME 88.9 FL (80.0-100.0); MEAN CORPUSCULAR HEMOGLOBIN 28.6 PG (27.0-34.0); MEAN CORPUSCULAR HGB CONC 32.2 % (32.0-36.0); MONO % 10.9 % (0.0-8.0); NEUT % 54.9 % (16.0-70.0); PLATELET COUNT 214 TH/MM3 (150-450); RED BLOOD COUNT 6.08 MIL/MM3 (4.00-5.30); RED CELL DISTRIBUTION WIDTH 16.2 % (11.6-17.2); WHITE BLOOD COUNT 5.7 TH/MM3 (4.0-11.0)
[2016-07-17 06:56] LABS: ANION GAP 7 MEQ/L (5-15); BICARBONATE 29.9 MEQ/L (21.0-32.0); BLOOD UREA NITROGEN 12 MG/DL (7-18); CHLORIDE 102 MEQ/L (98-107); GLOMERULAR FILTRATION RATE 77 ML/MIN (>89); POTASSIUM 4.2 MEQ/L (3.5-5.1); SODIUM (NA) 139 MEQ/L (136-145)
[2016-07-17 08:00] VITALS: BP 118/56; PULSE 82; RESP 17; TEMP 95.5; O2SAT 94
[2016-07-17] MEDS: FOLIC ACID 1 MG TAB PO SCH (09:03)
[2016-07-17] MEDS: PARoxetine 25 MG CONTROLLED RELEASE TAB PO SCH (09:03)
[2016-07-17] MEDS: MULTIVITAMIN TAB PO SCH (09:03)
[2016-07-17] MEDS: DICYCLOMINE HCL 20 MG TAB PO SCH ×3 (09:03→17:43)
[2016-07-17] MEDS: LACTOBACILLUS ACIDOPHILUS TAB PO SCH ×2 (09:03→22:01)
[2016-07-17] MEDS: CHOLECALCIFEROL (VIT D3) 5000 UNIT CAP PO SCH (09:03)
[2016-07-17] MEDS: PANTOPRAZOLE SOD 20 MG DELAYED RELEASE TAB PO SCH (09:03)
--- NOTE | 2016-07-17 10:03 | HHI.PR ---
Subjective Remarks Follow up: morbid obesity and Panniculitis Patient seen and evaluated and followed for medical management of morbid obesity. Panniculitis resolve Offers no new complaints reports feeling a little sad that she is in the hospital during the holidays Discharge planning. No new events Objective Vitals Vital Signs Date Time Temp Pulse Resp B/P Pulse Ox O2 Delivery O2 Flow Rate FiO2 07/17/16 08:00 95.5 82 17 118/56 94 07/16/16 23:44 96.4 94 18 114/56 94 07/16/16 20:31 97.5 81 20 109/56 98 I/O 07/16/16 07/16/16 07/16/16 07/17/16 07/17/16 07/17/16 06:59 14:59 22:59 06:59 14:59 22:59 Intake Total 360 ml 0 ml 480 ml 480 ml Balance 360 ml 0 ml 480 ml 480 ml Intake Oral 360 ml 480 ml 480 ml IV Total 0 ml 0 ml 0 ml 0 ml # Voids 2 3 4 Result Diagram: 07/17/16 0500 07/17/16 0500 Objective Remarks GENERAL: This is a morbidly obese female patient, in no apparent distress. INTEGUMENTARY: Panus area slight erythema patient reports that this is much better for her CARDIOVASCULAR: difficult to auscultate due to body habitus, Regular rate and rhythm without murmurs, gallops, or rubs. RESPIRATORY: difficult to auscultate due to body habitus. Clear to auscultation. Breath sounds equal bilaterally. No wheezes, rales, or rhonchi. GASTROINTESTINAL: Abdominal ulcer resolved although there is still some chronic lymphangitic edema of the pannus. Abdomen soft, non-tender, nondistended. Normal active bowel sounds MUSCULOSKELETAL: Extremities without clubbing, cyanosis, or edema. NEURO: Alert & Oriented x4 to person, place, time, situation. Moves all ext x4 but is not ambulatory at baseline A/P Problem List: (1) Infection due to ESBL-producing Klebsiella pneumoniae ICD Code: A49.8 Status: Resolved (2) Cellulitis ICD Code: L03.90 Status: Resolved (3) Depression ICD Code: F32.9 Status: Chronic (4) Folic acid deficiency ICD Code: E53.8 Status: Acute (5) Iron deficiency anemia ICD Code: D50.9 Status: Acute (6) B12 deficiency ICD Code: E53.8 Status: Acute (7) Morbid obesity with BMI of 70 and over, adult ICD Code: E66.01 Status: Chronic Assessment and Plan Hospital day 81 for this 40 years old morbidly obese female admitted with panniculitis. Patient has been treated, awaiting safe discharge 1. Morbid obesity. counselled. Will Follow up outpatient with Bariatric surgeon. PT, however patient is nonambulatory [id number]. 2. Panniculitis, resolved after ABX 3. Chronic pain Mansura 10/650mg PO Q4H as needed 4. Hypovitaminosis D, low folic acid, iron deficiency continue vitamin D, folic acid, iron, labs pending 5. Depression. Continue paroxetine. No SI. reports feeling sad that she is in the hospital during the holidays. continue with keeping window blinds open during the day. Continue to monitor. PT [id number] for maintenance of current level of function Prophylaxis. Continue Lovenox. Probiotic Discussed with patient, ADEEL, RN and Dr. Dominguez Problem Qualifiers (1) Cellulitis: Qualified Code: L03.311 - Cellulitis of abdominal wall Simin Overton Jul 17, 2016 10:03 Eva Dominguez MD Jul 17, 2016 10:46 GENERAL: This is a morbidly obese female patient, in no apparent distress. INTEGUMENTARY: Panus area slight erythema patient reports that this is much better for her CARDIOVASCULAR: difficult to auscultate due to body habitus, Regular rate and rhythm without murmurs, gallops, or rubs. RESPIRATORY: difficult to auscultate due to body habitus. Clear to auscultation. Breath sounds equal bilaterally. No wheezes, rales, or rhonchi. GASTROINTESTINAL: Abdominal ulcer resolved although there is still some chronic lymphangitic edema of the pannus. Abdomen soft, non-tender, nondistended. Normal active bowel sounds MUSCULOSKELETAL: Extremities without clubbing, cyanosis, or edema. NEURO: Alert & Oriented x4 to person, place, time, situation. Moves all ext x4 but is not ambulatory at baseline A/P Problem List: (1) Infection due to ESBL-producing Klebsiella pneumoniae ICD Code: A49.8 Status: Resolved (2) Cellulitis ICD Code: L03.90 Status: Resolved (3) Depression ICD Code: F32.9 Status: Chronic (4) Folic acid deficiency ICD Code: E53.8 Status: Acute (5) Iron deficiency anemia ICD Code: D50.9 Status: Acute (6) B12 deficiency ICD Code: E53.8 Status: Acute (7) Morbid obesity with BMI of 70 and over, adult ICD Code: E66.01 Status: Chronic Assessment and Plan Patient seen and evaluated and followed for medical management of morbid obesity. Discharge planning. No new events Objective Vitals Vital Signs Date Time Temp Pulse Resp B/P Pulse Ox O2 Delivery O2 Flow Rate FiO2 07/16/16 08:00 96.9 81 17 116/56 95 07/15/16 23:38 97.3 90 18 119/53 92 07/15/16 19:58 96.0 80 18 123/57 94 07/15/16 14:50 18 I/O 07/15/16 07/15/16 07/15/16 07/16/16 07/16/16 07/16/16 07:00 15:00 23:00 07:00 15:00 23:00 Intake Total 240 ml 480 ml 360 ml Balance 240 ml 480 ml 360 ml Intake Oral 240 ml 480 ml 360 ml IV Total 0 ml 0 ml # Voids 2 2 2 # Bowel Movements 1 Objective Remarks GENERAL: This is a well-nourished, well-developed patient, in no apparent distress. Morbidly obese CARDIOVASCULAR: Regular rate and rhythm without murmurs, gallops, or rubs. RESPIRATORY: Clear to auscultation. Breath sounds equal bilaterally. No wheezes , rales, or rhonchi. GASTROINTESTINAL: Abdomen soft, non-tender, nondistended. Normal active bowel sounds MUSCULOSKELETAL: Extremities without clubbing, cyanosis, or edema. NEURO: Alert & Oriented x4 to person, place, time, situation. Moves all ext x4 but is not ambulatory at baseline A/P Assessment and Plan Hospital day 79 for this 40 years old morbidly obese female admitted with panniculitis. Patient has been treated, awaiting safe discharge 1. Morbid obesity. counselled. Will Follow up outpatient with Bariatric surgeon. PT, however patient is nonambulatory [id number]. 2. Panniculitis, resolved after ABX 3. Chronic pain Mansura 10/650mg PO Q4H as needed 4. Hypovitaminosis D, low folic acid, iron deficiency continue vitamin D, folic acid, iron, labs pending 5. Depression. Continue paroxetine. No SI. Mood slightly improved with keeping window blinds open during the day. Continue to monitor. PT [id number] for maintenance of current level of function Prophylaxis. Continue Lovenox. Probiotic Problem Qualifiers (1) Cellulitis: Qualified Code: L03.311 - Cellulitis of abdominal wall Simin Overton Jul 17, 2016 10:03
[2016-07-17] MEDS: FERROUS SULFATE 325 MG (65 MG ELEMENTAL IRON) TAB PO SCH ×2 (12:41→17:43)
[2016-07-17] MEDS: ENOXAPARIN SODIUM 40 MG/0.4 ML SYRINGE SQ SCH (12:42)
[2016-07-17 20:00] VITALS: BP 113/54; PULSE 81; RESP 19; TEMP 95.8; O2SAT 94
[2016-07-18] VITALS: BP 108/51; PULSE 103; RESP 19; TEMP 95.8; O2SAT 94
[2016-07-18] MEDS: ACETAMINOPHEN/HYDROcodone 325 MG/5 MG TAB PO PRN ×5 (04:34→22:43)
[2016-07-18] MEDS: GABAPENTIN 300 MG CAP PO SCH ×3 (04:34→20:25)
[2016-07-18 08:00] VITALS: BP 106/52; PULSE 80; RESP 17; TEMP 96; O2SAT 89
[2016-07-18] MEDS: LACTOBACILLUS ACIDOPHILUS TAB PO SCH ×2 (09:11→20:25)
[2016-07-18] MEDS: MULTIVITAMIN TAB PO SCH (09:11)
[2016-07-18] MEDS: CHOLECALCIFEROL (VIT D3) 5000 UNIT CAP PO SCH (09:11)
[2016-07-18] MEDS: PARoxetine 25 MG CONTROLLED RELEASE TAB PO SCH (09:11)
[2016-07-18] MEDS: FOLIC ACID 1 MG TAB PO SCH (09:11)
[2016-07-18] MEDS: PANTOPRAZOLE SOD 20 MG DELAYED RELEASE TAB PO SCH (09:11)
[2016-07-18] MEDS: DICYCLOMINE HCL 20 MG TAB PO SCH ×3 (09:11→17:24)
[2016-07-18] MEDS: FERROUS SULFATE 325 MG (65 MG ELEMENTAL IRON) TAB PO SCH ×2 (13:07→17:24)
[2016-07-18] MEDS: ENOXAPARIN SODIUM 40 MG/0.4 ML SYRINGE SQ SCH (13:07)
--- NOTE | 2016-07-18 15:42 | HHI.PR ---
Subjective Remarks Deferred entry - patient seen at 1 pm denies cp/sob denies fevers or chills had a bowel movement today denies nausea and vomiting denies diarrhea Objective Vitals Vital Signs Date Time Temp Pulse Resp B/P Pulse Ox O2 Delivery O2 Flow Rate FiO2 07/18/16 08:00 96.0 80 17 106/52 89 07/18/16 00:00 95.8 103 19 108/51 94 07/17/16 20:00 95.8 81 19 113/54 94 I/O 07/17/16 07/17/16 07/17/16 07/18/16 07/18/16 07/18/16 06:59 14:59 22:59 06:59 14:59 22:59 Intake Total 480 ml 500 ml 480 ml 480 ml 450 ml Output Total 600 ml Balance 480 ml -100 ml 480 ml 480 ml 450 ml Intake Oral 480 ml 500 ml 480 ml 480 ml 450 ml IV Total 0 ml Output Urine Total 600 ml # Voids 4 2 2 4 # Bowel Movements 1 1 Result Diagram: 07/17/16 0500 07/17/16 0500 Objective Remarks awake and alert, oriented x 3, not in distress morbidly obese anicteric neck- right neck with some erythematous excoriations,, dry lungs clear radial pulses ++, regular abdomen- flabby, anterior-umbilicus stretched vertically about 3 cm- dry, no erythema back- no open wounds, no sacral erythema motor- moves all extremities spontaeneous - LE limited by weight Medications and IVs Current Medications Medications (Trade) Dose Ordered Sig/Gerda Route Start Time Stop Time Status Last Admin (Tylenol) 650 mg Q4H PRN PO 04/26/16 23:45 (Compazine Supp) 25 mg Q12H PRN [place] 04/26/16 23:45 (Dulcolax Supp) 10 mg DAILY PRN VT 04/26/16 23:45 (Milk Of Magnesia Liq) 30 ml Q12H PRN PO 04/26/16 23:45 04/27/16 03:40 (Senokot) 17.2 mg Q12H PRN PO 04/26/16 23:45 (Restoril) 15 mg HS PRN PO 04/26/16 23:45 (Neurontin) 600 mg DAILY@0530 PO 04/27/16 05:30 07/18/16 04:34 (Protonix) 20 mg DAILY PO 04/27/16 09:00 07/18/16 09:11 (Neurontin) 300 mg BID PO 04/27/16 09:00 07/18/16 09:11 (Ferrous Sulfate) 325 mg BID@12,17 PO 04/28/16 12:00 07/18/16 13:07 (Folate) 1 mg DAILY PO 04/29/16 09:00 07/18/16 09:11 (Vitamin B12 Inj) 1,000 mcg Q30D IM 04/30/16 16:00 06/29/16 17:32 (Bentyl) 20 mg TID PO 05/03/16 13:00 07/18/16 13:07 (Paxil Cr) 25 mg DAILY PO 05/10/16 09:00 07/18/16 09:11 (Evans 5-325 Mg) 2 tab Q4HR PRN PO 05/30/16 12:00 07/18/16 13:08 (Lovenox Inj) 40 mg Q24H SQ 05/30/16 13:00 07/18/16 13:07 (Lactinex) 1 tab Q12HR PO 07/11/16 21:00 07/18/16 09:11 (Vitamin D3) 5,000 units DAILY PO 07/12/16 18:30 07/18/16 09:11 (Theragran) 1 tab DAILY PO 07/13/16 09:00 07/18/16 09:11 Urinary Catheter: No Vascular Central Line Catheter: No A/P Problem List: (1) Infection due to ESBL-producing Klebsiella pneumoniae ICD Code: A49.8 Status: Resolved (2) Cellulitis ICD Code: L03.90 Status: Resolved (3) Depression ICD Code: F32.9 Status: Chronic (4) Folic acid deficiency ICD Code: E53.8 Status: Acute (5) Iron deficiency anemia ICD Code: D50.9 Status: Acute (6) B12 deficiency ICD Code: E53.8 Status: Acute (7) Morbid obesity with BMI of 70 and over, adult ICD Code: E66.01 Status: Chronic Assessment and Plan Hospital day 81 for this 40 years old morbidly obese female admitted with panniculitis. Patient has been treated, awaiting safe discharge 1. Morbid obesity. counselled. Will Follow up outpatient with Bariatric surgeon. PT, however patient is nonambulatory [id number]. 2. Panniculitis, resolved after ABX 3. Chronic pain Evans 10/650mg PO Q4H as needed 4. Hypovitaminosis D - Will give vitamin D 50,000 units once a week for 6 weeks. Then the patient will need repeat vitamin D levels. 5. Iron deficiency anemia - patient received IV iron sucrose 3 days on . Patient's hemoglobin now 17.4 and hematocrit 54.1. Hemoglobin has been trending up. Consult hematology. 5. Depression. Continue paroxetine. No SI. reports feeling sad that she is in the hospital during the holidays. continue with keeping window blinds open during the day. Continue to monitor. PT [id number] for maintenance of current level of function Prophylaxis. Continue Lovenox. Probiotic Discharge Planning Dc pending ID clearance Problem Qualifiers (1) Cellulitis: Qualified Code: L03.311 - Cellulitis of abdominal wall Aldair Paulino MD Jul 18, 2016 15:42
[2016-07-18] MEDS: ERGOCALCIFEROL (VIT D2) 50,000 UNIT CAP PO SCH (17:24)
[2016-07-18 20:00] VITALS: BP 115/58; PULSE 82; RESP 18; TEMP 97.5; O2SAT 92
[2016-07-18 20:58] LABS: BLOOD GAS BASE EXCESS 5.1 mmol/L (-2-2); BLOOD GAS CARBOXYHEMOGLOBIN 1.5 % (0-4); BLOOD GAS HCO3 30 mmol/L (22-26); BLOOD GAS METHEMOGLOBIN 0.6 % (0-2); BLOOD GAS O2 HGB SATURATION 90 % (90-100); BLOOD GAS OXYGEN CONTENT 21.3 Vol % (12.0-20.0); BLOOD GAS PCO2 50 mmHg (38-42); BLOOD GAS PO2 66 mmHg (61-120); BLOOD GAS TOTAL HGB 16.8 G/DL (12.0-16.0); TEMP CORR TO 98.6
[2016-07-18 20:59] LABS: CRITICAL VALUE NO; DRAW SITE RT RADIAL; FIO2 21 %; NUMBER OF ARTERIAL PUNCTURES 1; OXYGEN DEVICE ROOM AIR; STAT NO; ULNAR PULSE PRESENT
--- NOTE | 2016-07-18 20:59 | MB ---
cc: LINWOOD BARFIELD MD DATE OF CONSULTATION 07/18/16 DATE OF 1975 Consult requested by the [facility] hospitalist service. REASON FOR CONSULTATION Polycythemia (likely secondary to chronic hypoxia due to morbid obesity and restrictive pulmonary disease). CHIEF COMPLAINT Ms. Alonso denies complaints at this time. HISTORY OF PRESENT ILLNESS Ms. Alonso is a 40-year-old female who was admitted to the hospital in early April after she developed cellulitis and an abscess of the skin underlying her stomach. Ms. Alonso has morbid obesity with a body mass index of close to 100; she weighed almost 500 pounds at a height of 5 feet 5 inches at the time of presentation. The patient came into the hospital because she was unable to move and reported pain on the undersurface of the belly. She has now been in the hospital close to 3 months. She did undergo wound care and debridement of the decubitus ulcer. She now reports this is fully healed. She has remained in the hospital to date because she does not have a safe disposition and is awaiting placement. Upon presentation to the hospital from a hematologic standpoint she was noted to be anemic with a hemoglobin of 6.8 gm/dl. She did receive 2 units packed red blood cell transfusions at the time of admission and since then has had a steadily increasing hemoglobin and hematocrit level. Initial serum iron studies indicated mixed findings with normal ferritin, normal TIBC but low percent iron saturation levels. It was thought she may have had anemia of chronic disease. She was initiated on oral iron replacement therapy with ferrous sulfate 325 milligrams twice daily. Since the start of June the patient has had a hemoglobin and hematocrit level of greater than 15, earlier this week her hemoglobin was noted to be 17.4 gm/dl. The hematology service has been consulted for further workup and management of this polycythemia. Upon review of her vital signs her pulse ox readings have been consistently in the low 90s or high 80s on room air. Though she is morbidly obese she is not on C-PAP at night time. She does report symptoms of obstructive sleep apnea such as snoring and waking up short of breath in the middle of the night. PAST MEDICAL HISTORY 1. Morbid obesity. 2. Decubitus ulcers. 3. Depression. She reports a history of hypertension. PAST SURGICAL HISTORY None other than debridement of her decubitus ulcers. ALLERGIES DIFLUCAN. FAMILY HISTORY Multiple family members with morbid obesity who have required gastric bypass surgeries. Her father is , he in his sleep in his 40s likely of complications of obesity. SOCIAL HISTORY The patient reports formally being a smoker but she quit when she was in her late 20s. She smoked no more than 10 years. She denies alcohol abuse. She has no children of her own. She lives at home with her caregivers/boyfriend. CURRENT INPATIENT MEDICATIONS 1. Tylenol/hydrocodone 325/5 milligrams every 4 hours. 2. Colace 10 milligrams daily as needed for constipation. 3. Vitamin D3 5000 units p.o. daily. 4. Vitamin B12 intramuscularly once every month. 5. Dicyclomine 20 milligrams p.o. t.i.d. 6. Lovenox 40 milligrams subcu q. 24 hours. 7. Ergocalciferol 50,000 units p.o. q. weekly. 8. Folic acid 1 milligram once daily. 9. Gabapentin 300 milligrams p.o. b.i.d. 10. Lactobacillus. 11. Magnesium hydroxide 13 ml p.o. q. 12 hours as needed for constipation. 12. Multivitamin. 13. Pantoprazole 20 milligrams once a day. 14. Paroxetine 20 milligrams p.o. daily. 15. Compazine 25 milligrams p.o. q. 12 hours. 16. Senokot. 17. Temazepam. REVIEW OF SYSTEMS A 13-point review of systems are obtained. The patient denies any complaints other than her morbid obesity and her inability to ambulate. She tells me she has not been able to ambulate for about 7 years and has been essentially bed-bound all that time. She denies fevers, chills, night sweats. HEENT: Denies headaches, blurry vision, difficulty swallowing or soreness in the throat. RESPIRATORY: Reports no shortness of breath at rest. She is unable to walk so she does not know if she gets short of breath with exertion. CARDIOVASCULAR: Denies angina-like chest pain, PND, orthopnea. GI: Denies nausea, vomiting, diarrhea, hematochezia, melena. UG: Denies dysuria, hematuria, urinary incontinence. BLUEPRINT TRIMMER: No focal, sensory, motor deficits. She does report feeling generally weak. PHYSICAL EXAMINATION VITAL SIGNS: Temperature 96 degrees Fahrenheit, heart rate 80 beats minute, respiratory rate 17, blood pressure 106/52, O2 sat 89% on room air. GENERAL APPEARANCE: Ms. Alonso is a young female, she is laying in bed, she is morbidly obese, she is resting on several pillows. She has a cushingoid appearance. HEENT: Head atraumatic, normocephalic, conjunctive a are non pale sclerae anicteric, EOMI, PERRLA, oral exam no pharyngeal erythema. Neck exam no palpable cervical or supraclavicular lymphadenopathy. LUNGS: Good air movement bilaterally. No added breath sounds. CARDIOVASCULAR: Regular rate and rhythm, S1-S2. No obvious murmurs, rubs or gallops. EXTREMITIES: Physical examination was greatly limited by her body habitus and her body position. She is unable to roll over. I could only examine her hands and her feet, her feet have hyperkeratosis it seems of the soles. She has atrophy of her leg muscles. No pretibial edema. No calf tenderness. ABDOMEN: Abdominal exam could not be performed because I could not reach over. LABORATORY FINDINGS Blood work dated 07/17/2016: WBC count 5.7, hemoglobin of 17.4 gm/dl, hematocrit 54%, platelet count 214. Absolute neutrophil count 3.1. Chemistries: Sodium 139, potassium 4.2, chloride 102, bicarbonate 30, BUN 12, creatinine 0.8, random glucose 100, calcium 9.4. Vitamin D level 5.1. TSH 2.5. ASSESSMENT Ms. Alonso is a morbidly obese 40-year-old female who was admitted to the hospital close to 3 months ago for management of a pressure ulcer on the undersurface of her abdominal wall. She is unable to walk or move, she essentially has been bed-bound and housebound for the past 7 years due to her morbid obesity. The patient since her admission has had resolution of the decubitus ulcer with the help of wound care. The hematology service was consulted for evaluation and management of what appears to be a polycythemia secondary to chronic hypoxia. Interestingly, when she first presented to the hospital she was anemic and the etiology of that I suspect based on her clinical course was the decubitus ulcer which had resulted in chronic inflammation. Since this is resolved I think her body is approaching her physiologic baseline as far as the blood counts are concerned. I have noticed iron supplementation on her medication list and this was discontinued. RECOMMENDATIONS 1. Polycythemia: This is likely either secondary to chronic hypoxia or perhaps secondary to her being volume contracted. I have recommended a workup to rule out secondary causes of polycythemia, specifically I would like to assess her pulmonary function testing. An ABG has been ordered as well. I have also requested respiratory therapy to arrange for C-PAP machine for her at nighttime. I suspect at nighttime while at sleep she becomes even more hypoxic than she is during the daytime. Even though she has not had formal sleep studies I cannot see how this patient would not have obstructive sleep apnea given her body habitus. I have also requested serum Epogen levels and serum iron studies. Another possibility I would like to rule out is hemochromatosis which in the presence of oral iron supplementation may have resulted in polycythemia secondary to this. The hematology service will follow along with you. MD WALE Ham/KRISTIN /8:06 PM /8:26 PM SHELBIE
[2016-07-18 22:50] LABS: TRANSFERRIN IRON PROFILE 191 MG/DL (200-360)
[2016-07-18 22:53] LABS: FERRITIN 61 NG/ML (8-252)
[2016-07-19 04:32] LABS: AUTOMATED NEUTROPHIL # 3.8 TH/MM3 (1.8-7.7); BASOPHIL # 0.1 TH/MM3 (0-0.2); BASOPHIL % 1.1 % (0.0-2.0); EOSINOPHIL # 0.3 TH/MM3 (0-0.4); HEMATOCRIT 54.2 % (35.0-46.0); HEMO FLAGS DIFF FINAL; LYMPHOCYTE # 1.6 TH/MM3 (1.0-4.8); MEAN CELL VOLUME 89.5 FL (80.0-100.0); MEAN CORPUSCULAR HEMOGLOBIN 28.8 PG (27.0-34.0); MEAN CORPUSCULAR HGB CONC 32.2 % (32.0-36.0); MONO % 8.8 % (0.0-8.0); NEUT % 60.1 % (16.0-70.0); PLATELET COUNT 237 TH/MM3 (150-450); RED BLOOD COUNT 6.05 MIL/MM3 (4.00-5.30); WHITE BLOOD COUNT 6.3 TH/MM3 (4.0-11.0)
[2016-07-19] MEDS: ACETAMINOPHEN/HYDROcodone 325 MG/5 MG TAB PO PRN ×5 (05:10→23:52)
[2016-07-19] MEDS: GABAPENTIN 300 MG CAP PO SCH ×3 (05:10→20:05)
[2016-07-19 08:00] VITALS: BP 115/57; PULSE 93; RESP 18; TEMP 95.3; O2SAT 94
[2016-07-19] MEDS: CHOLECALCIFEROL (VIT D3) 5000 UNIT CAP PO SCH (08:24)
[2016-07-19] MEDS: PARoxetine 25 MG CONTROLLED RELEASE TAB PO SCH (08:24)
[2016-07-19] MEDS: MULTIVITAMIN TAB PO SCH (08:24)
[2016-07-19] MEDS: DICYCLOMINE HCL 20 MG TAB PO SCH ×3 (08:24→18:08)
[2016-07-19] MEDS: PANTOPRAZOLE SOD 20 MG DELAYED RELEASE TAB PO SCH (08:24)
[2016-07-19] MEDS: LACTOBACILLUS ACIDOPHILUS TAB PO SCH ×2 (08:24→20:04)
[2016-07-19] MEDS: FOLIC ACID 1 MG TAB PO SCH (08:24)
--- NOTE | 2016-07-19 11:51 | HHI.PR ---
Subjective Remarks patient denies cp/sob denies fevers/chills no diarrhea Objective Vitals Vital Signs Date Time Temp Pulse Resp B/P Pulse Ox O2 Delivery O2 Flow Rate FiO2 07/19/16 08:00 95.3 93 18 115/57 94 07/18/16 20:00 97.5 82 18 115/58 92 I/O 07/18/16 07/18/16 07/18/16 07/19/16 07/19/16 07/19/16 07:00 15:00 23:00 07:00 15:00 23:00 Intake Total 480 ml 450 ml 620 ml 240 ml Balance 480 ml 450 ml 620 ml 240 ml Intake Oral 480 ml 450 ml 620 ml 240 ml IV Total 0 ml 0 ml # Voids 2 4 3 2 # Bowel Movements 1 0 0 Result Diagram: 07/19/16 0400 07/17/16 0500 Objective Remarks awake and alert, oriented x 3, not in distress morbidly obese anicteric neck- right neck with some erythematous excoriations,, dry lungs clear radial pulses ++, regular abdomen- flabby, anterior-umbilicus stretched vertically about 3 cm- dry, no erythema back- no open wounds, no sacral erythema motor- moves all extremities spontaeneous - LE limited by weight Procedures none Medications and IVs Current Medications Medications (Trade) Dose Ordered Sig/Gerda Route Start Time Stop Time Status Last Admin (Tylenol) 650 mg Q4H PRN PO 04/26/16 23:45 (Compazine Supp) 25 mg Q12H PRN CA 04/26/16 23:45 (Dulcolax Supp) 10 mg DAILY PRN CA 04/26/16 23:45 (Milk Of Magnesia Liq) 30 ml Q12H PRN PO 04/26/16 23:45 04/27/16 03:40 (Senokot) 17.2 mg Q12H PRN PO 04/26/16 23:45 (Restoril) 15 mg HS PRN PO 04/26/16 23:45 (Neurontin) 600 mg DAILY@0530 PO 04/27/16 05:30 07/19/16 05:10 (Protonix) 20 mg DAILY PO 04/27/16 09:00 07/19/16 08:24 (Neurontin) 300 mg BID PO 10/8/16 09:00 07/19/16 08:24 (Folate) 1 mg DAILY PO 04/29/16 09:00 07/19/16 08:24 (Vitamin B12 Inj) 1,000 mcg Q30D IM 04/30/16 16:00 06/29/16 17:32 (Bentyl) 20 mg TID PO 05/03/16 13:00 07/19/16 08:24 (Paxil Cr) 25 mg DAILY PO 05/10/16 09:00 07/19/16 08:24 (Valliant 5-325 Mg) 2 tab Q4HR PRN PO 05/30/16 12:00 07/19/16 09:20 (Lovenox Inj) 40 mg Q24H SQ 05/30/16 13:00 07/18/16 13:07 (Lactinex) 1 tab Q12HR PO 07/11/16 21:00 07/19/16 08:24 (Vitamin D3) 5,000 units DAILY PO 07/12/16 18:30 07/19/16 08:24 (Theragran) 1 tab DAILY PO 07/13/16 09:00 07/19/16 08:24 (Drisdol) 50,000 units Q7D PO 07/18/16 16:00 07/18/16 17:24 A/P Problem List: (1) Infection due to ESBL-producing Klebsiella pneumoniae ICD Code: A49.8 Status: Resolved (2) Cellulitis ICD Code: L03.90 Status: Resolved (3) Depression ICD Code: F32.9 Status: Chronic (4) Folic acid deficiency ICD Code: E53.8 Status: Acute (5) Iron deficiency anemia ICD Code: D50.9 Status: Acute (6) B12 deficiency ICD Code: E53.8 Status: Acute (7) Morbid obesity with BMI of 70 and over, adult ICD Code: E66.01 Status: Chronic Assessment and Plan Hospital day 81 for this 40 years old morbidly obese female admitted with panniculitis. Patient has been treated, awaiting safe discharge 1. Morbid obesity. counselled. Will Follow up outpatient with Bariatric surgeon. PT, however patient is nonambulatory [id number]. 2. Panniculitis, resolved after ABX 3. Chronic pain Valliant 10/650mg PO Q4H as needed 4. Hypovitaminosis D - Will give vitamin D 50,000 units once a week for 6 weeks. Then the patient will need repeat vitamin D levels. 5. Iron deficiency anemia - patient received IV iron sucrose 3 days on . Patient's hemoglobin now 17.4 and hematocrit 54.1. Hemoglobin has been trending up. Consult hematology. 5. Depression. Continue paroxetine. No SI. reports feeling sad that she is in the hospital during the holidays. continue with keeping window blinds open during the day. Continue to monitor. 7. Polycythemia: Appreciate hematology consultation and recommendations. Polycythemia likely secondary to hypoxemia due to size. Hematology has arranged for the patient to be started on CPAP at night. Workup ordered to rule out secondary causes of polycythemia, pulmonary function testing ordered. ABG shows a pH of 7.39 and a PCO2 of 50 with a PO2 of 66. Follow-up erythropoietin. PT [id number] for maintenance of current level of function Prophylaxis. Continue Lovenox. Probiotic Discharge Planning Dc pending ID clearance Problem Qualifiers (1) Cellulitis: Qualified Code: L03.311 - Cellulitis of abdominal wall Aldair Paulino MD Jul 19, 2016 11:51
[2016-07-19 12:00] VITALS: BP 118/56; PULSE 82; RESP 19; TEMP 95.7; O2SAT 94
[2016-07-19] MEDS: ENOXAPARIN SODIUM 40 MG/0.4 ML SYRINGE SQ SCH (12:49)
[2016-07-19 16:00] VITALS: BP 119/74; PULSE 84; RESP 18; TEMP 96; O2SAT 92
[2016-07-19 20:00] VITALS: BP 106/59; PULSE 72; RESP 18; TEMP 97.1; O2SAT 93
[2016-07-20] VITALS: BP 121/56; PULSE 83; RESP 20; TEMP 96.8; O2SAT 93
[2016-07-20] MEDS: GABAPENTIN 300 MG CAP PO SCH ×3 (05:57→20:36)
[2016-07-20] MEDS: ACETAMINOPHEN/HYDROcodone 325 MG/5 MG TAB PO PRN ×5 (05:57→22:37)
[2016-07-20 08:00] VITALS: BP 134/58; PULSE 86; RESP 18; TEMP 96.8; O2SAT 92
[2016-07-20] MEDS: LACTOBACILLUS ACIDOPHILUS TAB PO SCH ×2 (09:30→20:36)
[2016-07-20] MEDS: MULTIVITAMIN TAB PO SCH (09:33)
[2016-07-20] MEDS: DICYCLOMINE HCL 20 MG TAB PO SCH ×3 (09:33→18:16)
[2016-07-20] MEDS: CHOLECALCIFEROL (VIT D3) 5000 UNIT CAP PO SCH (09:33)
[2016-07-20] MEDS: PARoxetine 25 MG CONTROLLED RELEASE TAB PO SCH (09:33)
[2016-07-20] MEDS: FOLIC ACID 1 MG TAB PO SCH (09:33)
[2016-07-20] MEDS: PANTOPRAZOLE SOD 20 MG DELAYED RELEASE TAB PO SCH (09:33)
[2016-07-20 12:00] VITALS: BP 115/55; PULSE 82; RESP 18; TEMP 96.1; O2SAT 94
[2016-07-20] MEDS: ENOXAPARIN SODIUM 40 MG/0.4 ML SYRINGE SQ SCH (13:16)
--- NOTE | 2016-07-20 14:51 | HHI.PR ---
Subjective Remarks Patient states feels very anxious about CPAP denies cp/sob denies fevers/chills Objective Vitals Vital Signs Date Time Temp Pulse Resp B/P Pulse Ox O2 Delivery O2 Flow Rate FiO2 07/20/16 12:00 96.1 82 18 115/55 94 07/20/16 08:00 96.8 86 18 134/58 92 07/20/16 00:00 96.8 83 20 121/56 93 07/19/16 20:00 97.1 72 18 106/59 93 07/19/16 16:00 96.0 84 18 119/74 92 I/O 07/19/16 07/19/16 07/19/16 07/20/16 07/20/16 07/20/16 07:00 15:00 23:00 07:00 15:00 23:00 Intake Total 240 ml 840 ml 640 ml 420 ml 0 ml Balance 240 ml 840 ml 640 ml 420 ml 0 ml Intake Oral 240 ml 840 ml 640 ml 420 ml IV Total 0 ml 0 ml # Voids 2 3 3 2 # Bowel Movements 0 0 0 1 Result Diagram: 07/19/16 0400 07/17/16 0500 Objective Remarks awake and alert, oriented x 3, not in distress morbidly obese anicteric neck- right neck with some erythematous excoriations,, dry lungs clear radial pulses ++, regular abdomen- flabby, anterior-umbilicus stretched vertically about 3 cm- dry, no erythema back- no open wounds, no sacral erythema motor- moves all extremities spontaeneous - LE limited by weight Procedures none Medications and IVs Current Medications Medications (Trade) Dose Ordered Sig/Gerda Route Start Time Stop Time Status Last Admin (Tylenol) 650 mg Q4H PRN PO 04/26/16 23:45 (Compazine Supp) 25 mg Q12H PRN [place] 04/26/16 23:45 (Dulcolax Supp) 10 mg DAILY PRN [place] 04/26/16 23:45 (Milk Of Magnesia Liq) 30 ml Q12H PRN PO 04/26/16 23:45 04/27/16 03:40 (Senokot) 17.2 mg Q12H PRN PO 04/26/16 23:45 (Restoril) 15 mg HS PRN PO 04/26/16 23:45 (Neurontin) 600 mg DAILY@0530 PO 04/27/16 05:30 07/20/16 05:57 (Protonix) 20 mg DAILY PO 04/27/16 09:00 07/20/16 09:33 (Neurontin) 300 mg BID PO 04/27/16 09:00 07/20/16 09:33 (Folate) 1 mg DAILY PO 04/29/16 09:00 07/20/16 09:33 (Vitamin B12 Inj) 1,000 mcg Q30D IM 04/30/16 16:00 06/29/16 17:32 (Bentyl) 20 mg TID PO 05/03/16 13:00 07/20/16 18:16 (Paxil Cr) 25 mg DAILY PO 05/10/16 09:00 07/20/16 09:33 ([place] 5-325 Mg) 2 tab Q4HR PRN PO 05/30/16 12:00 07/20/16 18:17 (Lovenox Inj) 40 mg Q24H SQ 05/30/16 13:00 07/20/16 13:16 (Lactinex) 1 tab Q12HR PO 07/11/16 21:00 07/20/16 09:30 (Vitamin D3) 5,000 units DAILY PO 07/12/16 18:30 07/20/16 09:33 (Theragran) 1 tab DAILY PO 07/13/16 09:00 07/20/16 09:33 (Drisdol) 50,000 units Q7D PO 07/18/16 16:00 07/18/16 17:24 Urinary Catheter: No A/P Problem List: (1) Infection due to ESBL-producing Klebsiella pneumoniae ICD Code: A49.8 Status: Resolved (2) Cellulitis ICD Code: L03.90 Status: Resolved (3) Depression ICD Code: F32.9 Status: Chronic (4) Folic acid deficiency ICD Code: E53.8 Status: Acute (5) Iron deficiency anemia ICD Code: D50.9 Status: Acute (6) B12 deficiency ICD Code: E53.8 Status: Acute (7) Morbid obesity with BMI of 70 and over, adult ICD Code: E66.01 Status: Chronic Assessment and Plan Hospital day 81 for this 40 years old morbidly obese female admitted with panniculitis. Patient has been treated, awaiting safe discharge 1. Morbid obesity. counselled. Will Follow up outpatient with Bariatric surgeon. PT, however patient is nonambulatory [id number]. 2. Panniculitis, resolved after ABX 3. Chronic pain [place] 10/650mg PO Q4H as needed 4. Hypovitaminosis D - Will give vitamin D 50,000 units once a week for 6 weeks. Then the patient will need repeat vitamin D levels. 5. Iron deficiency anemia - patient received IV iron sucrose 3 days on . Patient's hemoglobin now 17.4 and hematocrit 54.1. Hemoglobin has been trending up. Consult hematology. 5. Depression. Continue paroxetine. No SI. reports feeling sad that she is in the hospital during the holidays. continue with keeping window blinds open during the day. Continue to monitor. 7. Polycythemia: Appreciate hematology consultation and recommendations. Polycythemia likely secondary to hypoxemia due to size. Hematology has arranged for the patient to be started on CPAP at night. Workup ordered to rule out secondary causes of polycythemia, pulmonary function testing ordered. ABG shows a pH of 7.39 and a PCO2 of 50 with a PO2 of 66. Follow-up erythropoietin. 8. anxiety. Will Rx xanax prn for anxiety that patient has to use C pap. PT [id number] for maintenance of current level of function Prophylaxis. Continue Lovenox. Probiotic Discharge Planning pending placement and clearance from hematology Problem Qualifiers (1) Cellulitis: Qualified Code: L03.311 - Cellulitis of abdominal wall Aldair Paulino MD Jul 20, 2016 14:51
[2016-07-20 20:00] VITALS: BP 106/59; PULSE 72; RESP 18; TEMP 97.6; O2SAT 94
[2016-07-20] MEDS ORDERED: ALPRAZolam 0.5 MG TAB PO PRN (20:00)
[2016-07-21] VITALS: BP 106/56; PULSE 90; RESP 20; TEMP 97.6; O2SAT 94
[2016-07-21] MEDS: GABAPENTIN 300 MG CAP PO SCH ×3 (05:41→21:56)
[2016-07-21] MEDS: ACETAMINOPHEN/HYDROcodone 325 MG/5 MG TAB PO PRN ×5 (05:41→21:57)
[2016-07-21 07:17] LABS: ALKALINE PHOSPHATASE 125 U/L (45-117); ALT (GPT) 36 U/L (10-53); ANION GAP 8 MEQ/L (5-15); AST (GOT) 32 U/L (15-37); BICARBONATE 30.2 MEQ/L (21.0-32.0); BLOOD UREA NITROGEN 14 MG/DL (7-18); CHLORIDE 101 MEQ/L (98-107); GLOMERULAR FILTRATION RATE 83 ML/MIN (>89); POTASSIUM 4.3 MEQ/L (3.5-5.1); SODIUM (NA) 139 MEQ/L (136-145); TOTAL BILIRUBIN ADULT 0.3 MG/DL (0.2-1.0)
[2016-07-21 07:18] LABS: WHITE BLOOD COUNT 6.1 TH/MM3 (4.0-11.0)
[2016-07-21 07:19] LABS: AUTOMATED NEUTROPHIL # 3.5 TH/MM3 (1.8-7.7); BASOPHIL # 0.1 TH/MM3 (0-0.2); BASOPHIL % 1.3 % (0.0-2.0); EOSINOPHIL # 0.3 TH/MM3 (0-0.4); HEMATOCRIT 53.2 % (35.0-46.0); HEMO FLAGS DIFF FINAL; LYMPH % 27.2 % (9.0-44.0); LYMPHOCYTE # 1.7 TH/MM3 (1.0-4.8); MEAN CELL VOLUME 89.3 FL (80.0-100.0); MEAN CORPUSCULAR HEMOGLOBIN 28.4 PG (27.0-34.0); MEAN CORPUSCULAR HGB CONC 31.8 % (32.0-36.0); MONO % 9.4 % (0.0-8.0); NEUT % 57.1 % (16.0-70.0); PLATELET COUNT 238 TH/MM3 (150-450); RED BLOOD COUNT 5.96 MIL/MM3 (4.00-5.30); RED CELL DISTRIBUTION WIDTH 15.8 % (11.6-17.2)
[2016-07-21 08:00] VITALS: BP 123/64; PULSE 87; RESP 17; TEMP 96.4; O2SAT 94
[2016-07-21] MEDS: MULTIVITAMIN TAB PO SCH (09:17)
[2016-07-21] MEDS: PANTOPRAZOLE SOD 20 MG DELAYED RELEASE TAB PO SCH (09:18)
[2016-07-21] MEDS: LACTOBACILLUS ACIDOPHILUS TAB PO SCH ×2 (09:18→21:57)
[2016-07-21] MEDS: DICYCLOMINE HCL 20 MG TAB PO SCH ×3 (09:18→17:53)
[2016-07-21] MEDS: PARoxetine 25 MG CONTROLLED RELEASE TAB PO SCH (09:18)
[2016-07-21] MEDS: CHOLECALCIFEROL (VIT D3) 5000 UNIT CAP PO SCH (09:18)
[2016-07-21] MEDS: FOLIC ACID 1 MG TAB PO SCH (09:18)
[2016-07-21] MEDS: ENOXAPARIN SODIUM 40 MG/0.4 ML SYRINGE SQ SCH (13:29)
[2016-07-21 20:00] VITALS: BP 101/56; PULSE 80; RESP 19; TEMP 96.6; O2SAT 95
--- NOTE | 2016-07-21 21:10 | HHI.PR ---
Subjective Remarks deferred entry patient seen at 10:30 am patient states respiratory therapy did not come to have her use c pap no complaints wbc going down Objective Vitals Vital Signs Date Time Temp Pulse Resp B/P Pulse Ox O2 Delivery O2 Flow Rate FiO2 07/21/16 08:00 96.4 87 17 123/64 94 07/21/16 00:00 97.6 90 20 106/56 94 I/O 07/20/16 07/20/16 07/20/16 07/21/16 07/21/16 07/21/16 07:00 15:00 23:00 07:00 15:00 23:00 Intake Total 420 ml 0 ml 360 ml 360 ml 340 ml 0 ml Balance 420 ml 0 ml 360 ml 360 ml 340 ml 0 ml Intake Oral 420 ml 360 ml 360 ml 340 ml IV Total 0 ml 0 ml 0 ml # Voids 2 2 2 4 # Bowel Movements 1 0 0 1 Result Diagram: 07/21/16 0520 07/21/16 0520 Objective Remarks awake and alert, oriented x 3, not in distress morbidly obese anicteric neck- right neck with some erythematous excoriations,, dry lungs clear radial pulses ++, regular abdomen- flabby, anterior-umbilicus stretched vertically about 3 cm- dry, no erythema back- no open wounds, no sacral erythema motor- moves all extremities spontaeneous - LE limited by weight Procedures none Medications and IVs Current Medications Medications (Trade) Dose Ordered Sig/Gerda Route Start Time Stop Time Status Last Admin (Tylenol) 650 mg Q4H PRN PO 04/26/16 23:45 (Compazine Supp) 25 mg Q12H PRN [place] 04/26/16 23:45 (Dulcolax Supp) 10 mg DAILY PRN [place] 04/26/16 23:45 (Milk Of Magnesia Liq) 30 ml Q12H PRN PO 04/26/16 23:45 04/27/16 03:40 (Senokot) 17.2 mg Q12H PRN PO 04/26/16 23:45 (Restoril) 15 mg HS PRN PO 04/26/16 23:45 (Neurontin) 600 mg DAILY@0530 PO 04/27/16 05:30 07/21/16 05:41 (Protonix) 20 mg DAILY PO 04/27/16 09:00 07/21/16 09:18 (Neurontin) 300 mg BID PO 04/27/16 09:00 07/21/16 21:56 (Folate) 1 mg DAILY PO 04/29/16 09:00 07/21/16 09:18 (Vitamin B12 Inj) 1,000 mcg Q30D IM 04/30/16 16:00 06/29/16 17:32 (Bentyl) 20 mg TID PO 05/03/16 13:00 07/21/16 17:53 (Paxil Cr) 25 mg DAILY PO 05/10/16 09:00 07/21/16 09:18 ([place] 5-325 Mg) 2 tab Q4HR PRN PO 05/30/16 12:00 07/21/16 21:57 (Lovenox Inj) 40 mg Q24H SQ 05/30/16 13:00 07/21/16 13:29 (Lactinex) 1 tab Q12HR PO 07/11/16 21:00 07/21/16 21:57 (Vitamin D3) 5,000 units DAILY PO 07/12/16 18:30 07/21/16 09:18 (Theragran) 1 tab DAILY PO 07/13/16 09:00 07/21/16 09:17 (Drisdol) 50,000 units Q7D PO 07/18/16 16:00 07/18/16 17:24 (Xanax) 0.5 mg Q8H PRN PO 07/20/16 20:00 A/P Problem List: (1) Infection due to ESBL-producing Klebsiella pneumoniae ICD Code: A49.8 Status: Resolved (2) Cellulitis ICD Code: L03.90 Status: Resolved (3) Depression ICD Code: F32.9 Status: Chronic (4) Folic acid deficiency ICD Code: E53.8 Status: Acute (5) Iron deficiency anemia ICD Code: D50.9 Status: Acute (6) B12 deficiency ICD Code: E53.8 Status: Acute (7) Morbid obesity with BMI of 70 and over, adult ICD Code: E66.01 Status: Chronic Assessment and Plan Hospital day 81 for this 40 years old morbidly obese female admitted with panniculitis. Patient has been treated, awaiting safe discharge 1. Morbid obesity. counselled. Will Follow up outpatient with Bariatric surgeon. PT, however patient is nonambulatory [id number]. 2. Panniculitis, resolved after ABX 3. Chronic pain [place] 10/650mg PO Q4H as needed 4. Hypovitaminosis D - Will give vitamin D 50,000 units once a week for 6 weeks. Then the patient will need repeat vitamin D levels. 5. Iron deficiency anemia - patient received IV iron sucrose 3 days on . Patient's hemoglobin now 17.4 and hematocrit 54.1. Hemoglobin has been trending up. Consult hematology. 5. Depression. Continue paroxetine. No SI. reports feeling sad that she is in the hospital during the holidays. continue with keeping window blinds open during the day. Continue to monitor. 7. Polycythemia: Appreciate hematology consultation and recommendations. Polycythemia likely secondary to hypoxemia due to size. Hematology has arranged for the patient to be started on CPAP at night. Workup ordered to rule out secondary causes of polycythemia, pulmonary function testing ordered. ABG shows a pH of 7.39 and a PCO2 of 50 with a PO2 of 66. Follow-up erythropoietin. 07/21/16 WBC slightly lower now 16.9 from 17.4. 8. anxiety. Will Rx xanax prn for anxiety that patient has to use C pap. PT [id number] for maintenance of current level of function Prophylaxis. Continue Lovenox. Probiotic Discharge Planning pending placement and clearance from hematology Problem Qualifiers (1) Cellulitis: Qualified Code: L03.311 - Cellulitis of abdominal wall Aldair Paulino MD Jul 21, 2016 21:10
[2016-07-22] VITALS: BP 124/68; PULSE 82; RESP 20; TEMP 97.6; O2SAT 96
[2016-07-22 05:47] LABS: HEMATOCRIT 51.3 % (35.0-46.0); MEAN CELL VOLUME 89.7 FL (80.0-100.0); MEAN CORPUSCULAR HEMOGLOBIN 28.9 PG (27.0-34.0); MEAN CORPUSCULAR HGB CONC 32.2 % (32.0-36.0); PLATELET COUNT 225 TH/MM3 (150-450); RED BLOOD COUNT 5.73 MIL/MM3 (4.00-5.30); RED CELL DISTRIBUTION WIDTH 15.5 % (11.6-17.2); REVIEW FLAG FINAL
[2016-07-22] MEDS: GABAPENTIN 300 MG CAP PO SCH ×3 (05:59→20:50)
[2016-07-22] MEDS: ACETAMINOPHEN/HYDROcodone 325 MG/5 MG TAB PO PRN ×4 (05:59→20:50)
[2016-07-22 08:00] VITALS: BP 123/56; PULSE 86; RESP 17; TEMP 96; O2SAT 92
[2016-07-22] MEDS: MULTIVITAMIN TAB PO SCH (08:04)
[2016-07-22] MEDS: LACTOBACILLUS ACIDOPHILUS TAB PO SCH ×2 (08:04→20:50)
[2016-07-22] MEDS: DICYCLOMINE HCL 20 MG TAB PO SCH ×3 (08:04→18:17)
[2016-07-22] MEDS: FOLIC ACID 1 MG TAB PO SCH (08:05)
[2016-07-22] MEDS: CHOLECALCIFEROL (VIT D3) 5000 UNIT CAP PO SCH (08:05)
[2016-07-22] MEDS: PARoxetine 25 MG CONTROLLED RELEASE TAB PO SCH (08:05)
[2016-07-22] MEDS: PANTOPRAZOLE SOD 20 MG DELAYED RELEASE TAB PO SCH (08:05)
--- NOTE | 2016-07-22 13:07 | HHI.PR ---
Subjective Remarks fu morbid obesity, cellulitis, depression denies cp/sob denies fevers/chills stable vital signs no major overnight events Objective Vitals Vital Signs Date Time Temp Pulse Resp B/P Pulse Ox O2 Delivery O2 Flow Rate FiO2 07/22/16 08:00 96.0 86 17 123/56 92 07/21/16 20:00 96.6 80 19 101/56 95 I/O 07/21/16 07/21/16 07/21/16 07/22/16 07/22/16 07/22/16 07:00 15:00 23:00 07:00 15:00 23:00 Intake Total 360 ml 340 ml 240 ml 360 ml Balance 360 ml 340 ml 240 ml 360 ml Intake Oral 360 ml 340 ml 240 ml 360 ml IV Total 0 ml # Voids 2 4 2 3 # Bowel Movements 0 1 0 0 Result Diagram: 07/22/16 0511 07/21/16 0520 Objective Remarks awake and alert, oriented x 3, not in distress morbidly obese anicteric neck- right neck with some erythematous excoriations,, dry lungs clear radial pulses ++, regular abdomen- flabby, anterior-umbilicus stretched vertically about 3 cm- dry, no erythema back- no open wounds, no sacral erythema motor- moves all extremities spontaeneous - LE limited by weight Procedures none Medications and IVs Current Medications Medications (Trade) Dose Ordered Sig/Gerda Route Start Time Stop Time Status Last Admin (Tylenol) 650 mg Q4H PRN PO 04/26/16 23:45 (Compazine Supp) 25 mg Q12H PRN [place] 04/26/16 23:45 (Dulcolax Supp) 10 mg DAILY PRN [place] 04/26/16 23:45 (Milk Of Magnesia Liq) 30 ml Q12H PRN PO 04/26/16 23:45 04/27/16 03:40 (Senokot) 17.2 mg Q12H PRN PO 04/26/16 23:45 (Restoril) 15 mg HS PRN PO 04/26/16 23:45 (Neurontin) 600 mg DAILY@0530 PO 04/27/16 05:30 07/22/16 05:59 (Protonix) 20 mg DAILY PO 04/27/16 09:00 07/22/16 08:05 (Neurontin) 300 mg BID PO 04/27/16 09:00 07/22/16 08:05 (Folate) 1 mg DAILY PO 04/29/16 09:00 07/22/16 08:05 (Vitamin B12 Inj) 1,000 mcg Q30D IM 04/30/16 16:00 06/29/16 17:32 (Bentyl) 20 mg TID PO 05/03/16 13:00 07/22/16 08:04 (Paxil Cr) 25 mg DAILY PO 05/10/16 09:00 07/22/16 08:05 ([place] 5-325 Mg) 2 tab Q4HR PRN PO 05/30/16 12:00 07/22/16 10:44 (Lovenox Inj) 40 mg Q24H SQ 05/30/16 13:00 07/21/16 13:29 (Lactinex) 1 tab Q12HR PO 07/11/16 21:00 07/22/16 08:04 (Vitamin D3) 5,000 units DAILY PO 07/12/16 18:30 07/22/16 08:05 (Theragran) 1 tab DAILY PO 07/13/16 09:00 07/22/16 08:04 (Drisdol) 50,000 units Q7D PO 07/18/16 16:00 07/18/16 17:24 (Xanax) 0.5 mg Q8H PRN PO 07/20/16 20:00 A/P Problem List: (1) Infection due to ESBL-producing Klebsiella pneumoniae ICD Code: A49.8 Status: Resolved (2) Cellulitis ICD Code: L03.90 Status: Resolved (3) Depression ICD Code: F32.9 Status: Chronic (4) Folic acid deficiency ICD Code: E53.8 Status: Acute (5) Iron deficiency anemia ICD Code: D50.9 Status: Acute (6) B12 deficiency ICD Code: E53.8 Status: Acute (7) Morbid obesity with BMI of 70 and over, adult ICD Code: E66.01 Status: Chronic (8) Polycythemia ICD Code: D75.1 Status: Acute Assessment and Plan Hospital day 81 for this 40 years old morbidly obese female admitted with panniculitis. Patient has been treated, awaiting safe discharge 1. Morbid obesity. counselled. Will Follow up outpatient with Bariatric surgeon. PT, however patient is nonambulatory [id number]. 2. Panniculitis, resolved after ABX 3. Chronic pain [place] 10/650mg PO Q4H as needed 4. Hypovitaminosis D - Will give vitamin D 50,000 units once a week for 6 weeks. Then the patient will need repeat vitamin D levels. 5. Iron deficiency anemia - patient received IV iron sucrose 3 days on . Patient's hemoglobin now 17.4 and hematocrit 54.1. Hemoglobin has been trending up. Consult hematology. 5. Depression. Continue paroxetine. No SI. reports feeling sad that she is in the hospital during the holidays. continue with keeping window blinds open during the day. Continue to monitor. 7. Polycythemia: Appreciate hematology consultation and recommendations. Polycythemia likely secondary to hypoxemia due to size. Hematology has arranged for the patient to be started on CPAP at night. Workup ordered to rule out secondary causes of polycythemia, pulmonary function testing ordered. ABG shows a pH of 7.39 and a PCO2 of 50 with a PO2 of 66. Follow-up erythropoietin. 07/21/16 Hemoglobin and hematocrit continue to trend down. 16.6/51.3 respectively , continue to monitor. Will start on baby aspirin. hematology following. Patient has not used C pap because has not had it tried yet. discussed with RN who will page respiratory therapist. 8. anxiety. Will Rx xanax prn for anxiety that patient has to use C pap. PT [id number] for maintenance of current level of function Prophylaxis. Continue Lovenox. Probiotic Discharge Planning Patient will be discharged home however cannot discharge yet since it is an unsafe DC - awaiting for bariatric bed. Discussed with test case developer. Problem Qualifiers (1) Cellulitis: Qualified Code: L03.311 - Cellulitis of abdominal wall Aldair Paulino MD Jul 22, 2016 13:07
[2016-07-22] MEDS: ENOXAPARIN SODIUM 40 MG/0.4 ML SYRINGE SQ SCH (13:39)
[2016-07-22] MEDS: ASPIRIN 81 MG CHEW TAB CHEW SCH (15:50)
[2016-07-22 19:00] VITALS: BP 116/55; PULSE 82; RESP 18; TEMP 96.9; O2SAT 93
[2016-07-23] MEDS: ACETAMINOPHEN/HYDROcodone 325 MG/5 MG TAB PO PRN ×4 (05:39→20:21)
[2016-07-23] MEDS: GABAPENTIN 300 MG CAP PO SCH ×3 (05:39→20:09)
[2016-07-23 08:00] VITALS: BP 119/59; PULSE 88; RESP 18; TEMP 97.3; O2SAT 96
[2016-07-23] MEDS: ASPIRIN 81 MG CHEW TAB CHEW SCH (08:23)
[2016-07-23] MEDS: CHOLECALCIFEROL (VIT D3) 5000 UNIT CAP PO SCH (08:24)
[2016-07-23] MEDS: PARoxetine 25 MG CONTROLLED RELEASE TAB PO SCH (08:24)
[2016-07-23] MEDS: FOLIC ACID 1 MG TAB PO SCH (08:24)
[2016-07-23] MEDS: LACTOBACILLUS ACIDOPHILUS TAB PO SCH ×2 (08:24→20:08)
[2016-07-23] MEDS: DICYCLOMINE HCL 20 MG TAB PO SCH ×3 (08:24→18:00)
[2016-07-23] MEDS: PANTOPRAZOLE SOD 20 MG DELAYED RELEASE TAB PO SCH (08:25)
[2016-07-23] MEDS: MULTIVITAMIN TAB PO SCH (08:25)
--- NOTE | 2016-07-23 10:29 | HHI.PR ---
Subjective Remarks No major overnight events slept well denies cp/sob denies fevers/chills Objective Vitals Vital Signs Date Time Temp Pulse Resp B/P Pulse Ox O2 Delivery O2 Flow Rate FiO2 07/23/16 08:00 97.3 88 18 119/59 96 07/22/16 21:50 16 07/22/16 19:00 96.9 82 18 116/55 93 I/O 07/22/16 07/22/16 07/22/16 07/23/16 07/23/16 07/23/16 07:00 15:00 23:00 07:00 15:00 23:00 Intake Total 1000 ml 340 ml 0 ml 480 ml Balance 1000 ml 340 ml 0 ml 480 ml Intake Oral 1000 ml 340 ml 480 ml IV Total 0 ml 0 ml # Voids 7 4 5 # Bowel Movements 0 1 2 Result Diagram: 07/22/16 0511 07/21/16 0520 Objective Remarks awake and alert, oriented x 3, not in distress morbidly obese anicteric neck- right neck with some erythematous excoriations,, dry lungs clear radial pulses ++, regular abdomen- flabby, anterior-umbilicus stretched vertically about 3 cm- dry, no erythema back- no open wounds, no sacral erythema motor- moves all extremities spontaeneous - LE limited by weight Procedures none Medications and IVs Current Medications Medications (Trade) Dose Ordered Sig/Gerda Route Start Time Stop Time Status Last Admin (Tylenol) 650 mg Q4H PRN PO 04/26/16 23:45 (Compazine Supp) 25 mg Q12H PRN [place] 04/26/16 23:45 (Dulcolax Supp) 10 mg DAILY PRN [place] 04/26/16 23:45 (Milk Of Magnesia Liq) 30 ml Q12H PRN PO 04/26/16 23:45 04/27/16 03:40 (Senokot) 17.2 mg Q12H PRN PO 04/26/16 23:45 (Restoril) 15 mg HS PRN PO 04/26/16 23:45 (Neurontin) 600 mg DAILY@0530 PO 04/27/16 05:30 07/23/16 05:39 (Protonix) 20 mg DAILY PO 04/27/16 09:00 07/23/16 08:25 (Neurontin) 300 mg BID PO 04/27/16 09:00 07/23/16 08:23 (Folate) 1 mg DAILY PO 04/29/16 09:00 07/23/16 08:24 (Vitamin B12 Inj) 1,000 mcg Q30D IM 04/30/16 16:00 06/29/16 17:32 (Bentyl) 20 mg TID PO 05/03/16 13:00 07/23/16 08:24 (Paxil Cr) 25 mg DAILY PO 05/10/16 09:00 07/23/16 08:24 ([place] 5-325 Mg) 2 tab Q4HR PRN PO 05/30/16 12:00 07/23/16 10:44 (Lovenox Inj) 40 mg Q24H SQ 05/30/16 13:00 07/22/16 13:39 (Lactinex) 1 tab Q12HR PO 07/11/16 21:00 07/23/16 08:24 (Vitamin D3) 5,000 units DAILY PO 07/12/16 18:30 07/23/16 08:24 (Theragran) 1 tab DAILY PO 07/13/16 09:00 07/23/16 08:25 (Drisdol) 50,000 units Q7D PO 07/18/16 16:00 07/18/16 17:24 (Xanax) 0.5 mg Q8H PRN PO 07/20/16 20:00 (Aspirin Chew) 81 mg DAILY CHEW 07/22/16 13:15 07/23/16 08:23 A/P Problem List: (1) Infection due to ESBL-producing Klebsiella pneumoniae ICD Code: A49.8 Status: Resolved (2) Cellulitis ICD Code: L03.90 Status: Resolved (3) Depression ICD Code: F32.9 Status: Chronic (4) Folic acid deficiency ICD Code: E53.8 Status: Acute (5) Iron deficiency anemia ICD Code: D50.9 Status: Acute (6) B12 deficiency ICD Code: E53.8 Status: Acute (7) Morbid obesity with BMI of 70 and over, adult ICD Code: E66.01 Status: Chronic (8) Polycythemia ICD Code: D75.1 Status: Acute Assessment and Plan Hospital day 81 for this 40 years old morbidly obese female admitted with panniculitis. Patient has been treated, awaiting safe discharge 1. Morbid obesity. counselled. Will Follow up outpatient with Bariatric surgeon. PT, however patient is nonambulatory [id number]. 2. Panniculitis, resolved after ABX 3. Chronic pain [place] 10/650mg PO Q4H as needed 4. Hypovitaminosis D - Will give vitamin D 50,000 units once a week for 6 weeks. Then the patient will need repeat vitamin D levels. 5. Iron deficiency anemia - patient received IV iron sucrose 3 days on . Patient's hemoglobin now 17.4 and hematocrit 54.1. Hemoglobin has been trending up. Consult hematology. 5. Depression. Continue paroxetine. No SI. reports feeling sad that she is in the hospital during the holidays. continue with keeping window blinds open during the day. Continue to monitor. 7. Polycythemia: Appreciate hematology consultation and recommendations. Polycythemia likely secondary to hypoxemia due to size. Hematology has arranged for the patient to be started on CPAP at night. Workup ordered to rule out secondary causes of polycythemia, pulmonary function testing ordered. ABG shows a pH of 7.39 and a PCO2 of 50 with a PO2 of 66. Follow-up erythropoietin. 07/21/16 Hemoglobin and hematocrit continue to trend down. 16.6/51.3 respectively , continue to monitor. Will start on baby aspirin. hematology following. Patient has not used C pap because has not had it tried yet. discussed with RN who will page respiratory therapist. 8. anxiety. Will Rx xanax prn for anxiety that patient has to use C pap. PT [id number] for maintenance of current level of function Prophylaxis. Continue Lovenox. Probiotic Discharge Planning Patient will be discharged home however cannot discharge yet since it is an unsafe DC - awaiting for bariatric bed and apartment. Discussed with correctional case manager. Problem Qualifiers (1) Cellulitis: Qualified Code: L03.311 - Cellulitis of abdominal wall Aldair Paulino MD Jul 23, 2016 10:29
[2016-07-23 12:00] VITALS: BP 129/59; PULSE 93; RESP 18; TEMP 97.8; O2SAT 94
[2016-07-23 16:00] VITALS: BP 112/51; PULSE 89; RESP 18; TEMP 97.2; O2SAT 94
[2016-07-23] MEDS: ENOXAPARIN SODIUM 40 MG/0.4 ML SYRINGE SQ SCH (16:17)
[2016-07-23 18:11] VITALS: O2SAT 94
[2016-07-23 20:00] VITALS: BP 122/58; PULSE 84; RESP 20; TEMP 97.9; O2SAT 95
[2016-07-24] VITALS: BP 130/62; PULSE 80; RESP 18; TEMP 98.2; O2SAT 96
[2016-07-24] MEDS: ACETAMINOPHEN/HYDROcodone 325 MG/5 MG TAB PO PRN ×5 (05:04→21:03)
[2016-07-24] MEDS: GABAPENTIN 300 MG CAP PO SCH ×3 (05:07→20:42)
[2016-07-24 08:00] VITALS: BP 136/67; PULSE 86; RESP 17; TEMP 96; O2SAT 92
[2016-07-24] MEDS: CHOLECALCIFEROL (VIT D3) 5000 UNIT CAP PO SCH (08:33)
[2016-07-24] MEDS: DICYCLOMINE HCL 20 MG TAB PO SCH ×3 (08:33→16:16)
[2016-07-24] MEDS: LACTOBACILLUS ACIDOPHILUS TAB PO SCH ×2 (08:33→20:42)
[2016-07-24] MEDS: PARoxetine 25 MG CONTROLLED RELEASE TAB PO SCH (08:34)
[2016-07-24] MEDS: PANTOPRAZOLE SOD 20 MG DELAYED RELEASE TAB PO SCH (08:34)
[2016-07-24] MEDS: MULTIVITAMIN TAB PO SCH (08:34)
[2016-07-24] MEDS: FOLIC ACID 1 MG TAB PO SCH (08:34)
[2016-07-24] MEDS: ASPIRIN 81 MG CHEW TAB CHEW SCH (08:34)
[2016-07-24 12:00] VITALS: BP 113/55; PULSE 84; RESP 16; TEMP 96.9; O2SAT 93
[2016-07-24] MEDS: ENOXAPARIN SODIUM 40 MG/0.4 ML SYRINGE SQ SCH (12:19)
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
[2016-07-24 20:00] VITALS: BP 112/58; PULSE 78; RESP 18; TEMP 96.6; O2SAT 94
[2016-07-24 23:32] VITALS: BP 126/58; PULSE 79; RESP 18; TEMP 97.4; O2SAT 92
[2016-07-25] MEDS: ACETAMINOPHEN/HYDROcodone 325 MG/5 MG TAB PO PRN ×5 (05:35→21:23)
[2016-07-25] MEDS: GABAPENTIN 300 MG CAP PO SCH ×3 (05:35→21:24)
[2016-07-25 08:00] VITALS: BP 134/60; PULSE 88; RESP 18; TEMP 97.1; O2SAT 92
[2016-07-25] MEDS: PANTOPRAZOLE SOD 20 MG DELAYED RELEASE TAB PO SCH (08:09)
[2016-07-25] MEDS: DICYCLOMINE HCL 20 MG TAB PO SCH ×3 (08:09→18:13)
[2016-07-25] MEDS: MULTIVITAMIN TAB PO SCH (08:09)
[2016-07-25] MEDS: ASPIRIN 81 MG CHEW TAB CHEW SCH (08:09)
[2016-07-25] MEDS: CHOLECALCIFEROL (VIT D3) 5000 UNIT CAP PO SCH (08:09)
[2016-07-25] MEDS: LACTOBACILLUS ACIDOPHILUS TAB PO SCH ×2 (08:10→21:24)
[2016-07-25] MEDS: FOLIC ACID 1 MG TAB PO SCH (08:10)
[2016-07-25] MEDS: PARoxetine 25 MG CONTROLLED RELEASE TAB PO SCH (08:10)
[2016-07-25] MEDS: ENOXAPARIN SODIUM 40 MG/0.4 ML SYRINGE SQ SCH (11:07)
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
[2016-07-25] MEDS: ERGOCALCIFEROL (VIT D2) 50,000 UNIT CAP PO SCH (14:38)
[2016-07-25 20:00] VITALS: BP 112/55; PULSE 82; RESP 19; TEMP 97.5; O2SAT 92
[2016-07-25 20:10] LABS: AUTOMATED NEUTROPHIL # 4.6 TH/MM3 (1.8-7.7); BASOPHIL # 0.1 TH/MM3 (0-0.2); BASOPHIL % 1.3 % (0.0-2.0); EOSINOPHIL # 0.4 TH/MM3 (0-0.4); EOSINOPHIL % 4.4 % (0.0-4.0); HEMATOCRIT 49.8 % (35.0-46.0); HEMO FLAGS DIFF FINAL; LYMPHOCYTE # 2.5 TH/MM3 (1.0-4.8); MEAN CELL VOLUME 88.4 FL (80.0-100.0); MEAN CORPUSCULAR HEMOGLOBIN 29.6 PG (27.0-34.0); MEAN CORPUSCULAR HGB CONC 33.5 % (32.0-36.0); MONO % 8.9 % (0.0-8.0); NEUT % 55.4 % (16.0-70.0); PLATELET COUNT 242 TH/MM3 (150-450); RED BLOOD COUNT 5.63 MIL/MM3 (4.00-5.30); RED CELL DISTRIBUTION WIDTH 15.5 % (11.6-17.2); WHITE BLOOD COUNT 8.3 TH/MM3 (4.0-11.0)
[2016-07-26 04:11] LABS: AUTOMATED NEUTROPHIL # 3.7 TH/MM3 (1.8-7.7); BASOPHIL # 0.1 TH/MM3 (0-0.2); BASOPHIL % 1.1 % (0.0-2.0); EOSINOPHIL # 0.4 TH/MM3 (0-0.4); HEMATOCRIT 52.6 % (35.0-46.0); HEMO FLAGS DIFF FINAL; LYMPH % 32.3 % (9.0-44.0); LYMPHOCYTE # 2.3 TH/MM3 (1.0-4.8); MEAN CELL VOLUME 89.1 FL (80.0-100.0); MEAN CORPUSCULAR HEMOGLOBIN 28.7 PG (27.0-34.0); MEAN CORPUSCULAR HGB CONC 32.2 % (32.0-36.0); MONO % 9.9 % (0.0-8.0); NEUT % 50.7 % (16.0-70.0); PLATELET COUNT 241 TH/MM3 (150-450); RED BLOOD COUNT 5.91 MIL/MM3 (4.00-5.30); WHITE BLOOD COUNT 7.3 TH/MM3 (4.0-11.0)
[2016-07-26 04:25] LABS: BICARBONATE 31.9 MEQ/L (21.0-32.0); POTASSIUM 4.2 MEQ/L (3.5-5.1)
[2016-07-26] MEDS: ACETAMINOPHEN/HYDROcodone 325 MG/5 MG TAB PO PRN ×6 (04:33→23:59)
[2016-07-26] MEDS: GABAPENTIN 300 MG CAP PO SCH ×3 (04:34→19:58)
[2016-07-26 08:00] VITALS: BP 109/65; PULSE 77; RESP 18; TEMP 97.5; O2SAT 93
[2016-07-26] MEDS: PARoxetine 25 MG CONTROLLED RELEASE TAB PO SCH (08:59)
[2016-07-26] MEDS: LACTOBACILLUS ACIDOPHILUS TAB PO SCH ×2 (08:59→19:58)
[2016-07-26] MEDS: FOLIC ACID 1 MG TAB PO SCH (08:59)
[2016-07-26] MEDS: CHOLECALCIFEROL (VIT D3) 5000 UNIT CAP PO SCH (08:59)
[2016-07-26] MEDS: ASPIRIN 81 MG CHEW TAB CHEW SCH (08:59)
[2016-07-26] MEDS: PANTOPRAZOLE SOD 20 MG DELAYED RELEASE TAB PO SCH (08:59)
[2016-07-26] MEDS: DICYCLOMINE HCL 20 MG TAB PO SCH ×3 (08:59→16:32)
[2016-07-26] MEDS: MULTIVITAMIN TAB PO SCH (08:59)
[2016-07-26 12:00] VITALS: BP 103/68; PULSE 84; RESP 20; TEMP 98.2; O2SAT 94
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
[2016-07-26] MEDS: ENOXAPARIN SODIUM 40 MG/0.4 ML SYRINGE SQ SCH (13:12)
[2016-07-26 20:00] VITALS: BP 111/56; PULSE 80; RESP 20; TEMP 96.6; O2SAT 94
[2016-07-27] MEDS: GABAPENTIN 300 MG CAP PO SCH ×3 (04:03→20:35)
[2016-07-27] MEDS: ACETAMINOPHEN/HYDROcodone 325 MG/5 MG TAB PO PRN ×5 (04:03→20:36)
[2016-07-27 04:59] LABS: HEMATOCRIT 51.8 % (35.0-46.0); MEAN CORPUSCULAR HEMOGLOBIN 29.1 PG (27.0-34.0); MEAN CORPUSCULAR HGB CONC 32.7 % (32.0-36.0); PLATELET COUNT 238 TH/MM3 (150-450); RED BLOOD COUNT 5.82 MIL/MM3 (4.00-5.30); RED CELL DISTRIBUTION WIDTH 15.3 % (11.6-17.2); REVIEW FLAG FINAL; WHITE BLOOD COUNT 6.3 TH/MM3 (4.0-11.0)
[2016-07-27 08:00] VITALS: BP 128/59; PULSE 99; RESP 18; TEMP 96.2; O2SAT 92
[2016-07-27] MEDS: ERGOCALCIFEROL (VIT D2) 50,000 UNIT CAP PO SCH (08:00)
[2016-07-27] MEDS: DICYCLOMINE HCL 20 MG TAB PO SCH ×3 (08:01→16:47)
[2016-07-27] MEDS: CHOLECALCIFEROL (VIT D3) 5000 UNIT CAP PO SCH (08:01)
[2016-07-27] MEDS: ASPIRIN 81 MG CHEW TAB CHEW SCH (08:01)
[2016-07-27] MEDS: PANTOPRAZOLE SOD 20 MG DELAYED RELEASE TAB PO SCH (08:01)
[2016-07-27] MEDS: MULTIVITAMIN TAB PO SCH (08:01)
[2016-07-27] MEDS: LACTOBACILLUS ACIDOPHILUS TAB PO SCH ×2 (08:01→20:35)
[2016-07-27] MEDS: PARoxetine 25 MG CONTROLLED RELEASE TAB PO SCH (08:01)
[2016-07-27] MEDS: FOLIC ACID 1 MG TAB PO SCH (08:01)
[2016-07-27 12:00] VITALS: BP 118/54; PULSE 89; RESP 17; TEMP 96; O2SAT 95
[2016-07-27] MEDS: ENOXAPARIN SODIUM 40 MG/0.4 ML SYRINGE SQ SCH (12:35)
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
[2016-07-27 16:00] VITALS: BP 113/57; PULSE 84; RESP 18; TEMP 97.3; O2SAT 92
[2016-07-27 20:00] VITALS: BP 112/58; PULSE 83; RESP 20; TEMP 96.7; O2SAT 93
[2016-07-28] VITALS: BP 116/57; PULSE 84; RESP 20; TEMP 96.9; O2SAT 94
[2016-07-28] MEDS: ACETAMINOPHEN/HYDROcodone 325 MG/5 MG TAB PO PRN ×5 (01:30→21:02)
[2016-07-28] MEDS: GABAPENTIN 300 MG CAP PO SCH ×3 (05:09→21:02)
[2016-07-28 08:00] VITALS: BP 115/57; PULSE 98; RESP 18; TEMP 96.8; O2SAT 94
[2016-07-28] MEDS: PANTOPRAZOLE SOD 20 MG DELAYED RELEASE TAB PO SCH (09:14)
[2016-07-28] MEDS: CHOLECALCIFEROL (VIT D3) 5000 UNIT CAP PO SCH (09:14)
[2016-07-28] MEDS: FOLIC ACID 1 MG TAB PO SCH (09:14)
[2016-07-28] MEDS: DICYCLOMINE HCL 20 MG TAB PO SCH ×3 (09:14→17:32)
[2016-07-28] MEDS: MULTIVITAMIN TAB PO SCH (09:14)
[2016-07-28] MEDS: LACTOBACILLUS ACIDOPHILUS TAB PO SCH ×2 (09:14→21:02)
[2016-07-28] MEDS: PARoxetine 25 MG CONTROLLED RELEASE TAB PO SCH (09:15)
[2016-07-28] MEDS: ASPIRIN 81 MG CHEW TAB CHEW SCH (09:15)
[2016-07-28 12:00] VITALS: BP 112/56; PULSE 89; RESP 17; TEMP 96.5; O2SAT 93
--- NOTE | 2016-07-28 12:21 | HHI.PR ---
Subjective Remarks Follow-up for morbid obesity and period bleeding. The patient continues to complain of heavy menses, unchanged. Objective Vitals Vital Signs Date Time Temp Pulse Resp B/P Pulse Ox O2 Delivery O2 Flow Rate FiO2 07/28/16 08:00 96.8 98 18 115/57 94 07/28/16 03:29 16 07/28/16 00:00 96.9 84 20 116/57 94 07/27/16 20:00 96.7 83 20 112/58 93 07/27/16 16:00 97.3 84 18 113/57 92 I/O 07/27/16 07/27/16 07/27/16 07/28/16 07/28/16 07/28/16 07:00 15:00 23:00 07:00 15:00 23:00 Intake Total 240 ml 600 ml 480 ml 480 ml Balance 240 ml 600 ml 480 ml 480 ml Intake Oral 240 ml 600 ml 480 ml 480 ml IV Total 0 ml 0 ml 0 ml # Voids 3 5 1 2 # Bowel Movements 0 1 0 0 Result Diagram: 07/27/16 0356 07/26/16 0323 Objective Remarks GENERAL: Well-developed well-nourished morbidly obese. In no acute distress. Lying on her left side in a semi-prone position. SKIN: Warm and dry. No lesions noted. HEENT: Normocephalic. Pupils equal and round. Mucous membranes pink and moist. CARDIOVASCULAR: Distant heart sounds secondary to body habitus. Regular rate and rhythm. No murmur appreciated. RESPIRATORY: No accessory muscle use. Distant breath sounds secondary to body habitus. Clear to auscultation. Breath sounds equal bilaterally. GASTROINTESTINAL: Abdomen large and difficult to assess, soft, non-tender. MUSCULOSKELETAL: No obvious deformities. No clubbing or cyanosis. No edema. No calf tenderness. NEUROLOGICAL: Awake and alert. No focal neurological deficits. Moves upper and lower extremities spontaneously. Normal speech. PSYCHIATRIC: Slightly anxious mood and affect; insight and judgment normal. Procedures none A/P Problem List: (1) Infection due to ESBL-producing Klebsiella pneumoniae ICD Code: A49.8 Status: Resolved (2) Cellulitis ICD Code: L03.90 Status: Resolved (3) Depression ICD Code: F32.9 Status: Chronic (4) Folic acid deficiency ICD Code: E53.8 Status: Acute (5) Iron deficiency anemia ICD Code: D50.9 Status: Acute (6) B12 deficiency ICD Code: E53.8 Status: Acute (7) Morbid obesity with BMI of 70 and over, adult ICD Code: E66.01 Status: Chronic (8) Polycythemia ICD Code: D75.1 Status: Acute Assessment and Plan 40-year-old female patient initially admitted with pannicular abscess which has since resolved. The patient has returned to her baseline function which is mostly nonambulatory. Attempting to find placement for this patient as her home has been damaged by the recent [place]. She has been seen by psychiatry as well as palliative care due to depression. At this point, patient is medically managed and stable. She is being treated for chronic pain as well as iron deficiency, folate acid deficiency and B-12 deficiency anemia. Pannicular abscess/Cellulitis-resolved. -Abdominal cultures were positive for Klebsiella pneumonia ESBL. Patient was given antibiotics which she has since completed. Wound care is being applied. Morbid obesity. counselled. -Patient has seen Dr. Moore in the past who recommends outpatient follow up after discharge. PT, however patient is nonambulatory [id number]. Symptomatic anemia- resolved -patient received IV iron sucrose 3 days on 04/29/16. Patient's hemoglobin started trending up to 17, see polycythemia as below. Consulted hematology. Polycythemia: ongoing work up -Appreciate hematology consultation and recommendations. Polycythemia likely secondary to hypoxemia due to size. Hematology arranged for the patient to be started on CPAP at night however patient has been refusing this due to anxiety. Workup ordered to rule out secondary causes of polycythemia, pulmonary function testing ordered. ABG showed a pH of 7.39 and a PCO2 of 50 with a PO2 of 66. Follow-up erythropoietin. Started on aspirin. Chronic pain -[place] 10/650mg PO Q4H as needed -GI upset with Naproxen- resolved after stopping Naproxen. Depression -Continue paroxetine. Continue with keeping window blinds open during the day, regular sleep schedule. Continue to monitor. Lower extremity cramping: BMP stable. CK and thyroid function tests normal. No further cramping, resolved. Vitamin D Deficiency: give vitamin D 50,000 units once a week for 6 weeks. Menstrual Cramps/Bleeding: hx of Menometrorrhagia. patient concerned this is unusual amount of bleeding for her. Difficult to quantify as patient uses towels for absorption, no pads/tampons. Hemoglobin remains stable on CBC x 3 days. Already has [place] q4h prn which should help with cramping. No NSAIDs with past GI upset. Continue to monitor. Stable at this time will monitor and if no acute worsening, plan for outpatient follow-up with PARK AIDE. That the bleeding significantly worsens or persists, could consider transvaginal ultrasound vs Director Of Academic consult. Follow-up CBC. Case management assisting with discharge planning. Discharge Planning The patient's apartment was destroyed in [place]. No accepting SNFs. She plans to return to another apartment in the same complex, patient's boyfriend currently arranging. Home bariatric bed ordered and pending. Problem Qualifiers (1) Cellulitis: Qualified Code: L03.311 - Cellulitis of abdominal wall Quirino Mobley Jul 28, 2016 12:21 Huang Alatorre MD Jul 28, 2016 14:14
[2016-07-28] MEDS: ENOXAPARIN SODIUM 40 MG/0.4 ML SYRINGE SQ SCH (12:29)
[2016-07-28 16:00] VITALS: BP 113/56; PULSE 88; RESP 17; TEMP 95.9; O2SAT 93
[2016-07-28 20:00] VITALS: BP 110/54; PULSE 91; RESP 20; TEMP 97.5; O2SAT 95
[2016-07-29] MEDS: GABAPENTIN 300 MG CAP PO SCH ×3 (05:05→21:59)
[2016-07-29 05:40] LABS: HEMATOCRIT 42.1 % (35.0-46.0); MEAN CELL VOLUME 88.9 FL (80.0-100.0); MEAN CORPUSCULAR HEMOGLOBIN 29.2 PG (27.0-34.0); MEAN CORPUSCULAR HGB CONC 32.8 % (32.0-36.0); PLATELET COUNT 251 TH/MM3 (150-450); RED BLOOD COUNT 4.73 MIL/MM3 (4.00-5.30); RED CELL DISTRIBUTION WIDTH 15.1 % (11.6-17.2); REVIEW FLAG FINAL; WHITE BLOOD COUNT 7.6 TH/MM3 (4.0-11.0)
[2016-07-29] MEDS: ACETAMINOPHEN/HYDROcodone 325 MG/5 MG TAB PO PRN ×4 (06:28→22:00)
[2016-07-29] MEDS: PARoxetine 25 MG CONTROLLED RELEASE TAB PO SCH (07:53)
[2016-07-29] MEDS: ASPIRIN 81 MG CHEW TAB CHEW SCH (07:53)
[2016-07-29] MEDS: MULTIVITAMIN TAB PO SCH (07:53)
[2016-07-29] MEDS: LACTOBACILLUS ACIDOPHILUS TAB PO SCH ×2 (07:53→22:00)
[2016-07-29] MEDS: DICYCLOMINE HCL 20 MG TAB PO SCH ×3 (07:53→17:36)
[2016-07-29] MEDS: CHOLECALCIFEROL (VIT D3) 5000 UNIT CAP PO SCH (07:54)
[2016-07-29] MEDS: FOLIC ACID 1 MG TAB PO SCH (07:54)
[2016-07-29] MEDS: PANTOPRAZOLE SOD 20 MG DELAYED RELEASE TAB PO SCH (07:54)
[2016-07-29 08:00] VITALS: BP 125/52; PULSE 88; RESP 18; TEMP 96.3; O2SAT 95
[2016-07-29] MEDS: ENOXAPARIN SODIUM 40 MG/0.4 ML SYRINGE SQ SCH (11:22)
[2016-07-29 12:00] VITALS: BP 117/57; PULSE 94; RESP 17; TEMP 98.7; O2SAT 94
--- NOTE | 2016-07-29 13:25 | HHI.PR ---
Subjective Remarks Follow up for morbid obesity and menorrhagia. The patient reports continued significant amount of menstrual bleeding with clots going on for 5days now. She continues to be concerned about the excessive amounts of clots. She has been refusing the Lovenox for the past 3 days, still taking her aspirin. She is asking to be placed on control or given a medication to help control the bleeding. She denies any dizziness or lightheadedness. Denies any other medical complaints at this time. Objective Vitals Vital Signs Date Time Temp Pulse Resp B/P Pulse Ox O2 Delivery O2 Flow Rate FiO2 07/29/16 12:21 17 07/29/16 12:00 98.7 94 17 117/57 94 07/29/16 08:00 96.3 88 18 125/52 95 07/28/16 20:00 97.5 91 20 110/54 95 07/28/16 16:00 95.9 88 17 113/56 93 I/O 07/28/16 07/28/16 07/28/16 07/29/16 07/29/16 07/29/16 07:00 15:00 23:00 07:00 15:00 23:00 Intake Total 480 ml 545 ml 480 ml 320 ml Balance 480 ml 545 ml 480 ml 320 ml Intake Oral 480 ml 545 ml 480 ml 320 ml IV Total 0 ml 0 ml 0 ml # Voids 2 4 2 2 # Bowel Movements 0 0 0 0 Result Diagram: 07/29/16 0422 07/26/16 0323 Objective Remarks GENERAL: Well-nourished, well-developed morbidly obese pleasant female patient in [facility]. Lying in bed on left side in semi-prone position. SKIN: Warm and dry. Dry skin on upper back. HEAD: Normocephalic. Atraumatic. ENT: Mucous membranes pink and moist. CARDIOVASCULAR: Regular rate and rhythm however heart sounds distant secondary to body habitus. RESPIRATORY: No accessory muscle use. Breath sounds distant secondary to body habitus, otherwise clear to auscultation. Breath sounds equal bilaterally. GASTROINTESTINAL: Abdomen soft, non-tender, nondistended. GENITOURINARY: external vaginal exam revealed large amount of dark red clots. MUSCULOSKELETAL: No obvious deformities. NEUROLOGICAL: Awake and alert. No obvious cranial nerve deficits. Moves all extremities. Normal speech. PSYCHIATRIC: Appropriate mood and affect; insight and judgment normal. Procedures none Medications and IVs Current Medications Medications (Trade) Dose Ordered Sig/Gerda Route Start Time Stop Time Status Last Admin (Tylenol) 650 mg Q4H PRN PO 04/26/16 23:45 (Compazine Supp) 25 mg Q12H PRN [place] 04/26/16 23:45 (Dulcolax Supp) 10 mg DAILY PRN [place] 04/26/16 23:45 (Milk Of Magnesia Liq) 30 ml Q12H PRN PO 04/26/16 23:45 04/27/16 03:40 (Senokot) 17.2 mg Q12H PRN PO 04/26/16 23:45 (Restoril) 15 mg HS PRN PO 04/26/16 23:45 (Neurontin) 600 mg DAILY@0530 PO 04/27/16 05:30 07/29/16 05:05 (Protonix) 20 mg DAILY PO 04/27/16 09:00 07/29/16 07:54 (Neurontin) 300 mg BID PO 04/27/16 09:00 07/29/16 07:54 (Folate) 1 mg DAILY PO 04/29/16 09:00 07/29/16 07:54 (Vitamin B12 Inj) 1,000 mcg Q30D IM 04/30/16 16:00 06/29/16 17:32 (Bentyl) 20 mg TID PO 05/03/16 13:00 07/29/16 11:21 (Paxil Cr) 25 mg DAILY PO 05/10/16 09:00 07/29/16 07:53 ([place] 5-325 Mg) 2 tab Q4HR PRN PO 05/30/16 12:00 07/29/16 11:21 (Lovenox Inj) 40 mg Q24H SQ 05/30/16 13:00 07/26/16 13:12 (Lactinex) 1 tab Q12HR PO 07/11/16 21:00 07/29/16 07:53 (Vitamin D3) 5,000 units DAILY PO 07/12/16 18:30 07/29/16 07:54 (Theragran) 1 tab DAILY PO 07/13/16 09:00 07/29/16 07:53 (Drisdol) 50,000 units Q7D PO 07/18/16 16:00 07/27/16 08:00 (Xanax) 0.5 mg Q8H PRN PO 07/20/16 20:00 (Aspirin Chew) 81 mg DAILY CHEW 07/22/16 13:15 07/29/16 07:53 Urinary Catheter: No Vascular Central Line Catheter: No A/P Problem List: (1) Infection due to ESBL-producing Klebsiella pneumoniae ICD Code: A49.8 Status: Resolved (2) Cellulitis ICD Code: L03.90 Status: Resolved (3) Depression ICD Code: F32.9 Status: Chronic (4) Folic acid deficiency ICD Code: E53.8 Status: Acute (5) Iron deficiency anemia ICD Code: D50.9 Status: Acute (6) B12 deficiency ICD Code: E53.8 Status: Acute (7) Morbid obesity with BMI of 70 and over, adult ICD Code: E66.01 Status: Chronic (8) Polycythemia ICD Code: D75.1 Status: Acute Assessment and Plan 40-year-old female patient initially admitted with pannicular abscess which has since resolved. The patient has returned to her baseline function which is mostly nonambulatory. Attempting to find placement for this patient as her home has been damaged by the recent [place]. She has been seen by psychiatry as well as palliative care due to depression. At this point, patient is medically managed and stable. She is being treated for chronic pain as well as iron deficiency, folate acid deficiency and B-12 deficiency anemia. Pannicular abscess/Cellulitis-resolved. -Abdominal cultures were positive for Klebsiella pneumonia ESBL. Patient was given antibiotics which she has since completed. Wound care is being applied. Morbid obesity. counselled. -Patient has seen Dr. Moore in the past who recommends outpatient follow up after discharge. PT, however patient is nonambulatory [id number]. Symptomatic anemia- resolved -patient received IV iron sucrose 3 days on 04/29/16. Patient's hemoglobin started trending up to 17. Consulted hematology. Polycythemia: ongoing work up -Appreciate hematology consultation and recommendations. Polycythemia likely secondary to hypoxemia due to size. Hematology has arranged for the patient to be started on CPAP at night however patient has been refusing this due to anxiety. Workup ordered to rule out secondary causes of polycythemia, pulmonary function testing ordered. ABG shows a pH of 7.39 and a PCO2 of 50 with a PO2 of 66. Follow-up erythropoietin. Started on aspirin. Chronic pain -[place] 10/650mg PO Q4H as needed -GI upset with Naproxen- resolved after stopping Naproxen. Depression -Continue paroxetine. No SI. Reports feeling sad that she is in the hospital during the holidays. Continue with keeping window blinds open during the day, regular sleep schedule. Continue to monitor. Lower extremity cramping: BMP stable. CK and thyroid function tests normal. No further cramping, resolved. Vitamin D Deficiency: give vitamin D 50,000 units once a week for 6 weeks. Menstrual Cramps/Bleeding with Menorrhagia: started 07/25, ongoing x5days now. Hx of Menometrorrhagia. Patient concerned this is unusual amount of bleeding for her, large amount of clots seen on exam. Difficult to quantify as patient uses towels for absorption, no pads/tampons. [place] q4h prn should help with cramping. Did not tolerate NSAIDs in the past due to GI upset. Hemoglobins 16.9 , 17.0, now 13.8 today. Continue to monitor H&H. Consider SHOELACE TIPPING MACHINE OPERATOR consult, transvaginal U/S. Case management assisting with discharge planning. Discussed with Dr. Alatorre. Discharge Planning The patient's apartment was destroyed in [place]. No accepting SNFs. She plans to return to another apartment in the same complex however the current tenant has not yet moved out. Home bariatric bed ordered and pending. Problem Qualifiers (1) Cellulitis: Qualified Code: L03.311 - Cellulitis of abdominal wall Lakshmi Zuniga PA-C Jul 29, 2016 13:25 Huang Alatorre MD Jul 29, 2016 17:00
[2016-07-29 16:00] VITALS: BP 117/56; PULSE 88; RESP 17; TEMP 97.9; O2SAT 95
[2016-07-29] MEDS: CYANOCOBALAMIN 1000 MCG/ML VIAL IM SCH (16:09)
[2016-07-29 20:00] VITALS: BP 114/61; PULSE 86; RESP 16; TEMP 97.7; O2SAT 86
--- NOTE | 2016-07-29 21:52 | PD.CONS ---
History & Physical H&P CERTIFIED COURT/MEDICAL INTERPRETER consultation on Slime Alonso Patient is a 40-year-old white female G0 experiencing fairly heavy vaginal bleeding the last 4--5 days. Patient's been anovulatory and amenorrheic for almost a year when she had a she describes a very light period 2 or 3 weeks ago stopped quickly and then nothing until just a few days ago when she started bleeding very heavy large clots, and she's continued to bleed moderately at this time. Probably this patient is that she weighs what just over 450 pounds and is bedridden. She's been here since April over 3 months. He was unable to do the vaginal probe ultrasound of the pelvis because she could not lay flat enough to do it she is too big to get any imaging machine CT or MRI comfortably enough to do it so there is very little diagnostically can be done for her. exam--she is a moderate amount of blood on her inner thighs and the vaginal area and in the what little I can see in the vagina with the speculum was just dark blood, on direct palpation of the vaginal vault palpates as normal could not get her cervix to tell if there was any abnormality there is no way to do any type of bimanual exam at all Impression is one of morbid obesity leading to chronic anovulation which lends itself to long spells of amenorrhea . The endometrium will outgrow its own blood supply will slough and usually sloughs heavily with large clots and bleeding, this bleeding is truly uncontrolled is no regulating mechanism it just bleeds until it runs out endometrium or vasoconstricts down to stop the bleeding . the fact that she's lost 50 pounds in the last 3 months may have been a triggering mechanism to get this bleeding to start, and and she describes losing 150 pounds in the last 6-12 months and potentially she could lose weight down to the point that her own ovaries began to produce a cyclic hormonal pattern and control her bleeding Plan- due to the patient's size and risk for thromboembolism she is not a candidate for estrogen therapy which would usually be used at this stage to get the bleeding acutely slowdown is stop and have regular cycles patient on control pills or similar medication to control bleeding, and this patient all I can try is progesterone in the form of Provera 10 mg given daily for 10 days, this has the ability is somewhat slow down the bleeding as it would change a secret Tory endometrium and to a proliferative one which is less likely slough and bleed on the short-term, I am what this patient potentially could do is every 2-3 months take a 10 day course of Provera to stimulate it. It would act as a trigger. The bleeding started and hopefully since it would ever be every 2 months it wouldn't be so heavy. This methods been used many times in the past for other patients who had the same problem of bleeding issues and cannot take control pills. I'll prescribe her 10 mg of Provera to take daily for the next 10 days which should slow the bleeding down some point that what she is discharged wherever she goes if she will every 2 or 3 months if she has not had bleeding take a 10 day course again T trigger another bleeding episode and she can stay semi-regular like this with 5-6 periods a year and that would be healthy enough of her uterus to decrease the risk for endometrial cancer and hopefully control her cycles to the point that she is happy with her bleeding pattern. Thank you for this consult Thony Logan II, MD Jul 29, 2016 21:52
[2016-07-30] VITALS: BP 105/52; PULSE 94; RESP 18; TEMP 98.1; O2SAT 96
[2016-07-30 05:38] LABS: HEMATOCRIT 38.7 % (35.0-46.0)
[2016-07-30 05:40] LABS: APTT (PATIENT) 27.1 SEC (24.3-30.1); INTERNATIONAL NORMALIZED RATIO 0.9 RATIO; PROTHROMBIN TIME - PATIENT 10.1 SEC (9.8-11.6)
[2016-07-30] MEDS: GABAPENTIN 300 MG CAP PO SCH ×3 (06:18→20:45)
[2016-07-30 08:00] VITALS: BP 117/58; PULSE 117; RESP 17; TEMP 97.4; O2SAT 92
[2016-07-30] MEDS: medroxyPROGESTERone ACETATE 10 MG TAB PO SCH (08:26)
[2016-07-30] MEDS: MULTIVITAMIN TAB PO SCH (08:26)
[2016-07-30] MEDS: PARoxetine 25 MG CONTROLLED RELEASE TAB PO SCH (08:26)
[2016-07-30] MEDS: ACETAMINOPHEN/HYDROcodone 325 MG/5 MG TAB PO PRN ×4 (08:26→20:45)
[2016-07-30] MEDS: ASPIRIN 81 MG CHEW TAB CHEW SCH (08:26)
[2016-07-30] MEDS: DICYCLOMINE HCL 20 MG TAB PO SCH ×3 (08:26→16:42)
[2016-07-30] MEDS: FOLIC ACID 1 MG TAB PO SCH (08:27)
[2016-07-30] MEDS: LACTOBACILLUS ACIDOPHILUS TAB PO SCH ×2 (08:27→20:45)
[2016-07-30] MEDS: PANTOPRAZOLE SOD 20 MG DELAYED RELEASE TAB PO SCH (08:27)
[2016-07-30] MEDS: CHOLECALCIFEROL (VIT D3) 5000 UNIT CAP PO SCH (08:27)
[2016-07-30] MEDS: ENOXAPARIN SODIUM 40 MG/0.4 ML SYRINGE SQ SCH (12:25)
--- NOTE | 2016-07-30 14:54 | HHI.PR ---
Subjective Remarks Follow up for morbid obesity and menorrhagia. The patient reports feeling slightly better today. She still reports vaginal bleeding, however no further clots. She believes the medication Provera is helping. She has no other medical complaints at this time. Objective Vitals Vital Signs Date Time Temp Pulse Resp B/P Pulse Ox O2 Delivery O2 Flow Rate FiO2 07/30/16 13:24 18 07/30/16 08:00 97.4 117 17 117/58 92 07/30/16 00:00 98.1 94 18 105/52 96 07/29/16 20:00 97.7 86 16 114/61 86 07/29/16 16:00 97.9 88 17 117/56 95 I/O 07/29/16 07/29/16 07/29/16 07/30/16 07/30/16 07/30/16 07:00 15:00 23:00 07:00 15:00 23:00 Intake Total 320 ml 600 ml 480 ml 360 ml 0 ml Balance 320 ml 600 ml 480 ml 360 ml 0 ml Intake Oral 320 ml 600 ml 480 ml 360 ml IV Total 0 ml 0 ml 0 ml # Voids 2 3 3 3 # Bowel Movements 0 0 0 1 Result Diagram: 07/30/16 0432 07/26/16 0323 Objective Remarks GENERAL: Well-nourished, well-developed morbidly obese pleasant female patient in [facility]. Lying in bed on left side in semi-prone position. SKIN: Warm and dry. Dry skin on upper back. HEAD: Normocephalic. Atraumatic. ENT: Mucous membranes pink and moist. CARDIOVASCULAR: Regular rate and rhythm however heart sounds distant secondary to body habitus. RESPIRATORY: No accessory muscle use. Breath sounds distant secondary to body habitus, otherwise clear to auscultation. Breath sounds equal bilaterally. MUSCULOSKELETAL: No obvious deformities. NEUROLOGICAL: Awake and alert. No obvious cranial nerve deficits. Moves all extremities. Normal speech. PSYCHIATRIC: Appropriate mood and affect; insight and judgment normal. Procedures none Medications and IVs Current Medications Medications (Trade) Dose Ordered Sig/Gerda Route Start Time Stop Time Status Last Admin (Tylenol) 650 mg Q4H PRN PO 04/26/16 23:45 (Compazine Supp) 25 mg Q12H PRN [place] 04/26/16 23:45 (Dulcolax Supp) 10 mg DAILY PRN [place] 04/26/16 23:45 (Milk Of Magnesia Liq) 30 ml Q12H PRN PO 04/26/16 23:45 04/27/16 03:40 (Senokot) 17.2 mg Q12H PRN PO 04/26/16 23:45 (Restoril) 15 mg HS PRN PO 04/26/16 23:45 (Neurontin) 600 mg DAILY@0530 PO 04/27/16 05:30 07/30/16 06:18 (Protonix) 20 mg DAILY PO 04/27/16 09:00 07/30/16 08:27 (Neurontin) 300 mg BID PO 04/27/16 09:00 07/30/16 08:27 (Folate) 1 mg DAILY PO 04/29/16 09:00 07/30/16 08:27 (Vitamin B12 Inj) 1,000 mcg Q30D IM 04/30/16 16:00 07/29/16 16:09 (Bentyl) 20 mg TID PO 05/03/16 13:00 07/30/16 12:25 (Paxil Cr) 25 mg DAILY PO 05/10/16 09:00 07/30/16 08:26 ([place] 5-325 Mg) 2 tab Q4HR PRN PO 05/30/16 12:00 07/30/16 12:24 (Lovenox Inj) 40 mg Q24H SQ 05/30/16 13:00 07/26/16 13:12 (Lactinex) 1 tab Q12HR PO 07/11/16 21:00 07/30/16 08:27 (Vitamin D3) 5,000 units DAILY PO 07/12/16 18:30 07/30/16 08:27 (Theragran) 1 tab DAILY PO 07/13/16 09:00 07/30/16 08:26 (Drisdol) 50,000 units Q7D PO 07/18/16 16:00 07/27/16 08:00 (Xanax) 0.5 mg Q8H PRN PO 07/20/16 20:00 (Aspirin Chew) 81 mg DAILY CHEW 07/22/16 13:15 07/30/16 08:26 (Provera) 10 mg DAILY PO 07/30/16 09:00 08/09/16 09:00 07/30/16 08:26 Urinary Catheter: No Vascular Central Line Catheter: No A/P Problem List: (1) Infection due to ESBL-producing Klebsiella pneumoniae ICD Code: A49.8 Status: Resolved (2) Cellulitis ICD Code: L03.90 Status: Resolved (3) Depression ICD Code: F32.9 Status: Chronic (4) Folic acid deficiency ICD Code: E53.8 Status: Acute (5) Iron deficiency anemia ICD Code: D50.9 Status: Acute (6) B12 deficiency ICD Code: E53.8 Status: Acute (7) Morbid obesity with BMI of 70 and over, adult ICD Code: E66.01 Status: Chronic (8) Polycythemia ICD Code: D75.1 Status: Acute Assessment and Plan 40-year-old female patient initially admitted with pannicular abscess which has since resolved. The patient has returned to her baseline function which is mostly nonambulatory. Attempting to find placement for this patient as her home has been damaged by the recent [place]. Pannicular abscess/Cellulitis-resolved. -Abdominal cultures were positive for Klebsiella pneumonia ESBL. Completed course of antibiotics. Wound care is being applied. Morbid obesity. counselled. -Patient has seen Dr. Moore in the past who recommends outpatient follow up after discharge. PT, however patient is nonambulatory [id number]. Symptomatic anemia- resolved -patient is s/p 2u pRBC transfusion on 04/27 and received IV iron sucrose 3 days on 04/29/16. Patient's hemoglobin started trending up to 17. Consulted hematology, see below. Polycythemia: -Appreciate hematology consultation. Polycythemia likely secondary to hypoxemia due to size. Hematology arranged for the patient to be started on CPAP at night however patient has been refusing this due to anxiety. ABG shows a pH of 7.39 and a PCO2 of 50 with a PO2 of 66. Erythropoietin 13.5 wnl. Started on aspirin. Chronic pain -[place] 10/650mg PO Q4H as needed. GI upset with Naproxen- resolved after stopping Naproxen. Depression -Continue paroxetine. No SI. Reports feeling sad that she is in the hospital during the holidays. Continue with keeping window blinds open during the day, regular sleep schedule. Continue to monitor. Lower extremity cramping: BMP stable. CK and thyroid function tests normal. No further cramping, resolved. Vitamin D Deficiency: give cholecalciferol 5000units po daily. Menstrual Cramps/Bleeding with Menorrhagia: started 07/25, ongoing x6days now. Hx of Menometrorrhagia. Patient concerned this is unusual amount of bleeding for her, large amount of clots seen on exam. Difficult to quantify as patient uses towels for absorption, no pads/tampons. [place] q4h prn should help with cramping (unable to tolerate NSAIDs). Hemoglobins 16.9, 17.0, 13.8. Ordered transvaginal U/S however unable to be done due to patient unable to tolerate positioning. Consulted LIMO DRIVER, started the patient on Provera 10mg daily [id number] (last dose 08/08 ). Bleeding now improved, no clots today. Hgb still stable at 12.6. Continue to monitor H&H until levels stabilize. Case management assisting with discharge planning. Discussed with Dr. Alatorre. Discharge Planning The patient's apartment was destroyed in [place]. No accepting SNFs. She plans to return to another apartment in the same complex however the current tenant has not yet moved out. Home bariatric bed ordered and pending. Problem Qualifiers (1) Cellulitis: Qualified Code: L03.311 - Cellulitis of abdominal wall Lakshmi Zuniga PA-C Jul 30, 2016 14:53 Huang Alatorre MD Jul 30, 2016 15:05
[2016-07-30 20:02] VITALS: BP 96/64; PULSE 101; RESP 20; TEMP 96.3; O2SAT 95
[2016-07-30 23:33] VITALS: BP 128/55; PULSE 100; RESP 20; TEMP 96.7; O2SAT 96
[2016-07-31 04:50] LABS: HEMATOCRIT 31.6 % (35.0-46.0); REVIEW FLAG FINAL
[2016-07-31] MEDS: GABAPENTIN 300 MG CAP PO SCH ×3 (05:42→19:48)
[2016-07-31] MEDS: ACETAMINOPHEN/HYDROcodone 325 MG/5 MG TAB PO PRN ×5 (05:42→21:38)
[2016-07-31 07:35] VITALS: BP 103/51; PULSE 108; RESP 17; TEMP 96.9; O2SAT 95
[2016-07-31] MEDS: FOLIC ACID 1 MG TAB PO SCH (08:59)
[2016-07-31] MEDS: LACTOBACILLUS ACIDOPHILUS TAB PO SCH ×2 (08:59→19:48)
[2016-07-31] MEDS: PANTOPRAZOLE SOD 20 MG DELAYED RELEASE TAB PO SCH (08:59)
[2016-07-31] MEDS: DICYCLOMINE HCL 20 MG TAB PO SCH ×3 (08:59→17:50)
[2016-07-31] MEDS: CHOLECALCIFEROL (VIT D3) 5000 UNIT CAP PO SCH (08:59)
[2016-07-31] MEDS: medroxyPROGESTERone ACETATE 10 MG TAB PO SCH (09:00)
[2016-07-31] MEDS: PARoxetine 25 MG CONTROLLED RELEASE TAB PO SCH (09:00)
[2016-07-31] MEDS: ASPIRIN 81 MG CHEW TAB CHEW SCH (09:00)
[2016-07-31] MEDS: MULTIVITAMIN TAB PO SCH (09:00)
[2016-07-31] MEDS: ENOXAPARIN SODIUM 40 MG/0.4 ML SYRINGE SQ SCH (11:54)
[2016-07-31 12:00] VITALS: BP 131/60; PULSE 116; RESP 19; TEMP 97.2; O2SAT 94
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
[2016-07-31 16:00] VITALS: BP 120/52; PULSE 111; RESP 17; TEMP 97.8; O2SAT 95
[2016-07-31 20:21] VITALS: BP 108/50; PULSE 99; RESP 20; TEMP 96.5; O2SAT 95
[2016-08-01 00:13] VITALS: BP 105/50; PULSE 92; RESP 18; TEMP 97.9; O2SAT 95
[2016-08-01 04:46] LABS: HEMATOCRIT 29.6 % (35.0-46.0); REVIEW FLAG FINAL
[2016-08-01] MEDS: GABAPENTIN 300 MG CAP PO SCH ×3 (05:13→20:43)
[2016-08-01] MEDS: ACETAMINOPHEN/HYDROcodone 325 MG/5 MG TAB PO PRN ×5 (05:14→21:54)
[2016-08-01 08:00] VITALS: BP 108/51; PULSE 100; RESP 17; TEMP 97.4; O2SAT 96
[2016-08-01] MEDS: LACTOBACILLUS ACIDOPHILUS TAB PO SCH ×2 (08:32→20:43)
[2016-08-01] MEDS: FOLIC ACID 1 MG TAB PO SCH (08:32)
[2016-08-01] MEDS: medroxyPROGESTERone ACETATE 10 MG TAB PO SCH (08:32)
[2016-08-01] MEDS: PARoxetine 25 MG CONTROLLED RELEASE TAB PO SCH (08:33)
[2016-08-01] MEDS: CHOLECALCIFEROL (VIT D3) 5000 UNIT CAP PO SCH (08:33)
[2016-08-01] MEDS: MULTIVITAMIN TAB PO SCH (08:33)
[2016-08-01] MEDS: PANTOPRAZOLE SOD 20 MG DELAYED RELEASE TAB PO SCH (08:33)
[2016-08-01] MEDS: DICYCLOMINE HCL 20 MG TAB PO SCH ×3 (08:33→17:50)
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
[2016-08-01] MEDS: ERGOCALCIFEROL (VIT D2) 50,000 UNIT CAP PO SCH (17:50)
[2016-08-01 20:00] VITALS: BP 126/77; PULSE 96; RESP 18; TEMP 97.1; O2SAT 95
[2016-08-02] VITALS: BP 106/51; PULSE 100; RESP 20; TEMP 98.3; O2SAT 94
[2016-08-02 05:00] LABS: HEMATOCRIT 30.3 % (35.0-46.0); REVIEW FLAG FINAL
[2016-08-02] MEDS: ACETAMINOPHEN/HYDROcodone 325 MG/5 MG TAB PO PRN ×4 (06:17→20:58)
[2016-08-02] MEDS: GABAPENTIN 300 MG CAP PO SCH ×3 (06:17→20:57)
[2016-08-02 08:10] VITALS: BP 108/52; PULSE 100; RESP 17; TEMP 97.3; O2SAT 95
[2016-08-02] MEDS: FOLIC ACID 1 MG TAB PO SCH (08:36)
[2016-08-02] MEDS: PANTOPRAZOLE SOD 20 MG DELAYED RELEASE TAB PO SCH (08:36)
[2016-08-02] MEDS: PARoxetine 25 MG CONTROLLED RELEASE TAB PO SCH (08:36)
[2016-08-02] MEDS: medroxyPROGESTERone ACETATE 10 MG TAB PO SCH (08:36)
[2016-08-02] MEDS: CHOLECALCIFEROL (VIT D3) 5000 UNIT CAP PO SCH (08:36)
[2016-08-02] MEDS: MULTIVITAMIN TAB PO SCH (08:36)
[2016-08-02] MEDS: DICYCLOMINE HCL 20 MG TAB PO SCH ×3 (08:37→17:34)
[2016-08-02] MEDS: LACTOBACILLUS ACIDOPHILUS TAB PO SCH ×2 (08:37→20:57)
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
[2016-08-02 20:00] VITALS: BP 105/50; PULSE 94; RESP 18; TEMP 96.4; O2SAT 95
[2016-08-02 23:33] VITALS: BP 113/83; PULSE 93; RESP 18; TEMP 96.2; O2SAT 92
[2016-08-03] MEDS: ACETAMINOPHEN/HYDROcodone 325 MG/5 MG TAB PO PRN ×4 (05:05→17:26)
[2016-08-03] MEDS: GABAPENTIN 300 MG CAP PO SCH ×3 (05:05→20:05)
[2016-08-03 06:32] LABS: BICARBONATE 29.6 MEQ/L (21.0-32.0)
[2016-08-03 06:44] LABS: AUTOMATED NEUTROPHIL # 5.5 TH/MM3 (1.8-7.7); BASOPHIL # 0.1 TH/MM3 (0-0.2); BASOPHIL % 0.8 % (0.0-2.0); EOSINOPHIL # 0.4 TH/MM3 (0-0.4); HEMATOCRIT 31.7 % (35.0-46.0); HEMO FLAGS DIFF FINAL; LYMPH % 28.5 % (9.0-44.0); LYMPHOCYTE # 2.7 TH/MM3 (1.0-4.8); MEAN CELL VOLUME 88.7 FL (80.0-100.0); MEAN CORPUSCULAR HEMOGLOBIN 28.6 PG (27.0-34.0); MEAN CORPUSCULAR HGB CONC 32.3 % (32.0-36.0); MONO % 7.6 % (0.0-8.0); NEUT % 59.1 % (16.0-70.0); PLATELET COUNT 370 TH/MM3 (150-450); RED BLOOD COUNT 3.57 MIL/MM3 (4.00-5.30); RED CELL DISTRIBUTION WIDTH 15.1 % (11.6-17.2); WHITE BLOOD COUNT 9.3 TH/MM3 (4.0-11.0)
[2016-08-03] MEDS: DICYCLOMINE HCL 20 MG TAB PO SCH ×3 (08:27→17:26)
[2016-08-03] MEDS: LACTOBACILLUS ACIDOPHILUS TAB PO SCH ×2 (08:27→20:05)
[2016-08-03] MEDS: CHOLECALCIFEROL (VIT D3) 5000 UNIT CAP PO SCH (08:27)
[2016-08-03] MEDS: medroxyPROGESTERone ACETATE 10 MG TAB PO SCH (08:27)
[2016-08-03] MEDS: PARoxetine 25 MG CONTROLLED RELEASE TAB PO SCH (08:27)
[2016-08-03] MEDS: PANTOPRAZOLE SOD 20 MG DELAYED RELEASE TAB PO SCH (08:27)
[2016-08-03] MEDS: MULTIVITAMIN TAB PO SCH (08:27)
[2016-08-03] MEDS: FOLIC ACID 1 MG TAB PO SCH (08:27)
[2016-08-03 09:00] VITALS: BP 110/48; PULSE 104; RESP 16; TEMP 97.2; O2SAT 94
[2016-08-03 12:00] VITALS: BP 100/64; PULSE 104; RESP 18; TEMP 96.4; O2SAT 95
[2016-08-03 16:00] VITALS: BP 115/55; PULSE 92; RESP 18; TEMP 99; O2SAT 94
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
[2016-08-03 20:00] VITALS: BP 112/60; PULSE 98; RESP 18; TEMP 98; O2SAT 96
[2016-08-04] VITALS: BP 111/68; PULSE 99; RESP 20; TEMP 98.6; O2SAT 95
[2016-08-04] MEDS: GABAPENTIN 300 MG CAP PO SCH ×3 (05:18→19:37)
[2016-08-04] MEDS: ACETAMINOPHEN/HYDROcodone 325 MG/5 MG TAB PO PRN ×5 (05:18→21:24)
[2016-08-04 08:00] VITALS: BP 100/49; PULSE 112; RESP 17; TEMP 97.5; O2SAT 95
[2016-08-04] MEDS: CHOLECALCIFEROL (VIT D3) 5000 UNIT CAP PO SCH (08:45)
[2016-08-04] MEDS: MULTIVITAMIN TAB PO SCH (08:45)
[2016-08-04] MEDS: LACTOBACILLUS ACIDOPHILUS TAB PO SCH ×2 (08:46→19:37)
[2016-08-04] MEDS: PARoxetine 25 MG CONTROLLED RELEASE TAB PO SCH (08:46)
[2016-08-04] MEDS: DICYCLOMINE HCL 20 MG TAB PO SCH ×3 (08:46→17:00)
[2016-08-04] MEDS: medroxyPROGESTERone ACETATE 10 MG TAB PO SCH (08:46)
[2016-08-04] MEDS: FOLIC ACID 1 MG TAB PO SCH (08:46)
[2016-08-04] MEDS: PANTOPRAZOLE SOD 20 MG DELAYED RELEASE TAB PO SCH (08:46)
--- NOTE | 2016-08-04 10:55 | HHI.PR ---
Subjective Remarks Follow up for morbid obesity, menorrhagia. The patient reports continued vaginal bleeding with small amount of clots today, slightly more bleeding than yesterday but not as much as before. Denies any cramping or abdominal pain. Objective Vitals Vital Signs Date Time Temp Pulse Resp B/P Pulse Ox O2 Delivery O2 Flow Rate FiO2 08/04/16 00:00 98.6 99 20 111/68 95 08/03/16 20:00 98.0 98 18 112/60 96 08/03/16 16:00 99.0 92 18 115/55 94 08/03/16 14:04 17 08/03/16 12:00 96.4 104 18 100/64 95 I/O 08/03/16 08/03/16 08/03/16 08/04/16 08/04/16 08/04/16 07:00 15:00 23:00 07:00 15:00 23:00 Intake Total 240 ml 720 ml 360 ml 360 ml Balance 240 ml 720 ml 360 ml 360 ml Intake Oral 240 ml 720 ml 360 ml 360 ml IV Total 0 ml 0 ml 0 ml # Voids 2 3 2 2 # Bowel Movements 0 0 0 Result Diagram: 08/03/16 0500 08/03/16 0500 Objective Remarks GENERAL: Well-nourished, well-developed morbidly obese pleasant female patient in [facility]. Lying in bed on left side in semi-prone position. SKIN: Warm and dry. HEAD: Normocephalic. Atraumatic. ENT: Mucous membranes pink and moist. CARDIOVASCULAR: Regular rate and rhythm however heart sounds distant secondary to body habitus. RESPIRATORY: No accessory muscle use. Breath sounds distant secondary to body habitus, otherwise clear to auscultation. Breath sounds equal bilaterally. MUSCULOSKELETAL: No obvious deformities. NEUROLOGICAL: Awake and alert. No obvious cranial nerve deficits. Moves all extremities. Normal speech. PSYCHIATRIC: Appropriate mood and affect; insight and judgment normal. Procedures none A/P Problem List: (1) Infection due to ESBL-producing Klebsiella pneumoniae ICD Code: A49.8 Status: Resolved (2) Cellulitis ICD Code: L03.90 Status: Resolved (3) Depression ICD Code: F32.9 Status: Chronic (4) Folic acid deficiency ICD Code: E53.8 Status: Acute (5) Iron deficiency anemia ICD Code: D50.9 Status: Acute (6) B12 deficiency ICD Code: E53.8 Status: Acute (7) Morbid obesity with BMI of 70 and over, adult ICD Code: E66.01 Status: Chronic (8) Polycythemia ICD Code: D75.1 Status: Acute Assessment and Plan 40-year-old female patient initially admitted with pannicular abscess which has since resolved. The patient has returned to her baseline function which is mostly nonambulatory. Attempting to find placement for this patient as her home has been damaged by the recent [place]. Pannicular abscess/Cellulitis-resolved. -Abdominal cultures were positive for Klebsiella pneumonia ESBL. Completed course of antibiotics. Wound care is being applied. Morbid obesity. counselled. -Patient has seen Dr. Moore in the past who recommends outpatient follow up after discharge. PT, however patient is nonambulatory [id number]. Symptomatic anemia- resolved -Hgb 6 upon admission, s/p 2u pRBC transfusion on 04/27 and received IV iron sucrose 3 days on 04/29/16. -Patient's hemoglobin started trending up to 17, see polycythemia as below Consulted hematology, see below. Polycythemia: -Appreciate hematology consultation. Polycythemia likely secondary to hypoxemia due to size. Hematology arranged for the patient to be started on CPAP at night however patient has been refusing this due to anxiety. ABG shows a pH of 7.39 and a PCO2 of 50 with a PO2 of 66. JAK2 mutation not detected. Erythropoietin 13.5 wnl. Started on aspirin, held with bleeding. Chronic pain -[place] 10/650mg PO Q4H as needed. GI upset with Naproxen- resolved after stopping Naproxen. Depression -Continue paroxetine. No SI. Continue with keeping window blinds open during the day, regular sleep schedule. Continue to monitor. Lower extremity cramping: BMP stable. CK and thyroid function tests normal. No further cramping, resolved. Vitamin D Deficiency: give cholecalciferol 5000units po daily. Menstrual Cramps/Bleeding with Menorrhagia: started 07/25. Ordered transvaginal U/ S however unable to be done due to patient unable to tolerate positioning. Consulted BUNCH[employer], started on Provera 10mg daily [id number] (last dose 08/08). Bleeding now improved. Hgb still stable at 10.2. Case management assisting with discharge planning. Written by Lakshmi Zuniga, acting as scribe for Dr. Ramos on 08/04/16 at 10:54. Discharge Planning Hopefully we will be able to go home when arrangements are made possibly Friday (patient cannot go on Friday secondary to water problems at the new apartment, should be fixed on Friday). Appreciate case management assistance. Attending Statement The documentation accurately reflects the work performed [id number] by me, Dr. Ramos on 08/04/16 at 10:54. Problem Qualifiers (1) Cellulitis: Qualified Code: L03.311 - Cellulitis of abdominal wall Lakshmi Zuniga PA-C Aug 04, 2016 10:55 Demarcus Ramos MD Aug 12, 2016 19:16
[2016-08-04 12:37] VITALS: BP 115/53; PULSE 99; RESP 17; TEMP 96.8; O2SAT 92
[2016-08-04 20:00] VITALS: BP 114/56; PULSE 92; RESP 18; TEMP 98.6; O2SAT 96
[2016-08-05] VITALS: BP 115/53; PULSE 98; RESP 18; TEMP 97.6; O2SAT 96
[2016-08-05] MEDS: ACETAMINOPHEN/HYDROcodone 325 MG/5 MG TAB PO PRN ×6 (01:20→22:05)
[2016-08-05] MEDS: GABAPENTIN 300 MG CAP PO SCH ×3 (05:29→21:30)
[2016-08-05 08:00] VITALS: BP 104/51; PULSE 88; RESP 16; TEMP 97; O2SAT 94
[2016-08-05] MEDS: LACTOBACILLUS ACIDOPHILUS TAB PO SCH ×2 (09:33→21:30)
[2016-08-05] MEDS: PARoxetine 25 MG CONTROLLED RELEASE TAB PO SCH (09:33)
[2016-08-05] MEDS: DICYCLOMINE HCL 20 MG TAB PO SCH ×3 (09:34→17:55)
[2016-08-05] MEDS: FOLIC ACID 1 MG TAB PO SCH (09:34)
[2016-08-05] MEDS: CHOLECALCIFEROL (VIT D3) 5000 UNIT CAP PO SCH (09:34)
[2016-08-05] MEDS: medroxyPROGESTERone ACETATE 10 MG TAB PO SCH (09:34)
[2016-08-05] MEDS: MULTIVITAMIN TAB PO SCH (09:34)
[2016-08-05] MEDS: PANTOPRAZOLE SOD 20 MG DELAYED RELEASE TAB PO SCH (09:34)
--- NOTE | 2016-08-05 13:09 | HHI.PR ---
Subjective Remarks Follow up for morbid obesity and menorrhagia. The patient complains of some menstrual cramps overnight. She still having some vaginal bleeding, but states it is like regular period bleeding, not as severe as previously. No abdominal pain. Having normal BMs. Objective Vitals Vital Signs Date Time Temp Pulse Resp B/P Pulse Ox O2 Delivery O2 Flow Rate FiO2 08/05/16 08:00 97.0 88 16 104/51 94 08/05/16 00:00 97.6 98 18 115/53 96 08/04/16 20:00 98.6 92 18 114/56 96 I/O 08/04/16 08/04/16 08/04/16 08/05/16 08/05/16 08/05/16 07:00 15:00 23:00 07:00 15:00 23:00 Intake Total 360 ml 240 ml 360 ml 360 ml Balance 360 ml 240 ml 360 ml 360 ml Intake Oral 360 ml 240 ml 360 ml 360 ml IV Total 0 ml 0 ml 0 ml 0 ml # Voids 2 3 2 2 # Bowel Movements 0 0 0 0 Result Diagram: 08/03/16 0500 08/03/16 0500 Objective Remarks GENERAL: Well-developed well-nourished morbidly obese. In no acute distress. Lying on her left side in a semi-prone position. SKIN: Warm and dry. No lesions noted. HEENT: Normocephalic. Pupils equal and round. Mucous membranes pink and moist. CARDIOVASCULAR: Distant heart sounds secondary to body habitus. Regular rate and rhythm. No murmur appreciated. RESPIRATORY: No accessory muscle use. Distant breath sounds secondary to body habitus. Clear to auscultation. Breath sounds equal bilaterally. GASTROINTESTINAL: Abdomen large and difficult to assess, soft, non-tender. MUSCULOSKELETAL: No obvious deformities. No clubbing or cyanosis. No edema. No calf tenderness. NEUROLOGICAL: Awake and alert. No focal neurological deficits. Moves upper and lower extremities spontaneously. Normal speech. PSYCHIATRIC: Slightly anxious mood and affect; insight and judgment normal. Procedures none A/P Problem List: (1) Infection due to ESBL-producing Klebsiella pneumoniae ICD Code: A49.8 Status: Resolved (2) Cellulitis ICD Code: L03.90 Status: Resolved (3) Depression ICD Code: F32.9 Status: Chronic (4) Folic acid deficiency ICD Code: E53.8 Status: Acute (5) Iron deficiency anemia ICD Code: D50.9 Status: Acute (6) B12 deficiency ICD Code: E53.8 Status: Acute (7) Morbid obesity with BMI of 70 and over, adult ICD Code: E66.01 Status: Chronic (8) Polycythemia ICD Code: D75.1 Status: Acute Assessment and Plan 40-year-old female patient initially admitted with pannicular abscess which has since resolved. The patient has returned to her baseline function which is mostly nonambulatory. Attempting to find placement for this patient as her home has been damaged by the recent [place]. Pannicular abscess/Cellulitis-resolved. -Abdominal cultures were positive for Klebsiella pneumonia ESBL. Patient was given antibiotics which she has since completed. Wound care is being applied. Morbid obesity. counselled. -Patient has seen Dr. Moore in the past who recommends outpatient follow up after discharge. PT, however patient is nonambulatory [id number]. Symptomatic anemia- resolved -patient received IV iron sucrose 3 days on 04/29/16. Patient's hemoglobin started trending up to 17, see polycythemia as below. Consulted hematology. Polycythemia: -Appreciate hematology consultation and recommendations. Polycythemia likely secondary to hypoxemia due to size. Hematology arranged for the patient to be started on CPAP at night however patient has been refusing this due to anxiety. Workup ordered to rule out secondary causes of polycythemia, pulmonary function testing ordered. ABG showed a pH of 7.39 and a PCO2 of 50 with a PO2 of 66. JAK2 mutation not detected. Started on aspirin, hold for now with bleeding. Chronic pain -[place] 10/650mg PO Q4H as needed -GI upset with Naproxen- resolved after stopping Naproxen. Depression Possibly secondary to vitamin D deficiency as below. -We will DC paroxetine with bleeding. -Continue with keeping window blinds open during the day, regular sleep schedule. Lower extremity cramping: BMP stable. CK and thyroid function tests normal. No further cramping, resolved. Vitamin D Deficiency: Started vitamin D 50,000 units once a week for 6 weeks on 07/18. Menstrual Cramps/Bleeding with Menorrhagia: started 07/25. Ordered transvaginal U/ S however unable to be done due to patient unable to tolerate positioning. Consulted CAR DRIVER, started on Provera 10mg daily [id number] (last dose 08/09). Bleeding now improved. Hgb stable at 10.2. DVT prophylaxis: Chemical prophylaxis contraindicated with bleeding. TEDs. Case management assisting with discharge planning. Written by Quirino Mobley, acting as scribe for Dr. Ramos on 08/05/16 at 13:08. Discharge Planning The patient's new apartment has been arranged with bariatric bed in place. Currently awaiting for the water to be turned on, plan to discharge home with [facility] once she has water available at home. Attending Statement The documentation accurately reflects the work performed [id number] by me, Dr. Ramos on 08/05/16 at 13:08. Problem Qualifiers (1) Cellulitis: Qualified Code: L03.311 - Cellulitis of abdominal wall Quirino Mobley Aug 05, 2016 13:09 Demarcus Ramos MD Aug 13, 2016 00:54
[2016-08-05] MEDS ORDERED: GABA300C5 PO ×2 (13:13)
[2016-08-05] MEDS ORDERED: BENT20TA PO (13:13)
[2016-08-05] MEDS ORDERED: PRIL20CA9 PO (13:13)
[2016-08-05] MEDS ORDERED: MEDR10TA7 PO (13:13)
[2016-08-05] MEDS ORDERED: HYDR-3516 PO (13:13)
[2016-08-05] MEDS ORDERED: CYAN100017 PO (13:13)
[2016-08-05] MEDS ORDERED: CHOL5000 PO (13:13)
[2016-08-05] MEDS ORDERED: GABA600T PO (13:13)
[2016-08-05 20:15] VITALS: BP 110/51; PULSE 100; RESP 18; TEMP 97.3; O2SAT 94
[2016-08-06 00:07] VITALS: BP 121/54; PULSE 101; RESP 20; TEMP 97.7; O2SAT 98
[2016-08-06] MEDS: GABAPENTIN 300 MG CAP PO SCH ×3 (05:48→20:49)
[2016-08-06 08:00] VITALS: BP 129/59; PULSE 100; RESP 17; TEMP 98.2; O2SAT 95
[2016-08-06] MEDS: CHOLECALCIFEROL (VIT D3) 5000 UNIT CAP PO SCH (08:12)
[2016-08-06] MEDS: PANTOPRAZOLE SOD 20 MG DELAYED RELEASE TAB PO SCH (08:12)
[2016-08-06] MEDS: PARoxetine 25 MG CONTROLLED RELEASE TAB PO SCH (08:12)
[2016-08-06] MEDS: LACTOBACILLUS ACIDOPHILUS TAB PO SCH ×2 (08:12→20:49)
[2016-08-06] MEDS: DICYCLOMINE HCL 20 MG TAB PO SCH ×3 (08:12→16:34)
[2016-08-06] MEDS: MULTIVITAMIN TAB PO SCH (08:12)
[2016-08-06] MEDS: FOLIC ACID 1 MG TAB PO SCH (08:12)
[2016-08-06] MEDS: medroxyPROGESTERone ACETATE 10 MG TAB PO SCH (08:12)
[2016-08-06] MEDS: ACETAMINOPHEN/HYDROcodone 325 MG/5 MG TAB PO PRN ×4 (08:13→20:49)
[2016-08-06 20:00] VITALS: BP 103/50; PULSE 100; RESP 20; TEMP 97.1; O2SAT 96
--- NOTE | 2016-08-06 22:40 | HHI.PR ---
Subjective Remarks Follow up for morbid obesity and menorrhagia. Patient denies any abdominal pain. She states she still occasionally has some vaginal bleeding noted when she urinates. She denies any abdominal pain, chest pain, or shortness of breath. No complaints of pain at this time. Objective Vitals Vital Signs Date Time Temp Pulse Resp B/P Pulse Ox O2 Delivery O2 Flow Rate FiO2 08/06/16 20:00 97.1 100 20 103/50 96 08/06/16 08:00 98.2 100 17 129/59 95 08/06/16 00:20 16 08/06/16 00:07 97.7 101 20 121/54 98 I/O 08/05/16 08/05/16 08/05/16 08/06/16 08/06/16 08/06/16 07:00 15:00 23:00 07:00 15:00 23:00 Intake Total 360 ml 360 ml 480 ml 480 ml 480 ml Balance 360 ml 360 ml 480 ml 480 ml 480 ml Intake Oral 360 ml 360 ml 480 ml 480 ml 480 ml IV Total 0 ml 0 ml # Voids 2 2 3 3 3 # Bowel Movements 0 0 1 0 Result Diagram: 08/03/16 0500 08/03/16 0500 Objective Remarks GENERAL: Well-developed well-nourished morbidly obese. In no distress. Lying on her left side in a semi-prone position. SKIN: Warm and dry. No lesions noted. HEENT: Normocephalic. Pupils equal and round. Mucous membranes pink and moist. CARDIOVASCULAR: Distant heart sounds secondary to body habitus. Regular rate and rhythm. No murmur appreciated. RESPIRATORY: No accessory muscle use. Clear to auscultation. Breath sounds equal bilaterally. GASTROINTESTINAL: Abdomen large, soft, non-tender. MUSCULOSKELETAL: No obvious deformities. No clubbing or cyanosis. No edema. No calf tenderness. NEUROLOGICAL: Awake and alert. No focal neurological deficits. Moves upper and lower extremities spontaneously. Normal speech. PSYCHIATRIC: Awake and alert. Insight and judgment normal. Procedures none Urinary Catheter: No Vascular Central Line Catheter: No A/P Problem List: (1) Infection due to ESBL-producing Klebsiella pneumoniae ICD Code: A49.8 Status: Resolved (2) Cellulitis ICD Code: L03.90 Status: Resolved (3) Depression ICD Code: F32.9 Status: Chronic (4) Folic acid deficiency ICD Code: E53.8 Status: Acute (5) Iron deficiency anemia ICD Code: D50.9 Status: Acute (6) B12 deficiency ICD Code: E53.8 Status: Acute (7) Morbid obesity with BMI of 70 and over, adult ICD Code: E66.01 Status: Chronic (8) Polycythemia ICD Code: D75.1 Status: Acute Assessment and Plan 40-year-old female patient initially admitted with pannicular abscess which has since resolved. The patient has returned to her baseline function which is mostly nonambulatory. Attempting to find placement for this patient as her home has been damaged by the recent [place]. Pannicular abscess/Cellulitis-resolved. -Abdominal cultures were positive for Klebsiella pneumonia ESBL. -Antibiotics which she has since completed. Cont Wound care.. Morbid obesity. counselled. -Patient has seen Dr. Moore in the past who recommends outpatient follow up after discharge. PT, however patient is nonambulatory [id number]. Symptomatic anemia- resolved -patient received IV iron sucrose 3 days on 04/29/16. Patient's hemoglobin started trending up to 17, see polycythemia as below. -Hematology is following. Polycythemia: -Appreciate hematology consultation and recommendations. Polycythemia likely secondary to hypoxemia due to size. Hematology arranged for the patient to be started on CPAP at night however patient has been refusing this due to anxiety. Workup ordered to rule out secondary causes of polycythemia, pulmonary function testing ordered. ABG showed a pH of 7.39 and a PCO2 of 50 with a PO2 of 66. JAK2 mutation not detected. Started on aspirin, hold for now with bleeding. Chronic pain -[place] 10/650mg PO Q4H as needed. Depression Possibly secondary to vitamin D deficiency as below. -Cont. with keeping window blinds open during the day, regular sleep schedule. Lower extremity cramping: BMP stable. Resolved. Vitamin D Deficiency: Started vitamin D 50,000 units once a week for 6 weeks on 07/18. Menstrual Cramps/Bleeding with Menorrhagia: started 07/25. Ordered transvaginal U/ S however unable to be done due to patient unable to tolerate positioning. Consulted [employer] TYPIST, started on Provera 10mg daily [id number] (last dose 08/09). Bleeding now improved. Hgb stable at 10.2. DVT prophylaxis: Chemical prophylaxis contraindicated with bleeding. TEDs. Case management assisting with discharge planning. Discharge Planning Awaiting transportation approval Attending Statement Patient seen and examined at the bedside. Follow up for morbid obesity, vaginal bleed, pannicular abscess, cellulitis. Patient states she is doing well. No further episodes of vomiting or blood. Denies any fevers nausea/vomiting/diarrhea. She reports that she was to go home yesterday but there was some problem with insurance arranging for her transportation. Therefore she remained in hospital. will follow up with case management to consider lovenox prophylactic dose for residential anticoagulant therpay Problem Qualifiers (1) Cellulitis: Qualified Code: L03.311 - Cellulitis of abdominal wall Reema Clark Aug 06, 2016 22:40 Dhara Plaza MD Aug 07, 2016 05:54
[2016-08-07] MEDS: GABAPENTIN 300 MG CAP PO SCH ×2 (06:04→09:35)
[2016-08-07] MEDS: ACETAMINOPHEN/HYDROcodone 325 MG/5 MG TAB PO PRN ×3 (06:08→14:53)
[2016-08-07 08:00] VITALS: BP 115/50; PULSE 85; RESP 18; TEMP 97.5; O2SAT 97
[2016-08-07] MEDS: DICYCLOMINE HCL 20 MG TAB PO SCH ×2 (09:35→12:36)
[2016-08-07] MEDS: LACTOBACILLUS ACIDOPHILUS TAB PO SCH (09:35)
[2016-08-07] MEDS: PANTOPRAZOLE SOD 20 MG DELAYED RELEASE TAB PO SCH (09:35)
[2016-08-07] MEDS: PARoxetine 25 MG CONTROLLED RELEASE TAB PO SCH (09:35)
[2016-08-07] MEDS: FOLIC ACID 1 MG TAB PO SCH (09:35)
[2016-08-07] MEDS: medroxyPROGESTERone ACETATE 10 MG TAB PO SCH (09:35)
[2016-08-07] MEDS: MULTIVITAMIN TAB PO SCH (09:35)
[2016-08-07] MEDS: CHOLECALCIFEROL (VIT D3) 5000 UNIT CAP PO SCH (09:35)
[2016-08-07 11:58] LABS: AUTOMATED NEUTROPHIL # 6.3 TH/MM3 (1.8-7.7); BASOPHIL # 0.1 TH/MM3 (0-0.2); BASOPHIL % 1.3 % (0.0-2.0); EOSINOPHIL # 0.4 TH/MM3 (0-0.4); EOSINOPHIL % 3.9 % (0.0-4.0); HEMATOCRIT 28.6 % (35.0-46.0); HEMO FLAGS DIFF FINAL; LYMPH % 24.3 % (9.0-44.0); LYMPHOCYTE # 2.5 TH/MM3 (1.0-4.8); MEAN CELL VOLUME 85.3 FL (80.0-100.0); MEAN CORPUSCULAR HEMOGLOBIN 27.4 PG (27.0-34.0); MEAN CORPUSCULAR HGB CONC 32.1 % (32.0-36.0); MONO % 8.7 % (0.0-8.0); NEUT % 61.8 % (16.0-70.0); PLATELET COUNT 390 TH/MM3 (150-450); RED BLOOD COUNT 3.35 MIL/MM3 (4.00-5.30); RED CELL DISTRIBUTION WIDTH 15.9 % (11.6-17.2); WHITE BLOOD COUNT 10.2 TH/MM3 (4.0-11.0)
[2016-08-07 12:00] VITALS: BP 103/49; PULSE 97; RESP 19; TEMP 95.9; O2SAT 94
[2016-08-07] MEDS ORDERED: HYDR-3516 PO (12:33)
[2016-08-07] MEDS ORDERED: FERR240T PO (12:35)
--- NOTE | 2016-08-07 12:56 | HHI.DS ---
Discharge Summary Admission Date Apr 27, 2016 at 00:01 Discharge Date: Aug 07, 2016 Admitting Diagnosis Abdominal Wall Decubitus Ulcer with Cellulitis, Critical Anemia (1) Infection due to ESBL-producing Klebsiella pneumoniae ICD Code: A49.8 Diagnosis: Principal (2) Cellulitis ICD Code: L03.90 Diagnosis: Principal (3) Depression ICD Code: F32.9 Diagnosis: Secondary (4) Folic acid deficiency ICD Code: E53.8 Diagnosis: Secondary (5) Iron deficiency anemia ICD Code: D50.9 Diagnosis: Secondary (6) B12 deficiency ICD Code: E53.8 Diagnosis: Secondary (7) Morbid obesity with BMI of 70 and over, adult ICD Code: E66.01 Diagnosis: Principal (8) Polycythemia ICD Code: D75.1 Diagnosis: Secondary Procedures none Brief History - From Admission This is a 40-year-old female morbidly obese with BMI of 93.9 who presents via [facility] for evaluation. The patient states that she has basically been bed bound, mostly on her left side for about 4 years due to her weight. She has developed pressure ulcers. She states that they have worsened over the last month but she was too embarrassed to tell her doctor about it. She denies fever, chills, vomiting, diarrhea. She states that sometimes the sores oozes blood. Symptoms are moderate in severity. Onset gradual. Chronic in duration. Aggravated by morbid obesity. Prior treatment includes occasional application of "powder" and "cream." She also complaints of sob. CBC with low HGB, received 1U PRBC. Otherwise no complaints. CBC/BMP: 08/07/16 1130 08/03/16 0500 Significant Findings Laboratory Tests Test 08/07/16 11:30 Red Blood Count 3.35 MIL/MM3 (4.00-5.30) Hemoglobin 9.2 GM/DL (11.6-15.3) Hematocrit 28.6 % (35.0-46.0) Monocytes (%) (Auto) 8.7 % (0.0-8.0) PE at Discharge GENERAL: Well-developed well-nourished morbidly obese. In no distress. Lying on her left side in a semi-prone position. SKIN: Warm and dry. No lesions noted. HEENT: Normocephalic. Pupils equal and round. Mucous membranes pink and moist. CARDIOVASCULAR: Distant heart sounds secondary to body habitus. Regular rate and rhythm. No murmur appreciated. RESPIRATORY: No accessory muscle use. Clear to auscultation. Breath sounds equal bilaterally. GASTROINTESTINAL: Abdomen large, soft, non-tender. MUSCULOSKELETAL: No obvious deformities. No clubbing or cyanosis. No edema. No calf tenderness. NEUROLOGICAL: Awake and alert. No focal neurological deficits. Moves upper and lower extremities spontaneously. Normal speech. PSYCHIATRIC: Awake and alert. Insight and judgment normal. Pt update on day of discharge Patient seen with SO and RN at bedside. She is a bit nervous about going back home today. She has no specific complaints. She is inquiring about medications and DC including [place], Paxil, and Iron. Hospital Course 40-year-old female patient who was initially admitted with pannicular abscess which was treated with antibiotics and resolved. The patient returned to her baseline function which is essentially nonambulatory. The patient had a prolonged hospitalization because her home was [place] and there was no safe discharge plan until new living arrangements were set up by her significant other. Case management also assisted with HHC and DME at home. During her admission she also underwent medical management for anemia, polycythemia, menorrhagia, vitamin D deficiency, depression, ALLIE. New prescriptions and outpatient referrals listed as below. Details of further medical workup during admission are: Pannicular abscess/Cellulitis-resolved. Present upon admission. -Abdominal cultures were positive for Klebsiella pneumonia ESBL. Patient was given antibiotics which she has since completed. Morbid obesity. counselled. -Patient has seen Dr. Moore in the past for poorly recommended outpatient follow up after discharge. PT, however patient is nonambulatory x4 years. Anemia/polycythemia: Upon admission the patient had symptomatic iron deficiency anemia, received IV iron at the time and anemia resolved. 07/18, patient was noted to have polycythemia. She was seen by hematology who believed that the polycythemia was secondary to sleep apnea, CPAP was arranged, but the patient would not tolerate it and refused further CPAP. Further hematology workup was unremarkable. 07/29 the patient was noted to have worsening menorrhagia. She was seen by gynecology who recommended treatment with medroxyprogesterone and outpatient follow-up. Bleeding improved. Patient taken off of antiplatelet and anticoagulation. Hemoglobin remained stable. Started on iron replacement. Chronic pain -[place] 10/650mg PO Q4H as needed -GI upset with Naproxen- resolved after stopping Naproxen. Depression Was improved with Paxil, but this was discontinued secondary to bleeding as above. Depression was possibly secondary to vitamin D deficiency as below which was treated. - Outpatient behavioral follow-up as needed Lower extremity cramping: BMP stable. CK and thyroid function tests normal. No further cramping, resolved. Vitamin D Deficiency: Started vitamin D 50,000 units once a week for 6 weeks on 07/18. Pt Condition on Discharge: Good Discharge Disposition: Discharge Home Discharge Time: > 30 minutes Discharge Instructions DIET: Follow Instructions for: Heart Healthy Diet Activities you can perform: Regular-No Restrictions Follow up Referrals: R PROGRAMMER - 2 Weeks with Thony Logan II, MD PCP Follow-up - 1 Week New Medications: Cyanocobalamin (B-12) 1,000 Mcg Cap 1000 MCG PO DAILY Nutritional Supplement #1 Ref 0 BOTTLE Ferrous Gluconate (Ferrous Gluconate) 240 Mg Tab 240 MG PO DAILY Nutritional Supplement #30 Ref 0 TAB ([Bariatric Bed]) UNITS BARIATRIC BED. one unit. DURATION 99 months MORBID OBESITY #1 Cholecalciferol (Vitamin D3) 5,000 Unit Cap 5000 UNITS PO DAILY vitamin d deficiency Days 30 CAP Dicyclomine (Bentyl) 20 Mg Tab 20 MG PO TID spasm Days 30 TAB Hydrocodone-Acetaminophen (Hydrocodone-Acetaminophen) 5-325 mg Tab 1-2 TAB PO Q4HR PRN PAIN SCALE 1 TO 10 #60 TAB Medroxyprogesterone Acetate (Medroxyprogesterone Acetate) 10 Mg Tab 10 MG PO DAILY bleeding Days 4 TAB Continued Medications: Gabapentin (Gabapentin) 300 Mg Cap 300 MG PO TAKE AT 1330 Pain Management #60 Ref 0 CAP (This prescription has been renewed) Gabapentin (Gabapentin) 300 Mg Cap 300 MG PO TAKE AT 2130 Pain Management #60 Ref 0 CAP (This prescription has been renewed) Gabapentin (Gabapentin) 600 Mg Tab 600 MG PO TAKE AT 0530 Pain Management #60 Ref 0 TAB (This prescription has been renewed) Omeprazole (Prilosec) 20 Mg Cap 20 MG PO DAILY Reflux #30 Ref 0 CAP (This prescription has been renewed) Discontinued Medications: Hydrocodone-Acetaminophen (Lortab) 5-325 Mg Tab 1 TAB PO Q6H PRN PAIN Ref 0 TAB Additional Information Written by Quirino Mobley, acting as scribe for Dr. Ramos on 08/07/16 at 12:56. The documentation accurately reflects the work performed [id number] by de, Dr. Ramos on 08/07/16 at 12:56 Quirino Mobley Aug 07, 2016 12:56 Demarcus Ramos MD Aug 26, 2016 03:27
== END 2016-08-07 16:28 | disposition home or self-care (01) | DRG 592 ==
LOC: NEPE 20:54 → NEDA 04-27 00:01 → N07A 04-27 12:46
PROVIDERS: ADMIT Internal Medicine; ATTEND Internal Medicine
PROC: 30253N1 (ICD-10-PCS; principal; 2016-04-27)
DX: L89.899 Pressure ulcer of other site, unspecified stage (principal); J15.0 Pneumonia due to Klebsiella pneumoniae; L89.159 Pressure ulcer of sacral region, unspecified stage; Z68.45 Body mass index [BMI] 70 or greater, adult; D75.1 Secondary polycythemia; N39.0 Urinary tract infection, site not specified; L03.311 Cellulitis of abdominal wall; E53.8 Deficiency of other specified B group vitamins; F32.9 Major depressive disorder, single episode, unspecified; D50.9 Iron deficiency anemia, unspecified; E66.01 Morbid (severe) obesity due to excess calories; Z74.01 Bed confinement status; N92.0 Excessive and frequent menstruation with regular cycle; G47.33 Obstructive sleep apnea (adult) (pediatric); E55.9 Vitamin D deficiency, unspecified; G89.29 Other chronic pain; K30 Functional dyspepsia; N20.0 Calculus of kidney; R09.02 Hypoxemia; I10 Essential (primary) hypertension; Z87.891 Personal history of nicotine dependence; M79.7 Fibromyalgia; D53.9 Nutritional anemia, unspecified; E88.09 Other disorders of plasma-protein metabolism, not elsewhere classified; M79.3 Panniculitis, unspecified; N94.6 Dysmenorrhea, unspecified; F40.10 Social phobia, unspecified; R62.7 Adult failure to thrive; Z51.5 Encounter for palliative care; Z66 Do not resuscitate; Z86.19 Personal history of other infectious and parasitic diseases
CPT/HCPCS: 36430; 36600; 76937; 80048; 80053; 80076; 81003; 82272; 82306; 82370; 82533; 82550; 82607; 82668; 82728; 82746; 82805; 83540; 83550; 83735; 84100; 84439; 84443; 84481; 85007; 85014; 85018; 85025; 85027; 85610; 85730; 86850; 86900; 86901; 86920; 87040; 87070; 87077; 87186; 87205; 87493; 88300; 90686; 90732; 94010; 94150; 99285; J0696; J1100; J1335; J1650; J1756; J1956; J3370; J3420; J7030; J7050; P9016; Q2038